=== PATIENT | female | born 1950 | race Caucasian/White ===

== ENCOUNTER → 2020-05-20 10:14 | Outpatient (CLI) | payer MEDICARE, SELFPAY ==
--- NOTE | ~2020-05-20 | MM_ITS ---
EXAMINATION: MM screening beba RT w johana HISTORY: Screening right mammogram, history of left mastectomy TECHNIQUE: Craniocaudal and mediolateral oblique 3-D tomosynthesis images were obtained and synthetic 2-D images were generated. CAD analysis was submitted and interpreted. COMPARISON: 10/21/2016, 04/22/2016, 12/04/2014 BREAST PARENCHYMAL COMPOSITION: There are scattered areas of fibroglandular density. FINDINGS: A stable mass in the upper outer quadrant of the breast is considered benign given the lack of interval change. There is no evidence of suspicious mass, calcification, or architectural distort ion to suggest malignancy. There has been no suspicious interval change. IMPRESSION: 1. No mammographic evidence of malignancy. 2. Recommend routine screening mammography in one year. BI-RADS Category 2: Benign finding(s). Reviewed, dictated and finalized at location A. [employer] MAINTENANCE TECHNICIAN
== END ==
PROVIDERS: PCP Family Medicine Adolescent Medicine; Visit Provider Family Medicine Adolescent Medicine
DX: Z12.31 Encounter for screening mammogram for malignant neoplasm of breast (principal)
CPT/HCPCS: 77063; 77067

== ENCOUNTER 2020-06-13 06:14 | Outpatient (CLI) | payer MEDICARE, SELFPAY ==
[2020-06-13 11:18] LABS: Basophils Absolute Auto 0.1 K/mm3 (0.0-0.1); Basophils Percent Auto 0.5 % (0.2-1.2); Eosinophils Absolute Auto 0.1 K/mm3 (0-0.3); Hematocrit 39.1 % (37.0-47.0); Hemoglobin 12.7 g/dL (12.0-15.0); Immature Granulocyte Absolute 0.03 K/mm3 (0.00-0.031); Immature Granulocyte Percent A 0.3 % (0-0.5); Lymphocytes Percent Auto 17.6 % (18.3-44.2); Mean Corpuscular HGB Conc 32.5 g/dl (32-36); Mean Corpuscular Hemoglobin 30.9 pg (26-34); Mean Corpuscular Volume 95.1 fl (80-100); Mean Platelet Volume 9.1 fl (7.4-10.4); Monocytes Percent Auto 9.3 % (2.6-8.5); Neutrophils Absolute Auto 7.7 K/mm3 (1.3-6.7); Neutrophils Percent Auto 71.3 % (45.5-73.1); Platelet Count Result 375 k/mm3 (150-375); Red Blood Count 4.11 M/mm3 (4.2-5.4); Red Cell Distribution Width 14.2 % (11.5-14.5); White Blood Count 10.8 K/mm3 (4.5-10.0)
[2020-06-13 11:28] LABS: INR 0.9; Prothrombin Time 12.5 Seconds (11.1-14.7)
[2020-06-13 11:29] LABS: Alanine Aminotransferase 28 U/L (4-35); Albumin Level 4.1 g/dL (3.5-5.1); Alkaline Phosphatase 82 U/L (38-126); Anion Gap 7 mmol/L (8-16); Aspartate Amino Transferase 38 U/L (14-36); Bilirubin,Total 0.3 mg/dL (0.2-1.3); Blood Urea Nitrogen 30 mg/dL (7-17); Calcium 9.5 mg/dL (8.4-10.2); Carbon Dioxide 31 mmol/L (22-30); Chloride 102 mmol/L (98-107); Estimated Glomerular Filt Rate > 60; Glucose 96 mg/dL (65-105); Partial Thromboplastin Time 25.2 SECONDS (22.3-36.8); Potassium 4.1 mmol/L (3.4-5.0); Sodium 140 mmol/L (137-145)
== END 2020-06-13 06:15 ==
LOC: ANHSURGERY 07-21 06:14
PROVIDERS: PCP Family Medicine Adolescent Medicine; Visit Provider Urology
DX: Z01.812 Encounter for preprocedural laboratory examination (principal); N81.10 Cystocele, unspecified; Z51.81 Encounter for therapeutic drug level monitoring; Z79.899 Other long term (current) drug therapy
CPT/HCPCS: 36415; 80053; 85025; 85610; 85730; 86850; 86900; 86901; 87086; 87088

== ENCOUNTER 2020-06-20 01:47 | Outpatient (CLI) | payer MEDICARE, SELFPAY ==
[2020-06-20 20:00] LABS: SARS-CoV-2 RNA PCR Negative
== END 2020-06-20 01:48 | disposition home or self-care (01) ==
LOC: ANHCOVIDDT 01:47
PROVIDERS: PCP Family Medicine Adolescent Medicine; Visit Provider Urology
DX: Z01.812 Encounter for preprocedural laboratory examination (principal); Z20.828 Contact with and (suspected) exposure to other viral communicable diseases
CPT/HCPCS: 87635; C9803; U0003

== ENCOUNTER 2020-06-23 01:24 | Day surgery (SDC) | payer MEDICARE, SELFPAY ==
[2020-06-13 10:13] VITALS: BMI 25.2
[2020-06-13 11:04] VITALS: BP 146/75; PULSE 64; RESP 16; TEMP 36.7; O2SAT 99
--- NOTE | 2020-06-20 13:38 | WPDANESEPPF ---
Anes - Initial Pre Proc Eval Procedure: Operation Date: 06/23/20 07:30 Proposed Procedures p Robotic Sacrocolpopexy, Possible Urethral Sling - Akil Huff MD s Total Laparoscopic Hysterectomy with Bilateral Salpingo-Oophorectomy - Smiley De La Cruz MD Date/Time: 06/20/20 13:38 Surgeon: Akil Huff MD Pre Op Diagnosis: vaginal prolapse Patient Data Age: 70 Gender: F Height: 1.7 m Weight: 73 kg Last Vital Signs Temp 36.7 C 06/13/20 11:04 Pulse 64 06/13/20 11:04 Resp 16 06/13/20 11:04 BP 146/75 H 06/13/20 11:04 Pulse Ox 99 06/13/20 11:04 Allergies Allergy/AdvReac Type Severity Reaction Status Date / Time codeine AdvReac Unknown Diarrhea Verified 06/23/20 06:03 Home Medications Medication Instructions Recorded Confirmed Type lisinopril 20 mg PO HS 07/22/19 06/23/20 History ascorbic acid (vitamin C) [Vitamin 1,000 mg PO DAILY 06/13/20 06/23/20 History C] aspirin [Aspirin Low Dose] 81 mg PO DAILY 06/13/20 06/23/20 History calcium 600 mg PO DAILY 06/13/20 06/23/20 History [id number] 1 tablet PO DAILY 06/13/20 06/23/20 History multivitamin [Multiple Vitamin] 1 tablet PO DAILY 06/13/20 06/23/20 History [id number]-epa-fish oil [[place] 3] 1 cap PO DAILY 06/13/20 06/23/20 History vitamin B complex 1 cap PO DAILY 06/13/20 06/23/20 History Patient hx anesthesia problems: none Family hx anesthesia problems: none PMFSH Past Medical History Medical History (Updated 06/21/20 @ 15:43 by Akil Huff MD) Arthritis Breast cancer, left Hernia HTN (hypertension) SBO (small bowel obstruction) Strangulation of intestine TIA (transient ischemic attack) Surgical History Surgical History H/O arthroscopy of right knee H/O left mastectomy with implant History of bowel resection History of cholecystectomy Family History Family History (Updated 07/23/19 @ 00:46 by Salena Ramires) Sibling A-fib Social History Social History (Updated 07/23/19 @ 00:44 by Salena Ramires) Smoking status: Never smoker Alcohol intake: current Drinks per week: 2 Substance use: never Living arrangements: with family Additional living arrangements comments: [facility] Gender identity (if verbalized by the patient): Female Spiritual care concerns: No Anes - Eval Final PreProcedure Day of Procedure 06/20/20 13:38 Patient weight: overweight Heart: regular rate and rhythm Lungs: clear to auscultation and normal air movement Airway: Mallampati scale class II Neurological: alert and oriented Last oral intake: >/= 8 hours ASA classification: III Emergent: no Anesthetic plan: proceed Anesthesia type and monitoring: general ETT and standard monitoring Informed Consent: The patient's anesthetic plan and its attendant risks and benefits were discussed with the patient/family/POA. Questions were solicited and answers provided to the satisfaction of the patient/family/POA.
--- NOTE | 2020-06-21 15:40 | PM.IMHP ---
H&P: HPI History of Present Illness Date/Time: 06/21/20 15:40 Chief Complaint: POP/MAO Narrative: Rosalba Turcios is a 70 year old female with POP and MAO Review of Systems Review of Systems: All systems reviewed & are unremarkable except as noted in HPI and below PMFSH Past Medical History Medical History (Updated 06/21/20 @ 15:43 by Akil Huff MD) Arthritis Breast cancer, left Hernia HTN (hypertension) SBO (small bowel obstruction) Strangulation of intestine TIA (transient ischemic attack) Surgical History Surgical History H/O arthroscopy of right knee H/O left mastectomy with implant History of bowel resection History of cholecystectomy Family History Family History (Updated 07/23/19 @ 00:46 by Salena Ramires) Sibling A-fib Social History Social History (Updated 07/23/19 @ 00:44 by Salena Ramires) Smoking status: Never smoker Alcohol intake: current Drinks per week: 2 Substance use: never Additional living arrangements comments: [facility] Gender identity (if verbalized by the patient): Female Spiritual care concerns: No Meds Home Medications and Allergies Home Medications Medication Instructions Recorded Confirmed Type lisinopril 20 mg PO HS 07/22/19 06/13/20 History ascorbic acid (vitamin C) [Vitamin 1,000 mg PO DAILY 06/13/20 06/13/20 History C] aspirin [Aspirin Low Dose] 81 mg PO DAILY 06/13/20 06/13/20 History calcium 600 mg PO DAILY 06/13/20 06/13/20 History [id number] 1 tablet PO DAILY 06/13/20 06/13/20 History multivitamin [Multiple Vitamin] 1 tablet PO DAILY 06/13/20 06/13/20 History tgkej-[id number]-hsm-epa-fish oil [[place] 3] 1 cap PO DAILY 06/13/20 06/13/20 History vitamin B complex 1 cap PO DAILY 06/13/20 06/13/20 History Allergies Allergy/AdvReac Type Severity Reaction Status Date / Time codeine AdvReac Unknown Diarrhea Verified 06/13/20 10:06 Exam Const: General: cooperative and healthy appearing Eyes: General: appearance normal, both eyes and all related structures Neck: Neck: normal visual inspection GI: Inspection: normal to inspection : Bimanual Exam- Adnexa, other: cystocele (+3) and No apex supported (0) Skin: General skin exam: normal color Extrem: General: normal to inspection Assessment and Plan Assessment and plan (1) Uterine prolapse: Code(s): N81.4 - Uterovaginal prolapse, unspecified Status: Acute Assessment and Plan: robotic Sacral Colpopexy (2) MAO (stress urinary incontinence, female): Code(s): N39.3 - Stress incontinence (female) (male) Status: Acute Assessment and Plan: Urethral sling
[2020-06-23] VITALS (16 sets, daily range): BP systolic 81–125; BP diastolic 41–75; PULSE 49–77; RESP 12–18; TEMP 36.2–37.4; O2SAT 96–100
[2020-06-23] MEDS: LACTATED RINGERS 1,000 ML 30 ML IV CONT ×2 (06:52→10:32)
[2020-06-23] MEDS: KETOROLAC 15 MG/ML VIAL (*BKC) IV PUSH ×2 (06:53→15:52)
[2020-06-23] MEDS: ACETAMINOPHEN 500 MG TABLET 1000 MG PO (06:53)
--- NOTE | 2020-06-23 07:12 | WPDHPUPDATE1 ---
History and Physical Update Update Date/Time: 06/23/20 07:12 History and Physical has been reviewed, including an updated exam of the patient. There are NO changes in the patient's condition. Risks, benefits, and alternatives have been discussed and questions answered. Patient agrees to proceed with procedure.
--- NOTE | 2020-06-23 07:16 | WPDHPUPDATE1 ---
History and Physical Update Update Date/Time: 06/23/20 07:16 History and Physical has been reviewed, including an updated exam of the patient. There are NO changes in the patient's condition. Risks, benefits, and alternatives have been discussed and questions answered. Patient agrees to proceed with procedure.
[2020-06-23] MEDS: ceFAZolin 2 GM/D5W 50 ML 2 GM/50 ML BAG IVPB (07:35)
[2020-06-23] MEDS: metroNIDAZOLE 500 MG/ISO 100ML 500 MG/100 ML BAG 100 MG IVPB ×2 (07:45→18:53)
--- NOTE | 2020-06-23 09:25 | PM.PROC ---
Procedure Note - Detailed Date of procedure: 06/23/20 Pre-op diagnosis: vaginal prolapse Post-op diagnosis: same Procedure performed: Laparoscopic supracervical hysterectomy with bilateral salpingo oophorectomy. Description of procedure: The trocars were placed by Dr. Huff. An additional trocars placed in the left lower quadrant trocar site. A 5 mm trocar placed through a 5 mm skin incision made with a scalpel. It was done under direct visualization of the scope. The ureters were identified bilaterally after the patient was placed in a Trendelenburg position. The infundibulopelvic ligaments were isolated, cauterized and transected with LigaSure cautery in the area of the ovary. Moving around the ovary, in a bilateral fashion, the para ovarian tissue was cauterized, transected with LigaSure. The round ligament was cauterized and transected with LigaSure cautery. This was done in a bilateral fashion. The broad ligament was cauterized and transected in a stepwise fashion down to the uterine arteries. This was done in a bilateral fashion as well. The superior branches of the uterine artery were cauterized and transected with LigaSure cautery. Cervix was then transected in the upper 3rd of the body of the cervix using monopolar cautery. The uterus was placed in endobag and sent off to the side in the abdomen. Anesthesia: GETA Surgeon: Smiley De La Cruz MD Estimated blood loss (mL): 20 Drains: No Packing: No Pathology: yes Complications: No immediate complications Condition: stable Disposition: PACU Findings: Atrophic uterus and ovaries. Normal appearing fallopian tubes. The ureters were clearly identified.
--- NOTE | 2020-06-23 10:25 | PM.PROC ---
Procedure Note - Detailed Date of procedure: 06/23/20 Pre-op diagnosis: vaginal prolapse Uterine prolapse Stress urinary incontinence Post-op diagnosis: same Procedure performed: Robotic assisted laparoscopic sacral colpopexy Mid urethral sling (transobturator sling) Cystoscopy Description of procedure: Anesthesia: General She understood the risks of bleeding, infection, damage to surrounding organs, bowel injury, bowel obstruction, recurrence of prolapse, persistent or recurrent stress incontinence, mesh related complications including exposure and extrusion, diskitis, postoperative voiding dysfunction including incontinence and retention, hip and leg pain, dyspareunia, and she agrees to proceed. She was correctly identified and informed consent was obtained. She was brought to the operating room. She was given general anesthesia. She was placed in the dorsal lithotomy position. All pressure points were padded. She was given appropriate perioperative antibiotics. Time-out performed. I anesthetized the skin 3 fingerbreadths cephalad to the umbilicus. I incised the skin. I dissected down to locate the fascia. I grasped the fascia with Tomi clamps. I entered the fascia sharply. I placed Vicryl sutures for later fascial closure. I placed a midline trocar. Under direct vision 2 additional trocars were placed on the right and left upper quadrant. She was placed in steep Trendelenburg. There were some omental adhesions that I took down sharply. Her industrial maintenance technician performed the portion of the procedure and left the specimen and a sac which was extracted. I then docked the robot and sat at the console. With the Sizer in the vagina I created a plane on the anterior and posterior vaginal wall. This was done for several cm taking great care not to injure the vagina, bladder, or rectum. I introduced the mesh into the abdomen. I sewed the anterior leaflet of mesh on the anterior vaginal wall and posterior leaf of the mesh on the posterior vaginal wall with several Cushing-Saul sutures taking great care not to go through and through. I then reflected the colon laterally. I opened up the posterior peritoneum over the sacral promontory. I carried this into the cul-de-sac. I kept the ureters lateral. I freed up the edges. I located the anterior longitudinal ligament of the sacrum. I tensioned the mesh appropriately. I did a vaginal exam to ensure prolapse reduction without undue tension. I then sewed the proximal leaflet of mesh onto the ligament with 3 sutures of 2 0 Cushing-Saul. Next the mass was meticulously retroperitonealized with a running 2 0 Monocryl suture. I allowed the colon to go back into its normal anatomic location. There is no signs of any impingement or stricturing. The abdomen was exited. Fascia was closed. Skin was closed with Monocryl and glue. She was repositioned and prepped for urethral sling. I marked out the thigh incisions. I anesthetize the skin and made those incisions. I anesthetized the anterior vaginal wall over the mid urethra. I made a 1 cm incision. I dissected out laterally taking great care not to injure the urethra or the vaginal wall. I next passed the helical trocars to 1st on the left and then on the right. This was done from the thigh incision towards the vaginal incision. The sling was connected to the trocars and brought out through the thigh incision. I tensioned the sling appropriately. I cut and removed the plastic sheaths. I then closed the incision with 2 0 Vicryl. I then performed cystoscopy. The bladder is examined. There was no tumors, stones, foreign bodies, surgical artifact. Both ureters were seen to excrete clear yellow urine. There is no surgical artifact in the urethra. Catheter was then replaced. She was awakened and transferred to the PACU in stable condition. Anesthesia: GLMA Surgeon: Akil Huff MD Drains: Yes (Mcintosh catheter) Packing: Yes Complications: No immediate complicati
[2020-06-23] MEDS: KCL 20 MEQ/D5/0.45% SOD CHL 1,000 ML 100 ML IV CONT ×2 (11:15→22:34)
[2020-06-23] MEDS: HYDROcodone/acetaminophen (*CRX) 5-325 MG TABLET 1 TAB PO (22:37)
[2020-06-24] MEDS: metroNIDAZOLE 500 MG/ISO 100ML 500 MG/100 ML BAG 100 MG IVPB ×2 (00:20→11:32)
[2020-06-24 04:00] VITALS: BP 98/57; PULSE 78; RESP 16; TEMP 36.2; O2SAT 97
[2020-06-24] MEDS: HYDROcodone/acetaminophen (*CRX) 5-325 MG TABLET 1 TAB PO ×2 (04:59→08:27)
[2020-06-24] MEDS: KCL 20 MEQ/D5/0.45% SOD CHL 1,000 ML 100 ML IV CONT (05:56)
[2020-06-24] MEDS: DOCUSATE SODIUM 100 MG CAPSULE PO (08:28)
[2020-06-24 08:40] VITALS: BP 104/59; PULSE 75; RESP 16; TEMP 36.8; O2SAT 98
--- NOTE | 2020-06-24 08:57 | WPDANESPN ---
Anes - Prog Note Post-Op Date/Time: 06/24/20 08:57 Cardiovascular status: normal Respiratory status: normal Airway patency: baseline Mental status: baseline Post-Op hydration status: normal Vital Signs: Last Vital Signs Temp 36.2 C L 06/24/20 04:00 Pulse 78 06/24/20 04:00 Resp 16 06/24/20 04:00 BP 98/57 L 06/24/20 04:00 Pulse Ox 97 06/24/20 04:00 Pain Score (VAS): 4 I/O: Intake & Output 06/23/20 06/24/20 06/24/20 23:59 07:59 15:59 Intake Total 1200 1200 Output Total 75 450 Balance 1125 750 Post-procedural complaints: none and nausea Patient Feedback: Patient satisfied with anesthetic care.
--- NOTE | 2020-06-24 09:15 | PC.NURSE ---
Patient called out to nurses station stating that she was nauseous. Upon entering the room, patient was in chair at bedside. Patient stated that she was feeling nauseated on and off and a little dizzy. Vital signs taken 110/51 100% Room Air 16 71BPM. Denies need for medication at this time. 06/24/2020 0915
[2020-06-24] MEDS: ONDANSETRON INJ 4 MG/2 ML VIAL IV PUSH (09:40)
--- NOTE | 2020-06-24 09:40 | PC.NURSE ---
Patient called out to nurses station stating that she was experiencing a dull pain in her chest and feeling nauseated again. Vital signs 96/66 72BPM, assessment completed- all systems WNL. Zofran 4mg given IVP and crackers provided. This RN assisted patient back into bed and stayed bedside to assure that patient was feeling better. 06/24/2020 0940
--- NOTE | 2020-06-24 10:15 | PC.NURSE ---
Patient states she is feeling much better and is resting in bed at this time. 06/24/2020 1013
--- NOTE | 2020-06-24 11:30 | PC.NURSE ---
Patient requested to try to sit in a chair at bedside because she is feeling much better. This RN assisted patient to chair, she tolerated activity well. Patient also ate crackers and drank a soda and tolerated that well.
--- NOTE | 2020-06-24 13:15 | PC.NURSE ---
This RN used bladder scanner post void, 220 documented. Phone call placed to Dr. Huff at 13:15 06/24/2020.
--- NOTE | 2020-06-24 14:14 | PC.NURSE ---
Call placed to Dr. Clay office. Spoke to nurse practitioner (Mi) and gave report regarding patients output and bladder scanner results. Verbal orders to replace edouard catheter and discharge patient home with edouard catheter. Call office once patient is discharged to schedule appointment for Tuesday morning to do a void trial.
[2020-06-24 16:00] VITALS: BP 104/59; PULSE 75; RESP 16; TEMP 36.8; O2SAT 98
[2020-06-24] MEDS: ACETAMINOPHEN 325 MG TABLET 650 MG PO (17:39)
--- NOTE | 2020-06-24 18:35 | PC.NURSE ---
1600 Spoke with Lesly SIMENTAL at Dr. Huff's office. Pt has voided 400cc in one void. Bladder scanned- [address] Huff is ok with patient being discharged home without catheter. She is to call to make an appointment on Tuesday to be seen in the office. I informed her to do so and that if she has unexpected complications or is unable to void she is to come to the ER, she expressed understanding. 1740 Delay in discharge due to computer issues. Discharge instructions would not print. IS help desk informed, situation resolved.
== END 2020-06-24 17:45 | disposition home or self-care (01) ==
LOC: ANHSURGERY 08:21 → ANHOB2 11:48
PROVIDERS: Obstetrics & Gynecology; PCP Family Medicine Adolescent Medicine; Visit Provider Urology
PROC: (CPT 57425; principal; 2020-06-23 07:30)
PROC: 0UT9FZZ Resection of Uterus, Via Natural or Artificial Opening With Percutaneous Endoscopic Assistance (ICD-10-PCS; CPT 58542; 2020-06-23 07:30)
DX: N81.4 Uterovaginal prolapse, unspecified (principal); N39.3 Stress incontinence (female) (male); N84.0 Polyp of corpus uteri; N73.6 Female pelvic peritoneal adhesions (postinfective); N80.0 Endometriosis of uterus; D25.1 Intramural leiomyoma of uterus; M19.90 Unspecified osteoarthritis, unspecified site; Z85.3 Personal history of malignant neoplasm of breast; K46.9 Unspecified abdominal hernia without obstruction or gangrene; I10 Essential (primary) hypertension; Z86.73 Personal history of transient ischemic attack (TIA), and cerebral infarction without residual deficits; Z79.82 Long term (current) use of aspirin
CPT/HCPCS: 58542; 57425; 51992; S2900; 88307; 99199; A9270; C1771; C1781; J0690; J1100; J1170; J1885; J2250; J2370; J2405; J2704; J2710; J3010; J3480; J7030; J7120

== ENCOUNTER 2021-09-17 09:50 | Outpatient (CLI) | payer MEDICARE, SELFPAY ==
--- NOTE | ~2021-09-17 | US_ITS ---
US abdomen limited INDICATION: Hepatomegaly PROCEDURE: Realtime right upper abdominal ultrasound. COMPARISON: No prior studies for comparison. FINDINGS: The pancreas is normal without focal mass or pancreatic ductal dilation there is hepatomega ly. No focal hepatic masses or abnormal echotexture is seen.. Liver echotexture is normal without fo eladio mass or intrahepatic biliary dilatation. There is normal directional flow in the portal vein. Gallbladder is surgically absent. Common bile duct measures 7 mm. No sonographic Isidro's sign. Inc idental note is made of a 2 cm right renal cyst. IMPRESSION: 1: Hepatomegaly. 2: Status post cholecystectomy with expected prominence of the common bile duct. Reviewed, dictated and finalized at location B. IMPRESSION: 1: Hepatomegaly. 2: Status post cholecystectomy with expected prominence of the common bile duct .
== END 2021-09-17 09:51 | disposition home or self-care (01) ==
LOC: ANHIMG 09:53
PROVIDERS: PCP Family Medicine Adolescent Medicine; Visit Provider Physician Assistant
DX: R16.0 Hepatomegaly, not elsewhere classified (principal); Z90.49 Acquired absence of other specified parts of digestive tract; N28.1 Cyst of kidney, acquired
CPT/HCPCS: 76705

== ENCOUNTER 2021-11-25 07:01 | Outpatient (CLI) | payer MEDICARE, SELFPAY ==
--- NOTE | ~2021-11-25 | CT_ITS ---
EXAMINATION: CT abdomen pelvis w con DATE: 11/25/2021 07:38 INDICATION: Hepatomegaly, not elsewhere classified. Weight loss. TECHNIQUE: Computed tomography (CT) of the abdomen and pelvis was performed with 75 mL Omnipaque 300 intravenous contrast. Automated exposure control and iterative reconstruction technique were employed . The dose-length product was 420.80 mGy-cm. COMPARISON: CT abdomen 03/02/2008, ultrasound 09/17/2021 FINDINGS: The visualized portions of the lung bases demonstrate mild atelectasis. No pleural effusion . The heart size is normal. No pericardial effusion. There are cysts in the liver measuring up to 8 m m. Calcifications in the liver and spleen are consistent with old granulomatous disease. There are ch anges of cholecystectomy. The pancreas, adrenal glands, and left kidney are normal. There is a 2.0 cm cyst in right kidney. There is diverticulosis of the colon without evidence of diverticulitis. There are no dilated loops of bowel. The appendix is not visualized. There are changes of right inguinal h ernia repair. There is an anastomosis in the small bowel. There are no pathologically enlarged lymph nodes. There is no free intraperitoneal fluid. There is a plug from left inguinal hernia repair. Ther e is severe lumbar spondylosis. Lumbar dextroscoliosis is noted. IMPRESSION: 1. No evidence of malignancy. Reviewed, dictated and finalized at location A.
[2021-11-25 07:28] LABS: Estimated Glomerular Filt Rate > 60
== END 2021-11-25 07:02 | disposition home or self-care (01) ==
PROVIDERS: PCP Family Medicine Adolescent Medicine; Visit Provider Internal Medicine Gastroenterology
DX: R16.0 Hepatomegaly, not elsewhere classified (principal); R43.8 Other disturbances of smell and taste; R63.4 Abnormal weight loss
CPT/HCPCS: 74177; Q9967

== ENCOUNTER → 2022-03-26 13:31 | Outpatient (CLI) | payer MEDICARE, SELFPAY ==
--- NOTE | ~2022-03-26 | XR_ITS ---
XR chest 2V DATE: 03/26/2022 14:06 INDICATION: Dyspnea TECHNIQUE: 2 views COMPARISON: 07/01/2009 portable AP chest FINDINGS: There is bilateral hyperinflation, increased retrosternal airspace and relative flattening the diaphragm, consistent with COPD. Mild bilateral apical scarring. Likely chronic minimal blunting of the right costophrenic angle. Mild discoid atelectasis or scarring at the base of the left lower lobe. Approximately 8 mm nodular density overlying the right lung base, possibly nipple shadow; recommend P A repeat view with nipple markers. No pulmonary infiltrate or consolidation, pleural effusion or pulm onary vascular congestion or pneumothorax is noted. Heart size. IMPRESSION: Probable nipple shadow projecting over the right lung base; recommend repeat PA view with nipple markers COPD Mild bilateral apical and left basilar scarring No active pulmonary disease Reviewed, dictated and finalized at location B. IMPRESSION: Probable nipple shadow projecting over the right lung base; recomme nd repeat PA view with nipple markers COPD Mild bilateral apical and left basilar scarring No active pulmonary disease
== END ==
PROVIDERS: PCP Family Medicine Adolescent Medicine; Visit Provider Family Medicine Adolescent Medicine
DX: R06.00 Dyspnea, unspecified (principal); R06.02 Shortness of breath; J44.9 Chronic obstructive pulmonary disease, unspecified; R91.8 Other nonspecific abnormal finding of lung field
CPT/HCPCS: 71046

== ENCOUNTER → 2022-04-02 10:50 | Outpatient (CLI) | payer MEDICARE, SELFPAY ==
--- NOTE | ~2022-04-02 | XR_ITS ---
XR chest 1V 04/02/2022 11:03 Indication: Dyspnea. Procedure: PA view of the chest Comparison: Comparison to multiple prior studies sequentially, with oldest reviewed study dated 02/23. Findings: Nodular density in the right lung base corresponds to nipple marker. The lungs are hyperinf lated which is consistent with, but not diagnostic of chronic obstructive pulmonary disease. There is chronic apical pleural thickening/scarring. No acute focal pneumonia, edema, pleural effusion or pne umothorax. No acute osseous abnormality. Impression: 1: No acute cardiopulmonary disease. Reviewed, dictated and finalized at location B. Impression: 1: No acute cardiopulmonary disease.
== END ==
PROVIDERS: PCP Family Medicine Adolescent Medicine; Visit Provider Family Medicine Adolescent Medicine
DX: R06.00 Dyspnea, unspecified (principal)
CPT/HCPCS: 71045

== ENCOUNTER 2022-04-13 08:06 | Outpatient (CLI) | payer MEDICARE, SELFPAY ==
--- NOTE | 2022-04-13 13:00 | WPDPFTINT ---
PFT Procedure Performed PFT Procedure Performed Spirometry with Pre/Post Bronchodilator Plethysmography (Lung Vol) Diffusing Cap (DLCO) Flow Vol Loop PFT Interpretation DOS: 04/13/2022 REQUESTING: Dr. Mainor Wallace REASON FOR TESTING: dyspnea PULMONARY FUNCTION TESTS Results are reliable and reproducible. Spirometry: Forced vital capacity is 104% predicted, 3.18 L, normal. FEV1 87% predicted, 2.02 L, normal. FEV1/ FVC ratio is 64% which is at the lower end of normal. [id number]% is 59% 1.12 L which is still in the normal range. No bronchodilator was given. Lung volumes: Total lung capacity is 5.68 L, 103%. Residual volume is 2.38 L, 99%, normal. RV/TLC is 42, normal. There is no hyperinflation or air trapping. Airway resistance is 145, mildly elevated. Diffusion: DLCO 15.8 ml/min/mmHg, on the low end of normal, 74% predicted. DLCO/VA 3.78 ml/min/mmHg/L, 92% predicted, normal. Flow volume loop: There is mild flattening of the inspiratory limb which may represent a variable extrathoracic obstruction. IMPRESSION: This study shows a normal spirometry, absence of airflow obstruction, normal lung volumes and mild flattening of the expiratory limb which might indicate a variable extrathoracic obstruction. Some examples of variable extrathoracic obstruction may include mobile tumors, polychondritis, vocal cord paralysis, and extrathoracic tracheomalacia. Clinical correlation is recommended. No bronchodilator was given. The report indicates that the patient has a history of COVID. No prior studies to compare. There is nothing on this study that indicates she has post-COVID changes in airflow or diffusion. Melissa Busby MD
== END 2022-04-13 08:07 | disposition home or self-care (01) ==
PROVIDERS: PCP Family Medicine Adolescent Medicine; Visit Provider Family Medicine Adolescent Medicine
DX: R06.00 Dyspnea, unspecified (principal)
CPT/HCPCS: 94375; 94726; 94729

== ENCOUNTER → 2022-04-15 12:01 | Outpatient (CLI) | payer MEDICARE, SELFPAY ==
--- NOTE | ~2022-04-15 | MR_ITS ---
EXAMINATION: MR cervical spine wo/w con, MR thoracic spine wo/w con, MR sacrum wo/w con, MR lumbar sp ine wo/w con DATE: 04/15/2022 14:33 INDICATION: Myelitis with numbness in the ankles, feet and abdomen and bilateral leg weakness. TECHNIQUE: 1. Magnetic resonance imaging (MRI) of the cervical spine was performed without and with 12 mL Multih ance intravenous contrast. Sequences included sagittal T2-weighted FSE, sagittal T2-weighted FS FSE, sagittal T1-weighted FSE, axial T2-weighted FSE, and axial T1-weighted SE. Postcontrast sequences inc luded sagittal T1-weighted FS FSE, and axial T1-weighted FS SE. 2. MRI of the thoracic spine was performed without and with 12 mm MultiHance intravenous contrast uti lizing the same contrast bolus. Sagittal localizer T1-weighted FSE of the cervicothoracic spine was o btained. Sequences included sagittal T2-weighted FSE, sagittal T2-weighted FS FSE, sagittal T1-weight ed FSE and axial T1-weighted SE. Postcontrast sequences included axial T2-weighted FSE, sagittal T1-w eighted FS FSE, and axial T1-weighted FS SE. 3. MRI of the lumbar spine was performed without and with 12 mm MultiHance intravenous contrast utili zing the same contrast bolus. Sequences included sagittal T2-weighted FSE, sagittal T2-weighted FS FS E, and sagittal and axial T1-weighted FSE. Postcontrast sequences included axial T2-weighted FSE, sag ittal T1-weighted FSE, and axial and sagittal T1-weighted FS FSE. 4. MRI of the sacrum was performed without and with 12 mm MultiHance intravenous contrast utilizing t he same contrast bolus. Sequences included sagittal T2-weighted FS FSE , oblique axial T1-weighted FS E and T2-weighted FS FSE, oblique coronal T1-weighted FSE, T2-weighted FSE and T2-weighted FS FSE and postcontrast oblique axial and oblique coronal T1-weighted FS FSE. COMPARISON: Lumbar spine MR dated 11/17/[address] abdomen and pelvis dated 11/25/2021 FINDINGS: Cervical spine: 1-2 mm retrolisthesis C4 on C5 and 2 mm retrolisthesis C6 on C7. Vertebral body heights are normal. T1 and T2 hyperintense hemangioma at the left side of C7. Bone marrow signal intensity is otherwise n ormal. Moderate disc height loss at C3-C4, C5-C6 and C6-C7. Mild disc height loss at C4-C5. Cord sign al intensity is normal. Cervical soft tissues are unremarkable. No abnormally enhancing cortical bone lesions identified. The following disc levels are specifically discussed: C2-C3: The disc does not extend beyond the endplate margin. There is mild left uncovertebral joint os teoarthritis. There is moderate bilateral facet joint osteoarthritis. There is mild left neural stella inal stenosis. There is no central canal stenosis. C3-C4: Disc is minimally bulging. There is moderate left and severe right uncovertebral joint osteoar thritis. There is mild right and moderate left facet joint osteoarthritis. There is mild right and mi ld to moderate left neural foraminal stenosis. There is no central canal stenosis. C4-C5: Disc is mildly bulging. There is moderate bilateral uncovertebral joint osteoarthritis. There is mild bilateral facet joint osteoarthritis. There is mild right and mild to moderate left neural fo raminal stenosis. There is no central canal stenosis. C5-C6: The disc does not extend beyond the endplate margin. There is moderate to severe right and sev ere left uncovertebral joint osteoarthritis. There is severe bilateral facet joint osteoarthritis. Th ere is moderate left and mild to moderate right neural foraminal stenosis. There is no central canal stenosis. C6-C7: Disc is bulging. There is severe bilateral uncovertebral joint osteoarthritis. There is modera te bilateral facet joint osteoarthritis. There is moderate left and mild right neural foraminal steno sis. There is mild central canal stenosis. C7-T1: The disc does not extend beyond the endplate margin. There is no uncovertebral joint osteoarth
== END ==
PROVIDERS: PCP Family Medicine Adolescent Medicine
DX: G04.91 Myelitis, unspecified (principal); M47.812 Spondylosis without myelopathy or radiculopathy, cervical region; M47.814 Spondylosis without myelopathy or radiculopathy, thoracic region; M41.84 Other forms of scoliosis, thoracic region; M16.0 Bilateral primary osteoarthritis of hip; J90 Pleural effusion, not elsewhere classified; M47.816 Spondylosis without myelopathy or radiculopathy, lumbar region
CPT/HCPCS: 72156; 72157; 72158; 72197; A9577

== ENCOUNTER → 2022-05-25 08:00 | Outpatient (CLI) | payer MEDICARE, SELFPAY ==
--- NOTE | ~2022-05-25 | US_ITS ---
US abdomen complete EXAMINATION: US Abdomen Complete INDICATION: Elevated liver enzymes. Possible ascites. PROCEDURE: Realtime High Resolution abdomen ultrasound. COMPARISON: Ultrasound dated 09/17/2021 FINDINGS: No bladder is surgically absent. Common bile duct measures 7.5 mm. Liver echotexture within normal limits without focal mass. Pancreas within normal limits. Pancreati c tail is obscured by bowel gas. Spleen is unremarkeable. Renal echotexture is within normal limits bilaterally without hydronephrosis, contour deforming mass or renal stone. Right kidney measures 10 c m. Left kidney measures 11.1 cm. There is a right renal cyst measuring 2.5 cm. Visualized aspects of the aorta and IVC are within normal limits. Portal vein is patent. No sonograph ic Isidro's sign indicated by the technologist. IMPRESSION: 1: Right renal cyst measuring 2.5 cm. Reviewed, dictated and finalized at location B. MS SUPERVISOR
== END ==
PROVIDERS: PCP Family Medicine Adolescent Medicine; Visit Provider Family Medicine Adolescent Medicine
DX: N28.1 Cyst of kidney, acquired (principal); R60.9 Edema, unspecified
CPT/HCPCS: 76700

== ENCOUNTER 2022-06-11 15:35 | Emergency (ER) | payer MEDICARE, SELFPAY ==
--- NOTE | ~2022-06-11 | CT_ITS ---
EXAMINATION: CT abdomen pelvis w con DATE: 06/11/2022 23:02 INDICATION: Abdominal pain, nausea and constipation TECHNIQUE: Computed tomography (CT) of the abdomen and pelvis was performed with 100 mL Omnipaque-350 intravenous contrast. Automated exposure control and iterative reconstruction technique were employe d. The dose-length product was 279.83 mGy-cm. COMPARISON: 11/25/2021 FINDINGS: Chronic tree-in-bud opacity right middle lobe likely sequela of chronic infection. Also consistent wi th old granulomatous disease. Small calcified nodules in the right middle lobe, spleen and at the dom e of the liver. Heart size is normal. No pericardial or pleural effusion. Partially visualized left b reast implant. Cholecystectomy clips the gallbladder fossa. Hepatomegaly with diffuse hepatic steatos is. A few small scattered low-attenuation hepatic cysts. Pancreas, bilateral adrenal glands and left kidney are normal. 2.6 cm right renal cyst. Mcintosh catheter in the bladder. Small bilateral fat-contai shandra inguinal hernias. Postoperative change of prior right inguinal hernia repair. Postoperative tapia ges along the small bowel with anastomotic suture line in the anterior right pelvis. No bowel obstruc tion. Moderate to large amount of stool scattered throughout the colon. There are few diverticula patricia ng the sigmoid colon without adjacent from 3 change to suggest diverticular colitis. Small amount of primarily perihepatic ascites. Moderate to severe lower lumbar spondylosis with 7 mm anterolisthesis L4 on L5. IMPRESSION: 1. Moderate to large amount of stool scattered throughout the colon consistent with given history of constipation. No bowel obstruction. 2. Hepatomegaly with diffuse hepatic steatosis. 3. Minimal ascites. Reviewed, dictated and finalized at location A. S DESIGNER
[2022-06-11 15:49] VITALS: BP 74/51; PULSE 93; RESP 18; TEMP 37; O2SAT 100
[2022-06-11 16:10] VITALS: BP 108/56
[2022-06-11 16:15] LABS: Basophils Percent Auto 0.4 % (0.2-1.2); Eosinophils Absolute Auto 0.2 K/mm3 (0-0.3); Eosinophils Percent Auto 2.2 % (0-4.4); Hematocrit 40.6 % (37.0-47.0); Hemoglobin 13.6 g/dL (12.0-15.0); Immature Granulocyte Absolute 0.03 K/mm3 (0.00-0.031); Immature Granulocyte Percent A 0.3 % (0-0.5); Lymphocytes Absolute Auto 1.66 K/mm3 (0.9-3.2); Lymphocytes Percent Auto 15.3 % (18.3-44.2); Mean Corpuscular HGB Conc 33.5 g/dl (32-36); Mean Corpuscular Hemoglobin 31.8 pg (26-34); Mean Corpuscular Volume 94.9 fl (80-100); Mean Platelet Volume 9.2 fl (7.4-10.4); Monocytes Percent Auto 9.5 % (2.6-8.5); Neutrophils Absolute Auto 7.9 K/mm3 (1.3-6.7); Neutrophils Percent Auto 72.3 % (45.5-73.1); Platelet Count Result 394 k/mm3 (150-375); Red Blood Count 4.28 M/mm3 (4.2-5.4); Red Cell Distribution Width 15.2 % (11.5-14.5); White Blood Count 10.9 K/mm3 (4.5-10.0)
[2022-06-11 16:25] LABS: Alanine Aminotransferase 74 U/L (6-35); Albumin Level 2.4 g/dL (3.5-5.1); Alkaline Phosphatase 123 U/L (38-126); Anion Gap 0 mmol/L (8-16); Aspartate Amino Transferase 97 U/L (14-36); Bilirubin,Total 0.1 mg/dL (0.2-1.3); Blood Urea Nitrogen 34 mg/dL (7-17); Carbon Dioxide 30 mmol/L (22-30); Chloride 98 mmol/L (98-107); Estimated CRCL calculation 36 ml/min; Estimated Glomerular Filt Rate 44; Glucose 97 mg/dL (65-110); Potassium 3.6 mmol/L (3.4-5.0); Sodium 128 mmol/L (137-145)
[2022-06-11 16:33] LABS: NT Pro B Type Natriuretic Pept 5150 pg/mL (5-100)
[2022-06-11 18:37] LABS: Appearance Urine Clear (Clear); Bilirubin Urine Negative (Negative); Blood Urine 1+ (Negative); Color Urine Yellow (Yellow); Glucose Urine UA Trace mg/dL (Negative); Ketones Urine Negative (Negative); Leukocyte Esterase Ur Negative LEU/UL (Negative); Nitrate Urine Negative (Negative); Protein Urine 3+ mg/dL (Negative); Urobilinogen Urine 0.2 mg/dL (<2.0); pH Urine 6.5 (5.0-9.0)
[2022-06-11 18:39] LABS: Mucus Urine Rare /lpf; RBC Urine 0-2 /hpf (0-2); Squamous Epithelial Cell Urine Occasional /hpf (Few)
[2022-06-11 18:40] LABS: Add Urine Microscopic? YES
[2022-06-11 19:31] VITALS: BP 109/64; PULSE 79; TEMP 36.3; O2SAT 100
[2022-06-11 22:42] VITALS: BP 107/64; PULSE 81; RESP 17; O2SAT 100
--- NOTE | 2022-06-11 22:43 | ED.FEMALEGU ---
HPI - Female Genitourinary General Chief complaint: Urogenital-Female Stated complaint: Urinary sx. Time Seen by Provider: 06/11/22 21:58 History of Present Illness HPI Narrative: 72-year-old female here for evaluation of multiple medical complaints. First patient is reporting urinary retention. She has a history of urinary retention and underwent a pelvic sling procedure with Dr. Arredondo in 2019. States that she has had intermittent issues with urinary retention since then, but over the past 2 days the retention has been more severe. Reports several episodes of dribbling urine and a sensation of incomplete void. Denies dysuria, urgency or hematuria. Next, patient is complaining of constipation for the past several months. She has seen her PCP for this issue; has been taking MiraLAX and prune juice, but states that her bowel movements have been less frequent. She does have a history of lumbar stenosis, denies saddle anesthesia or back pain. Next, she is complaining of bilateral lower extremity swelling for the past 2 months. Patient states that she had an echocardiogram ordered by her PCP recently that showed a normal EF. No chest pain, shortness of breath. Related Data Home Medications Medication Instructions Recorded Confirmed ascorbic acid (vitamin C) 1,000 mg 1,000 mg PO DAILY 06/13/20 03/26/22 tablet,extended release (Vitamin C ER) calcium 600 mg capsule 600 mg PO DAILY 06/13/20 03/26/22 glucosamine 250 mj-inxos-zsm 200 1 tablet PO DAILY 06/13/20 03/26/22 mg-D3 1,500 ciiy-G-cgrkq-herbs tablet qachg3-hsa-ssl-other avitk2c-sinz 1 cap PO DAILY 06/13/20 03/26/22 oil 350 mg- 400 mg capsule zinc 50 mg tablet 50 mg PO DAILY 09/07/21 03/26/22 aspirin 81 mg tablet,delayed 81 mg PO DAILY 10/01/21 03/26/22 release (Adult Aspirin Regimen) alpha lipoic acid 100 mg capsule 100 mg PO BID 03/26/22 03/26/22 thiamine HCl (vitamin B1) 100 mg 50 mg PO DAILY 03/26/22 03/26/22 tablet furosemide 20 mg tablet 20 mg PO QAM 05/25/22 Allergies Allergy/AdvReac Type Severity Reaction Status Date / Time nitrofurantoin AdvReac Mild Nausea Verified 06/08/22 12:56 codeine AdvReac Unknown Diarrhea Verified 06/08/22 12:56 Review of Systems Review of Systems: Gen.: Denies fevers or chills Eyes: Denies eye pain or visual change ENT: Denies congestion Respiratory: Denies shortness of breath or cough CV: Denies chest pain or palpitations GI: Reports constipation. Denies abdominal pain nausea, emesis or diarrhea reports urinary retention. Denies burning, urgency, frequency or hematuria Musculoskeletal: Reports leg swelling. Denies back pain or muscle pain Neuro: Denies numbness, tingling, weakness or focal weakness Skin: Denies rash Except as documented, all other systems reviewed and negative REPLACED BY [facility] Past Medical History Medical History Arthritis Breast cancer, left (2006) Hernia HTN (hypertension) Hx of breast cancer Pure hypercholesterolemia, unspecified SBO (small bowel obstruction) (2007) Strangulation of intestine TIA (transient ischemic attack) Unilateral primary osteoarthritis, right knee Surgical History Surgical History H/O arthroscopy of right knee H/O left mastectomy (2006) with implant History of abdominal surgery (2007) Lysis of adhesions (laparoscopic) History of bowel resection (2006) For infarction History of cholecystectomy History of hernia repair (2008) Right femoral hernia History of hysterectomy 06/2020 Family History Family History Sibling A-fib Father Carcinoma of colon Cerebrovascular accident Colon polyp Mother Hypertension Heart disease A-fib Grandparent Diabetes mellitus Other Breast cancer Social History Social History (Reviewed 06/08/22 @ 12:56 by Adelita Pressley MA
--- NOTE | 2022-06-11 22:55 | PC.NURSE ---
Patient taken to CT via stretcher at this time.
[2022-06-12 01:07] VITALS: BP 107/67; PULSE 80; RESP 17; O2SAT 97
== END 2022-06-12 01:08 | disposition home or self-care (01) ==
PROVIDERS: Nurse Practitioner Family; Emergency Provider Physician Assistant; PCP Family Medicine Adolescent Medicine
DX: R33.9 Retention of urine, unspecified (principal); I10 Essential (primary) hypertension; E78.00 Pure hypercholesterolemia, unspecified; M17.11 Unilateral primary osteoarthritis, right knee; Z85.3 Personal history of malignant neoplasm of breast; Z86.73 Personal history of transient ischemic attack (TIA), and cerebral infarction without residual deficits; Z90.12 Acquired absence of left breast and nipple; Z90.49 Acquired absence of other specified parts of digestive tract; Z90.710 Acquired absence of both cervix and uterus; Z79.82 Long term (current) use of aspirin
CPT/HCPCS: 36415; 51702; 74177; 80053; 81001; 83880; 85025; 99284; Q9967

== ENCOUNTER 2022-06-14 09:03 | Inpatient (IN) | payer MEDICARE, SELFPAY ==
[2022-06-14] VITALS (13 sets, daily range): BP systolic 99–135; BP diastolic 61–69; PULSE 71–88; RESP 11–20; TEMP 36.4–36.6; O2SAT 95–100; BMI 21.0
--- NOTE | ~2022-06-14 | US_ITS ---
EXAMINATION: US renal BI DATE: 06/14/2022 23:53 INDICATION: Renal failure. TECHNIQUE: Multiple ultrasound grayscale images of the kidneys were obtained. COMPARISON: CT abdomen and pelvis 06/14/2022 FINDINGS: The right kidney measures 10.2 x 4.1 x 5.6 cm. The left kidney measures 11.9 x 5.0 x 6.1 cm. The righ t kidney demonstrates increased parenchymal echogenicity, consistent with nephropathy. There is a 2.4 cm cyst in right kidney. There is no hydronephrosis. The bladder is decompressed. IMPRESSION: 1. Normal kidney sizes. No hydronephrosis. 2. Increased right-sided renal parenchymal echogenicity, consistent with nonspecific nephropathy. Reviewed, dictated and finalized at location A. GER LABOR RELATIONS IMPRESSION: 1. Normal kidney sizes. No hydronephrosis. 2. Increased right-sided renal parenchymal echogenicity, consistent with nonspe cific nephropathy.
--- NOTE | ~2022-06-14 | CT_ITS ---
EXAMINATION: CT abdomen pelvis wo/w con DATE: 06/14/2022 11:36 INDICATION: Hematuria. Abdominal pain. TECHNIQUE: Computed tomography (CT) of the abdomen and pelvis was performed without and with intraven ous contrast using a total of 130 mL Omnipaque-350 intravenous contrast with a double-bolus technique for simultaneous opacification of the renal parenchyma and renal collecting system. Automated exposu re control and iterative reconstruction technique were employed. The dose-length product was 561.52 m Gy-cm. COMPARISON: CT abdomen and pelvis 06/11/2022, 11/25/2021 FINDINGS: The visualized portions of the lung bases demonstrate mild atelectasis. There are tree-in-bud opacifi cations opacities in right middle lobe, consistent with chronic infection. There is mild bronchiectas is in right middle lobe. There are small pleural effusions. The heart size is normal. There are coron jess artery calcifications. No pericardial effusion. Partially visualized is a left breast implant. Th ere are cysts in the liver measuring up to 6 mm. Calcifications in the spleen are consistent with old granulomatous disease. There are changes of cholecystectomy. The pancreas and adrenal glands are nor mal. There is a 2.7 cm cyst in right kidney. There is no urolithiasis. The right ureter is not well o pacified distally, but is normal. There is a 5 mm cyst in left kidney. The left ureter is not well op acified distally, but is normal. The bladder is normal. There is a Mcintosh catheter in expected positio n. There is diverticulosis of the colon without evidence of diverticulitis. There are changes of righ t inguinal hernia repair. There is a small volume of ascites. There are no pathologically enlarged ly mph nodes. There is severe lumbar spondylosis. Lumbar dextroscoliosis is noted. IMPRESSION: 1. No etiology for hematuria. 2. Small pleural effusions. 3. Small volume of ascites. Reviewed, dictated and finalized at location A. ONAL GUARD MEMBER
--- NOTE | ~2022-06-14 | CT_ITS ---
EXAMINATION: CT brain wo con DATE: 06/14/2022 09:51 INDICATION: Generalized weakness. Lightheadedness. TECHNIQUE: Computed tomography (CT) of the head was performed without intravenous contrast. The mA wa s adjusted according to patient size. Iterative reconstruction technique was employed. The dose-lengt h product was 605.33 mGy-cm. COMPARISON: None FINDINGS: There are scattered areas of low attenuation in the cerebral white matter. There is no intr acranial hemorrhage, acute infarction, or abnormal intracranial mass lesion. The ventricles are kathleen l in size. There is mucosal thickening in the paranasal sinuses. The orbits are normal. The mastoid a ir cells are normal. IMPRESSION: 1. Mild nonspecific cerebral white matter disease, which likely represents chronic small vessel ische estefanía disease. Reviewed, dictated and finalized at location A. STRIAL ORDER CLERK IMPRESSION: 1. Mild nonspecific cerebral white matter disease, which likely represents repeater operator dede small vessel ischemic disease.
--- NOTE | ~2022-06-14 | XR_ITS ---
EXAMINATION: XR chest 2V DATE: 06/14/2022 10:05 INDICATION: Weakness. Abdominal discomfort. TECHNIQUE: Frontal and lateral views of the chest were obtained. COMPARISON: Chest single view 04/02/2022, CT abdomen and pelvis 06/11/2022 FINDINGS: There is stable mild scarring at the lung apices. There are airspace opacities at the lung bases. There are small pleural effusions. No pneumothorax. The heart size is normal. There are surgic al clips in left axilla. IMPRESSION: 1. Airspace opacities at the lung bases, consistent with atelectasis versus pneumonia. 2. Small pleural effusions. Reviewed, dictated and finalized at location A. [facility] IMPRESSION: 1. Airspace opacities at the lung bases, consistent with atelectasis versus pne umonia. 2. Small pleural effusions.
--- NOTE | ~2022-06-14 | US_ITS ---
EXAMINATION: US biopsy renal DATE: 06/29/2022 12:52 INDICATION: Renal failure TECHNIQUE: The procedure including the risks, benefits, and alternatives was discussed with the patie nt. Risks discussed included bleeding and infection. The patient understood the risks and agreed to p roceed. A timeout was performed to verify the patient's name, date of , and procedure to be p erformed. The skin overlying the left kidney was prepped and draped in usual sterile fashion. Anest hetic was administered with 1% lidocaine subcutaneously. An 18 gauge core biopsy needle was then use d to obtain 4 core biopsy specimens under continuous sonographic guidance. The entry site was cleaned and dressed. There were no immediate complications. FINDINGS: Ultrasound images demonstrate the needle in the lower pole of the left kidney. IMPRESSION: 1. Ultrasound-guided random left kidney core needle biopsy. Reviewed, dictated and finalized at location A. OGRAPHER HELPER
--- NOTE | 2022-06-14 09:11 | ECG_ITS ---
Measurements Intervals [place] Rate: 70 P: 5 DC: 173 QRS: 29 QRSD: 94 T: 68 QT: 416 QTc: 450 Interpretive Statements SINUS RHYTHM NONSPECIFIC T-WAVE ABNORMALITY BORDERLINE ECG COMPARED TO ECG 07/22/2019 23:22:29 T-WAVE ABNORMALITY NOW PRESENT Electronically Signed On 06-14-2022 15:06:08 ZIPPER TRIMMER HAND by Erasmo Roth M.D.
--- NOTE | 2022-06-14 09:19 | ED.RECABL ---
HPI - Recheck/Abnormal Lab/Rx General Chief Complaint: Recheck/Abnormal Lab/Rx <Dhara Odonnell PA-C - Last Filed: 06/14/22 17:02> Stated Complaint: LOW BLOOD PRESSURE <Dhara Odonnell PA-C - Last Filed: 06/14/22 17:02> Time Seen by Provider: 06/14/22 09:14 <Dhara Odonnell PA-C - Last Filed: 06/14/22 17:02> Source: patient <Dhara Odonnell PA-C - Last Filed: 06/14/22 17:02> Mode of arrival: EMS <Dhara Odonnell PA-C - Last Filed: 06/14/22 17:02> Limitations: no limitations <Dhara Odonnell PA-C - Last Filed: 06/14/22 17:02> History of Present Illness HPI narrative: This is a 72 year old female that presents to the ER for generalized weakness. Reports she was evaluated for this in the ER 2 days ago and found to have urinary retention. Mcintosh catheter was placed. She was started on antibiotics for possible UTI and Reports continued weakness and low blood pressure. Reports yesterday she started to note blood in the catheter. Reports some abdominal discomfort and chronic low back pain. No recent injuries. Denies fever, chest pain, shortness of breath, vomiting. <Dhara Odonnell PA-C - Last Filed: 06/14/22 17:02> Related Data Home Medications: Home Medications Medication Instructions Recorded Confirmed ascorbic acid (vitamin C) 1,000 mg 1,000 mg PO DAILY 06/13/20 03/26/22 tablet,extended release (Vitamin C ER) calcium 600 mg capsule 600 mg PO DAILY 06/13/20 03/26/22 glucosamine 250 dy-kgdgz-sqd 200 1 tablet PO DAILY 06/13/20 03/26/22 mg-D3 1,500 efwq-A-gyuds-herbs tablet jdjud7-kdr-xwq-other vrzsn9w-ixdt 1 cap PO DAILY 06/13/20 03/26/22 oil 350 mg- 400 mg capsule zinc 50 mg tablet 50 mg PO DAILY 09/07/21 03/26/22 aspirin 81 mg tablet,delayed 81 mg PO DAILY 10/01/21 03/26/22 release (Adult Aspirin Regimen) alpha lipoic acid 100 mg capsule 100 mg PO BID 03/26/22 03/26/22 thiamine HCl (vitamin B1) 100 mg 50 mg PO DAILY 03/26/22 03/26/22 tablet furosemide 20 mg tablet 20 mg PO QAM 05/25/22 <Dhara Odonnell PA-C - Last Filed: 06/14/22 17:02> Allergies/Adverse Reactions: Allergies Allergy/AdvReac Type Severity Reaction Status Date / Time nitrofurantoin AdvReac Mild Nausea Verified 06/08/22 12:56 codeine AdvReac Unknown Diarrhea Verified 06/08/22 12:56 <Dhara Odonnell PA-C - Last Filed: 06/14/22 17:02> Review of Systems Review of Systems: CONSTITUTIONAL: Denies fever EYES: Denies redness, or discharge. ENT: Denies congestion CARDIOVASCULAR: Denies chest pain RESPIRATORY: Denies cough or dyspnea. GASTROINTESTINAL: Reports abdominal pain, nausea. Denies vomiting, or diarrhea. GENITOURINARY: Reports hematuria. MUSCULOSKELETAL: Reports back pain, joint pain, and myalgia. NEUROLOGIC: Reports generalized weakness. Denies numbness <Dhara Odonnell PA-C - Last Filed: 06/14/22 17:02> All systems reviewed & are unremarkable except as noted in HPI and below <Dhara Odonnell PA-C - Last Filed: 06/14/22 17:02> [facility] Past Medical History Medical History: Medical History (Updated 06/14/22 @ 16:32 by Dhara Odonnell PA-C) Arthritis Breast cancer, left (2006) Hernia Hx of breast cancer Hypertension Pure hypercholesterolemia, unspecified SBO (small bowel obstruction) (2007) Strangulation of intestine TIA (transient ischemic attack) Unilateral primary osteoarthritis, right knee <Dhara Odonnell PA-C - Last Filed: 06/14/22 17:02> Surgical History Surgical History: Surgical History (Updated 06/14/22 @ 15:18 by Mirta Hurt PA-C) H/O arthroscopy of right knee H/O left mastectomy (2006) with implant History of abdominal surgery (2007) Lysis of adhesions (laparoscopic) History of bowel resection (2006) For infarction History of cholecystectomy History of hernia repair (2008) Right femoral hernia. History of hysterectomy (06/2020) 06/2020 <Dhara Odonnell PA-C - Last Filed: 06/14/22 17:02> Family History Fami
[2022-06-14 09:49] LABS: Basophils Absolute Auto 0.1 K/mm3 (0.0-0.1); Basophils Percent Auto 0.4 % (0.2-1.2); Eosinophils Absolute Auto 0.1 K/mm3 (0-0.3); Hematocrit 40.2 % (37.0-47.0); Hemoglobin 13.4 g/dL (12.0-15.0); Immature Granulocyte Absolute 0.04 K/mm3 (0.00-0.031); Immature Granulocyte Percent A 0.3 % (0-0.5); Lymphocytes Absolute Auto 1.29 K/mm3 (0.9-3.2); Lymphocytes Percent Auto 9.3 % (18.3-44.2); Mean Corpuscular HGB Conc 33.3 g/dl (32-36); Mean Corpuscular Hemoglobin 31.8 pg (26-34); Mean Corpuscular Volume 95.3 fl (80-100); Mean Platelet Volume 9.2 fl (7.4-10.4); Monocytes Percent Auto 7.4 % (2.6-8.5); Neutrophils Absolute Auto 11.3 K/mm3 (1.3-6.7); Neutrophils Percent Auto 81.6 % (45.5-73.1); Platelet Count Result 351 k/mm3 (150-375); Red Blood Count 4.22 M/mm3 (4.2-5.4); Red Cell Distribution Width 15.1 % (11.5-14.5); White Blood Count 13.8 K/mm3 (4.5-10.0)
[2022-06-14 10:01] LABS: Alanine Aminotransferase 47 U/L (6-35); Albumin Level 2.2 g/dL (3.5-5.1); Alkaline Phosphatase 94 U/L (38-126); Anion Gap 2 mmol/L (8-16); Aspartate Amino Transferase 64 U/L (14-36); Bilirubin,Total 0.2 mg/dL (0.2-1.3); Blood Urea Nitrogen 38 mg/dL (7-17); Calcium 7.6 mg/dL (8.4-10.2); Carbon Dioxide 28 mmol/L (22-30); Chloride 96 mmol/L (98-107); Estimated CRCL calculation 35 ml/min; Estimated Glomerular Filt Rate 44; Glucose 101 mg/dL (65-110); Lipase 31 U/L (23-300); Potassium 3.3 mmol/L (3.4-5.0); Sodium 126 mmol/L (137-145)
[2022-06-14 10:02] LABS: Appearance Urine Turbid (Clear); Color Urine Light Red (Yellow); Mucus Urine Few /lpf; RBC Urine >75 /hpf (0-2); WBC Clumps Urine Present /HPF; WBC Urine >75 /hpf
[2022-06-14 10:03] LABS: Add Urine Microscopic? YES
[2022-06-14] MEDS: SODIUM CHLORIDE 0.9% IV 1,000 ML 999 ML IV CONT (11:09)
[2022-06-14] MEDS: POTASSIUM CHLORIDE 20 MEQ PACKET (FOR LIQUID) 40 MEQ PO (12:27)
[2022-06-14 13:49] LABS: Influenza A QL RT-PCR Negative (Negative); Influenza B QL RT-PCR Negative (Negative); SARS-CoV-2 RNA PCR Negative
--- NOTE | 2022-06-14 14:30 | PM.IMHP ---
H&P: HPI History of Present Illness Date/Time: 06/14/22 14:30 Chief Complaint: Weakness. Narrative: This is a 72-year-old female with history of hypertension, hyperlipidemia, hypothyroidism, and breast cancer presented to the emergency department via EMS from home for evaluation of weakness. She reports a gradual decline in health since having a hysterectomy in June 2020 with progressive weakness from weight loss which she attributes to the fact that her taste has been off since that surgery and food just does not taste good to her. She has been feeling worse since March with ongoing issues with low blood pressures, near-syncope, constipation, paresthesias in both feet, intermittent swelling in her feet, occasional sensations of rapid heartbeat, fatigue, and shortness of breath with exertion. She has had a pretty significant workup done by her primary care doctor and per patient report she has had normal PFTs and stress test in the last couple of months. MRI of the complete spine done little over a month ago showed severe central canal stenosis at L4-L5 and she has been referred to neurosurgery for evaluation. Within the last week she started having issues with urinary urgency and inability to completely empty her bladder and she was started on Macrobid for presumed UTI which was changed to cephalexin due to upset stomach. She was seen in the ED on 06/11/2022 with difficulties urinating and a Mcintosh catheter was inserted as she was retaining over 700 mL of urine. She returns to the ER today due to ongoing weakness and frequent episodes of near-syncope which she believes may be related to low blood pressures. She has been off of her antihypertensives for ?quite some time? and she still frequently has blood pressures in the 80s when waking in a.m.. She denies fever, chills, sweats, cold and flu symptoms, vertigo, headache, neck ache, chest pain, resting shortness of breath, nausea, vomiting, and diarrhea. Of note, the patient noticed pink tinged urine coming from her Mcintosh catheter today. Review of Systems Review of Systems: 12 systems were reviewed and are negative except for as per HPI. [facility] Past Medical History Medical History (Updated 06/14/22 @ 20:54 by Mirta Hurt PA-C) Arthritis Cancer of left breast (2006) Status post left mastectomy. Dyslipidemia Hernia Hypertension Pure hypercholesterolemia, unspecified SBO (small bowel obstruction) (2007) TIA (transient ischemic attack) Unilateral primary osteoarthritis, right knee Surgical History Surgical History (Updated 06/14/22 @ 15:18 by Mirta Hurt PA-C) H/O arthroscopy of right knee H/O left mastectomy (2006) with implant History of abdominal surgery (2007) Lysis of adhesions (laparoscopic) History of bowel resection (2006) For infarction History of cholecystectomy History of hernia repair (2008) Right femoral hernia. History of hysterectomy (06/2020) 06/2020 Family History Family History Sibling A-fib Father Carcinoma of colon Cerebrovascular accident Colon polyp Mother Hypertension Heart disease A-fib Grandparent Diabetes mellitus Other Breast cancer Social History Social History (Updated 06/14/22 @ 20:46 by Mirta Hurt PA-C) Social History: Surrogate medical decision maker: Axel Turcios, spouse. Code status: Full code. Smoking status: Never smoker Second hand tobacco smoke exposure: No Alcohol intake: former Drinks per week: 2 Alcohol use details: Rarely Substance use: never Substance use type: does not use Lack of Transportation: No Lack of Food: Never True Current Housing: I Have Housing Concerned About Future Housing: No Difficulty Paying Gas/Electric Bills: No Difficulty Paying for Meds: No Currently Unemployed: No Education: Bachelor's Degree Difficulty w/ Childcare or Family Care: No Additional living arrange
--- NOTE | 2022-06-14 18:37 | PC.NURSE ---
hospitalist Jamaal reported thet patient is on the floor via voice massage and asked to put diet order in please
[2022-06-14 21:46] LABS: Anion Gap 2 mmol/L (8-16); Blood Urea Nitrogen 35 mg/dL (7-17); Calcium 7.5 mg/dL (8.4-10.2); Carbon Dioxide 28 mmol/L (22-30); Chloride 99 mmol/L (98-107); Estimated CRCL calculation 35 ml/min; Estimated Glomerular Filt Rate 44; Glucose 116 mg/dL (65-110); Magnesium 2.3 mg/dL (1.6-2.3); Potassium 3.2 mmol/L (3.4-5.0); Sodium 129 mmol/L (137-145)
[2022-06-14 21:51] LABS: Creatine Kinase 168 U/L (30-135)
[2022-06-14 21:54] LABS: CRP < 0.5 mg/dL (<1.0)
[2022-06-14] MEDS: polyethylene glycoL 3350 17 GM POWD.PACK PO (22:43)
[2022-06-14] MEDS: SODIUM CHLORIDE 0.9% IV 1,000 ML 75 ML IV CONT (22:43)
[2022-06-15] VITALS (9 sets, daily range): BP systolic 76–125; BP diastolic 43–64; PULSE 58–93; RESP 13–20; TEMP 36.3–37.3; O2SAT 94–98; BMI 22.2
[2022-06-15] MEDS: ACETAMINOPHEN 325 MG TABLET 650 MG PO (00:12)
[2022-06-15] MEDS: MELATONIN 5 MG TABLET PO (00:12)
[2022-06-15] MEDS: POTASSIUM CHLORIDE 20 MEQ TABLET PO (02:21)
[2022-06-15 02:42] LABS: Folic Acid > 20.0 ng/mL (2.76->20)
[2022-06-15] MEDS: LEVOTHYROXINE SODIUM 75 MCG TABLET PO (06:37)
[2022-06-15 06:42] LABS: Hematocrit 35.6 % (37.0-47.0); Hemoglobin 11.9 g/dL (12.0-15.0); Mean Corpuscular HGB Conc 33.4 g/dl (32-36); Mean Corpuscular Volume 95.7 fl (80-100); Mean Platelet Volume 9.5 fl (7.4-10.4); Platelet Count Result 339 k/mm3 (150-375); Red Blood Count 3.72 M/mm3 (4.2-5.4); Red Cell Distribution Width 15.2 % (11.5-14.5); White Blood Count 9.8 K/mm3 (4.5-10.0)
[2022-06-15 06:47] LABS: Alanine Aminotransferase 38 U/L (6-35); Albumin Level 1.9 g/dL (3.5-5.1); Alkaline Phosphatase 91 U/L (38-126); Anion Gap -1 mmol/L (8-16); Aspartate Amino Transferase 52 U/L (14-36); Bilirubin,Total 0.1 mg/dL (0.2-1.3); Blood Urea Nitrogen 34 mg/dL (7-17); Calcium 7.1 mg/dL (8.4-10.2); Carbon Dioxide 27 mmol/L (22-30); Chloride 103 mmol/L (98-107); Estimated CRCL calculation 36 ml/min; Estimated Glomerular Filt Rate 44; Glucose 92 mg/dL (65-110); Potassium 3.4 mmol/L (3.4-5.0); Sodium 129 mmol/L (137-145)
[2022-06-15] MEDS: ZINC SULFATE 220 MG CAPSULE PO (08:42)
[2022-06-15] MEDS: CALCIUM CARBONATE (OSCAL) 500 MG TABLET PO (08:42)
[2022-06-15] MEDS: polyethylene glycoL 3350 17 GM POWD.PACK PO (08:42)
[2022-06-15] MEDS: ASCORBIC ACID 500 MG TABLET 1000 MG PO (08:42)
[2022-06-15] MEDS: MIDODRINE HCL 2.5 MG TABLET 5 MG PO ×3 (08:42→16:39)
[2022-06-15] MEDS: OMEGA 3 POLYUNSAT FATTY ACIDS 1 GM CAP PO (08:42)
[2022-06-15] MEDS: THIAMINE HCL 50 MG TABLET PO (08:42)
[2022-06-15] MEDS: SODIUM CHLORIDE 0.9% IV 1,000 ML 75 ML IV CONT (12:07)
--- NOTE | 2022-06-15 12:11 | PCSTNOTE ---
Bedside swallowing evaluation. Patient received trials of thin liquid (water) by straw and pureed food (chilled applesauce) by spoon. No signs or symptoms of aspiration observed. Patient presents with swallowing abilities and function within normal limits. It is not possible to rule out silent aspiration at bedside. Patient has no complaints of coughing/choking and none were observed at bedside. Long standing dysgeusia since July 2020 and weight loss. No speech therapy is recommended. Thank you for the referral of this patient.
--- NOTE | 2022-06-15 14:45 | PM.IMPN ---
Progress Note: A&P Assessment and Plan (1) Generalized weakness: Code(s): R53.1 - Weakness Status: Acute Assessment and Plan: Patient with generalized weakness related to her weight loss and poor oral intake. Hyponatremia could also be contributing to her weakness. TSH and B12 levels are normal. Suspect her spinal stenosis also is contributing to her lower extremity weakness but not her general malaise. Continue PT and OT. Increase time out of bed. (2) Dysgeusia: Code(s): R43.2 - Parageusia Status: Acute Assessment and Plan: Patient with significant dysgeusia for the past 2 years. She states symptoms began shortly after her hysterectomy in June 2020. She has lost 30 lb since this time. Food has a bitter taste which results in gagging. She does see a specialist for this in [place] and has had extensive workup. She can tolerate dietary supplements and dietitian has been working with the patient here on this issue. (3) Hyponatremia: Code(s): E87.1 - Hypo-osmolality and hyponatremia Status: Acute Assessment and Plan: Sodium 128 on admission. She is on Lasix which may be contributing to this. Lasix is on hold. TSH normal. Cortisol within normal limits. Continue IV fluids. Monitor sodium levels. (4) Hypokalemia: Code(s): E87.6 - Hypokalemia Status: Acute Assessment and Plan: Potassium was low on admission and has been corrected. Continue to follow and replace as needed. (5) Urinary retention: Code(s): R33.9 - Retention of urine, unspecified Status: Acute Assessment and Plan: Patient noted to have urine retention with Mcintosh catheter placed on June 12. Hematuria noted probably related to Mcintosh trauma. CT of the abdomen pelvis does not show any significant renal abnormalities. Renal ultrasound shows normal kidney size and no hydronephrosis. She does have increased right-sided renal parenchymal echogenicity consistent with nonspecific nephropathy. Unclear if this is contributing to her hematuria but seems less likely. Urology has been consulted. (6) Renal failure: Code(s): N19 - Unspecified kidney failure Status: Acute Assessment and Plan: creatinine elevated to 1.2 but stable. She has a normal baseline creatinine earlier this year. Chest x-ray clear but does have bronchiectasis noted on CT. Given her proteinuria, will proceed with further evaluation. Nephrology consult. (7) Hypoalbuminemia: Code(s): E88.09 - Other disorders of plasma-protein metabolism, not elsewhere classified Status: Acute Assessment and Plan: As above. (8) Hematuria: Qualifiers: Hematuria type: gross Qualified Code(s): R31.0 - Gross hematuria Code(s): R31.9 - Hematuria, unspecified Status: Acute Assessment and Plan: As above (9) Heart murmur: Code(s): R01.1 - Cardiac murmur, unspecified Status: Acute Assessment and Plan: Echo ordered. Follow-up on results. (10) Elevated LFTs: Code(s): R79.89 - Other specified abnormal findings of blood chemistry Status: Acute Assessment and Plan: LFTs mildly elevated. Hepatitis panel is negative in November. no concerning findings noted on the CT of the abdomen. There were liver cysts noted. She has had elevated liver enzymes in the past so consider hepatic steatosis. Low albumin is noted probably related to the proteinuria. Subjective Date/time seen: 06/15/22 14:45 Interval history: 72yo female with spinal stenosis, hx of breast CA and HTN here for generalized weakness and presyncope. Patient was noted to have urine retention had a Mcintosh catheter placed on 06/12. She was draining dark yellow urine up until the night prior to admission when she noted pink discoloration to the urine. She denies any trauma to the Mcintosh. He also noted to h
[2022-06-15 17:50] LABS: Creatinine Urine 85.1 mg/dL
[2022-06-15 18:18] LABS: Eosinophil Urine Rare % (None Seen)
[2022-06-15 19:32] LABS: Sodium Urine Random < 5 meq/L; Total Protein Urine Random > 300 mg/dL
--- NOTE | 2022-06-15 21:12 | ECHO_ITS ---
Patient Info Name: Rosalba Turcios Age: 72 years : 1950 Gender: Female Ht: 67 in Wt: 134 lbs BSA: 1.69 m2 HR: 83 bpm BP: 76 / 50 mmHg Heart Rhythm: Sinus Rhythm Technical Quality: Good Exam Date: 06/15/2022 7:47 AM Exam Location: [facility] Patient Status: Inpatient Admit Date: 06/14/2022 Staff Ordering Physician: Mirta Hurt PA-C Hand Crown Pouncer: Gilma Yanez RDCS Attending Provider: Jayme Scott MD Referring Physician: Licha MENDEZ; Exam Type: CA echo doppler color flow Study Info Indications R01.1 - Cardiac murmur, unspecified Complete two-dimensional, color flow and Doppler transthoracic echocardiogram is performed. Summary 1. Complete two-dimensional, color flow and Doppler transthoracic echocardiogram is performed. 2. Left ventricular chamber dimension is normal. 3. Left ventricular systolic function is hyperdynamic, estimated at >70%. 4. There is mildly increased left ventricular wall thickness. 5. The left ventricular diastolic function is grade I diastolic dysfunction. 6. E/e' 26 is significantly elevated. 7. Left atrial chamber dimension is moderately enlarged. 8. There is mild aortic valve sclerosis. 9. Moderate non-obstructive systolic anterior motion of the mitral valve. 10. There is mild mitral valve regurgitation. 11. There is trace tricuspid valve regurgitation. 12. No pulmonary hypertension, estimated pulmonary arterial systolic pressure is 39 mmHg. 13. There is trace pulmonic regurgitation. Left Ventricle E/e' 26 is significantly elevated. Left ventricular chamber dimension is normal. Left ventricular systolic function is hyperdynamic, estimated at >70%. There is mildly increased left ventricular wall thickness. The left ventricular diastolic function is grade I diastolic dysfunction. Right Ventricle Right ventricular systolic function is normal and with normal TAPSE 1.7 cm. Right ventricular chamber dimension is normal. Left Atria Left atrial chamber dimension is moderately enlarged. Right Atria Right atrial chamber dimension is normal. Aortic Valve The aortic valve is trileaflet. There is mild aortic valve sclerosis. There is no aortic valve stenosis. There is no aortic valve regurgitation. Pulmonic Valve There is trace pulmonic regurgitation. Mitral Valve Moderate non-obstructive systolic anterior motion of the mitral valve. There is no mitral valve stenosis. There is mild mitral valve regurgitation. Tricuspid Valve There is trace tricuspid valve regurgitation. No pulmonary hypertension, estimated pulmonary arterial systolic pressure is 39 mmHg. Pericardium/Pleural There is no pericardial effusion. Inferior Vena Cava Normal inferior vena cava with >50% collapse upon inspiration consistent with normal right atrial pressure, 5 mmHg. Aorta The aortic root size at the sinus of Valsalva is normal. Left Ventricular Outflow Tract Name Value Normal LVOT 2D LVOT Diameter 2.0 cm LVOT Doppler LVOT Peak Gradient 1 mmHg LVOT Mean Gradient 1 mmHg LVOT VTI
--- NOTE | 2022-06-15 21:25 | WPDURCON ---
Assessment and Plan Assessment and plan (1) Hematuria: Qualifiers: Hematuria type: gross Qualified Code(s): R31.0 - Gross hematuria Code(s): R31.9 - Hematuria, unspecified Status: Acute Assessment and Plan: CT shows normal upper tracts. Patient had a normal Cysto on 06/23/2020. Urine culture is growing pseudomonas, no sensitivity yet, continue Ceftriaxone. Infection versus traumatic edouard insertion is likely the cause of hematuria. However, I recommend a cysto as an outpatient to further assess. (2) Acute UTI: Code(s): N39.0 - Urinary tract infection, site not specified Status: Acute (3) Urinary retention: Code(s): R33.9 - Retention of urine, unspecified Status: Acute Assessment and Plan: The patient may need to have urodynamics repeated in the office to rule out atonic bladder if she is unable to pass a voiding trial. She should keep her edouard in 7-10 days and f/u in the office for a voiding trial and repeat urine culture. No further evaluation at this time. Urology Consult Note HPI Date Seen: 06/15/22 Time Seen: 11:30 Requesting Physician: Jayme Scott MD Primary Care Provider: Mainor Wallace MD Consult Narrative Reason for consult: Urinary Retention/UTI, Gross Hematuria Narrative: Rosalba Turcios is a 72 year old female who initially presented to the ER for urinary retention on 06/11/22 had a edouard placed with 700cc of urine return. She was discharged home but then returned to the ER on 06/13/22 for gross hematuria. She has a creatinine of 1.20, WBC of 9.8 is currently on Ceftriaxone and her culture from 06/14/22 is growing pseudomonas but sensitivity report is pending. She underwent a Robotic Assisted Sacral Colpopexy, Mid Urethral Sling with Cystoscopy with Dr. Huff on 06/23/2020 and she states her retention problems started after that. She has intermittently struggled to empty her bladder for the past two years, and c/o hesitancy and urinary frequency. Review of Systems Cardiovascular: Cardiovascular: Denies chest pain Respiratory: Respiratory: Reports no additional respiratory complaints Gastrointestinal: Gastrointestinal: Denies abdominal pain, Denies nausea and Denies vomiting Genitourinary: Genitourinary: Reports hematuria, Reports nocturia, Denies dysuria, Denies pelvic pain, Denies flank pain, Denies urinary incontinence, Reports urinary hesitancy and Denies urinary urgency [facility] Past Medical History Medical History Arthritis Cancer of left breast (2006) Status post left mastectomy. Dyslipidemia Hernia Hypertension Pure hypercholesterolemia, unspecified SBO (small bowel obstruction) (2007) TIA (transient ischemic attack) Unilateral primary osteoarthritis, right knee Surgical History Surgical History H/O arthroscopy of right knee H/O left mastectomy (2006) with implant History of abdominal surgery (2007) Lysis of adhesions (laparoscopic) History of bowel resection (2006) For infarction History of cholecystectomy History of hernia repair (2008) Right femoral hernia. History of hysterectomy (06/2020) 06/2020 Family History Family History Sibling A-fib Father Carcinoma of colon Cerebrovascular accident Colon polyp Mother Hypertension Heart disease A-fib Grandparent Diabetes mellitus Other Breast cancer Social History Social History Social History: Surrogate medical decision maker: Axel Turcios, spouse. Code status: Full code. Smoking status: Never smoker Second hand tobacco smoke exposure: No Alcohol intake: former Drinks per week: 2 Alcohol use details: Rarely Substance use: never Substance use type: does not use Lack of Transportation: No L
[2022-06-15 21:43] LABS: Creatine Kinase 174 U/L (30-135)
[2022-06-15 21:51] LABS: Complement C3 114 mg/dL (88-165)
[2022-06-16] VITALS (7 sets, daily range): BP systolic 118–149; BP diastolic 56–77; PULSE 72–80; RESP 14–16; TEMP 36.2–36.7; O2SAT 91–99
[2022-06-16] MEDS: LEVOTHYROXINE SODIUM 75 MCG TABLET PO (06:30)
[2022-06-16 06:59] LABS: Basophils Absolute Auto 0.1 K/mm3 (0.0-0.1); Basophils Percent Auto 0.8 % (0.2-1.2); Eosinophils Absolute Auto 0.3 K/mm3 (0-0.3); Eosinophils Percent Auto 2.8 % (0-4.4); Hematocrit 36.3 % (37.0-47.0); Hemoglobin 11.9 g/dL (12.0-15.0); Immature Granulocyte Absolute 0.04 K/mm3 (0.00-0.031); Immature Granulocyte Percent A 0.4 % (0-0.5); Lymphocytes Percent Auto 20.5 % (18.3-44.2); Mean Corpuscular HGB Conc 32.8 g/dl (32-36); Mean Corpuscular Volume 94.5 fl (80-100); Mean Platelet Volume 9.3 fl (7.4-10.4); Neutrophils Absolute Auto 6.7 K/mm3 (1.3-6.7); Neutrophils Percent Auto 65.5 % (45.5-73.1); Platelet Count Result 383 k/mm3 (150-375); Red Blood Count 3.84 M/mm3 (4.2-5.4); Red Cell Distribution Width 15.3 % (11.5-14.5); White Blood Count 10.2 K/mm3 (4.5-10.0)
[2022-06-16 07:13] LABS: Alanine Aminotransferase 82 U/L (6-35); Albumin Level 2.1 g/dL (3.5-5.1); Alkaline Phosphatase 123 U/L (38-126); Anion Gap 2 mmol/L (8-16); Aspartate Amino Transferase 130 U/L (14-36); Bilirubin,Total < 0.1 mg/dL (0.2-1.3); Blood Urea Nitrogen 32 mg/dL (7-17); Calcium 7.1 mg/dL (8.4-10.2); Carbon Dioxide 23 mmol/L (22-30); Chloride 102 mmol/L (98-107); Estimated CRCL calculation 33 ml/min; Estimated Glomerular Filt Rate 40; Glucose 91 mg/dL (65-110); Magnesium 2.3 mg/dL (1.6-2.3); Phosphorus 3.5 mg/dL (2.5-4.5); Potassium 3.4 mmol/L (3.4-5.0); Sodium 127 mmol/L (137-145)
[2022-06-16] MEDS: ASCORBIC ACID 500 MG TABLET 1000 MG PO (08:13)
[2022-06-16] MEDS: MIDODRINE HCL 2.5 MG TABLET 5 MG PO ×3 (08:13→16:05)
[2022-06-16] MEDS: THIAMINE HCL 50 MG TABLET PO (08:13)
[2022-06-16] MEDS: ZINC SULFATE 220 MG CAPSULE PO (08:14)
[2022-06-16] MEDS: CALCIUM CARBONATE (OSCAL) 500 MG TABLET PO (08:14)
[2022-06-16] MEDS: OMEGA 3 POLYUNSAT FATTY ACIDS 1 GM CAP PO (08:14)
[2022-06-16] MEDS: polyethylene glycoL 3350 17 GM POWD.PACK PO (08:15)
--- NOTE | 2022-06-16 14:18 | PM.CNNEP ---
Assessment and Plan Assessment and plan (1) Nephrotic range proteinuria: Code(s): R80.9 - Proteinuria, unspecified Status: Acute Assessment and Plan: as noted by urinalysis presence of UTI may be exacerbating this issue see #2 (2) Renal dysfunction: Code(s): N28.9 - Disorder of kidney and ureter, unspecified Status: Acute Assessment and Plan: normal creatinine at baseline running in the 1.2 - 1.3mg/dl range since admission evaluation to date: renal ultrasound normal urine electrolytes prerenal rare urine eosinophils but no peripheral eosinophilia nephrotic range proteinuria (> 3.5grams) positive UTI serologies pending may need to consider renal biopsy...would probably repeat UTP/Cr once UTI is resolved/treated (3) Hyponatremia: Code(s): E87.1 - Hypo-osmolality and hyponatremia Status: Acute Assessment and Plan: as noted on admission related to renal dysfunction, fluid retention, or something else evaluation to date: TSH and cortisol normal SPEP and UPEP pending CXR results noted no improvement with IVFs follow trend of repeat sodiums (4) UTI (urinary tract infection): Code(s): N39.0 - Urinary tract infection, site not specified Status: Acute Assessment and Plan: urine culture with Pseudomonas on antibiotics (5) Edema: Code(s): R60.9 - Edema, unspecified Status: Acute Assessment and Plan: possibly from proteinuria worsened by IVFs change IVFs to KVO consider IV diuretics... follow I/Os (6) Generalized weakness: Code(s): R53.1 - Weakness Status: Acute Assessment and Plan: likely due to acute illness, acute infection, and decreased mobility PT/OT as tolerated (7) Hypoalbuminemia: Code(s): E88.09 - Other disorders of plasma-protein metabolism, not elsewhere classified Status: Acute Assessment and Plan: part of nephrotic syndrome consider IV albumin infusions Will continue to follow. History of Present Illness Reason for Consult Consult date: 06/16/22 Reason for consult: proteinuria Chief Complaint Chief complaint: Generalized Weakness/Hyponatremia/UTI History of Present Illness Narrative: The patient is a 72-year-old female with a past medical history as outlined below who presented to [facility] Emergency room with complaints of generalized weakness. The patient reports a generalized decline in her health over the last 2 years that apparently began with a hysterectomy at that time. She states that since that time, she has had progressive weight loss which she attributes to food not tasting right since that time. She reportedly has had issues with hypotension near-syncope and intermittent lower extremity edema/swelling as well. given these multitude of issues, she has had a fairly extensive workup done by her primary care physician and apparently she does have some issues with L4-L5 central canal stenosis which may explain some of her symptoms and she has since been referred to neurosurgery for further evaluation. She also has a recent ER visit about a week ago where it was discovered that she had significant urinary retention as she had almost 700 cc in her bladder after a straight cath. She comes back to the ER recently due to the ongoing weakness and low blood pressure as well as further evaluation. Workup and evaluation in the emergency room did demonstrate the patient to be relatively hypotensive. Along with her ongoing weakness, however she did not have any complaints with regard to fevers, chills, night sweats, vertigo, headache, chest pain, shortness of breath, nausea, vomiting, or diarrhea although she did note some pinkish colored urine coming from her Mcintosh catheter since it was placed. Routine blood test demonstrated a normal CBC but her chemistry did show a mildly elevated BUN and creatinine in compari
--- NOTE | 2022-06-16 14:18 | P.CONNP_ITS ---
Assessment and Plan Assessment and plan (1) Nephrotic range proteinuria: Code(s): R80.9 - Proteinuria, unspecified Status: Acute Assessment and Plan: * as noted by urinalysis * presence of UTI may be exacerbating this issue * see #2 (2) Renal dysfunction: Code(s): N28.9 - Disorder of kidney and ureter, unspecified Status: Acute Assessment and Plan: * normal creatinine at baseline * running in the 1.2 - 1.3mg/dl range since admission * evaluation to date: * renal ultrasound normal * urine electrolytes prerenal * rare urine eosinophils but no peripheral eosinophilia * nephrotic range proteinuria (> 3.5grams) * positive UTI * serologies pending * may need to consider renal biopsy...would probably repeat UTP/Cr once UTI is resolved/treated (3) Hyponatremia: Code(s): E87.1 - Hypo-osmolality and hyponatremia Status: Acute Assessment and Plan: * as noted on admission * related to renal dysfunction, fluid retention, or something else * evaluation to date: * TSH and cortisol normal * SPEP and UPEP pending * CXR results noted * no improvement with IVFs * follow trend of repeat sodiums (4) UTI (urinary tract infection): Code(s): N39.0 - Urinary tract infection, site not specified Status: Acute Assessment and Plan: * urine culture with Pseudomonas * on antibiotics (5) Edema: Code(s): R60.9 - Edema, unspecified Status: Acute Assessment and Plan: * possibly from proteinuria worsened by IVFs * change IVFs to KVO * consider IV diuretics... * follow I/Os (6) Generalized weakness: Code(s): R53.1 - Weakness Status: Acute Assessment and Plan: * likely due to acute illness, acute infection, and decreased mobility * PT/OT as tolerated (7) Hypoalbuminemia: Code(s): E88.09 - Other disorders of plasma-protein metabolism, not elsewhere classified Status: Acute Assessment and Plan: * part of nephrotic syndrome * consider IV albumin infusions Will continue to follow. History of Present Illness Reason for Consult Consult date: 06/16/22 Reason for consult: proteinuria Chief Complaint Chief complaint: Generalized Weakness/Hyponatremia/UTI History of Present Illness Narrative: The patient is a 72-year-old female with a past medical history as outlined below who presented to [facility] Emergency room with complaints of generalized weakness. The patient reports a generalized decline in her health over the last 2 years that apparently began with a hysterectomy at that time. She states that since that time, she has had progressive weight loss which she attributes to food not tasting right since that time. She reportedly has had issues with hypotension near-syncope and intermittent lower extremity edema/swelling as well. given these multitude of issues, she has had a fairly extensive workup done by her primary care physician and apparently she does have some issues with L4-L5 c entral canal stenosis which may explain some of her symptoms and she has since been referred to neurosurgery for further evaluation. She also has a recent ER visit about a week ago where it was discovered that she had significant urinary retention as she had almost 700 cc in her bladder after a straight cath. She comes back to the ER recently due to the ongoing weakness and low blood pressure as well as further evaluation. Workup and evaluation in the emergency room did demonstrate the
--- NOTE | 2022-06-16 14:50 | PM.IMPN ---
Progress Note: A&P Assessment and Plan (1) Hypotension: Code(s): I95.9 - Hypotension, unspecified Status: Acute Assessment and Plan: Patient was hypotensive on admission ( [id number]). With IV fluids her blood pressure improved. However, she continues to have dropped her blood pressure into the 70s. Could be related to decreased effective circulating volume. Her Lasix was not continued. Midodrine was added. She feels bloated now probably because of the IV fluids. Her albumin is better today at 2.1. Consider albumin infusion and, if blood pressure tolerates Lasix. (2) Generalized weakness: Code(s): R53.1 - Weakness Status: Acute Assessment and Plan: Patient with generalized weakness related to her weight loss, UTI, nephropathy, hoTN and poor oral intake. Hyponatremia could also be contributing to her weakness. TSH and B12 levels are normal. Suspect her spinal stenosis also is contributing to her lower extremity weakness but not her general malaise. Weakness is better and PT has signed off. UTI could be exacerbating her chronic weakness. Encouraged her to spend more time out of bed. (3) Dysgeusia: Code(s): R43.2 - Parageusia Status: Acute Assessment and Plan: Patient with significant dysgeusia for the past 2 years. She states symptoms began shortly after her hysterectomy in June 2020. She has lost 30 lb since this time. Food has a bitter taste which results in gagging. She does see a specialist for this in [place] and has had extensive workup. She can tolerate dietary supplements and these have been ordered. Dietitian has been working with the patient here on this issue. (4) UTI (urinary tract infection): Code(s): N39.0 - Urinary tract infection, site not specified Status: Acute Assessment and Plan: UA noted. UCx growing Pseudomonas that is clemens-sensitive. Abx changed to cefepime. Contine to follow. (5) Hyponatremia: Code(s): E87.1 - Hypo-osmolality and hyponatremia Status: Acute Assessment and Plan: Sodium 128 on admission. She is on Lasix which may be contributing to this. Lasix is on hold. TSH normal. Cortisol within normal limits. Urine Na <5 to suggest pre-renal but consider poor circulting volume related to severe hypoalbuminemia. Na unchanged at 127. Stop IV fluids? Change to Albumin and Lasix? Monitor sodium levels. (6) Nephropathy: Code(s): N28.9 - Disorder of kidney and ureter, unspecified Status: Acute Assessment and Plan: Patient with nephrotic range proteinuria. Complement normal. Not diabetic. CNo obvious findings by Echo to suggest SBE. onsider multiple myeloma? Related to her history of breast cancer? Amyloid? Membranous GN? Nephrology consulted. Consider renal biopsy. (7) Renal failure: Code(s): N19 - Unspecified kidney failure Status: Acute Assessment and Plan: Creatinine elevated to 1.2 but stable. She has a normal baseline creatinine earlier this year. Chest x-ray clear but CT does have bronchiectasis. CT abd/pelvis does not show any significant renal abnormalities. Renal ultrasound shows normal kidney size and no hydronephrosis. She does have increased right-sided renal parenchymal echogenicity consistent with nonspecific nephropathy. C3, C4 normal.Urine eos rare but no peripheral eosinophilia to suggest AIN. Patient also found to have nephrotic range proteinuria from unclear etiology. UA noted but she has UTI. Etiology of the RIP unclear but could be related to the RIP. Monitor renal function. (8) Elevated LFTs: Code(s): R79.89 - Other specified abnormal findings of blood chemistry Status: Acute Assessment and Plan: LFTs wee mildly elevated on admission. Hepatitis panel was negative in November. no concerning findings noted on the CT of the abdomen. There were liver cysts noted. She has had elevated liver enzymes in the past so
[2022-06-16] MEDS: POTASSIUM CHLORIDE 20 MEQ PACKET (FOR LIQUID) PO (16:05)
[2022-06-16] MEDS: SODIUM CHLORIDE 0.9% IV 1,000 ML 75 ML IV CONT (16:23)
[2022-06-17] VITALS (12 sets, daily range): BP systolic 70–138; BP diastolic 48–78; PULSE 72–91; RESP 14–18; TEMP 35.9–36.6; O2SAT 94–97
[2022-06-17] MEDS: LEVOTHYROXINE SODIUM 75 MCG TABLET PO (05:42)
[2022-06-17 06:43] LABS: Basophils Absolute Auto 0.1 K/mm3 (0.0-0.1); Basophils Percent Auto 0.7 % (0.2-1.2); Eosinophils Absolute Auto 0.3 K/mm3 (0-0.3); Eosinophils Percent Auto 3.5 % (0-4.4); Hematocrit 41.4 % (37.0-47.0); Hemoglobin 13.7 g/dL (12.0-15.0); Immature Granulocyte Absolute 0.03 K/mm3 (0.00-0.031); Immature Granulocyte Percent A 0.3 % (0-0.5); Lymphocytes Absolute Auto 2.16 K/mm3 (0.9-3.2); Lymphocytes Percent Auto 22.5 % (18.3-44.2); Mean Corpuscular HGB Conc 33.1 g/dl (32-36); Mean Corpuscular Hemoglobin 31.6 pg (26-34); Mean Corpuscular Volume 95.4 fl (80-100); Mean Platelet Volume 9.1 fl (7.4-10.4); Monocytes Absolute Auto 0.8 K/mm3 (0.1-0.6); Monocytes Percent Auto 8.1 % (2.6-8.5); Neutrophils Absolute Auto 6.2 K/mm3 (1.3-6.7); Neutrophils Percent Auto 64.9 % (45.5-73.1); Platelet Count Result 405 k/mm3 (150-375); Red Blood Count 4.34 M/mm3 (4.2-5.4); Red Cell Distribution Width 15.1 % (11.5-14.5); White Blood Count 9.6 K/mm3 (4.5-10.0)
[2022-06-17 06:57] LABS: Alanine Aminotransferase 80 U/L (6-35); Albumin Level 2.2 g/dL (3.5-5.1); Alkaline Phosphatase 116 U/L (38-126); Anion Gap 1 mmol/L (8-16); Aspartate Amino Transferase 112 U/L (14-36); Bilirubin,Total 0.2 mg/dL (0.2-1.3); Blood Urea Nitrogen 28 mg/dL (7-17); Calcium 7.4 mg/dL (8.4-10.2); Carbon Dioxide 22 mmol/L (22-30); Chloride 104 mmol/L (98-107); Estimated CRCL calculation 36 ml/min; Estimated Glomerular Filt Rate 44; Glucose 100 mg/dL (65-110); Magnesium 2.4 mg/dL (1.6-2.3); Phosphorus 3.5 mg/dL (2.5-4.5); Potassium 3.5 mmol/L (3.4-5.0); Sodium 127 mmol/L (137-145)
[2022-06-17] MEDS: SODIUM CHLORIDE 0.9% IV 1,000 ML 75 ML IV CONT (08:26)
[2022-06-17] MEDS: CALCIUM CARBONATE (OSCAL) 500 MG TABLET PO (08:27)
[2022-06-17] MEDS: ASCORBIC ACID 500 MG TABLET 1000 MG PO (08:27)
[2022-06-17] MEDS: ZINC SULFATE 220 MG CAPSULE PO (08:28)
[2022-06-17] MEDS: ENOXAPARIN 40 MG/0.4 ML SYRINGE SUB-Q (08:28)
[2022-06-17] MEDS: MIDODRINE HCL 2.5 MG TABLET 5 MG PO ×3 (08:28→16:21)
[2022-06-17] MEDS: THIAMINE HCL 50 MG TABLET PO (08:28)
[2022-06-17] MEDS: OMEGA 3 POLYUNSAT FATTY ACIDS 1 GM CAP PO (08:28)
[2022-06-17] MEDS: polyethylene glycoL 3350 17 GM POWD.PACK PO (08:31)
--- NOTE | 2022-06-17 15:20 | PM.IMPN ---
Progress Note: A&P Assessment and Plan (1) Hypotension: Code(s): I95.9 - Hypotension, unspecified Status: Acute Assessment and Plan: Patient was hypotensive on admission (76/51). With IV fluids her blood pressure improved. However, she continues to have drops in her blood pressure into the 70s. Could be related to decreased effective circulating volume. Her Lasix was not continued. Midodrine was added. She feels bloated now probably because of the IV fluids. Her albumin is better today at 2.2. Consider albumin infusion and, if blood pressure tolerates, Lasix. Defer to nephrology. (2) Generalized weakness: Code(s): R53.1 - Weakness Status: Acute Assessment and Plan: Patient with generalized weakness related to her weight loss, UTI, nephropathy, HoTN and poor oral intake. Hyponatremia could also be contributing to her weakness. TSH and B12 levels are normal. Suspect her spinal stenosis also is contributing to her lower extremity weakness but not her general malaise. Weakness is better and PT has signed off. UTI could be exacerbating her chronic weakness. Encouraged her to spend more time out of bed. (3) Dysgeusia: Code(s): R43.2 - Parageusia Status: Acute Assessment and Plan: Patient with significant dysgeusia for the past 2 years. She states symptoms began shortly after her hysterectomy in June 2020. She has lost 30 lb since this time. Food has a bitter taste which results in gagging. She does see a specialist for this in [place] and has had extensive workup. She is on zinc for this reason. She can tolerate dietary supplements and these have been ordered. Dietitian has been working with the patient here on this issue. Zinc can cause this problem so will hold Zinc supplemetns since she has been on this for about a year now. (4) UTI (urinary tract infection): Code(s): N39.0 - Urinary tract infection, site not specified Status: Acute Assessment and Plan: UA noted. UCx growing Pseudomonas that is clemens-sensitive. Abx changed to cefepime. Continue to follow. QTc 450. Will narrow to Cipro (5) Hyponatremia: Code(s): E87.1 - Hypo-osmolality and hyponatremia Status: Acute Assessment and Plan: Sodium 128 on admission. She is on Lasix which may be contributing to this. Lasix is on hold. TSH normal. Cortisol within normal limits. Urine Na <5 to suggest pre-renal but consider poor circulating effective volume related to severe hypoalbuminemia. Na unchanged at 127. Stop IV fluids? Change to Albumin and Lasix? Defer to Nephrology. Monitor sodium levels. (6) Nephropathy: Code(s): N28.9 - Disorder of kidney and ureter, unspecified Status: Acute Assessment and Plan: Patient with nephrotic range proteinuria. Complement normal. Not diabetic. No obvious findings by Echo to suggest SBE. Consider multiple myeloma? Related to her history of breast cancer? Amyloid? Membranous GN? Nephrology consulted. Consider renal biopsy. (7) Renal failure: Code(s): N19 - Unspecified kidney failure Status: Acute Assessment and Plan: Creatinine elevated to 1.2 but stable. She has a normal baseline creatinine earlier this year. Chest x-ray clear but CT does have bronchiectasis. CT abd/pelvis does not show any significant renal abnormalities. Renal ultrasound shows normal kidney size and no hydronephrosis. She does have increased right-sided renal parenchymal echogenicity consistent with nonspecific nephropathy. C3, C4 normal. Urine eos rare but no peripheral eosinophilia to suggest AIN. Patient also found to have nephrotic range proteinuria from unclear etiology. UA noted but she has UTI. Etiology of the RIP unclear but could be related to the AIN or pre-renal azotemia or the underlying cause of the nephrotic syndrome. Monitor renal function. Consider renal bx. (8) Nephrotic syndrome: Code(s): N04
--- NOTE | 2022-06-17 15:30 | P.PNNP_ITS ---
Progress Note: A&P Assessment and Plan (1) Nephrotic range proteinuria: Code(s): R80.9 - Proteinuria, unspecified Status: Acute Assessment and Plan: * as noted by urinalysis and random testing * > 3.5 grams of protein as noted by random UTP/Cr ratio * presence of UTI may be exacerbating this issue * see #2 (2) Renal dysfunction: Code(s): N28.9 - Disorder of kidney and ureter, unspecified Status: Acute Assessment and Plan: * normal creatinine at baseline * running in the 1.2 - 1.3mg/dl range since admission * evaluation to date: * renal ultrasound normal * urine electrolytes prerenal * rare urine eosinophils but no peripheral eosinophilia * nephrotic range proteinuria (> 3.5grams) * positive UTI * serologies pending * may need to consider renal biopsy...however, would probably repeat UTP/Cr once UTI is resolved/treated * furthermore, would also treat UTI prior to renal biopsy as well... (3) Hyponatremia: Code(s): E87.1 - Hypo-osmolality and hyponatremia Status: Acute Assessment and Plan: * as noted on admission * related to renal dysfunction, fluid retention, or something else(?) * evaluation to date: * TSH and cortisol normal * SPEP and UPEP pending * CXR results noted * up to date of cancer screenings? * no improvement with IVFs * follow trend of repeat sodiums (4) UTI (urinary tract infection): Code(s): N39.0 - Urinary tract infection, site not specified Status: Acute Assessment and Plan: * urine culture with Pseudomonas * on antibiotics (5) Edema: Code(s): R60.9 - Edema, unspecified Status: Acute Assessment and Plan: * possibly from proteinuria worsened by IVFs * change IVFs to KVO * consider IV diuretics...but her hemodynamics/low BP may be the limiting factor * follow I/Os (6) Generalized weakness: Code(s): R53.1 - Weakness Status: Acute Assessment and Plan: * likely due to acute illness, acute infection, and decreased mobility * PT/OT as tolerated (7) Hypoalbuminemia: Code(s): E88.09 - Other disorders of plasma-protein metabolism, not elsewhere classified Status: Acute Assessment and Plan: * part of nephrotic syndrome +/- poor oral intake * consider IV albumin infusions Will continue to follow. Subjective Date/time seen: 06/17/22 15:30 States swelling seems more prominent today in association with bloating as well; ongoing issues with hypotension noted as well; no other acute issues overn ight. Exam Narrative: General: thin female in NAD Heart: normal S1 and S2; no rub Lungs: decreased at bases Abdomen: soft, nontender, nondistended, positive bowel sounds Extremities: no cyanosis or clubbing; 1+ edema Skin: warm and idry Objective Data Vital Signs Vital Signs: Vital Signs Temp Pulse Resp BP Pulse Ox O2 Del Method 06/17/22 13:58 96.9 F L 73 16 111/76 97 06/17/22 09:48 97.1 F L 91 16 70/52 L 96 06/17/22 09:47 97.1 F L 84 16 95/64 L 97 06/17/22 08:00 97.1 F L 75 16 111/55 L 95 06/17/22 07:41 101/64 Intake/Output Intake/Output: Intake & Output 06/15/22 06/16/22 06/17/22 06/18/22 23:59 23:59 23:59 23:59
--- NOTE | 2022-06-17 15:30 | PM.PNNEP ---
Progress Note: A&P Assessment and Plan (1) Nephrotic range proteinuria: Code(s): R80.9 - Proteinuria, unspecified Status: Acute Assessment and Plan: as noted by urinalysis and random testing > 3.5 grams of protein as noted by random UTP/Cr ratio presence of UTI may be exacerbating this issue see #2 (2) Renal dysfunction: Code(s): N28.9 - Disorder of kidney and ureter, unspecified Status: Acute Assessment and Plan: normal creatinine at baseline running in the 1.2 - 1.3mg/dl range since admission evaluation to date: renal ultrasound normal urine electrolytes prerenal rare urine eosinophils but no peripheral eosinophilia nephrotic range proteinuria (> 3.5grams) positive UTI serologies pending may need to consider renal biopsy...however, would probably repeat UTP/Cr once UTI is resolved/treated furthermore, would also treat UTI prior to renal biopsy as well... (3) Hyponatremia: Code(s): E87.1 - Hypo-osmolality and hyponatremia Status: Acute Assessment and Plan: as noted on admission related to renal dysfunction, fluid retention, or something else(?) evaluation to date: TSH and cortisol normal SPEP and UPEP pending CXR results noted up to date of cancer screenings? no improvement with IVFs follow trend of repeat sodiums (4) UTI (urinary tract infection): Code(s): N39.0 - Urinary tract infection, site not specified Status: Acute Assessment and Plan: urine culture with Pseudomonas on antibiotics (5) Edema: Code(s): R60.9 - Edema, unspecified Status: Acute Assessment and Plan: possibly from proteinuria worsened by IVFs change IVFs to KVO consider IV diuretics...but her hemodynamics/low BP may be the limiting factor follow I/Os (6) Generalized weakness: Code(s): R53.1 - Weakness Status: Acute Assessment and Plan: likely due to acute illness, acute infection, and decreased mobility PT/OT as tolerated (7) Hypoalbuminemia: Code(s): E88.09 - Other disorders of plasma-protein metabolism, not elsewhere classified Status: Acute Assessment and Plan: part of nephrotic syndrome +/- poor oral intake consider IV albumin infusions Will continue to follow. Subjective Date/time seen: 06/17/22 15:30 States swelling seems more prominent today in association with bloating as well; ongoing issues with hypotension noted as well; no other acute issues overnight. Exam Narrative: General: thin female in NAD Heart: normal S1 and S2; no rub Lungs: decreased at bases Abdomen: soft, nontender, nondistended, positive bowel sounds Extremities: no cyanosis or clubbing; 1+ edema Skin: warm and idry Objective Data Vital Signs Vital Signs: Vital Signs Temp Pulse Resp BP Pulse Ox O2 Del Method 06/17/22 13:58 96.9 F L 73 16 111/76 97 06/17/22 09:48 97.1 F L 91 16 70/52 L 96 06/17/22 09:47 97.1 F L 84 16 95/64 L 97 06/17/22 08:00 97.1 F L 75 16 111/55 L 95 06/17/22 07:41 101/64 Intake/Output Intake/Output: Intake & Output 06/15/22 06/16/22 06/17/22 06/18/22 23:59 23:59 23:59 23:59 Intake Total 2590 3120 2524 1000 Output Total 775 2000 1500 600 Balance 1815 1120 1024 400 Meds/Results Medications: Active Medications Generic Name Dose Route Start Last Admin Trade Name Freq PRN Reason Stop Dose Admin Acetaminophen 650 mg 06/15/22 00:02 06/15/22 00:12 Acetaminophen 325 Mg Tablet PO 650 mg Q6H PRN Administration Mild Pain (1-3) or Fever Ascorbic Acid 1,000 mg 06/15/22 09:00 06/17/22 08:27 Ascorbic Acid 500 Mg Tablet PO 1,000 mg QAM DARRICK Administration Calcium Carbonate 500 mg 06/18/22 12:00 Calcium Carbonate (Oscal) 500 Mg Tablet PO 1200 DARRICK Ciprofloxacin 250 mg 06/17/22 21:00 06/17/22 20:21 Ciprofloxacin 250 Mg Tablet PO 250 mg
[2022-06-17] MEDS: CIPROFLOXACIN 250 MG TABLET PO (20:21)
[2022-06-18] VITALS (7 sets, daily range): BP systolic 92–131; BP diastolic 59–87; PULSE 74–87; RESP 18–20; TEMP 36.4–36.6; O2SAT 92–98
[2022-06-18] MEDS: SODIUM CHLORIDE 0.9% IV 1,000 ML 30 ML IV CONT (05:10)
[2022-06-18] MEDS: LEVOTHYROXINE SODIUM 75 MCG TABLET PO (05:47)
[2022-06-18 07:03] LABS: Basophils Absolute Auto 0.1 K/mm3 (0.0-0.1); Basophils Percent Auto 0.8 % (0.2-1.2); Eosinophils Absolute Auto 0.3 K/mm3 (0-0.3); Eosinophils Percent Auto 2.8 % (0-4.4); Hemoglobin 13.2 g/dL (12.0-15.0); Immature Granulocyte Absolute 0.04 K/mm3 (0.00-0.031); Immature Granulocyte Percent A 0.4 % (0-0.5); Lymphocytes Absolute Auto 1.49 K/mm3 (0.9-3.2); Lymphocytes Percent Auto 16.3 % (18.3-44.2); Mean Corpuscular HGB Conc 33.8 g/dl (32-36); Mean Corpuscular Hemoglobin 32.1 pg (26-34); Mean Corpuscular Volume 94.9 fl (80-100); Mean Platelet Volume 9.3 fl (7.4-10.4); Monocytes Absolute Auto 0.9 K/mm3 (0.1-0.6); Monocytes Percent Auto 10.2 % (2.6-8.5); Neutrophils Absolute Auto 6.4 K/mm3 (1.3-6.7); Neutrophils Percent Auto 69.5 % (45.5-73.1); Platelet Count Result 387 k/mm3 (150-375); Red Blood Count 4.11 M/mm3 (4.2-5.4); Red Cell Distribution Width 15.3 % (11.5-14.5); White Blood Count 9.1 K/mm3 (4.5-10.0)
[2022-06-18 07:17] LABS: Alanine Aminotransferase 104 U/L (6-35); Alkaline Phosphatase 135 U/L (38-126); Anion Gap 1 mmol/L (8-16); Aspartate Amino Transferase 143 U/L (14-36); Bilirubin,Total 0.1 mg/dL (0.2-1.3); Blood Urea Nitrogen 30 mg/dL (7-17); Calcium 7.4 mg/dL (8.4-10.2); Carbon Dioxide 23 mmol/L (22-30); Chloride 104 mmol/L (98-107); Estimated CRCL calculation 36 ml/min; Estimated Glomerular Filt Rate 44; Glucose 91 mg/dL (65-110); Potassium 3.6 mmol/L (3.4-5.0); Sodium 128 mmol/L (137-145)
[2022-06-18] MEDS: ASCORBIC ACID 500 MG TABLET 1000 MG PO (09:42)
[2022-06-18] MEDS: ENOXAPARIN 40 MG/0.4 ML SYRINGE SUB-Q (09:42)
[2022-06-18] MEDS: CIPROFLOXACIN 250 MG TABLET PO ×2 (09:42→21:09)
[2022-06-18] MEDS: MIDODRINE HCL 2.5 MG TABLET 5 MG PO ×3 (09:43→17:29)
[2022-06-18] MEDS: polyethylene glycoL 3350 17 GM POWD.PACK PO (09:43)
[2022-06-18] MEDS: THIAMINE HCL 50 MG TABLET PO (09:43)
[2022-06-18] MEDS: OMEGA 3 POLYUNSAT FATTY ACIDS 1 GM CAP PO (09:43)
--- NOTE | 2022-06-18 12:15 | PM.IMPN ---
Progress Note: A&P Assessment and Plan (1) Hypotension: Code(s): I95.9 - Hypotension, unspecified Status: Acute Assessment and Plan: Patient was hypotensive on admission (76/51). With IV fluids her blood pressure improved with a blood pressure of 121/61 today.. Midodrine was added. She feels bloated now probably because of the IV fluids. Her albumin is better today at 2.L. Consider albumin infusion and, if blood pressure tolerates, Lasix. Defer to nephrology. (2) Generalized weakness: Code(s): R53.1 - Weakness Status: Acute Assessment and Plan: Patient with generalized weakness related to her weight loss, UTI, nephropathy, HoTN and poor oral intake. Hyponatremia could also be contributing to her weakness. TSH and B12 levels are normal. Suspect her spinal stenosis also is contributing to her lower extremity weakness but not her general malaise. Weakness is better and PT has signed off. UTI could be exacerbating her chronic weakness. Encouraged her to spend more time out of bed. (3) Dysgeusia: Code(s): R43.2 - Parageusia Status: Acute Assessment and Plan: Patient with significant dysgeusia for the past 2 years. She states symptoms began shortly after her hysterectomy in June 2020. She has lost 30 lb since this time. Food has a bitter taste which results in gagging. She does see a specialist for this in [place] and has had extensive workup. She is on zinc for this reason. She can tolerate dietary supplements and these have been ordered. Dietitian has been working with the patient here on this issue. Zinc can cause this problem so will hold Zinc supplemetns since she has been on this for about a year now. (4) UTI (urinary tract infection): Code(s): N39.0 - Urinary tract infection, site not specified Status: Acute Assessment and Plan: UA noted. UCx growing Pseudomonas that is clemens-sensitive. Abx changed to cefepime. Continue to follow. QTc 450. Will narrow to Cipro (5) Hyponatremia: Code(s): E87.1 - Hypo-osmolality and hyponatremia Status: Acute Assessment and Plan: Sodium 128 on admission. She is on Lasix which may be contributing to this. Lasix is on hold. TSH normal. Cortisol within normal limits. Urine Na <5 to suggest pre-renal but consider poor circulating effective volume related to severe hypoalbuminemia. Na unchanged at 127. Stop IV fluids? Change to Albumin and Lasix? Defer to Nephrology. Monitor sodium levels. (6) Nephropathy: Code(s): N28.9 - Disorder of kidney and ureter, unspecified Status: Acute Assessment and Plan: Patient with nephrotic range proteinuria. Complement normal. Not diabetic. No obvious findings by Echo to suggest SBE. Consider multiple myeloma? Related to her history of breast cancer? Amyloid? Membranous GN? Nephrology consulted. Consider renal biopsy; send PLA2R. Obtain age appropriate cancer screening. patient is currently due for a colonoscopy. Per patient is up-to-date with her Pap smear and her mammogram. We will obtain official records from her primary care physician. (7) Renal failure: Code(s): N19 - Unspecified kidney failure Status: Acute Assessment and Plan: Creatinine elevated to 1.2 but stable. She has a normal baseline creatinine earlier this year. Chest x-ray clear but CT does have bronchiectasis. CT abd/pelvis does not show any significant renal abnormalities. Renal ultrasound shows normal kidney size and no hydronephrosis. She does have increased right-sided renal parenchymal echogenicity consistent with nonspecific nephropathy. C3, C4 normal. Urine eos rare but no peripheral eosinophilia to suggest AIN. Patient also found to have nephrotic range proteinuria from unclear etiology. UA noted but she has UTI. Etiology of the RIP unclear but could be related to the AIN or pre-renal azotemia or the underlying cause of the nephrotic sy
--- NOTE | 2022-06-18 13:01 | PM.PNNEP ---
Progress Note: A&P Assessment and Plan (1) Nephrotic range proteinuria: Code(s): R80.9 - Proteinuria, unspecified Status: Acute Assessment and Plan: as noted by urinalysis and random testing > 3.5 grams of protein as noted by random UTP/Cr ratio presence of UTI may be exacerbating this issue see #2 (2) Renal dysfunction: Code(s): N28.9 - Disorder of kidney and ureter, unspecified Status: Acute Assessment and Plan: normal creatinine at baseline running in the 1.2 - 1.3mg/dl range since admission evaluation to date: renal ultrasound normal but with increased right-sided renal parenchymal echogenicity, consistent with nonspecific nephropathy urine electrolytes prerenal rare urine eosinophils but no peripheral eosinophilia nephrotic range proteinuria (> 3.5grams) positive UTI serologies pending may need to consider renal biopsy...however, would probably repeat UTP/Cr once UTI is resolved/treated furthermore, would also COMPLETE treatment of UTI prior to renal biopsy as well... (3) Hyponatremia: Code(s): E87.1 - Hypo-osmolality and hyponatremia Status: Acute Assessment and Plan: as noted on admission related to renal dysfunction, fluid retention, or something else(?) evaluation to date: TSH and cortisol normal SPEP and UPEP pending CXR results noted up to date of cancer screenings? no improvement with IVFs follow trend of repeat sodiums (4) UTI (urinary tract infection): Code(s): N39.0 - Urinary tract infection, site not specified Status: Acute Assessment and Plan: urine culture with Pseudomonas on antibiotics (5) Edema: Code(s): R60.9 - Edema, unspecified Status: Acute Assessment and Plan: possibly from proteinuria worsened by IVFs change IVFs to KVO consider IV diuretics...but her hemodynamics/low BP may be the limiting factor trial of IV albumin and see how BP responds follow I/Os (6) Generalized weakness: Code(s): R53.1 - Weakness Status: Acute Assessment and Plan: likely due to acute illness, acute infection, and decreased mobility PT/OT as tolerated (7) Hypoalbuminemia: Code(s): E88.09 - Other disorders of plasma-protein metabolism, not elsewhere classified Status: Acute Assessment and Plan: part of nephrotic syndrome +/- poor oral intake trial of IV albumin infusions Will continue to follow. Subjective Date/time seen: 06/18/22 13:01 Still complaining of bloating and worsening lower extremity edema; still having on and off drops in her blood pressure as well overnight as well as earlier this morning; has been trying to ambulate as much as possible; no acute distress noted. Exam Narrative: General: thin female in NAD Heart: normal S1 and S2; no rub Lungs: decreased at bases Abdomen: soft, nontender, nondistended, positive bowel sounds Extremities: no cyanosis or clubbing; 1+ edema Skin: warm and intact Objective Data Vital Signs Vital Signs: Vital Signs Temp Pulse Resp BP Pulse Ox O2 Del Method 06/18/22 06:00 97.5 F L 83 18 92/67 L 94 06/17/22 20:00 Room Air 06/17/22 19:59 78/48 L 06/17/22 19:57 85 125/62 06/17/22 19:56 97.6 F 76 18 108/61 95 06/17/22 17:12 138/78 06/17/22 16:49 85 95 Intake/Output Intake/Output: Intake & Output 06/15/22 06/16/22 06/17/22 06/18/22 23:59 23:59 23:59 23:59 Intake Total 2590 3120 2524 1120 Output Total 775 2000 1500 600 Balance 1815 1120 1024 520 Meds/Results Medications: Active Medications Generic Name Dose Route Start Last Admin Trade Name Freq PRN Reason Stop Dose Admin Acetaminophen 650 mg 06/15/22 00:02 06/15/22 00:12 Acetaminophen 325 Mg Tablet PO 650 mg Q6H PRN Administration Mild Pain (1-3) or Fever Ascorbic Acid 1,000 mg 06/15/22 09:00 06/18/22 09:42 As
--- NOTE | 2022-06-18 13:01 | P.PNNP_ITS ---
Progress Note: A&P Assessment and Plan (1) Nephrotic range proteinuria: Code(s): R80.9 - Proteinuria, unspecified Status: Acute Assessment and Plan: * as noted by urinalysis and random testing * > 3.5 grams of protein as noted by random UTP/Cr ratio * presence of UTI may be exacerbating this issue * see #2 (2) Renal dysfunction: Code(s): N28.9 - Disorder of kidney and ureter, unspecified Status: Acute Assessment and Plan: * normal creatinine at baseline * running in the 1.2 - 1.3mg/dl range since admission * evaluation to date: * renal ultrasound normal but with increased right-sided renal parenchymal echogenicity, consistent with nonspecific nephropathy * urine electrolytes prerenal * rare urine eosinophils but no peripheral eosinophilia * nephrotic range proteinuria (> 3.5grams) * positive UTI * serologies pending * may need to consider renal biopsy...however, would probably repeat UTP/Cr once UTI is resolved/treated * furthermore, would also COMPLETE treatment of UTI prior to renal biopsy as well... (3) Hyponatremia: Code(s): E87.1 - Hypo-osmolality and hyponatremia Status: Acute Assessment and Plan: * as noted on admission * related to renal dysfunction, fluid retention, or something else(?) * evaluation to date: * TSH and cortisol normal * SPEP and UPEP pending * CXR results noted * up to date of cancer screenings? * no improvement with IVFs * follow trend of repeat sodiums (4) UTI (urinary tract infection): Code(s): N39.0 - Urinary tract infection, site not specified Status: Acute Assessment and Plan: * urine culture with Pseudomonas * on antibiotics (5) Edema: Code(s): R60.9 - Edema, unspecified Status: Acute Assessment and Plan: * possibly from proteinuria worsened by IVFs * change IVFs to KVO * consider IV diuretics...but her hemodynamics/low BP may be the limiting factor * trial of IV albumin and see how BP responds * follow I/Os (6) Generalized weakness: Code(s): R53.1 - Weakness Status: Acute Assessment and Plan: * likely due to acute illness, acute infection, and decreased mobility * PT/OT as tolerated (7) Hypoalbuminemia: Code(s): E88.09 - Other disorders of plasma-protein metabolism, not elsewhere classified Status: Acute Assessment and Plan: * part of nephrotic syndrome +/- poor oral intake * trial of IV albumin infusions Will continue to follow. Subjective Date/time seen: 06/18/22 13:01 Still complaining of bloating and worsening lower extremity edema; still having on and off drops in her blood pressure as well overnight as well as earlier this morning; has been trying to ambulate as much as possible; no acute distress noted. Exam Narrative: General: thin female in NAD Heart: normal S1 and S2; no rub Lungs: decreased at bases Abdomen: soft, nontender, nondistended, positive bowel sounds Extremities: no cyanosis or clubbing; 1+ edema Skin: warm and intact Objective Data Vital Signs Vital Signs: Vital Signs Temp Pulse Resp BP Pulse Ox O2 Del Method 06/18/22 06:00 97.5 F L 83 18 92/67 L 94 06/17/22 20:00 Room Air 06/17/22 19:59 78/48 L 06/17/22 19:57 85 125/62 06/17/22 1
[2022-06-18] MEDS: CALCIUM CARBONATE (OSCAL) 500 MG TABLET PO (14:51)
[2022-06-18] MEDS: ALBUMIN HUMAN 25% 12.5 GM/50ML 50 ML IVPB ×2 (16:02→22:06)
[2022-06-19] VITALS (8 sets, daily range): BP systolic 97–132; BP diastolic 53–69; PULSE 76–89; RESP 14–22; TEMP 36.1–36.6; O2SAT 93–98
[2022-06-19] MEDS: LEVOTHYROXINE SODIUM 75 MCG TABLET PO (06:13)
[2022-06-19] MEDS: ALBUMIN HUMAN 25% 12.5 GM/50ML 50 ML IVPB ×3 (06:15→22:08)
[2022-06-19] MEDS: ENOXAPARIN 40 MG/0.4 ML SYRINGE SUB-Q (08:26)
[2022-06-19] MEDS: polyethylene glycoL 3350 17 GM POWD.PACK PO (08:26)
[2022-06-19] MEDS: THIAMINE HCL 50 MG TABLET PO (08:27)
[2022-06-19] MEDS: ASCORBIC ACID 500 MG TABLET 1000 MG PO (08:27)
[2022-06-19] MEDS: OMEGA 3 POLYUNSAT FATTY ACIDS 1 GM CAP PO (08:27)
[2022-06-19] MEDS: MIDODRINE HCL 2.5 MG TABLET 5 MG PO ×3 (08:27→17:37)
[2022-06-19] MEDS: CIPROFLOXACIN 250 MG TABLET PO ×2 (08:27→22:01)
[2022-06-19] MEDS: SODIUM CHLORIDE 0.9% IV 1,000 ML 30 ML IV CONT (11:06)
--- NOTE | 2022-06-19 11:14 | PM.PNNEP ---
Progress Note: A&P Assessment and Plan (1) Nephrotic range proteinuria: Code(s): R80.9 - Proteinuria, unspecified Status: Acute Assessment and Plan: as noted by urinalysis and random testing > 3.5 grams of protein as noted by random UTP/Cr ratio presence of UTI may be exacerbating this issue see #2 (2) Renal dysfunction: Code(s): N28.9 - Disorder of kidney and ureter, unspecified Status: Acute Assessment and Plan: normal creatinine at baseline running in the 1.2 - 1.3mg/dl range since admission evaluation to date: renal ultrasound normal but with increased right-sided renal parenchymal echogenicity, consistent with nonspecific nephropathy urine electrolytes prerenal rare urine eosinophils but no peripheral eosinophilia nephrotic range proteinuria (> 3.5grams) positive UTI serologies pending may need to consider renal biopsy...however, would probably repeat UTP/Cr once UTI is resolved/treated furthermore, would also COMPLETE treatment of UTI prior to renal biopsy as well... (3) Hyponatremia: Code(s): E87.1 - Hypo-osmolality and hyponatremia Status: Acute Assessment and Plan: as noted on admission related to renal dysfunction, fluid retention, or something else(?) evaluation to date: TSH and cortisol normal SPEP and UPEP pending CXR results noted up to date of cancer screenings? no improvement with IVFs - I wonder if diuretics (for #5 will help indirectly) follow trend of repeat sodiums (4) UTI (urinary tract infection): Code(s): N39.0 - Urinary tract infection, site not specified Status: Acute Assessment and Plan: urine culture with Pseudomonas on antibiotics (5) Edema: Code(s): R60.9 - Edema, unspecified Status: Acute Assessment and Plan: possibly from proteinuria and worsened by previous IVFs consider IV diuretics...but her hemodynamics/low BP may be the limiting factor will shai IV albumin with IV bumex starting today and see how she tolerates it follow I/Os (6) Generalized weakness: Code(s): R53.1 - Weakness Status: Acute Assessment and Plan: likely due to acute illness, acute infection, and decreased mobility PT/OT as tolerated (7) Hypoalbuminemia: Code(s): E88.09 - Other disorders of plasma-protein metabolism, not elsewhere classified Status: Acute Assessment and Plan: part of nephrotic syndrome +/- poor oral intake trial of IV albumin infusions followed by IV bumex Will continue to follow. Subjective Date/time seen: 06/19/22 11:14 Started on IV albumin infusions yesterday to see if this would help with BP (along with low serum albumin) and it seems to have done so; still complaining of so much swelling in her lower extremities and bloating in her abdomen; no other issues/events overnight or earlier this AM. Exam Narrative: General: thin female in NAD Heart: normal S1 and S2; no rub Lungs: decreased at bases Abdomen: soft, nontender, nondistended, positive bowel sounds Extremities: no cyanosis or clubbing; 1+ edema Skin: warm and intact Objective Data Vital Signs Vital Signs: Vital Signs Temp Pulse Resp BP Pulse Ox O2 Del Method 06/19/22 11:06 97.1 F L 82 16 111/68 98 06/19/22 08:25 Room Air 06/19/22 08:00 97.1 F L 76 16 117/60 96 06/19/22 06:00 97.6 F 84 18 124/53 L 93 06/18/22 21:34 82 20 124/59 L 98 06/18/22 21:34 87 20 127/69 92 06/18/22 21:32 97.9 F 76 18 131/64 97 Intake/Output Intake/Output: Intake & Output 06/16/22 06/17/22 06/18/22 06/19/22 23:59 23:59 23:59 23:59 Intake Total 3120 7674 2095 2072 Output Total 1999 1500 1350 1150 Balance 1120 1024 745 922 Meds/Results Medications: Active Medications Generic Name Dose Route Start Last Admin Trade Name Freq PRN Reason Stop Dose Admin Acetaminophen 650
--- NOTE | 2022-06-19 11:14 | P.PNNP_ITS ---
Progress Note: A&P Assessment and Plan (1) Nephrotic range proteinuria: Code(s): R80.9 - Proteinuria, unspecified Status: Acute Assessment and Plan: * as noted by urinalysis and random testing * > 3.5 grams of protein as noted by random UTP/Cr ratio * presence of UTI may be exacerbating this issue * see #2 (2) Renal dysfunction: Code(s): N28.9 - Disorder of kidney and ureter, unspecified Status: Acute Assessment and Plan: * normal creatinine at baseline * running in the 1.2 - 1.3mg/dl range since admission * evaluation to date: * renal ultrasound normal but with increased right-sided renal parenchymal echogenicity, consistent with nonspecific nephropathy * urine electrolytes prerenal * rare urine eosinophils but no peripheral eosinophilia * nephrotic range proteinuria (> 3.5grams) * positive UTI * serologies pending * may need to consider renal biopsy...however, would probably repeat UTP/Cr once UTI is resolved/treated * furthermore, would also COMPLETE treatment of UTI prior to renal biopsy as well... (3) Hyponatremia: Code(s): E87.1 - Hypo-osmolality and hyponatremia Status: Acute Assessment and Plan: * as noted on admission * related to renal dysfunction, fluid retention, or something else(?) * evaluation to date: * TSH and cortisol normal * SPEP and UPEP pending * CXR results noted * up to date of cancer screenings? * no improvement with IVFs - I wonder if diuretics (for #5 will help indirectly) * follow trend of repeat sodiums (4) UTI (urinary tract infection): Code(s): N39.0 - Urinary tract infection, site not specified Status: Acute Assessment and Plan: * urine culture with Pseudomonas * on antibiotics (5) Edema: Code(s): R60.9 - Edema, unspecified Status: Acute Assessment and Plan: * possibly from proteinuria and worsened by previous IVFs * consider IV diuretics...but her hemodynamics/low BP may be the limiting factor * will shai IV albumin with IV bumex starting today and see how she tolerates it * follow I/Os (6) Generalized weakness: Code(s): R53.1 - Weakness Status: Acute Assessment and Plan: * likely due to acute illness, acute infection, and decreased mobility * PT/OT as tolerated (7) Hypoalbuminemia: Code(s): E88.09 - Other disorders of plasma-protein metabolism, not elsewhere classified Status: Acute Assessment and Plan: * part of nephrotic syndrome +/- poor oral intake * trial of IV albumin infusions followed by IV bumex Will continue to follow. Subjective Date/time seen: 06/19/22 11:14 Started on IV albumin infusions yesterday to see if this would help with BP (along with low serum albumin) and it seems to have done so; still complaining of so much swelling in her lower extremities and bloating in her abdomen; no other issues/events overnight or earlier this AM. Exam Narrative: General: thin female in NAD Heart: normal S1 and S2; no rub Lungs: decreased at bases Abdomen: soft, nontender, nondistended, positive bowel sounds Extremities: no cyanosis or clubbing; 1+ edema Skin: warm and intact Objective Data Vital Signs Vital Signs: Vital Signs Temp Pulse Resp BP Pulse Ox O2 Del Method 06/19/22 11:06 97.1 F L 82 16 111/68 98
[2022-06-19] MEDS: CALCIUM CARBONATE (OSCAL) 500 MG TABLET PO (13:26)
[2022-06-19 15:03] LABS: SM Antibody <1.0; SM/RNP Antibody <1.0
--- NOTE | 2022-06-19 18:35 | P.PNIM_ITS ---
Progress Note: A&P Assessment and Plan (1) Hypotension: Code(s): I95.9 - Hypotension, unspecified Status: Acute Assessment and Plan: Patient was hypotensive on admission (76/51). With IV fluids her blood pressure improved with a blood pressure of 113/68 today.. Midodrine was added. She feels bloated now probably because of the IV fluids. Her albumin is better today at 2.L. Consider albumin infusion and, if blood pressure tolerates, Lasix. Defer to nephrology. (2) Generalized weakness: Code(s): R53.1 - Weakness Status: Acute Assessment and Plan: Patient with generalized weakness related to her weight loss, UTI, nephropathy, HoTN and poor oral intake. Hyponatremia could also be contributing to her weakness. TSH and B12 levels are normal. Suspect her spinal stenosis also is contributing to her lower extremity weakness but not her general malaise. Weakness is better and PT has signed off. UTI could be exacerbating her chronic weakness. Encouraged her to spend more time out of bed. (3) Dysgeusia: Code(s): R43.2 - Parageusia Status: Acute Assessment and Plan: Patient with significant dysgeusia for the past 2 years. She states symptoms began shortly after her hysterectomy in June 2020. She has lost 30 lb since this time. Food has a bitter taste which results in gagging. She does see a specialist for this in [place] and has had extensive workup. She is on zinc for this reason. She can tolerate dietary supplements and these have been ordered. Dietitian has been working with the patient here on this issue. Zinc can cause this problem so will hold Zinc supplemetns since she has been on this for about a year now. (4) UTI (urinary tract infection): Code(s): N39.0 - Urinary tract infection, site not specified Status: Acute Assessment and Plan: UA noted. UCx growing Pseudomonas that is clemens-sensitive. Abx changed to cefepime. Continue to follow. QTc 450. Will narrow to Cipro (5) Hyponatremia: Code(s): E87.1 - Hypo-osmolality and hyponatremia Status: Acute Assessment and Plan: Sodium 128 on admission. She is on Lasix which may be contributing to this. Lasix is on hold. TSH normal. Cortisol within normal limits. Urine Na <5 to suggest pre-renal but consider poor circulating effective volume related to severe hypoalbuminemia. Na unchanged at 127. Stop IV fluids? Change to Albumin and Lasix? Defer to Nephrology. Monitor sodium levels. (6) Nephropathy: Code(s): N28.9 - Disorder of kidney and ureter, unspecified Status: Acute Assessment and Plan: Patient with nephrotic range proteinuria. Complement normal. Not diabetic. No obvious findings by Echo to suggest SBE. Consider multiple myeloma? Related to her history of breast cancer? Amyloid? Membranous GN? Nephrology consulted. Consider renal biopsy; send PLA2R. Obtain age appropriate cancer screening. patient is currently due for a colonoscopy. Per patient is up-to-date with her Pap smear and her mammogram. We will obtain official records from her primary care physician. (7) Renal failure: Code(s): N19 - Unspecified kidney failure Status: Acute Assessment and Plan: Creatinine elevated to 1.2 but stable. She has a normal baseline creatinine earlier this year. Chest x-ray clear but CT does have bronchiectasis. CT abd/pelvis does not show any significant renal abnormalities. Renal ultrasound shows normal kidney size and no hydronephrosis. She does have increased right- sided renal parenchymal echogenicity consistent with nonspec
[2022-06-20] VITALS (7 sets, daily range): BP systolic 101–137; BP diastolic 52–109; PULSE 71–85; RESP 18–20; TEMP 36.3–36.5; O2SAT 95–97
[2022-06-20] MEDS: BUMETANIDE INJ 1 MG/4 ML VIAL 0.5 MG IV PUSH ×3 (00:20→15:09)
[2022-06-20] MEDS: LEVOTHYROXINE SODIUM 75 MCG TABLET PO (06:18)
[2022-06-20] MEDS: ALBUMIN HUMAN 25% 12.5 GM/50ML 50 ML IVPB ×3 (06:18→23:27)
[2022-06-20 08:17] LABS: Basophils Absolute Auto 0.1 K/mm3 (0.0-0.1); Basophils Percent Auto 0.8 % (0.2-1.2); Eosinophils Absolute Auto 0.4 K/mm3 (0-0.3); Eosinophils Percent Auto 3.6 % (0-4.4); Hematocrit 34.8 % (37.0-47.0); Hemoglobin 11.4 g/dL (12.0-15.0); Immature Granulocyte Absolute 0.12 K/mm3 (0.00-0.031); Immature Granulocyte Percent A 1.2 % (0-0.5); Lymphocytes Absolute Auto 1.57 K/mm3 (0.9-3.2); Lymphocytes Percent Auto 16.1 % (18.3-44.2); Mean Corpuscular HGB Conc 32.8 g/dl (32-36); Mean Corpuscular Hemoglobin 31.4 pg (26-34); Mean Corpuscular Volume 95.9 fl (80-100); Mean Platelet Volume 9.1 fl (7.4-10.4); Monocytes Absolute Auto 1.1 K/mm3 (0.1-0.6); Monocytes Percent Auto 11.6 % (2.6-8.5); Neutrophils Absolute Auto 6.5 K/mm3 (1.3-6.7); Neutrophils Percent Auto 66.7 % (45.5-73.1); Platelet Count Result 385 k/mm3 (150-375); Red Blood Count 3.63 M/mm3 (4.2-5.4); Red Cell Distribution Width 15.4 % (11.5-14.5); White Blood Count 9.7 K/mm3 (4.5-10.0)
[2022-06-20 08:29] LABS: Albumin Level 2.5 g/dL (3.5-5.1); Anion Gap 0 mmol/L (8-16); Blood Urea Nitrogen 25 mg/dL (7-17); Carbon Dioxide 25 mmol/L (22-30); Chloride 105 mmol/L (98-107); Estimated CRCL calculation 39 ml/min; Estimated Glomerular Filt Rate 49; Glucose 104 mg/dL (65-110); Phosphorus 3.5 mg/dL (2.5-4.5); Potassium 3.5 mmol/L (3.4-5.0); Sodium 130 mmol/L (137-145)
[2022-06-20] MEDS: ENOXAPARIN 40 MG/0.4 ML SYRINGE SUB-Q (08:35)
[2022-06-20] MEDS: OMEGA 3 POLYUNSAT FATTY ACIDS 1 GM CAP PO (08:37)
[2022-06-20] MEDS: CIPROFLOXACIN 250 MG TABLET PO ×2 (08:37→21:02)
[2022-06-20] MEDS: MIDODRINE HCL 2.5 MG TABLET 5 MG PO ×3 (08:37→17:35)
[2022-06-20] MEDS: THIAMINE HCL 50 MG TABLET PO (08:37)
[2022-06-20] MEDS: ASCORBIC ACID 500 MG TABLET 1000 MG PO (08:37)
[2022-06-20] MEDS: polyethylene glycoL 3350 17 GM POWD.PACK PO (08:38)
[2022-06-20] MEDS: CALCIUM CARBONATE (OSCAL) 500 MG TABLET PO (11:15)
[2022-06-20] MEDS: POTASSIUM CHLORIDE 20 MEQ PACKET (FOR LIQUID) PO (11:15)
--- NOTE | 2022-06-20 11:40 | PM.IMPN ---
Progress Note: A&P Assessment and Plan (1) Hypotension: Code(s): I95.9 - Hypotension, unspecified Status: Acute Assessment and Plan: Patient was hypotensive on admission (76/51). With IV fluids her blood pressure improved with a blood pressure of 117/59 today.. Midodrine was added. She feels bloated now probably because of the IV fluids. Her albumin is better today at 2.L. Consider albumin infusion and, if blood pressure tolerates, Lasix. Defer to nephrology. (2) Nephrotic syndrome: Code(s): N04.9 - Nephrotic syndrome with unspecified morphologic changes Status: Acute Assessment and Plan: continue IV albumin followed by IV bumex for another 24 hours, as tolerated. (3) Generalized weakness: Code(s): R53.1 - Weakness Status: Acute Assessment and Plan: Patient with generalized weakness related to her weight loss, UTI, nephropathy, HoTN and poor oral intake. Hyponatremia could also be contributing to her weakness. TSH and B12 levels are normal. Suspect her spinal stenosis also is contributing to her lower extremity weakness but not her general malaise. Weakness is better and PT has signed off. UTI could be exacerbating her chronic weakness. Encouraged her to spend more time out of bed. (4) Dysgeusia: Code(s): R43.2 - Parageusia Status: Acute Assessment and Plan: Patient with significant dysgeusia for the past 2 years. She states symptoms began shortly after her hysterectomy in June 2020. She has lost 30 lb since this time. Food has a bitter taste which results in gagging. She does see a specialist for this in [place] and has had extensive workup. She is on zinc for this reason. She can tolerate dietary supplements and these have been ordered. Dietitian has been working with the patient here on this issue. Zinc can cause this problem so will hold Zinc supplemetns since she has been on this for about a year now. (5) UTI (urinary tract infection): Code(s): N39.0 - Urinary tract infection, site not specified Status: Acute Assessment and Plan: UA noted. UCx growing Pseudomonas that is clemens-sensitive. Abx changed to cefepime. Continue to follow. QTc 450. Will narrow to Cipro (6) Hyponatremia: Code(s): E87.1 - Hypo-osmolality and hyponatremia Status: Acute Assessment and Plan: Sodium 128 on admission. She is on Lasix which may be contributing to this. Lasix is on hold. TSH normal. Cortisol within normal limits. Urine Na <5 to suggest pre-renal but consider poor circulating effective volume related to severe hypoalbuminemia. Na unchanged at 127. Stop IV fluids? Change to Albumin and Lasix? Defer to Nephrology. Monitor sodium levels. (7) Nephropathy: Code(s): N28.9 - Disorder of kidney and ureter, unspecified Status: Acute Assessment and Plan: Patient with nephrotic range proteinuria. Complement normal. Not diabetic. No obvious findings by Echo to suggest SBE. Consider multiple myeloma? Related to her history of breast cancer? Amyloid? Membranous GN? Nephrology consulted. Consider renal biopsy; send PLA2R. Obtain age appropriate cancer screening. patient is currently due for a colonoscopy. Per patient is up-to-date with her Pap smear and her mammogram. We will obtain official records from her primary care physician. (8) Renal failure: Code(s): N19 - Unspecified kidney failure Status: Acute Assessment and Plan: Creatinine elevated to 1.2 but stable. She has a normal baseline creatinine earlier this year. Chest x-ray clear but CT does have bronchiectasis. CT abd/pelvis does not show any significant renal abnormalities. Renal ultrasound shows normal kidney size and no hydronephrosis. She does have increased right-sided renal parenchymal echogenicity consistent with nonspecific nephropathy. C3, C4 normal. Urine eos rare but no peripheral eosinophilia to sugg
--- NOTE | 2022-06-20 14:09 | PM.PNNEP ---
Progress Note: A&P Assessment and Plan (1) Nephrotic range proteinuria: Code(s): R80.9 - Proteinuria, unspecified Status: Acute Assessment and Plan: as noted by urinalysis and random testing > 3.5 grams of protein as noted by random UTP/Cr ratio presence of UTI may be exacerbating this issue see #2 (2) Renal dysfunction: Code(s): N28.9 - Disorder of kidney and ureter, unspecified Status: Acute Assessment and Plan: normal creatinine at baseline running in the 1.2 - 1.3mg/dl range since admission evaluation to date: renal ultrasound normal but with increased right-sided renal parenchymal echogenicity, consistent with nonspecific nephropathy urine electrolytes prerenal rare urine eosinophils but no peripheral eosinophilia nephrotic range proteinuria (> 3.5grams) positive UTI serologies pending may need to consider renal biopsy...however, would probably repeat UTP/Cr once UTI is resolved/treated furthermore, would also COMPLETE treatment of UTI prior to renal biopsy as well... (3) Hyponatremia: Code(s): E87.1 - Hypo-osmolality and hyponatremia Status: Acute Assessment and Plan: as noted on admission related to renal dysfunction, fluid retention, or something else(?) evaluation to date: TSH and cortisol normal SPEP and UPEP pending CXR results noted up to date of cancer screenings? no improvement with IVFs better with use of IV diuretics follow trend of repeat sodiums (4) UTI (urinary tract infection): Code(s): N39.0 - Urinary tract infection, site not specified Status: Acute Assessment and Plan: urine culture with Pseudomonas on antibiotics (5) Edema: Code(s): R60.9 - Edema, unspecified Status: Acute Assessment and Plan: possibly from proteinuria and worsened by previous IVFs continue IV albumin chased by IV bumex for another 24 hours follow I/Os (6) Generalized weakness: Code(s): R53.1 - Weakness Status: Acute Assessment and Plan: likely due to acute illness, acute infection, and decreased mobility PT/OT as tolerated (7) Hypoalbuminemia: Code(s): E88.09 - Other disorders of plasma-protein metabolism, not elsewhere classified Status: Acute Assessment and Plan: part of nephrotic syndrome +/- poor oral intake on IV albumin infusions followed by IV bumex Long and extensive discussion (> 20 minutes) with patient and her family regarding her proteinuria, treatments of symptoms with IV albumin + IV bumex, and plan to recheck UA to ensure infection/UTI has cleared and re-asess proteinuria along with the possible need for a renal biopsy. Will continue to follow. Subjective Date/time seen: 06/20/22 14:09 She is extremely happy on my visit as she sees improvement in lower extremity swelling/edema today ( I wrinkles in my thighs!! ); seems to be tolerating IV albumin + IV bumex at this time; her daughter and were at bedside and we discussed the situation. Exam Narrative: General: thin female in NAD Heart: normal S1 and S2; no rub Lungs: decreased at bases Abdomen: soft, nontender, nondistended, positive bowel sounds Extremities: no cyanosis or clubbing; 1+ edema Skin: warm and intact Objective Data Vital Signs Vital Signs: Vital Signs Temp Pulse Resp BP Pulse Ox O2 Del Method 06/20/22 14:00 97.6 F 71 20 117/59 L 97 06/20/22 08:00 Room Air 06/20/22 12:38 108/52 L 06/20/22 12:38 112/62 06/20/22 08:00 97.4 F L 76 20 106/64 96 06/20/22 06:00 97.7 F 85 18 101/58 L 95 06/19/22 20:10 86 22 H 97/65 L 98 06/19/22 20:05 89 20 132/69 95 06/19/22 20:00 97.8 F 86 20 122/68 95 Intake/Output Intake/Output: Intake & Output 06/17/22 06/18/22 06/19/22 06/20/22 23:59 23:59 23:59 23:59 Intake Total 9868 1265 2972 700 Output Total 1500 13
--- NOTE | 2022-06-20 14:09 | P.PNNP_ITS ---
Progress Note: A&P Assessment and Plan (1) Nephrotic range proteinuria: Code(s): R80.9 - Proteinuria, unspecified Status: Acute Assessment and Plan: * as noted by urinalysis and random testing * > 3.5 grams of protein as noted by random UTP/Cr ratio * presence of UTI may be exacerbating this issue * see #2 (2) Renal dysfunction: Code(s): N28.9 - Disorder of kidney and ureter, unspecified Status: Acute Assessment and Plan: * normal creatinine at baseline * running in the 1.2 - 1.3mg/dl range since admission * evaluation to date: * renal ultrasound normal but with increased right-sided renal parenchymal echogenicity, consistent with nonspecific nephropathy * urine electrolytes prerenal * rare urine eosinophils but no peripheral eosinophilia * nephrotic range proteinuria (> 3.5grams) * positive UTI * serologies pending * may need to consider renal biopsy...however, would probably repeat UTP/Cr once UTI is resolved/treated * furthermore, would also COMPLETE treatment of UTI prior to renal biopsy as well... (3) Hyponatremia: Code(s): E87.1 - Hypo-osmolality and hyponatremia Status: Acute Assessment and Plan: * as noted on admission * related to renal dysfunction, fluid retention, or something else(?) * evaluation to date: * TSH and cortisol normal * SPEP and UPEP pending * CXR results noted * up to date of cancer screenings? * no improvement with IVFs * better with use of IV diuretics * follow trend of repeat sodiums (4) UTI (urinary tract infection): Code(s): N39.0 - Urinary tract infection, site not specified Status: Acute Assessment and Plan: * urine culture with Pseudomonas * on antibiotics (5) Edema: Code(s): R60.9 - Edema, unspecified Status: Acute Assessment and Plan: * possibly from proteinuria and worsened by previous IVFs * continue IV albumin chased by IV bumex for another 24 hours * follow I/Os (6) Generalized weakness: Code(s): R53.1 - Weakness Status: Acute Assessment and Plan: * likely due to acute illness, acute infection, and decreased mobility * PT/OT as tolerated (7) Hypoalbuminemia: Code(s): E88.09 - Other disorders of plasma-protein metabolism, not elsewhere classified Status: Acute Assessment and Plan: * part of nephrotic syndrome +/- poor oral intake * on IV albumin infusions followed by IV bumex Long and extensive discussion (> 20 minutes) with patient and her family regarding her proteinuria, treatments of symptoms with IV albumin + IV bumex, and plan to recheck UA to ensure infection/UTI has cleared and re-asess proteinuria along with the possible need for a renal biopsy. Will continue to follow. Subjective Date/time seen: 06/20/22 14:09 She is extremely happy on my visit as she sees improvement in lower extremity swelling/edema today ( I wrinkles in my thighs!! ); seems to be tolerating IV albumin + IV bumex at this time; her daughter and were at bedside and we discussed the situation. Exam Narrative: General: thin female in NAD Heart: normal S1 and S2; no rub Lungs: decreased at bases Abdomen: soft, nontender, nondistended, positive bowel sounds Extremities: no cyanosis or clubbing; 1+ edema Skin: warm and intact Objective Data Vital Signs Vital Signs:
[2022-06-20 19:06] LABS: Add Urine Microscopic? YES; Appearance Urine Clear (Clear); Bilirubin Urine Negative (Negative); Blood Urine 1+ (Negative); Color Urine Light Yellow (Yellow); Glucose Urine UA 1+ mg/dL (Negative); Ketones Urine Negative (Negative); Leukocyte Esterase Ur Negative LEU/UL (Negative); Nitrate Urine Negative (Negative); Protein Urine 3+ mg/dL (Negative); Urobilinogen Urine 0.2 mg/dL (<2.0)
[2022-06-20 19:15] LABS: Bacteria Urine Trace /hpf; Mucus Urine Rare /lpf; Squamous Epithelial Cell Urine Rare /hpf (Few)
[2022-06-20 19:16] LABS: Creatinine Urine 13.5 mg/dL
[2022-06-20 19:20] LABS: Total Protein Urine Random > 600 mg/dL
[2022-06-21] MEDS: BUMETANIDE INJ 1 MG/4 ML VIAL 0.5 MG IV PUSH ×3 (01:41→18:21)
[2022-06-21] MEDS: ALBUMIN HUMAN 25% 12.5 GM/50ML 50 ML IVPB ×2 (05:47→12:51)
[2022-06-21] MEDS: LEVOTHYROXINE SODIUM 75 MCG TABLET PO (05:48)
[2022-06-21 05:51] VITALS: BP 114/49; PULSE 86; RESP 20; TEMP 36.6; O2SAT 91
[2022-06-21 06:53] LABS: Albumin Level 2.4 g/dL (3.5-5.1); Anion Gap 0 mmol/L (8-16); Blood Urea Nitrogen 24 mg/dL (7-17); Calcium 7.8 mg/dL (8.4-10.2); Carbon Dioxide 26 mmol/L (22-30); Chloride 103 mmol/L (98-107); Estimated CRCL calculation 39 ml/min; Estimated Glomerular Filt Rate 49; Glucose 84 mg/dL (65-110); Phosphorus 3.6 mg/dL (2.5-4.5); Potassium 3.3 mmol/L (3.4-5.0); Sodium 129 mmol/L (137-145)
--- NOTE | 2022-06-21 09:51 | PCNFU ---
Nutrition Follow-Up Complete: Inadequate energy intake related to poor appetite and intake as evidenced by pt report Goal:PO intake 50% of meals and supplements. Pt is meeting goal at this time. Continue with same goal. Pt current nutrition is Regular, Ensure Enlive BID. Nutrition recommendation: Continue with current plan of care. Last recorded weight is 77 kg - up from kg, noted on Bumex for edema so attribute some weight gain to fluid. Bowel Motility: +BM 06/19 Labs Reviewed: Alb:2.4, NA:129, BUN:24, Cr:1.1 Meds Noted: Bumex, lovenox, Skin: no skin issues noted Additional Notes: Pt continues on a regular diet, Ensure Enlive in place per recommendation. Intake averages 50% of meals, and pt is consuming supplements. Monitor intake, wt, labs. Follow up in 7 days.
[2022-06-21] MEDS: ENOXAPARIN 40 MG/0.4 ML SYRINGE SUB-Q (10:04)
[2022-06-21] MEDS: MIDODRINE HCL 2.5 MG TABLET 5 MG PO ×3 (10:05→18:20)
[2022-06-21] MEDS: polyethylene glycoL 3350 17 GM POWD.PACK PO (10:05)
[2022-06-21] MEDS: ASCORBIC ACID 500 MG TABLET 1000 MG PO (10:05)
[2022-06-21] MEDS: CIPROFLOXACIN 250 MG TABLET PO ×2 (10:05→20:33)
[2022-06-21] MEDS: OMEGA 3 POLYUNSAT FATTY ACIDS 1 GM CAP PO (10:05)
[2022-06-21] MEDS: THIAMINE HCL 50 MG TABLET PO (10:06)
[2022-06-21 10:32] LABS: Complement Total CH50 >60 U/mL (31-60)
--- NOTE | 2022-06-21 11:14 | PCPTNOTE ---
Hospitalist called and confirmed Discharge of duplicated therapy orders.
[2022-06-21 11:47] LABS: Anti Glomerular Basement Memb <1.0 AI (<1.0)
[2022-06-21] MEDS: POTASSIUM CHLORIDE 20 MEQ PACKET (FOR LIQUID) PO (12:50)
[2022-06-21] MEDS: CALCIUM CARBONATE (OSCAL) 500 MG TABLET PO (12:51)
[2022-06-21 14:40] VITALS: BP 141/75; PULSE 85; RESP 14; TEMP 36.4; O2SAT 98
--- NOTE | 2022-06-21 16:07 | PM.IMPN ---
Progress Note: A&P Assessment and Plan (1) Hypotension: Code(s): I95.9 - Hypotension, unspecified Status: Acute Assessment and Plan: Patient was hypotensive on admission (76/51). With IV fluids her blood pressure improved with a blood pressure of 141/75 today.. Midodrine was added. She feels bloated now probably because of the IV fluids. Her albumin is better today at 2.2g/dL. Continue albumin infusion and, if blood pressure tolerates, Lasix. Defer to nephrology. (2) Nephrotic syndrome: Code(s): N04.9 - Nephrotic syndrome with unspecified morphologic changes Status: Acute Assessment and Plan: continue IV albumin followed by IV bumex for another 24 hours, as tolerated. (3) Generalized weakness: Code(s): R53.1 - Weakness Status: Acute Assessment and Plan: Patient with generalized weakness related to her weight loss, UTI, nephropathy, HoTN and poor oral intake. Hyponatremia could also be contributing to her weakness. TSH and B12 levels are normal. Suspect her spinal stenosis also is contributing to her lower extremity weakness but not her general malaise. Weakness is better and PT has signed off. UTI could be exacerbating her chronic weakness. Encouraged her to spend more time out of bed. (4) Dysgeusia: Code(s): R43.2 - Parageusia Status: Acute Assessment and Plan: Patient with significant dysgeusia for the past 2 years. She states symptoms began shortly after her hysterectomy in June 2020. She has lost 30 lb since this time. Food has a bitter taste which results in gagging. She does see a specialist for this in [place] and has had extensive workup. She is on zinc for this reason. She can tolerate dietary supplements and these have been ordered. Dietitian has been working with the patient here on this issue. Zinc can cause this problem so will hold Zinc supplemetns since she has been on this for about a year now. (5) UTI (urinary tract infection): Code(s): N39.0 - Urinary tract infection, site not specified Status: Acute Assessment and Plan: UA noted. UCx growing Pseudomonas that is clemens-sensitive. Abx changed to cefepime. Continue to follow. QTc 450. Will narrow to Cipro (6) Hyponatremia: Code(s): E87.1 - Hypo-osmolality and hyponatremia Status: Acute Assessment and Plan: Sodium 128 on admission. She is on Lasix which may be contributing to this. Lasix is on hold. TSH normal. Cortisol within normal limits. Urine Na <5 to suggest pre-renal but consider poor circulating effective volume related to severe hypoalbuminemia. Na unchanged at 127. Stop IV fluids? Change to Albumin and Lasix? Defer to Nephrology. Monitor sodium levels. (7) Nephropathy: Code(s): N28.9 - Disorder of kidney and ureter, unspecified Status: Acute Assessment and Plan: Patient with nephrotic range proteinuria. Complement normal. Not diabetic. No obvious findings by Echo to suggest SBE. Consider multiple myeloma? Related to her history of breast cancer? Amyloid? Membranous GN? Nephrology consulted. Consider renal biopsy; send PLA2R. Obtain age appropriate cancer screening. patient is currently due for a colonoscopy. Per patient is up-to-date with her Pap smear and her mammogram. We will obtain official records from her primary care physician. (8) Renal failure: Code(s): N19 - Unspecified kidney failure Status: Acute Assessment and Plan: Creatinine elevated to 1.2 but stable. She has a normal baseline creatinine earlier this year. Chest x-ray clear but CT does have bronchiectasis. CT abd/pelvis does not show any significant renal abnormalities. Renal ultrasound shows normal kidney size and no hydronephrosis. She does have increased right-sided renal parenchymal echogenicity consistent with nonspecific nephropathy. C3, C4 normal. Urine eos rare but no peripheral eosinophilia t
[2022-06-21 19:55] VITALS: BP 114/54; PULSE 98; RESP 16; TEMP 37.8; O2SAT 90
[2022-06-21 20:00] VITALS: BP 93/50; PULSE 103; RESP 18; TEMP 37.6; O2SAT 93
[2022-06-21 20:05] VITALS: BP 67/38; PULSE 106; RESP 18; TEMP 37.4; O2SAT 94
[2022-06-22] VITALS (9 sets, daily range): BP systolic 75–164; BP diastolic 44–83; PULSE 72–96; RESP 14–16; TEMP 36.1–36.8; O2SAT 95–98
[2022-06-22] MEDS: LEVOTHYROXINE SODIUM 75 MCG TABLET PO (06:14)
[2022-06-22 06:41] LABS: Albumin Level 2.4 g/dL (3.5-5.1); Anion Gap 1 mmol/L (8-16); Blood Urea Nitrogen 26 mg/dL (7-17); Carbon Dioxide 26 mmol/L (22-30); Chloride 102 mmol/L (98-107); Estimated CRCL calculation 39 ml/min; Estimated Glomerular Filt Rate 49; Glucose 108 mg/dL (65-110); Phosphorus 3.6 mg/dL (2.5-4.5); Potassium 3.5 mmol/L (3.4-5.0); Sodium 129 mmol/L (137-145)
[2022-06-22] MEDS: CIPROFLOXACIN 250 MG TABLET PO ×2 (08:38→20:06)
[2022-06-22] MEDS: ENOXAPARIN 40 MG/0.4 ML SYRINGE SUB-Q (08:38)
[2022-06-22] MEDS: ASCORBIC ACID 500 MG TABLET 1000 MG PO (08:38)
[2022-06-22] MEDS: THIAMINE HCL 50 MG TABLET PO (08:38)
[2022-06-22] MEDS: MIDODRINE HCL 2.5 MG TABLET 5 MG PO ×2 (08:38→12:23)
[2022-06-22] MEDS: OMEGA 3 POLYUNSAT FATTY ACIDS 1 GM CAP PO (08:39)
[2022-06-22] MEDS: polyethylene glycoL 3350 17 GM POWD.PACK PO (08:39)
--- NOTE | 2022-06-22 09:05 | P.PNNP_ITS ---
Progress Note: A&P Assessment and Plan (1) Nephrotic range proteinuria: Code(s): R80.9 - Proteinuria, unspecified Status: Acute Assessment and Plan: * as noted by urinalysis and random testing * > 44 grams (!) of protein as noted by random UTP/Cr ratio * presence of UTI may be exacerbating this issue * see #2 (2) Renal dysfunction: Code(s): N28.9 - Disorder of kidney and ureter, unspecified Status: Acute Assessment and Plan: * normal creatinine at baseline * running in the 1.2 - 1.3mg/dl range since admission * evaluation to date: * renal ultrasound normal but with increased right-sided renal parenchymal echogenicity, consistent with nonspecific nephropathy * urine electrolytes prerenal * rare urine eosinophils but no peripheral eosinophilia * nephrotic range proteinuria (> 3.5grams) * positive UTI * serologies pending * SIfx shows IgA monoclonal * may will need a biopsy. * will do so after the UTI is treated. (3) Hyponatremia: Code(s): E87.1 - Hypo-osmolality and hyponatremia Status: Acute Assessment and Plan: * as noted on admission * related to renal dysfunction, fluid retention, or something else(?) * evaluation to date: * TSH and cortisol normal * SPEP and UPEP pending * CXR results noted * up to date of cancer screenings? * no improvement with IVFs * she has a lot of protein in the urine. * myeloma can cause pseudohyponatremia but TP only 5 so I doubt. Sosmo pending * will start a fluid restriction * follow trend of repeat sodiums (4) UTI (urinary tract infection): Code(s): N39.0 - Urinary tract infection, site not specified Status: Acute Assessment and Plan: * urine culture with Pseudomonas * on antibiotics * repeat ua tomorrow. (5) Edema: Code(s): R60.9 - Edema, unspecified Status: Acute Assessment and Plan: * possibly from proteinuria and worsened by previous IVFs * continue IV albumin chased by IV bumex for another 24 hours * I/O 1700/4250 * alb 2.4 * see how she does off the alb and bumex. (6) Generalized weakness: Code(s): R53.1 - Weakness Status: Acute Assessment and Plan: * likely due to acute illness, acute infection, and decreased mobility * PT/OT as tolerated (7) Hypoalbuminemia: Code(s): E88.09 - Other disorders of plasma-protein metabolism, not elsewhere classified Status: Acute Assessment and Plan: * part of nephrotic syndrome +/- poor oral intake * on IV albumin infusions followed by IV bumex Long and extensive discussion (> 20 minutes) with patient and her family regarding her proteinuria, treatments of symptoms with IV albumin + IV bumex, and plan to recheck UA to ensure infection/UTI has cleared and re-asess proteinuria along with the possible need for a renal biopsy. Will continue to follow. Subjective Date/time seen: 06/22/22 09:05 Interval history: pt is feeling about the same. swelling is gradually better. she has a edouard in. this was placed due to a 1 L residual volume. she will have it out today she says. will watch for recurrence of high residual volume. she says she had trouble emptying her bladder for months before this. possibly the high RV predisposed her to the bladder infection. Exam Narrative: General: thin female in NAD Heart: normal S1 and S2; no rub Lungs: decreased at bases Abdomen: soft, nontender, nondistended, positi
--- NOTE | 2022-06-22 09:05 | PM.PNNEP ---
Progress Note: A&P Assessment and Plan (1) Nephrotic range proteinuria: Code(s): R80.9 - Proteinuria, unspecified Status: Acute Assessment and Plan: as noted by urinalysis and random testing > 44 grams (!) of protein as noted by random UTP/Cr ratio presence of UTI may be exacerbating this issue see #2 (2) Renal dysfunction: Code(s): N28.9 - Disorder of kidney and ureter, unspecified Status: Acute Assessment and Plan: normal creatinine at baseline running in the 1.2 - 1.3mg/dl range since admission evaluation to date: renal ultrasound normal but with increased right-sided renal parenchymal echogenicity, consistent with nonspecific nephropathy urine electrolytes prerenal rare urine eosinophils but no peripheral eosinophilia nephrotic range proteinuria (> 3.5grams) positive UTI serologies pending SIfx shows IgA monoclonal may will need a biopsy. will do so after the UTI is treated. (3) Hyponatremia: Code(s): E87.1 - Hypo-osmolality and hyponatremia Status: Acute Assessment and Plan: as noted on admission related to renal dysfunction, fluid retention, or something else(?) evaluation to date: TSH and cortisol normal SPEP and UPEP pending CXR results noted up to date of cancer screenings? no improvement with IVFs she has a lot of protein in the urine. myeloma can cause pseudohyponatremia but TP only 5 so I doubt. Sosmo pending will start a fluid restriction follow trend of repeat sodiums (4) UTI (urinary tract infection): Code(s): N39.0 - Urinary tract infection, site not specified Status: Acute Assessment and Plan: urine culture with Pseudomonas on antibiotics repeat ua tomorrow. (5) Edema: Code(s): R60.9 - Edema, unspecified Status: Acute Assessment and Plan: possibly from proteinuria and worsened by previous IVFs continue IV albumin chased by IV bumex for another 24 hours I/O 1700/4250 alb 2.4 see how she does off the alb and bumex. (6) Generalized weakness: Code(s): R53.1 - Weakness Status: Acute Assessment and Plan: likely due to acute illness, acute infection, and decreased mobility PT/OT as tolerated (7) Hypoalbuminemia: Code(s): E88.09 - Other disorders of plasma-protein metabolism, not elsewhere classified Status: Acute Assessment and Plan: part of nephrotic syndrome +/- poor oral intake on IV albumin infusions followed by IV bumex Long and extensive discussion (> 20 minutes) with patient and her family regarding her proteinuria, treatments of symptoms with IV albumin + IV bumex, and plan to recheck UA to ensure infection/UTI has cleared and re-asess proteinuria along with the possible need for a renal biopsy. Will continue to follow. Subjective Date/time seen: 06/22/22 09:05 Interval history: pt is feeling about the same. swelling is gradually better. she has a edouard in. this was placed due to a 1 L residual volume. she will have it out today she says. will watch for recurrence of high residual volume. she says she had trouble emptying her bladder for months before this. possibly the high RV predisposed her to the bladder infection. Exam Narrative: General: thin female in NAD Heart: normal S1 and S2; no rub Lungs: decreased at bases Abdomen: soft, nontender, nondistended, positive bowel sounds Extremities: no cyanosis or clubbing; 1+ edema Skin: no rash Objective Data Vital Signs Vital Signs: Vital Signs - 24 hr 06/21/22 14:40 06/21/22 20:00 06/21/22 20:05 Temperature 97.5 F L 99.6 F 99.4 F Pulse Rate 85 103 H 106 H Respiratory Rate 14 18 18 Blood Pressure 141/75 H 93/50 L 67/38 L Pulse Oximetry 98 93 94 06/21/22 19:55 06/22/22 06:00 Temperature 100.1 F H 98.2 F Pulse Rate 98 88 Respiratory Rate 16 16 Blood Pressure 114/54 L 99/61 L Pulse Oximetry 90 95
[2022-06-22 09:17] LABS: Abnormal Protein Band 1 0.6 g/dL; Albumin 1.6 g/dL (3.8-4.8); Alpha 1 Globulin 0.3 g/dL (0.2-0.3); Beta 1 Globulin 0.2 g/dL (0.4-0.6); Protein, Total 3.8 g/dL (6.1-8.1)
[2022-06-22] MEDS: CALCIUM CARBONATE (OSCAL) 500 MG TABLET PO (12:23)
--- NOTE | 2022-06-22 15:41 | PM.IMPN ---
Progress Note: A&P Assessment and Plan (1) Hypotension: Code(s): I95.9 - Hypotension, unspecified Status: Acute Assessment and Plan: Patient was hypotensive on admission (76/51). With IV fluids her blood pressure improved with a blood pressure of 141/75 today.. Hold Midodrine, continue albumin per nephrology if patient goes into hypotension will reinstate Midrodrine Continue diuresis dosing per nephrology (2) Nephrotic syndrome: Code(s): N04.9 - Nephrotic syndrome with unspecified morphologic changes Status: Acute Assessment and Plan: continue IV albumin followed by IV bumex per nephrology (3) Generalized weakness: Code(s): R53.1 - Weakness Status: Acute Assessment and Plan: Patient with generalized weakness related to her weight loss, UTI, nephropathy, HoTN and poor oral intake. Hyponatremia could also be contributing to her weakness. TSH and B12 levels are normal. Suspect her spinal stenosis also is contributing to her lower extremity weakness but not her general malaise. Weakness is better and PT has signed off. improving (4) Dysgeusia: Code(s): R43.2 - Parageusia Status: Acute Assessment and Plan: Patient with significant dysgeusia for the past 2 years. She states symptoms began shortly after her hysterectomy in June 2020. She has lost 30 lb since this time. Food has a bitter taste which results in gagging. She does see a specialist for this in [place] and has had extensive workup. She is on zinc for this reason. She can tolerate dietary supplements and these have been ordered. Dietitian has been working with the patient here on this issue. Zinc can cause this problem so will hold Zinc supplemetns since she has been on this for about a year now. (5) UTI (urinary tract infection): Code(s): N39.0 - Urinary tract infection, site not specified Status: Acute Assessment and Plan: UA noted. UCx growing Pseudomonas that is clemens-sensitive. Abx changed to cefepime. Continue to follow. QTc 450. Now on Cipro monitor (6) Hyponatremia: Code(s): E87.1 - Hypo-osmolality and hyponatremia Status: Acute Assessment and Plan: Sodium 128 on admission. She is on Lasix which may be contributing to this. Lasix is on hold. TSH normal. Cortisol within normal limits. Urine Na <5 to suggest pre-renal but consider poor circulating effective volume related to severe hypoalbuminemia. Na unchanged at 127. Nephrology on board , fluids and diuresis per nephrology (7) Nephropathy: Code(s): N28.9 - Disorder of kidney and ureter, unspecified Status: Acute Assessment and Plan: Patient with nephrotic range proteinuria. Complement normal. Not diabetic. No obvious findings by Echo to suggest SBE. Consider multiple myeloma? Related to her history of breast cancer? Amyloid? Membranous GN? send PLA2R. Obtain age appropriate cancer screening. patient is currently due for a colonoscopy. Per patient is up-to-date with her Pap smear and her mammogram. Nephrology following, patient will need renal biopsy (8) Renal failure: Code(s): N19 - Unspecified kidney failure Status: Acute Assessment and Plan: Creatinine elevated to 1.2 but stable. She has a normal baseline creatinine earlier this year. Chest x-ray clear but CT does have bronchiectasis. CT abd/pelvis does not show any significant renal abnormalities. Renal ultrasound shows normal kidney size and no hydronephrosis. She does have increased right-sided renal parenchymal echogenicity consistent with nonspecific nephropathy. C3, C4 normal. Urine eos rare but no peripheral eosinophilia to suggest AIN. Patient also found to have nephrotic range proteinuria from unclear etiology. UA noted but she has UTI. resolving Nephrology on board (9) Elevated LFTs: Code(s): R79.89 - Other specified abnormal findings of
[2022-06-23 03:01] LABS: Add Urine Microscopic? YES; Appearance Urine Clear (Clear); Bilirubin Urine Negative (Negative); Blood Urine Trace-Intact (Negative); Color Urine Yellow (Yellow); Glucose Urine UA 1+ mg/dL (Negative); Ketones Urine Negative (Negative); Leukocyte Esterase Ur Negative LEU/UL (NEGATIVE); Nitrate Urine Negative (Negative); Protein Urine 3+ mg/dL (Negative); Specific Grav Ur 1.015 (1.001-1.035); Urobilinogen Urine 0.2 mg/dL (<2.0); pH Urine 7.5 (5.0-9.0)
[2022-06-23 03:04] LABS: Mucus Urine Rare /lpf; Squamous Epithelial Cell Urine Occasional /hpf (Few)
[2022-06-23 03:06] LABS: Creatinine Urine 54.7 mg/dL
--- NOTE | 2022-06-23 03:11 | PC.NURSE ---
multiple urine samples send to lab for analysis, UA, Cr, and protein.
[2022-06-23 03:53] LABS: Total Protein Urine Random > 600 mg/dL
[2022-06-23 06:00] VITALS: BP 119/57; PULSE 81; RESP 18; TEMP 37.2; O2SAT 93
[2022-06-23] MEDS: LEVOTHYROXINE SODIUM 75 MCG TABLET PO (06:04)
[2022-06-23 06:38] LABS: Anti Nuclear Antibody Titer 1:40 (Negative)
[2022-06-23 07:15] LABS: Basophils Absolute Auto 0.1 K/mm3 (0.0-0.1); Basophils Percent Auto 0.9 % (0.2-1.2); Eosinophils Absolute Auto 0.3 K/mm3 (0-0.3); Eosinophils Percent Auto 3.4 % (0-4.4); Hematocrit 34.7 % (37.0-47.0); Hemoglobin 11.5 g/dL (12.0-15.0); Immature Granulocyte Absolute 0.02 K/mm3 (0.00-0.031); Immature Granulocyte Percent A 0.2 % (0-0.5); Lymphocytes Absolute Auto 1.99 K/mm3 (0.9-3.2); Lymphocytes Percent Auto 21.3 % (18.3-44.2); Mean Corpuscular HGB Conc 33.1 g/dl (32-36); Mean Corpuscular Hemoglobin 31.1 pg (26-34); Mean Corpuscular Volume 93.8 fl (80-100); Mean Platelet Volume 10.8 fl (7.4-10.4); Monocytes Absolute Auto 1.1 K/mm3 (0.1-0.6); Monocytes Percent Auto 12.1 % (2.6-8.5); Neutrophils Absolute Auto 5.8 K/mm3 (1.3-6.7); Neutrophils Percent Auto 62.1 % (45.5-73.1); Platelet Count Result 356 k/mm3 (150-375); Red Cell Distribution Width 15.9 % (11.5-14.5); White Blood Count 9.4 K/mm3 (4.5-10.0)
[2022-06-23 07:23] LABS: Alanine Aminotransferase 56 U/L (6-35); Albumin Level 1.9 g/dL (3.5-5.1); Alkaline Phosphatase 102 U/L (38-126); Anion Gap 2 mmol/L (8-16); Aspartate Amino Transferase 76 U/L (14-36); Bilirubin,Total 0.2 mg/dL (0.2-1.3); Blood Urea Nitrogen 29 mg/dL (7-17); Calcium 8.2 mg/dL (8.4-10.2); Carbon Dioxide 27 mmol/L (22-30); Chloride 103 mmol/L (98-107); Estimated CRCL calculation 36 ml/min; Estimated Glomerular Filt Rate 44; Glucose 76 mg/dL (65-110); Phosphorus 4.3 mg/dL (2.5-4.5); Potassium 3.8 mmol/L (3.4-5.0); Sodium 132 mmol/L (137-145)
[2022-06-23 08:00] VITALS: BP 108/71; BP 108/91; BP 120/61
[2022-06-23] MEDS: OMEGA 3 POLYUNSAT FATTY ACIDS 1 GM CAP PO (08:27)
[2022-06-23] MEDS: ASCORBIC ACID 500 MG TABLET 1000 MG PO (08:27)
[2022-06-23] MEDS: ENOXAPARIN 40 MG/0.4 ML SYRINGE SUB-Q (08:27)
[2022-06-23] MEDS: CIPROFLOXACIN 250 MG TABLET PO ×2 (08:27→20:44)
[2022-06-23] MEDS: THIAMINE HCL 50 MG TABLET PO (08:28)
[2022-06-23] MEDS: polyethylene glycoL 3350 17 GM POWD.PACK PO (08:28)
[2022-06-23] MEDS: CALCIUM CARBONATE (OSCAL) 500 MG TABLET PO (12:19)
[2022-06-23 14:00] VITALS: BP 122/60; PULSE 81; RESP 17; TEMP 36.9; O2SAT 98
--- NOTE | 2022-06-23 17:24 | P.PNNP_ITS ---
Progress Note: A&P Assessment and Plan (1) Nephrotic range proteinuria: Code(s): R80.9 - Proteinuria, unspecified Status: Acute Assessment and Plan: * as noted by urinalysis and random testing * > 44 grams (!) of protein as noted by random UTP/Cr ratio * she has blood in the urine as well * she will need a renal biopsy once the bladder infection is improved. (2) Renal dysfunction: Code(s): N28.9 - Disorder of kidney and ureter, unspecified Status: Acute Assessment and Plan: * normal creatinine at baseline * running in the 1.2 - 1.3mg/dl range since admission * evaluation to date: * renal ultrasound normal but with increased right-sided renal parenchymal echogenicity, consistent with nonspecific nephropathy * urine electrolytes prerenal * rare urine eosinophils but no peripheral eosinophilia * nephrotic range proteinuria (> 3.5grams) * positive UTI * serologies pending * SIfx shows IgA monoclonal . I discussed this with the patient. Will have Dr. siddiqui shot see the patient in the morning. * The patient will need a biopsy. * will do so after the UTI is treated. (3) Hyponatremia: Code(s): E87.1 - Hypo-osmolality and hyponatremia Status: Acute Assessment and Plan: * as noted on admission * related to renal dysfunction, fluid retention, or something else(?) * evaluation to date: * TSH and cortisol normal * SPEP and UPEP pending * CXR results noted * up to date of cancer screenings? * she has a lot of protein in the urine. * myeloma can cause pseudohyponatremia but TP only 5 so I doubt. Sosmo pending * On fluid restriction * sodium better this morning at 1:32 a.m.. (4) UTI (urinary tract infection): Code(s): N39.0 - Urinary tract infection, site not specified Status: Acute Assessment and Plan: * urine culture with Pseudomonas * on antibiotics * repeat ua shows some but very few white cells (5) Edema: Code(s): R60.9 - Edema, unspecified Status: Acute Assessment and Plan: * probably from proteinuria and worsened by previous IVFs * continue IV albumin chased by IV bumex for another 24 hours * I/O 159/1999 * alb 2.4 * intake/output still negative. Will watch 1 more day (6) Generalized weakness: Code(s): R53.1 - Weakness Status: Acute Assessment and Plan: * likely due to acute illness, acute infection, and decreased mobility * PT/OT as tolerated (7) Hypoalbuminemia: Code(s): E88.09 - Other disorders of plasma-protein metabolism, not elsewhere classified Status: Acute Assessment and Plan: * part of nephrotic syndrome +/- poor oral intake Subjective Date/time seen: 06/23/22 07:20 Interval history: pt is feeling about the same. swelling is gradually better. Mcintosh was removed. She is urinating without difficulty. Exam Narrative: General: thin female in NAD Heart: normal S1 and S2; no rub or gallop Lungs: decreased at bases Abdomen: soft, nontender, nondistended, positive bowel sounds Extremities: 1+ edema Skin: no rash or subcu nodules Objective Data Vital Signs Vital Signs: Vital Signs - 24 hr 06/22/22 19:38 06/22/22 19:38 06/22/22 20:05 Temperature 97.2 F L Pulse Rate 72 86 Respiratory Rate 16 Blood Pressure 136/83
--- NOTE | 2022-06-23 17:24 | PM.PNNEP ---
Progress Note: A&P Assessment and Plan (1) Nephrotic range proteinuria: Code(s): R80.9 - Proteinuria, unspecified Status: Acute Assessment and Plan: as noted by urinalysis and random testing > 44 grams (!) of protein as noted by random UTP/Cr ratio she has blood in the urine as well she will need a renal biopsy once the bladder infection is improved. (2) Renal dysfunction: Code(s): N28.9 - Disorder of kidney and ureter, unspecified Status: Acute Assessment and Plan: normal creatinine at baseline running in the 1.2 - 1.3mg/dl range since admission evaluation to date: renal ultrasound normal but with increased right-sided renal parenchymal echogenicity, consistent with nonspecific nephropathy urine electrolytes prerenal rare urine eosinophils but no peripheral eosinophilia nephrotic range proteinuria (> 3.5grams) positive UTI serologies pending SIfx shows IgA monoclonal . I discussed this with the patient. Will have Dr. siddiqui shot see the patient in the morning. The patient will need a biopsy. will do so after the UTI is treated. (3) Hyponatremia: Code(s): E87.1 - Hypo-osmolality and hyponatremia Status: Acute Assessment and Plan: as noted on admission related to renal dysfunction, fluid retention, or something else(?) evaluation to date: TSH and cortisol normal SPEP and UPEP pending CXR results noted up to date of cancer screenings? she has a lot of protein in the urine. myeloma can cause pseudohyponatremia but TP only 5 so I doubt. Sosmo pending On fluid restriction sodium better this morning at 1:32 a.m.. (4) UTI (urinary tract infection): Code(s): N39.0 - Urinary tract infection, site not specified Status: Acute Assessment and Plan: urine culture with Pseudomonas on antibiotics repeat ua shows some but very few white cells (5) Edema: Code(s): R60.9 - Edema, unspecified Status: Acute Assessment and Plan: probably from proteinuria and worsened by previous IVFs continue IV albumin chased by IV bumex for another 24 hours I/O alb 2.4 intake/output still negative. Will watch 1 more day (6) Generalized weakness: Code(s): R53.1 - Weakness Status: Acute Assessment and Plan: likely due to acute illness, acute infection, and decreased mobility PT/OT as tolerated (7) Hypoalbuminemia: Code(s): E88.09 - Other disorders of plasma-protein metabolism, not elsewhere classified Status: Acute Assessment and Plan: part of nephrotic syndrome +/- poor oral intake Subjective Date/time seen: 06/23/22 07:20 Interval history: pt is feeling about the same. swelling is gradually better. Mcintosh was removed. She is urinating without difficulty. Exam Narrative: General: thin female in NAD Heart: normal S1 and S2; no rub or gallop Lungs: decreased at bases Abdomen: soft, nontender, nondistended, positive bowel sounds Extremities: 1+ edema Skin: no rash or subcu nodules Objective Data Vital Signs Vital Signs: Vital Signs - 24 hr 06/22/22 19:38 06/22/22 19:38 06/22/22 20:05 Temperature 97.2 F L Pulse Rate 72 86 Respiratory Rate 16 Blood Pressure 136/83 118/55 L Pulse Oximetry 98 98 Oxygen Delivery Room Air 06/22/22 20:10 06/22/22 20:15 06/23/22 06:00 Temperature 98.9 F Pulse Rate 96 95 81 Respiratory Rate 18 Blood Pressure 102/58 L 75/44 L 119/57 L Pulse Oximetry 93 Oxygen Delivery 06/23/22 08:00 06/23/22 14:00 06/23/22 08:00 Temperature 98.5 F Pulse Rate 81 Respiratory Rate 17 Blood Pressure 108/71 122/60 120/61 Pulse Oximetry 98 Oxygen Delivery 06/23/22 08:00 Temperature Pulse Rate Respiratory Rate Blood Pressure 108/91 H Pulse Oximetry Oxygen Delivery Intake/Output Intake/Output: Intake & Output
--- NOTE | 2022-06-23 18:09 | PM.IMPN ---
Progress Note: A&P Assessment and Plan (1) Hypotension: Code(s): I95.9 - Hypotension, unspecified Status: Acute Assessment and Plan: Patient was hypotensive on admission (76/51). With IV fluids her blood pressure improved with a blood pressure of 141/75 today.. Hold Midodrine, continue albumin per nephrology if patient goes into hypotension will reinstate Midrodrine Continue diuresis dosing per nephrology 06/23/2022 interval history: patient is 72-year-old female with history of breast cancer status post mastectomy and completed 5 years of chemotherapy 2012, patient presented emergency depart with complaint lower extremities, pelvic and lower abdominal area edema, patient also has hypoalbuminemia, and anasarca like edema patient also found to acute kidney injury patient seen by Nephrology and being treated with diuresed and albumin as needed, will continue to monitor and further recommendation to follow. (2) Nephrotic syndrome: Code(s): N04.9 - Nephrotic syndrome with unspecified morphologic changes Status: Acute Assessment and Plan: continue IV albumin followed by IV bumex per nephrology (3) Generalized weakness: Code(s): R53.1 - Weakness Status: Acute Assessment and Plan: Patient with generalized weakness related to her weight loss, UTI, nephropathy, HoTN and poor oral intake. Hyponatremia could also be contributing to her weakness. TSH and B12 levels are normal. Suspect her spinal stenosis also is contributing to her lower extremity weakness but not her general malaise. Weakness is better and PT has signed off. improving (4) Dysgeusia: Code(s): R43.2 - Parageusia Status: Acute Assessment and Plan: Patient with significant dysgeusia for the past 2 years. She states symptoms began shortly after her hysterectomy in June 2020. She has lost 30 lb since this time. Food has a bitter taste which results in gagging. She does see a specialist for this in [place] and has had extensive workup. She is on zinc for this reason. She can tolerate dietary supplements and these have been ordered. Dietitian has been working with the patient here on this issue. Zinc can cause this problem so will hold Zinc supplemetns since she has been on this for about a year now. (5) UTI (urinary tract infection): Code(s): N39.0 - Urinary tract infection, site not specified Status: Acute Assessment and Plan: UA noted. UCx growing Pseudomonas that is clemens-sensitive. Abx changed to cefepime. Continue to follow. QTc 450. Now on Cipro monitor (6) Hyponatremia: Code(s): E87.1 - Hypo-osmolality and hyponatremia Status: Acute Assessment and Plan: Sodium 128 on admission. She is on Lasix which may be contributing to this. Lasix is on hold. TSH normal. Cortisol within normal limits. Urine Na <5 to suggest pre-renal but consider poor circulating effective volume related to severe hypoalbuminemia. Na unchanged at 127. Nephrology on board , fluids and diuresis per nephrology (7) Nephropathy: Code(s): N28.9 - Disorder of kidney and ureter, unspecified Status: Acute Assessment and Plan: Patient with nephrotic range proteinuria. Complement normal. Not diabetic. No obvious findings by Echo to suggest SBE. Consider multiple myeloma? Related to her history of breast cancer? Amyloid? Membranous GN? send PLA2R. Obtain age appropriate cancer screening. patient is currently due for a colonoscopy. Per patient is up-to-date with her Pap smear and her mammogram. Nephrology following, patient will need renal biopsy (8) Renal failure: Code(s): N19 - Unspecified kidney failure Status: Acute Assessment and Plan: Creatinine elevated to 1.2 but stable. She has a normal baseline creatinine earlier this year. Chest x-ray clear but CT does have bronchiectasis. CT abd/pelvis does not show any
[2022-06-23 19:55] LABS: ANCA Screen Negative (Negative)
[2022-06-23 20:00] VITALS: BP 117/48; PULSE 85; RESP 18; TEMP 36.5; O2SAT 93; O2SAT 95
[2022-06-23 20:05] VITALS: BP 73/51; PULSE 92; RESP 20; O2SAT 94
[2022-06-23 20:10] VITALS: BP 61/39; PULSE 94; RESP 22; O2SAT 95
--- NOTE | 2022-06-23 21:57 | PC.NURSE ---
informed Chani of orthostatic bp, restarted midodrine as scheduled was on hold
--- NOTE | 2022-06-23 22:05 | PC.NURSE ---
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
[2022-06-24] VITALS (11 sets, daily range): BP systolic 68–127; BP diastolic 42–79; PULSE 77–93; RESP 14–20; TEMP 36.1–36.9; O2SAT 91–100
[2022-06-24] MEDS: LEVOTHYROXINE SODIUM 75 MCG TABLET PO (05:15)
[2022-06-24 07:09] LABS: Albumin Level 2.1 g/dL (3.5-5.1); Anion Gap 1 mmol/L (8-16); Blood Urea Nitrogen 34 mg/dL (7-17); Calcium 8.4 mg/dL (8.4-10.2); Carbon Dioxide 27 mmol/L (22-30); Chloride 104 mmol/L (98-107); Estimated CRCL calculation 39 ml/min; Estimated Glomerular Filt Rate 49; Glucose 89 mg/dL (65-110); Phosphorus 4.3 mg/dL (2.5-4.5); Potassium 3.6 mmol/L (3.4-5.0); Sodium 132 mmol/L (137-145)
[2022-06-24] MEDS: CIPROFLOXACIN 250 MG TABLET PO ×2 (09:34→22:32)
[2022-06-24] MEDS: MIDODRINE HCL 2.5 MG TABLET 5 MG PO ×3 (09:34→17:00)
[2022-06-24] MEDS: LACTATED RINGERS 1,000 ML 30 ML IV CONT (10:10)
--- NOTE | 2022-06-24 10:15 | WPDHPUPDATE1 ---
History and Physical Update Update Date/Time: 06/24/22 10:15 History and Physical has been reviewed, including an updated exam of the patient. There are NO changes in the patient's condition. Risks, benefits, and alternatives have been discussed and questions answered. Patient agrees to proceed with procedure.
--- NOTE | 2022-06-24 10:20 | WPDANESEPPF ---
Anes - Initial Pre Proc Eval Procedure: Operation Date: 06/24/22 11:00 Proposed Procedures p Cystoscopy, Urethral Dilatation - Juan Raza MD Date/Time: 06/24/22 10:20 Surgeon: Jayme cSott MD Pre Op Diagnosis: Generalized Weakness/Hyponatremia/UTI Patient Data Age: 72 Gender: F Height: 1.7 m Weight: 72.2 kg Last Vital Signs Temp 36.1 C L 06/24/22 08:28 Pulse 91 06/24/22 08:28 Resp 20 06/24/22 08:28 BP 68/42 L 06/24/22 08:28 Pulse Ox 95 06/24/22 08:28 O2 Del Method Room Air 06/24/22 08:00 Allergies Allergy/AdvReac Type Severity Reaction Status Date / Time nitrofurantoin AdvReac Mild Nausea Verified 06/24/22 10:21 codeine AdvReac Unknown Diarrhea Verified 06/24/22 10:21 Home Medications Medication Instructions Recorded Confirmed Type ascorbic acid (vitamin C) 1,000 mg 1,000 mg PO DAILY 06/13/20 06/14/22 History tablet,extended release (Vitamin C ER) calcium 600 mg capsule 600 mg PO DAILY 06/13/20 06/14/22 History glucosamine 250 rb-jxzlu-xko 200 1 tablet PO DAILY 06/13/20 06/14/22 History mg-D3 1,500 qude-B-dvuha-herbs tablet [id number]-eno-pmy-other ulaqm6k-qjew 1 cap PO DAILY 06/13/20 06/14/22 History oil 350 mg- 400 mg capsule zinc 50 mg tablet 50 mg PO DAILY 09/07/21 06/14/22 History aspirin 81 mg tablet,delayed 81 mg PO DAILY 10/01/21 06/14/22 History release (Adult Aspirin Regimen) alpha lipoic acid 100 mg capsule 100 mg PO BID 03/26/22 06/14/22 History thiamine HCl (vitamin B1) 100 mg 50 mg PO DAILY 03/26/22 06/14/22 History tablet levothyroxine 75 mcg tablet 75 mcg PO DAILY #90 tabs 05/17/22 06/14/22 Rx furosemide 20 mg tablet 40 mg PO QAM 05/25/22 06/14/22 History rosuvastatin 40 mg tablet 40 mg PO DAILY 06/14/22 06/14/22 History Laboratory Tests 06/15/22 06/24/22 21:25 05:57 Sodium 132 mmol/L L mmol/L (137-145) Potassium 3.6 mmol/L mmol/L (3.4-5.0) Chloride 104 mmol/L mmol/L (98-107) Carbon Dioxide 27 mmol/L mmol/L (22-30) Anion Gap 1 mmol/L L mmol/L (8-16) BUN 34 mg/dL H mg/dL (7-17) Creatinine 1.10 mg/dL H mg/dL (0.7-1.0) Estim Creat Clear Calc 39 ml/min ml/min Estimated GFR 49 L (59 - ) Glucose 89 mg/dL mg/dL (65-110) Calcium 8.4 mg/dL mg/dL (8.4-10.2) Phosphorus 4.3 mg/dL mg/dL (2.5-4.5) Albumin 2.1 g/dL L g/dL (3.5-5.1) ANCA Screen Negative (Negative) Patient hx anesthesia problems: none Family hx anesthesia problems: none Results Review: All pre-operative results and documents have been reviewed as part of the pre-operative evaluation. [facility]LY [facility] Past Medical History Medical History Arthritis Cancer of left breast (2006) Status post left mastectomy. Dyslipidemia Hernia Hypertension Pure hypercholesterolemia, unspecified SBO (small bowel obstruction) (2007) TIA (transient ischemic attack) Unilateral primary osteoarthritis, right knee Surgical History Surgical History H/O arthroscopy of right knee H/O left mastectomy (2006) with implant History of abdominal surgery (2007) Lysis of adhesions (laparoscopic) History of bowel resection (2006) For infarction History of cholecystectomy History of hernia repair (2008) Right femoral hernia. History of hysterectomy (06/2020) 06/2020 Family History Family History Sibling A-fib Father Carcinoma of colon Cerebrovascular accident Colon polyp Mother Hypertension Heart disease A-fib Grandparent Diabetes mellitus Other Breast cancer Social History Social History Social History: Surrogate medical decision maker: Axel Turcios, spouse. Code status: Full code. Smoking status: Never smoker S
[2022-06-24] MEDS: LIDOCAINE HCL 2% GEL UROJET 10 ML PKG MUCOUS MEM (10:47)
--- NOTE | 2022-06-24 10:54 | W.PM.PROC2 ---
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 2% xylocaine jelly was introduced intraurethrally and systemic sedation was administered per the anesthesia department. Cystoscopy was undertaken with a 19 F rigid cystoscope. She has mild prolapse of the urethral mucosa. Additionally, she seems to have a true bladder neck contracture calibrated about 18-20 F. Bladder shows some mild catheter cystitis but up no other mucosal abnormalities. She has a single orthotopic ureteral orifice with clear efflux. I dilated the urethra from 18-28 F with female sounds. I opted to leave a catheter out. Urine Output 350 Drains No Packing No Pathology None sent Complications No immediate complications Condition Stable
[2022-06-24] MEDS: polyethylene glycoL 3350 17 GM POWD.PACK PO (13:05)
[2022-06-24] MEDS: ASCORBIC ACID 500 MG TABLET 1000 MG PO (13:05)
[2022-06-24] MEDS: OMEGA 3 POLYUNSAT FATTY ACIDS 1 GM CAP PO (13:05)
[2022-06-24] MEDS: THIAMINE HCL 50 MG TABLET PO (13:05)
[2022-06-24] MEDS: CALCIUM CARBONATE (OSCAL) 500 MG TABLET PO (13:06)
--- NOTE | 2022-06-24 13:34 | PM.IMPN ---
Progress Note: A&P Assessment and Plan (1) Hypotension: Code(s): I95.9 - Hypotension, unspecified Status: Acute Assessment and Plan: Patient was hypotensive on admission (76/51). With IV fluids her blood pressure improved with a blood pressure of 141/75 today.. Hold Midodrine, continue albumin per nephrology if patient goes into hypotension will reinstate Midrodrine Continue diuresis dosing per nephrology 06/24/2022 interval history: patient is 72-year-old female with history of breast cancer status post mastectomy and completed 5 years of chemotherapy 2012, patient presented emergency depart with complaint lower extremities, pelvic and lower abdominal area edema, patient also has hypoalbuminemia, and anasarca like edema patient also found to acute kidney injury patient seen by Nephrology and being treated with diuresed and albumin as needed, today patient states feeling little better seen swelling lower extremity is improving however along pelvic lower abdomen persist will continue present management and monitor and further recommendation to follow. (2) Nephrotic syndrome: Code(s): N04.9 - Nephrotic syndrome with unspecified morphologic changes Status: Acute Assessment and Plan: continue IV albumin followed by IV bumex per nephrology (3) Generalized weakness: Code(s): R53.1 - Weakness Status: Acute Assessment and Plan: Patient with generalized weakness related to her weight loss, UTI, nephropathy, HoTN and poor oral intake. Hyponatremia could also be contributing to her weakness. TSH and B12 levels are normal. Suspect her spinal stenosis also is contributing to her lower extremity weakness but not her general malaise. Weakness is better and PT has signed off. improving (4) Dysgeusia: Code(s): R43.2 - Parageusia Status: Acute Assessment and Plan: Patient with significant dysgeusia for the past 2 years. She states symptoms began shortly after her hysterectomy in June 2020. She has lost 30 lb since this time. Food has a bitter taste which results in gagging. She does see a specialist for this in [place] and has had extensive workup. She is on zinc for this reason. She can tolerate dietary supplements and these have been ordered. Dietitian has been working with the patient here on this issue. Zinc can cause this problem so will hold Zinc supplemetns since she has been on this for about a year now. (5) UTI (urinary tract infection): Code(s): N39.0 - Urinary tract infection, site not specified Status: Acute Assessment and Plan: UA noted. UCx growing Pseudomonas that is clemens-sensitive. Abx changed to cefepime. Continue to follow. QTc 450. Now on Cipro monitor (6) Hyponatremia: Code(s): E87.1 - Hypo-osmolality and hyponatremia Status: Acute Assessment and Plan: Sodium 128 on admission. She is on Lasix which may be contributing to this. Lasix is on hold. TSH normal. Cortisol within normal limits. Urine Na <5 to suggest pre-renal but consider poor circulating effective volume related to severe hypoalbuminemia. Na unchanged at 127. Nephrology on board , fluids and diuresis per nephrology (7) Nephropathy: Code(s): N28.9 - Disorder of kidney and ureter, unspecified Status: Acute Assessment and Plan: Patient with nephrotic range proteinuria. Complement normal. Not diabetic. No obvious findings by Echo to suggest SBE. Consider multiple myeloma? Related to her history of breast cancer? Amyloid? Membranous GN? send PLA2R. Obtain age appropriate cancer screening. patient is currently due for a colonoscopy. Per patient is up-to-date with her Pap smear and her mammogram. Nephrology following, patient will need renal biopsy (8) Renal failure: Code(s): N19 - Unspecified kidney failure Status: Acute Assessment and Plan: Creatinine elevated to 1.[address]
[2022-06-24 20:34] LABS: Abnormal Protein Band 1 107 mg/dL; Creatinine, Random Urine 78 mg/dL (20-275); Total Protein/Creatinine Ratio 23833 mg/g creat (24-184)
--- NOTE | 2022-06-24 21:22 | P.PNNP_ITS ---
Progress Note: A&P Assessment and Plan (1) Nephrotic range proteinuria: Code(s): R80.9 - Proteinuria, unspecified Status: Acute Assessment and Plan: * as noted by urinalysis and random testing * > 44 grams (!) of protein as noted by random UTP/Cr ratio * she has blood in the urine as well * she will need a renal biopsy once the bladder infection is improved. * this can be as an outpatient. (2) Renal dysfunction: Code(s): N28.9 - Disorder of kidney and ureter, unspecified Status: Acute Assessment and Plan: * normal creatinine at baseline * running in the 1.2 - 1.3mg/dl range since admission * evaluation to date: * renal ultrasound normal but with increased right-sided renal parenchymal echogenicity, consistent with nonspecific nephropathy * urine electrolytes prerenal * rare urine eosinophils but no peripheral eosinophilia * nephrotic range proteinuria (> 3.5grams) * positive UTI * serologies pending * SIfx shows IgA monoclonal . I discussed this with the patient. Dr Hamilton to see the patient * The patient will need a biopsy. * will do so after the UTI is treated. (3) Hyponatremia: Code(s): E87.1 - Hypo-osmolality and hyponatremia Status: Acute Assessment and Plan: * as noted on admission * related to renal dysfunction, fluid retention, or something else(?) * evaluation to date: * TSH and cortisol normal * SPEP and UPEP pending * CXR results noted * up to date of cancer screenings? * she has a lot of protein in the urine. * myeloma can cause pseudohyponatremia but TP only 5 so I doubt. Sosmo pending * On fluid restriction * sodium stable at 132. (4) UTI (urinary tract infection): Code(s): N39.0 - Urinary tract infection, site not specified Status: Acute Assessment and Plan: * urine culture with Pseudomonas * on antibiotics * repeat ua shows some but very few white cells (5) Edema: Code(s): R60.9 - Edema, unspecified Status: Acute Assessment and Plan: * probably from proteinuria a * continue IV albumin chased by IV bumex for another 24 hours * I/O 159/1999 * alb 2.4 * restart the diuretics. (6) Generalized weakness: Code(s): R53.1 - Weakness Status: Acute Assessment and Plan: * likely due to acute illness, acute infection, and decreased mobility * PT/OT as tolerated (7) Hypoalbuminemia: Code(s): E88.09 - Other disorders of plasma-protein metabolism, not elsewhere classified Status: Acute Assessment and Plan: * part of nephrotic syndrome +/- poor oral intake Subjective Date/time seen: 06/24/22 21:22 Interval history: pt is feeling about the same. swelling is gradually better. belly still feels distended: her main discomfort from the swelling. she had cystoscopy. it showed urethral stricture which was dilated. Exam Narrative: General: thin female in NAD Heart: normal S1 and S2; no rub or gallop Lungs: fairly clear Abdomen: soft, nontender, nondistended, positive bowel sounds Extremities: 1+ edema Skin: no rash or subcu nodules Objective Data Vital Signs Vital Signs: Vital Signs - 24 hr 06/24/22 05:47 06/24/22 08:00 06/24/22 08:28 Temperature 97.6 F 97 F L 97 F L Pulse Rate 86 88 93 Respiratory Rate 20 20 20
--- NOTE | 2022-06-24 21:22 | PM.PNNEP ---
Progress Note: A&P Assessment and Plan (1) Nephrotic range proteinuria: Code(s): R80.9 - Proteinuria, unspecified Status: Acute Assessment and Plan: as noted by urinalysis and random testing > 44 grams (!) of protein as noted by random UTP/Cr ratio she has blood in the urine as well she will need a renal biopsy once the bladder infection is improved. this can be as an outpatient. (2) Renal dysfunction: Code(s): N28.9 - Disorder of kidney and ureter, unspecified Status: Acute Assessment and Plan: normal creatinine at baseline running in the 1.2 - 1.3mg/dl range since admission evaluation to date: renal ultrasound normal but with increased right-sided renal parenchymal echogenicity, consistent with nonspecific nephropathy urine electrolytes prerenal rare urine eosinophils but no peripheral eosinophilia nephrotic range proteinuria (> 3.5grams) positive UTI serologies pending SIfx shows IgA monoclonal . I discussed this with the patient. Dr Hamilton to see the patient The patient will need a biopsy. will do so after the UTI is treated. (3) Hyponatremia: Code(s): E87.1 - Hypo-osmolality and hyponatremia Status: Acute Assessment and Plan: as noted on admission related to renal dysfunction, fluid retention, or something else(?) evaluation to date: TSH and cortisol normal SPEP and UPEP pending CXR results noted up to date of cancer screenings? she has a lot of protein in the urine. myeloma can cause pseudohyponatremia but TP only 5 so I doubt. Sosmo pending On fluid restriction sodium stable at 132. (4) UTI (urinary tract infection): Code(s): N39.0 - Urinary tract infection, site not specified Status: Acute Assessment and Plan: urine culture with Pseudomonas on antibiotics repeat ua shows some but very few white cells (5) Edema: Code(s): R60.9 - Edema, unspecified Status: Acute Assessment and Plan: probably from proteinuria a continue IV albumin chased by IV bumex for another 24 hours I/O 159/1999 alb 2.4 restart the diuretics. (6) Generalized weakness: Code(s): R53.1 - Weakness Status: Acute Assessment and Plan: likely due to acute illness, acute infection, and decreased mobility PT/OT as tolerated (7) Hypoalbuminemia: Code(s): E88.09 - Other disorders of plasma-protein metabolism, not elsewhere classified Status: Acute Assessment and Plan: part of nephrotic syndrome +/- poor oral intake Subjective Date/time seen: 06/24/22 21:22 Interval history: pt is feeling about the same. swelling is gradually better. belly still feels distended: her main discomfort from the swelling. she had cystoscopy. it showed urethral stricture which was dilated. Exam Narrative: General: thin female in NAD Heart: normal S1 and S2; no rub or gallop Lungs: fairly clear Abdomen: soft, nontender, nondistended, positive bowel sounds Extremities: 1+ edema Skin: no rash or subcu nodules Objective Data Vital Signs Vital Signs: Vital Signs - 24 hr 06/24/22 05:47 06/24/22 08:00 06/24/22 08:28 Temperature 97.6 F 97 F L 97 F L Pulse Rate 86 88 93 Respiratory Rate 20 20 20 Blood Pressure 115/54 L 104/60 87/55 L Pulse Oximetry 91 96 100 Oxygen Delivery 06/24/22 08:28 06/24/22 08:00 06/24/22 10:25 Temperature 97 F L 98.3 F Pulse Rate 91 80 Respiratory Rate 20 16 Blood Pressure 68/42 L 127/68 Pulse Oximetry 95 96 Oxygen Delivery Room Air Room Air 06/24/22 10:56 06/24/22 11:10 06/24/22 11:25 Temperature 98.4 F Pulse Rate 79 77 78 Respiratory Rate 16 14 14 Blood Pressure 104/59 L 119/79 123/74 Pulse Oximetry 95 96 95 Oxygen Delivery Room Air Room Air Room Air 06/24/22 14:00 Temperature 96.9 F L Pulse Rate 85 Respiratory Rate 14 Blood Pressure 106/57 L Pulse Oximetr
[2022-06-25] VITALS (8 sets, daily range): BP systolic 90–141; BP diastolic 58–77; PULSE 64–100; RESP 16–18; TEMP 36.8–36.9; O2SAT 93–96
[2022-06-25] MEDS: LEVOTHYROXINE SODIUM 75 MCG TABLET PO (06:01)
--- NOTE | 2022-06-25 07:34 | WPDANESPN ---
Anes - Prog Note Post-Op Date/Time: 06/25/22 07:34 Vital Signs: Last Vital Signs Temp 36.8 C 06/24/22 21:00 Pulse 92 06/24/22 21:10 Resp 18 06/24/22 21:00 BP 78/54 L 06/24/22 21:10 Pulse Ox 93 06/24/22 21:00 O2 Del Method Room Air 06/24/22 20:00 Pain Score (VAS): 0 I/O: Intake & Output 06/24/22 06/24/22 06/25/22 15:59 23:59 07:59 Intake Total 100 240 240 Output Total 350 1200 Balance -250 -960 240 Laboratory Tests 06/23/22 06:05 06/24/22 05:57 06/15/22 16:36 Ur Random Creatinine 78 U Random Total Protein 1859 H Protein/Creatinin Ratio 57928 H Urine Albumin 53 U [id number] 13 U [id number]-[id number] 9 U Beta Globulin 14 U Gamma Globulin 11 U Abnormal Prot Band 1 107 H U Abnormal Prot Band 2 Not Reportable U Abnormal Prot Band 3 Not Reportable Urine PEP Interpret see below A Patient Feedback: Patient satisfied with anesthetic care.
[2022-06-25 09:06] LABS: Albumin Level 2.3 g/dL (3.5-5.1); Anion Gap 0 mmol/L (8-16); Blood Urea Nitrogen 35 mg/dL (7-17); Calcium 8.7 mg/dL (8.4-10.2); Carbon Dioxide 32 mmol/L (22-30); Chloride 103 mmol/L (98-107); Estimated CRCL calculation 31 ml/min; Estimated Glomerular Filt Rate 37; Glucose 99 mg/dL (65-110); Phosphorus 4.4 mg/dL (2.5-4.5); Potassium 3.5 mmol/L (3.4-5.0); Sodium 135 mmol/L (137-145)
[2022-06-25] MEDS: ZINC SULFATE 220 MG CAPSULE PO (09:33)
[2022-06-25] MEDS: CIPROFLOXACIN 250 MG TABLET PO ×2 (09:33→21:45)
[2022-06-25] MEDS: MIDODRINE HCL 2.5 MG TABLET 5 MG PO ×3 (09:33→16:51)
[2022-06-25] MEDS: ASCORBIC ACID 500 MG TABLET 1000 MG PO (09:33)
[2022-06-25] MEDS: OMEGA 3 POLYUNSAT FATTY ACIDS 1 GM CAP PO (09:34)
[2022-06-25] MEDS: THIAMINE HCL 50 MG TABLET PO (09:34)
[2022-06-25] MEDS: polyethylene glycoL 3350 17 GM POWD.PACK PO (09:34)
[2022-06-25] MEDS: ENOXAPARIN 40 MG/0.4 ML SYRINGE SUB-Q (09:34)
--- NOTE | 2022-06-25 10:32 | WPDUROPN2 ---
Progress Note: A&P Assessment and Plan (1) Urinary retention: Code(s): R33.9 - Retention of urine, unspecified Status: Acute Assessment and Plan: Voiding improved following urethral dilation. F/U: 3-months with us following discharge. Subjective Subjective Date/Time Seen: 06/25/22 10:32 Voiding well following urethral dilatation Review of Systems Cardiovascular: Cardiovascular: Denies chest pain, Denies lightheadedness, Denies palpitations and Denies dyspnea Respiratory: Respiratory: Denies dyspnea Gastrointestinal: Gastrointestinal: Denies diarrhea, Denies nausea and Denies vomiting Genitourinary: Genitourinary: Denies hematuria and Denies dysuria Endocrine: Endocrine: Denies palpitations Exam Const: General: no acute distress Resp: Effort & Inspection: normal respiratory effort GI: Inspection: non-distended GI Palp: No abdominal tenderness and No Guarding due to palpation present (GI) Auscultation: normal bowel sounds Objective Data Vital Signs Vital Signs: Vital Signs - 24 hr 06/24/22 10:56 06/24/22 11:10 06/24/22 11:25 Temperature 98.4 F Pulse Rate 79 77 78 Respiratory Rate 16 14 14 Blood Pressure 104/59 L 119/79 123/74 Pulse Oximetry 95 96 95 Oxygen Delivery Room Air Room Air Room Air 06/24/22 14:00 06/24/22 20:00 06/24/22 21:00 Temperature 96.9 F L Pulse Rate 85 80 Respiratory Rate 14 Blood Pressure 106/57 L 114/62 Pulse Oximetry 93 Oxygen Delivery Room Air 06/24/22 21:00 06/24/22 21:05 06/24/22 21:10 Temperature 98.2 F Pulse Rate 80 88 92 Respiratory Rate 18 Blood Pressure 114/62 97/67 L 78/54 L Pulse Oximetry 93 Oxygen Delivery 06/25/22 06:00 Temperature 98.5 F Pulse Rate 84 Respiratory Rate 16 Blood Pressure 122/68 Pulse Oximetry 94 Oxygen Delivery Intake/Output Intake/Output: Intake & Output 06/22/22 06/23/22 06/24/22 06/25/22 23:59 23:59 23:59 23:59 Intake Total 1592 930 580 240 Output Total 1999 1350 1950 Balance -408 420 -9423 240 Meds/Results Medications: Active Medications Generic Name Dose Route Start Last Admin Trade Name Freq PRN Reason Stop Dose Admin Acetaminophen 650 mg 06/15/22 00:02 06/15/22 00:12 Acetaminophen 325 Mg Tablet PO 650 mg Q6H PRN Administration Mild Pain (1-3) or Fever Ascorbic Acid 1,000 mg 06/15/22 09:00 06/25/22 09:33 Ascorbic Acid 500 Mg Tablet PO 1,000 mg QAM DARRICK Administration Calcium Carbonate 500 mg 06/18/22 12:00 06/24/22 13:06 Calcium Carbonate (Oscal) 500 Mg Tablet PO 500 mg 1200 DARRICK Administration Ciprofloxacin 250 mg 06/17/22 21:00 06/25/22 09:33 Ciprofloxacin 250 Mg Tablet PO 250 mg Q12HR DARRICK Administration Enoxaparin Sodium 40 mg 06/17/22 09:00 06/25/22 09:34 Enoxaparin 40 Mg/0.4 Ml Syringe SUB-Q 40 mg DAILY DARRICK Administration Fish Oil 1 gm 06/15/22 09:00 06/25/22 09:34 [place] 3 Polyunsat Fatty Acids 1 Gm Cap PO 1 gm QAM DARRICK Administration Furosemide 40 mg 06/25/22 09:00 Furosemide Inj 40 Mg/4 Ml Vial IV PUSH BID DARRICK Albumin Human 100 mls @ 60 mls/hr 06/25/22 09:00 Albutein IVPB BID DARRICK Levothyroxine Sodium 75 mcg 06/15/22 06:30 06/25/22 06:01 Levothyroxine Sodium 75 Mcg Tablet PO 75 mcg DAILY@0630 DARRICK Administration Melatonin 5 mg 06/15/22 00:02 06/15/22 00:12 Melatonin 5 Mg Tablet PO 5 mg HS PRN Administration insomnia Midodrine 5 mg 06/15/22 09:00 06/25/22 09:33 Midodrine Hcl 2.5 Mg Tablet PO 5 mg TID DARRICK Administration Polyethylene Glycol 17 gm 06/15/22 09:00 06/25/22 09:34 Polyethylene Glycol 3350 17 Gm Powd.Pack PO 17 gm QAM DARRICK Administration Thiamine HCl 50 mg 06/15/22 09:00 06/25/22 09:34 Thiamine Hcl 50 Mg Tablet PO 50 mg DAILY DARRICK Administration Zinc Sulfate 220 mg 06/15/22 09:00 06/25/22 09:33 Zinc Sulfate 220 Mg Capsule PO 220 mg DAILY DARRICK Administration Radi
--- NOTE | 2022-06-25 12:20 | P.PNNP_ITS ---
Progress Note: A&P Assessment and Plan (1) Nephrotic range proteinuria: Code(s): R80.9 - Proteinuria, unspecified Status: Acute Assessment and Plan: * as noted by urinalysis and random testing * > 44 grams (!) of protein as noted by random UTP/Cr ratio * she has blood in the urine as well * She is very symptomatic from this. * Will go ahead and give IV Lasix plus albumin and try to get rid of some of this fluid. * We discussed that albumin is only a Band-Aid because she will lose it in the urine fairly soon but possibly can get some relief from all the swelling and once it is gone possibly diuretics will be enough to prevent it from coming back. * ultimately we need to know the underlying diagnosis to see if there is a treatment. (2) Renal dysfunction: Code(s): N28.9 - Disorder of kidney and ureter, unspecified Status: Acute Assessment and Plan: * normal creatinine at baseline * running in the 1.2 - 1.3mg/dl range since admission * It is up to 1.4 today. * evaluation to date: * renal ultrasound normal but with increased right-sided renal parenchymal echogenicity, consistent with nonspecific nephropathy * urine electrolytes prerenal * rare urine eosinophils but no peripheral eosinophilia * nephrotic range proteinuria (> 3.5grams) * positive UTI * serologies pending * SIfx shows IgA monoclonal . I discussed this with the patient. Dr Hamilton to see the patient * The patient will need a biopsy. * Will go ahead and order this for Tuesday. She is just finishing her antibiotic today so will give it a couple more days.. (3) Hyponatremia: Code(s): E87.1 - Hypo-osmolality and hyponatremia Status: Acute Assessment and Plan: * as noted on admission * related to renal dysfunction, fluid retention, or something else(?) * evaluation to date: * TSH and cortisol normal * SPEP and UPEP pending * CXR results noted * up to date of cancer screenings? * she has a lot of protein in the urine. * myeloma can cause pseudohyponatremia but TP only 5 so I doubt. Sosmo pending * On fluid restriction * sodium stable at 132. (4) UTI (urinary tract infection): Code(s): N39.0 - Urinary tract infection, site not specified Status: Acute Assessment and Plan: * urine culture with Pseudomonas * on antibiotics * These finished today * repeat ua shows some but very few white cells (5) Edema: Code(s): R60.9 - Edema, unspecified Status: Acute Assessment and Plan: * probably from proteinuria * restart IV Lasix plus albumin (6) Generalized weakness: Code(s): R53.1 - Weakness Status: Acute Assessment and Plan: * likely due to acute illness, acute infection, and decreased mobility * PT/OT as tolerated (7) Hypoalbuminemia: Code(s): E88.09 - Other disorders of plasma-protein metabolism, not elsewhere classified Status: Acute Assessment and Plan: * part of nephrotic syndrome +/- poor oral intake Subjective Date/time seen: 06/25/22 12:20 Interval history: Patient is sitting up at the side of the bed. Patient still has some swelling in the legs about retirement up to the cath when sitting up. She still has significant abdominal tightness. Exam Narrative: General: thin female in NAD Heart: normal S1 and S2; no rub or gallop Lungs: fairly clear Abdomen: Somewhat firm, nontender, nondi
--- NOTE | 2022-06-25 12:20 | PM.PNNEP ---
Progress Note: A&P Assessment and Plan (1) Nephrotic range proteinuria: Code(s): R80.9 - Proteinuria, unspecified Status: Acute Assessment and Plan: as noted by urinalysis and random testing > 44 grams (!) of protein as noted by random UTP/Cr ratio she has blood in the urine as well She is very symptomatic from this. Will go ahead and give IV Lasix plus albumin and try to get rid of some of this fluid. We discussed that albumin is only a Band-Aid because she will lose it in the urine fairly soon but possibly can get some relief from all the swelling and once it is gone possibly diuretics will be enough to prevent it from coming back. ultimately we need to know the underlying diagnosis to see if there is a treatment. (2) Renal dysfunction: Code(s): N28.9 - Disorder of kidney and ureter, unspecified Status: Acute Assessment and Plan: normal creatinine at baseline running in the 1.2 - 1.3mg/dl range since admission It is up to 1.4 today. evaluation to date: renal ultrasound normal but with increased right-sided renal parenchymal echogenicity, consistent with nonspecific nephropathy urine electrolytes prerenal rare urine eosinophils but no peripheral eosinophilia nephrotic range proteinuria (> 3.5grams) positive UTI serologies pending SIfx shows IgA monoclonal . I discussed this with the patient. Dr Hamilton to see the patient The patient will need a biopsy. Will go ahead and order this for Tuesday. She is just finishing her antibiotic today so will give it a couple more days.. (3) Hyponatremia: Code(s): E87.1 - Hypo-osmolality and hyponatremia Status: Acute Assessment and Plan: as noted on admission related to renal dysfunction, fluid retention, or something else(?) evaluation to date: TSH and cortisol normal SPEP and UPEP pending CXR results noted up to date of cancer screenings? she has a lot of protein in the urine. myeloma can cause pseudohyponatremia but TP only 5 so I doubt. Sosmo pending On fluid restriction sodium stable at 132. (4) UTI (urinary tract infection): Code(s): N39.0 - Urinary tract infection, site not specified Status: Acute Assessment and Plan: urine culture with Pseudomonas on antibiotics These finished today repeat ua shows some but very few white cells (5) Edema: Code(s): R60.9 - Edema, unspecified Status: Acute Assessment and Plan: probably from proteinuria restart IV Lasix plus albumin (6) Generalized weakness: Code(s): R53.1 - Weakness Status: Acute Assessment and Plan: likely due to acute illness, acute infection, and decreased mobility PT/OT as tolerated (7) Hypoalbuminemia: Code(s): E88.09 - Other disorders of plasma-protein metabolism, not elsewhere classified Status: Acute Assessment and Plan: part of nephrotic syndrome +/- poor oral intake Subjective Date/time seen: 06/25/22 12:20 Interval history: Patient is sitting up at the side of the bed. Patient still has some swelling in the legs about [place] up to the cath when sitting up. She still has significant abdominal tightness. Exam Narrative: General: thin female in NAD Heart: normal S1 and S2; no rub or gallop Lungs: fairly clear Abdomen: Somewhat firm, nontender, nondistended, positive bowel sounds. She does have some presacral edema and maybe some body wall edema. Extremities: 1-2+ edema In legs, pre sacrum. Skin: no rash or subcu nodules Objective Data Vital Signs Vital Signs: Vital Signs - 24 hr 06/24/22 14:00 06/24/22 20:00 06/24/22 21:00 Temperature 96.9 F L Pulse Rate 85 80 Respiratory Rate 14 Blood Pressure 106/57 L 114/62 Pulse Oximetry 93 Oxygen Delivery Room Air 06/24/22 21:00 06/24/22 21:05 06/24/22 21:10 Temperature 98.2 F Pulse Rat
[2022-06-25] MEDS: ALBUMIN HUMAN 25% 25 GM/100 ML 100 ML IVPB ×2 (12:25→18:50)
[2022-06-25] MEDS: FUROSEMIDE INJ 40 MG/4 ML VIAL IV PUSH ×2 (12:25→18:50)
[2022-06-25] MEDS: CALCIUM CARBONATE (OSCAL) 500 MG TABLET PO (12:26)
--- NOTE | 2022-06-25 15:47 | PDONCCN ---
HPI - Date of Consult Date/Time: 06/25/22 15:47 Requesting Physician: Jayme Scott MD Primary Care Provider: Mainor Wallace MD - Consult Narrative Reason for consult: Monoclonal gammopathy of unknown significance Narrative: Rosalba Turcios is a 72 year old female with history of hypertension, hyperlipidemia and hypothyroidism along with history of left-sided breast cancer status post mastectomy in 2006 and then she took Aromasin for 5 years duration. She came into the hospital with generalized weakness with abdominal distension and bloating as well as bilateral lower extremity edema. She has lost 10 lb weight in last 1 year duration. She denies any previous history of kidney disease but developed renal insufficiency in the hospital and workup was performed including serum protein electrophoresis immunofixation that showed IgG lambda monoclonal band present. M spike was 0.6 gram/deciliter. She denies any bone pain and neuropathy. CT abdomen and pelvis was done due to abdominal pain and distention that showed small volume of ascites with small pleural effusion. Review of Systems - Review of Systems All systems reviewed & are unremarkable except as noted in HPI and bel - Neurologic Reports hearing normal [facility] Medical History: Medical History (Last Reviewed 06/15/22 @ 21:33 by Lesly Starks APRN) Arthritis Cancer of left breast Onset Date: 2006 Status post left mastectomy. Dyslipidemia Hernia Hypertension Pure hypercholesterolemia, unspecified SBO (small bowel obstruction) Onset Date: 2007 TIA (transient ischemic attack) Unilateral primary osteoarthritis, right knee Surgical History: Surgical History (Last Reviewed 06/15/22 @ 21:33 by Lesly Starks APRN) H/O arthroscopy of right knee H/O left mastectomy Onset Date: 2006 with implant History of abdominal surgery Onset Date: 2007 Lysis of adhesions (laparoscopic) History of bowel resection Onset Date: 2006 For infarction History of cholecystectomy History of hernia repair Onset Date: 2008 Right femoral hernia. History of hysterectomy Onset Date: 06/2020 Family History: Family History (Last Reviewed 06/15/22 @ 21:33 by Lesly Starks APRN) Sibling A-fib Father Carcinoma of colon Cerebrovascular accident Colon polyp Mother Hypertension Heart disease A-fib Grandparent Diabetes mellitus Other Breast cancer - Social History Social History: Social History (Last Reviewed 06/15/22 @ 21:33 by Lesly Starks APRN) Alcohol Use: Alcohol intake: former Drinks per week: 2 Alcohol use details: Rarely Substance Use: Substance use: never Substance use type: does not use Others: Spiritual care concerns: No Agree to blood products: Yes Smoking Status: Smoking status: Never smoker Second hand tobacco smoke exposure: No Social Determinants of Health: Has the Lack of Transportation Kept You From Medical Appointments or From Getting Medications?: No Within the Past 12 Months, Were You Worried Whether Your Food Would Run Out Before You Got Money to Buy More?: Never True What is Your Housing Situation Today?: I Have Housing Are You Worried That in the Next 2 Months, You May Not Have Your Own Housing to Live In?: No Do You Have Trouble Paying Your Heating Or Electricity Bill?: No Do You Have Trouble Paying For Medicines?: No Are You Currently Unemployed and Looking for Work?: No Highest Level of Education Completed: Bachelor's Degree Do You Have Trouble With Childcare or the Care of a Family Member?: No Exam - Vital Signs Vital Signs - 24 hr 06/24/22 20:00 06/24/22 21:00 06/24/22 21:00 Temperature 36.8 C Pulse Rate 80 80 Respiratory Rate 18 Blood Pressure 114/62 114/62 Pulse Oximetry 93 Oxygen Delivery Room Air 06/24/22 21:05 06/24/22 21:10 06/25/22 06:00 Temperature 36.9 C
--- NOTE | 2022-06-25 16:29 | PM.IMPN ---
Progress Note: A&P Assessment and Plan (1) Hypotension: Code(s): I95.9 - Hypotension, unspecified Status: Acute Assessment and Plan: Patient was hypotensive on admission (76/51). With IV fluids her blood pressure improved with a blood pressure of 141/75 today.. Hold Midodrine, continue albumin per nephrology if patient goes into hypotension will reinstate Midrodrine Continue diuresis dosing per nephrology 06/25/2022 interval history: patient is 72-year-old female with history of breast cancer status post mastectomy and completed 5 years of chemotherapy 2012, patient presented emergency depart with complaint lower extremities, pelvic and lower abdominal area edema, complaints of bloating patient does have bowel movement, patient also has hypoalbuminemia, and anasarca like edema patient also found to acute kidney injury patient seen by Nephrology and being diuresed and albumin as needed, today discussed with house wrecker recommended kidney biopsy to further evaluate, today patient also seen by Oncology patient does not need bone biopsy however further workup is ordered and further recommendation to follow, today patient states feeling little better seems swelling lower extremity is improving however along pelvic lower abdomen persist will continue present management and monitor and further recommendation to follow. (2) Nephrotic syndrome: Code(s): N04.9 - Nephrotic syndrome with unspecified morphologic changes Status: Acute Assessment and Plan: continue IV albumin followed by IV bumex per nephrology (3) Generalized weakness: Code(s): R53.1 - Weakness Status: Acute Assessment and Plan: Patient with generalized weakness related to her weight loss, UTI, nephropathy, HoTN and poor oral intake. Hyponatremia could also be contributing to her weakness. TSH and B12 levels are normal. Suspect her spinal stenosis also is contributing to her lower extremity weakness but not her general malaise. Weakness is better and PT has signed off. improving (4) Dysgeusia: Code(s): R43.2 - Parageusia Status: Acute Assessment and Plan: Patient with significant dysgeusia for the past 2 years. She states symptoms began shortly after her hysterectomy in June 2020. She has lost 30 lb since this time. Food has a bitter taste which results in gagging. She does see a specialist for this in [place] and has had extensive workup. She is on zinc for this reason. She can tolerate dietary supplements and these have been ordered. Dietitian has been working with the patient here on this issue. Zinc can cause this problem so will hold Zinc supplemetns since she has been on this for about a year now. (5) UTI (urinary tract infection): Code(s): N39.0 - Urinary tract infection, site not specified Status: Acute Assessment and Plan: UA noted. UCx growing Pseudomonas that is clemens-sensitive. Abx changed to cefepime. Continue to follow. QTc 450. Now on Cipro monitor (6) Hyponatremia: Code(s): E87.1 - Hypo-osmolality and hyponatremia Status: Acute Assessment and Plan: Sodium 128 on admission. She is on Lasix which may be contributing to this. Lasix is on hold. TSH normal. Cortisol within normal limits. Urine Na <5 to suggest pre-renal but consider poor circulating effective volume related to severe hypoalbuminemia. Na unchanged at 127. Nephrology on board , fluids and diuresis per nephrology (7) Nephropathy: Code(s): N28.9 - Disorder of kidney and ureter, unspecified Status: Acute Assessment and Plan: Patient with nephrotic range proteinuria. Complement normal. Not diabetic. No obvious findings by Echo to suggest SBE. Consider multiple myeloma? Related to her history of breast cancer? Amyloid? Membranous GN? send PLA2R. Obtain age appropriate cancer screening. patient is currently due for a colonoscopy. Per
[2022-06-25 17:09] LABS: Immunoglobulin A 652 mg/dL (70-400); Immunoglobulin M 45 mg/dL (40-230)
[2022-06-25 17:45] LABS: Immunoglobulin G < 270 mg/dL (700-1600)
[2022-06-26 06:00] VITALS: BP 114/57; PULSE 86; RESP 18; TEMP 36.5; O2SAT 92
[2022-06-26] MEDS: LEVOTHYROXINE SODIUM 75 MCG TABLET PO (06:23)
[2022-06-26 06:37] LABS: Albumin Level 2.4 g/dL (3.5-5.1); Anion Gap -1 mmol/L (8-16); Blood Urea Nitrogen 37 mg/dL (7-17); Calcium 8.9 mg/dL (8.4-10.2); Carbon Dioxide 32 mmol/L (22-30); Chloride 102 mmol/L (98-107); Estimated CRCL calculation 29 ml/min; Estimated Glomerular Filt Rate 34; Glucose 85 mg/dL (65-110); Phosphorus 4.1 mg/dL (2.5-4.5); Potassium 3.2 mmol/L (3.4-5.0); Sodium 133 mmol/L (137-145)
--- NOTE | 2022-06-26 08:08 | P.PNNP_ITS ---
Progress Note: A&P Assessment and Plan (1) Nephrotic range proteinuria: Code(s): R80.9 - Proteinuria, unspecified Status: Acute Assessment and Plan: * as noted by urinalysis and random testing * > 44 grams (!) of protein as noted by random UTP/Cr ratio * she has blood in the urine as well * She is very symptomatic from this. * She is getting albumin plus IV Lasix. Will increase the dose a little bit today. * potassium is a bit low. Will add spironolactone and give her a single dose of potassium. * CO2 is high. Will add Diamox * She is scheduled for a kidney biopsy on Tuesday (2) Renal dysfunction: Code(s): N28.9 - Disorder of kidney and ureter, unspecified Status: Acute Assessment and Plan: * normal creatinine at baseline * running in the 1.2 - 1.3mg/dl range since admission * It is up to 1.4 today. * evaluation to date: * renal ultrasound normal but with increased right-sided renal parenchymal echogenicity, consistent with nonspecific nephropathy * urine electrolytes prerenal * rare urine eosinophils but no peripheral eosinophilia * nephrotic range proteinuria (> 3.5grams) * positive UTI * serologies pending * SIfx shows IgA monoclonal . I discussed this with the patient. Dr Hamilton saw the patient yesterday. * (3) Hyponatremia: Code(s): E87.1 - Hypo-osmolality and hyponatremia Status: Acute Assessment and Plan: * as noted on admission * related to renal dysfunction, fluid retention, or something else(?) * evaluation to date: * TSH and cortisol normal * SPEP and UPEP pending * CXR results noted * up to date of cancer screenings? * Sodium level is better at 133 Was as high as 135 yesterday. * myeloma can cause pseudohyponatremia but TP only 5 so I doubt. Sosmo Somehow fell out of the system. It is no longer listed is pending. Will reorder * On fluid restriction * (4) UTI (urinary tract infection): Code(s): N39.0 - Urinary tract infection, site not specified Status: Acute Assessment and Plan: * urine culture with Pseudomonas * on antibiotics * These finished today * repeat ua shows some but very few white cells (5) Edema: Code(s): R60.9 - Edema, unspecified Status: Acute Assessment and Plan: * probably from proteinuria * restart IV Lasix plus albumin (6) Generalized weakness: Code(s): R53.1 - Weakness Status: Acute Assessment and Plan: * likely due to acute illness, acute infection, and decreased mobility * PT/OT as tolerated (7) Hypoalbuminemia: Code(s): E88.09 - Other disorders of plasma-protein metabolism, not elsewhere classified Status: Acute Assessment and Plan: * part of nephrotic syndrome +/- poor oral intake Subjective Date/time seen: 06/26/22 08:08 Interval history: patient was walking in the halls when I 1st saw her. I met her back in her room. She has some swelling in the feet which is worse when she is standing. Her belly is much softer today. Exam Narrative: General: thin female in NAD Heart: normal S1 and S2; no rub or gallop Lungs: Clear Abdomen: much softer today. Bowel sounds positive and nontender. Extremities: 1-2+ edema In legs, pre sacrum. Skin: no rash or subcu nodules Objective Data Vital Signs Vital Signs: Vital Signs - 24 hr
--- NOTE | 2022-06-26 08:08 | PM.PNNEP ---
Progress Note: A&P Assessment and Plan (1) Nephrotic range proteinuria: Code(s): R80.9 - Proteinuria, unspecified Status: Acute Assessment and Plan: as noted by urinalysis and random testing > 44 grams (!) of protein as noted by random UTP/Cr ratio she has blood in the urine as well She is very symptomatic from this. She is getting albumin plus IV Lasix. Will increase the dose a little bit today. potassium is a bit low. Will add spironolactone and give her a single dose of potassium. CO2 is high. Will add Diamox She is scheduled for a kidney biopsy on Tuesday (2) Renal dysfunction: Code(s): N28.9 - Disorder of kidney and ureter, unspecified Status: Acute Assessment and Plan: normal creatinine at baseline running in the 1.2 - 1.3mg/dl range since admission It is up to 1.4 today. evaluation to date: renal ultrasound normal but with increased right-sided renal parenchymal echogenicity, consistent with nonspecific nephropathy urine electrolytes prerenal rare urine eosinophils but no peripheral eosinophilia nephrotic range proteinuria (> 3.5grams) positive UTI serologies pending SIfx shows IgA monoclonal . I discussed this with the patient. Dr Hamilton saw the patient yesterday. (3) Hyponatremia: Code(s): E87.1 - Hypo-osmolality and hyponatremia Status: Acute Assessment and Plan: as noted on admission related to renal dysfunction, fluid retention, or something else(?) evaluation to date: TSH and cortisol normal SPEP and UPEP pending CXR results noted up to date of cancer screenings? Sodium level is better at 133 Was as high as 135 yesterday. myeloma can cause pseudohyponatremia but TP only 5 so I doubt. Sosmo Somehow fell out of the system. It is no longer listed is pending. Will reorder On fluid restriction (4) UTI (urinary tract infection): Code(s): N39.0 - Urinary tract infection, site not specified Status: Acute Assessment and Plan: urine culture with Pseudomonas on antibiotics These finished today repeat ua shows some but very few white cells (5) Edema: Code(s): R60.9 - Edema, unspecified Status: Acute Assessment and Plan: probably from proteinuria restart IV Lasix plus albumin (6) Generalized weakness: Code(s): R53.1 - Weakness Status: Acute Assessment and Plan: likely due to acute illness, acute infection, and decreased mobility PT/OT as tolerated (7) Hypoalbuminemia: Code(s): E88.09 - Other disorders of plasma-protein metabolism, not elsewhere classified Status: Acute Assessment and Plan: part of nephrotic syndrome +/- poor oral intake Subjective Date/time seen: 06/26/22 08:08 Interval history: patient was walking in the halls when I 1st saw her. I met her back in her room. She has some swelling in the feet which is worse when she is standing. Her belly is much softer today. Exam Narrative: General: thin female in NAD Heart: normal S1 and S2; no rub or gallop Lungs: Clear Abdomen: much softer today. Bowel sounds positive and nontender. Extremities: 1-2+ edema In legs, pre sacrum. Skin: no rash or subcu nodules Objective Data Vital Signs Vital Signs: Vital Signs - 24 hr 06/25/22 09:15 06/25/22 14:00 06/25/22 09:15 Temperature 98.2 F Pulse Rate 82 78 Respiratory Rate 16 Blood Pressure 120/66 118/64 Pulse Oximetry 96 Oxygen Delivery Room Air 06/25/22 09:19 06/25/22 09:23 06/25/22 20:00 Temperature Pulse Rate 75 64 Respiratory Rate Blood Pressure 100/60 90/58 L Pulse Oximetry Oxygen Delivery Room Air 06/25/22 21:20 06/25/22 21:25 06/25/22 21:30 Temperature 98.5 F Pulse Rate 93 95 100 Respiratory Rate 18 Blood Pressure 136/75 141/77 H 110/63 Pulse Oximetry 93 Oxygen Delivery 06/26
[2022-06-26] MEDS: CIPROFLOXACIN 250 MG TABLET PO ×2 (09:34→20:16)
[2022-06-26] MEDS: THIAMINE HCL 50 MG TABLET PO (09:34)
[2022-06-26] MEDS: ZINC SULFATE 220 MG CAPSULE PO (09:34)
[2022-06-26] MEDS: polyethylene glycoL 3350 17 GM POWD.PACK PO (09:34)
[2022-06-26] MEDS: OMEGA 3 POLYUNSAT FATTY ACIDS 1 GM CAP PO (09:34)
[2022-06-26] MEDS: ASCORBIC ACID 500 MG TABLET 1000 MG PO (09:34)
[2022-06-26] MEDS: MIDODRINE HCL 2.5 MG TABLET 5 MG PO ×3 (09:34→17:23)
[2022-06-26] MEDS: ENOXAPARIN 40 MG/0.4 ML SYRINGE SUB-Q (09:35)
[2022-06-26] MEDS: SPIRONOLACTONE 25 MG TABLET PO (09:37)
[2022-06-26] MEDS: acetaZOLAMIDE TAB 250 MG TABLET PO ×2 (09:37→17:23)
[2022-06-26] MEDS: POTASSIUM CHLORIDE 20 MEQ TABLET 40 MEQ PO ×2 (09:39→09:50)
[2022-06-26] MEDS: FUROSEMIDE INJ 40 MG/4 ML VIAL IV PUSH ×3 (09:48→17:24)
[2022-06-26] MEDS: ALBUMIN HUMAN 25% 25 GM/100 ML 100 ML IVPB ×3 (12:41→23:42)
[2022-06-26] MEDS: CALCIUM CARBONATE (OSCAL) 500 MG TABLET PO (12:42)
[2022-06-26 14:00] VITALS: BP 116/55; PULSE 73; RESP 16; TEMP 36.7; O2SAT 97
--- NOTE | 2022-06-26 15:16 | PM.IMPN ---
Progress Note: A&P Assessment and Plan (1) Hypotension: Code(s): I95.9 - Hypotension, unspecified Status: Acute Assessment and Plan: Patient was hypotensive on admission (76/51). With IV fluids her blood pressure improved with a blood pressure of 141/75 today.. Hold Midodrine, continue albumin per nephrology if patient goes into hypotension will reinstate Midrodrine Continue diuresis dosing per nephrology 06/26/2022 interval history: patient is 72-year-old female with history of breast cancer status post mastectomy and completed 5 years of chemotherapy 2012, patient presented emergency depart with complaint lower extremities, pelvic and lower abdominal area edema, complaints of bloating patient does have bowel movement, patient also has hypoalbuminemia, and anasarca like edema patient also found to acute kidney injury patient seen by Nephrology and being diuresed and albumin as needed albumin was increase, on 06/25 discussed with meat grader recommended kidney biopsy to further evaluate, on 06/25 patient was also seen by Oncology patient does not need bone biopsy however further workup is ordered and further recommendation to follow, today patient states feeling little better seems swelling lower extremity is improving however along pelvic lower abdomen persist will continue present management and monitor and further recommendation to follow. (2) Nephrotic syndrome: Code(s): N04.9 - Nephrotic syndrome with unspecified morphologic changes Status: Acute Assessment and Plan: continue IV albumin followed by IV bumex per nephrology (3) Generalized weakness: Code(s): R53.1 - Weakness Status: Acute Assessment and Plan: Patient with generalized weakness related to her weight loss, UTI, nephropathy, HoTN and poor oral intake. Hyponatremia could also be contributing to her weakness. TSH and B12 levels are normal. Suspect her spinal stenosis also is contributing to her lower extremity weakness but not her general malaise. Weakness is better and PT has signed off. improving (4) Dysgeusia: Code(s): R43.2 - Parageusia Status: Acute Assessment and Plan: Patient with significant dysgeusia for the past 2 years. She states symptoms began shortly after her hysterectomy in June 2020. She has lost 30 lb since this time. Food has a bitter taste which results in gagging. She does see a specialist for this in [place] and has had extensive workup. She is on zinc for this reason. She can tolerate dietary supplements and these have been ordered. Dietitian has been working with the patient here on this issue. Zinc can cause this problem so will hold Zinc supplemetns since she has been on this for about a year now. (5) UTI (urinary tract infection): Code(s): N39.0 - Urinary tract infection, site not specified Status: Acute Assessment and Plan: UA noted. UCx growing Pseudomonas that is clemens-sensitive. Abx changed to cefepime. Continue to follow. QTc 450. Now on Cipro monitor (6) Hyponatremia: Code(s): E87.1 - Hypo-osmolality and hyponatremia Status: Acute Assessment and Plan: Sodium 128 on admission. She is on Lasix which may be contributing to this. Lasix is on hold. TSH normal. Cortisol within normal limits. Urine Na <5 to suggest pre-renal but consider poor circulating effective volume related to severe hypoalbuminemia. Na unchanged at 127. Nephrology on board , fluids and diuresis per nephrology (7) Nephropathy: Code(s): N28.9 - Disorder of kidney and ureter, unspecified Status: Acute Assessment and Plan: Patient with nephrotic range proteinuria. Complement normal. Not diabetic. No obvious findings by Echo to suggest SBE. Consider multiple myeloma? Related to her history of breast cancer? Amyloid? Membranous GN? send PLA2R. Obtain age appropriate cancer screening. patient is current
[2022-06-26 20:00] VITALS: BP 112/49; PULSE 83; RESP 20; TEMP 36.6; O2SAT 95
[2022-06-26 20:05] VITALS: BP 116/61; PULSE 86
[2022-06-26 20:10] VITALS: BP 121/51; PULSE 85
[2022-06-27 06:00] VITALS: BP 110/52; PULSE 84; RESP 18; TEMP 36.7; O2SAT 92
[2022-06-27 07:13] LABS: Albumin Level 2.7 g/dL (3.5-5.1); Anion Gap 2 mmol/L (8-16); Blood Urea Nitrogen 36 mg/dL (7-17); Calcium 9.2 mg/dL (8.4-10.2); Carbon Dioxide 30 mmol/L (22-30); Chloride 104 mmol/L (98-107); Estimated CRCL calculation 27 ml/min; Estimated Glomerular Filt Rate 32; Glucose 90 mg/dL (65-110); Phosphorus 4.5 mg/dL (2.5-4.5); Potassium 3.1 mmol/L (3.4-5.0); Sodium 136 mmol/L (137-145)
[2022-06-27] MEDS: ALBUMIN HUMAN 25% 25 GM/100 ML 100 ML IVPB ×3 (07:21→17:50)
[2022-06-27] MEDS: LEVOTHYROXINE SODIUM 75 MCG TABLET PO (07:21)
[2022-06-27 08:00] VITALS: BP 109/62; PULSE 71; RESP 20; TEMP 36.4; O2SAT 91
[2022-06-27] MEDS: FUROSEMIDE INJ 40 MG/4 ML VIAL IV PUSH ×2 (08:34→17:50)
[2022-06-27] MEDS: ENOXAPARIN 40 MG/0.4 ML SYRINGE SUB-Q (08:34)
[2022-06-27] MEDS: acetaZOLAMIDE TAB 250 MG TABLET PO ×2 (08:35→17:50)
[2022-06-27] MEDS: ZINC SULFATE 220 MG CAPSULE PO (08:35)
[2022-06-27] MEDS: OMEGA 3 POLYUNSAT FATTY ACIDS 1 GM CAP PO (08:35)
[2022-06-27] MEDS: THIAMINE HCL 50 MG TABLET PO (08:35)
[2022-06-27] MEDS: polyethylene glycoL 3350 17 GM POWD.PACK PO (08:35)
[2022-06-27] MEDS: ASCORBIC ACID 500 MG TABLET 1000 MG PO (08:35)
[2022-06-27] MEDS: SPIRONOLACTONE 25 MG TABLET PO (08:35)
[2022-06-27] MEDS: CIPROFLOXACIN 250 MG TABLET PO (08:35)
[2022-06-27] MEDS: MIDODRINE HCL 2.5 MG TABLET 5 MG PO ×2 (08:36→12:42)
[2022-06-27] MEDS: POTASSIUM CHLORIDE 20 MEQ TABLET 40 MEQ PO (08:37)
[2022-06-27 11:16] VITALS: BP 109/66; BP 120/62
--- NOTE | 2022-06-27 11:26 | P.PNNP_ITS ---
Progress Note: A&P Assessment and Plan (1) Nephrotic range proteinuria: Code(s): R80.9 - Proteinuria, unspecified Status: Acute Assessment and Plan: * as noted by urinalysis and random testing * > 44 grams (!) of protein as noted by random UTP/Cr ratio * she has blood in the urine as well * She is very symptomatic from this. * She is getting albumin plus IV Lasix. creatinine is up a little bit. Will decrease Lasix but continue the albumin. (2) Renal dysfunction: Code(s): N28.9 - Disorder of kidney and ureter, unspecified Status: Acute Assessment and Plan: * normal creatinine at baseline * running in the 1.2 - 1.3mg/dl range since admission * It is up to 1.4 today. * evaluation to date: * renal ultrasound normal but with increased right-sided renal parenchymal echogenicity, consistent with nonspecific nephropathy * urine electrolytes prerenal * rare urine eosinophils but no peripheral eosinophilia * nephrotic range proteinuria (> 3.5grams) * positive UTI * MARKUS is positive 1-40. Everything else is negative. * SIfx shows IgA monoclonal . I discussed this with the patient. Dr Hamilton saw the patient yesterday. * Renal biopsy ordered for tomorrow but may not be done till Tuesday because of the holiday. Pathology in [place] may not be open tomorrow. (3) Hyponatremia: Code(s): E87.1 - Hypo-osmolality and hyponatremia Status: Acute Assessment and Plan: * as noted on admission * related to renal dysfunction, fluid retention, or something else(?) * evaluation to date: * TSH and cortisol normal * SPEP and UPEP pending * CXR results noted * up to date of cancer screenings? * Sodium level is better at 136 * myeloma can cause pseudohyponatremia but TP only 5 so I doubt. Sosmo Somehow fell out of the system. It is no longer listed is pending. Will reorder * On fluid restriction * (4) UTI (urinary tract infection): Code(s): N39.0 - Urinary tract infection, site not specified Status: Acute Assessment and Plan: * urine culture with Pseudomonas * on antibiotics * These are finished (5) Edema: Code(s): R60.9 - Edema, unspecified Status: Acute Assessment and Plan: * probably from proteinuria * restart IV Lasix plus albumin (6) Generalized weakness: Code(s): R53.1 - Weakness Status: Acute Assessment and Plan: * likely due to acute illness, acute infection, and decreased mobility * PT/OT as tolerated (7) Hypoalbuminemia: Code(s): E88.09 - Other disorders of plasma-protein metabolism, not elsewhere classified Status: Acute Assessment and Plan: * part of nephrotic syndrome +/- poor oral intake Subjective Date/time seen: 06/27/22 11:26 Interval history: Patient continues to walk in the halls. Her swelling and belly are about the same. She made a lot of urine yesterday Exam Narrative: General: thin female in NAD Heart: normal S1 and S2; no rub or gallop Lungs: Clear bilaterally Abdomen: soft and nontender today. Bowel sounds positive Extremities: 1-2+ edema In legs, pre sacrum. Skin: no rash or subcu nodules Objective Data Vital Signs Vital Signs: Vital Signs - 24 hr 06/26/22 14:00 06/26/22 20:00 06/26/22 20:05 Temperature 98.1 F 97.8 F Pulse
--- NOTE | 2022-06-27 11:26 | PM.PNNEP ---
Progress Note: A&P Assessment and Plan (1) Nephrotic range proteinuria: Code(s): R80.9 - Proteinuria, unspecified Status: Acute Assessment and Plan: as noted by urinalysis and random testing > 44 grams (!) of protein as noted by random UTP/Cr ratio she has blood in the urine as well She is very symptomatic from this. She is getting albumin plus IV Lasix. creatinine is up a little bit. Will decrease Lasix but continue the albumin. (2) Renal dysfunction: Code(s): N28.9 - Disorder of kidney and ureter, unspecified Status: Acute Assessment and Plan: normal creatinine at baseline running in the 1.2 - 1.3mg/dl range since admission It is up to 1.4 today. evaluation to date: renal ultrasound normal but with increased right-sided renal parenchymal echogenicity, consistent with nonspecific nephropathy urine electrolytes prerenal rare urine eosinophils but no peripheral eosinophilia nephrotic range proteinuria (> 3.5grams) positive UTI MARKUS is positive 1-40. Everything else is negative. SIfx shows IgA monoclonal . I discussed this with the patient. Dr Hamilton saw the patient yesterday. Renal biopsy ordered for tomorrow but may not be done till Tuesday because of the holiday. Pathology in [place] may not be open tomorrow. (3) Hyponatremia: Code(s): E87.1 - Hypo-osmolality and hyponatremia Status: Acute Assessment and Plan: as noted on admission related to renal dysfunction, fluid retention, or something else(?) evaluation to date: TSH and cortisol normal SPEP and UPEP pending CXR results noted up to date of cancer screenings? Sodium level is better at 136 myeloma can cause pseudohyponatremia but TP only 5 so I doubt. Sosmo Somehow fell out of the system. It is no longer listed is pending. Will reorder On fluid restriction (4) UTI (urinary tract infection): Code(s): N39.0 - Urinary tract infection, site not specified Status: Acute Assessment and Plan: urine culture with Pseudomonas on antibiotics These are finished (5) Edema: Code(s): R60.9 - Edema, unspecified Status: Acute Assessment and Plan: probably from proteinuria restart IV Lasix plus albumin (6) Generalized weakness: Code(s): R53.1 - Weakness Status: Acute Assessment and Plan: likely due to acute illness, acute infection, and decreased mobility PT/OT as tolerated (7) Hypoalbuminemia: Code(s): E88.09 - Other disorders of plasma-protein metabolism, not elsewhere classified Status: Acute Assessment and Plan: part of nephrotic syndrome +/- poor oral intake Subjective Date/time seen: 06/27/22 11:26 Interval history: Patient continues to walk in the halls. Her swelling and belly are about the same. She made a lot of urine yesterday Exam Narrative: General: thin female in NAD Heart: normal S1 and S2; no rub or gallop Lungs: Clear bilaterally Abdomen: soft and nontender today. Bowel sounds positive Extremities: 1-2+ edema In legs, pre sacrum. Skin: no rash or subcu nodules Objective Data Vital Signs Vital Signs: Vital Signs - 24 hr 06/26/22 14:00 06/26/22 20:00 06/26/22 20:05 Temperature 98.1 F 97.8 F Pulse Rate 73 83 86 Respiratory Rate 16 20 Blood Pressure 116/55 L 112/49 L 116/61 Pulse Oximetry 97 95 Oxygen Delivery 06/26/22 20:10 06/26/22 20:00 06/27/22 06:00 Temperature 98.1 F Pulse Rate 85 84 Respiratory Rate 18 Blood Pressure 121/51 L 110/52 L Pulse Oximetry 92 Oxygen Delivery Room Air 06/27/22 08:00 06/27/22 11:16 06/27/22 11:16 Temperature 97.5 F L Pulse Rate 71 Respiratory Rate 20 Blood Pressure 109/62 109/66 120/62 Pulse Oximetry 91 Oxygen Delivery Intake/Output Intake/Output: Intake & Output 06/24/22 06/25/22 06/26/22 06/27/22
[2022-06-27] MEDS: CALCIUM CARBONATE (OSCAL) 500 MG TABLET PO (12:42)
--- NOTE | 2022-06-27 13:38 | PM.IMPN ---
Progress Note: A&P Assessment and Plan (1) Hypotension: Code(s): I95.9 - Hypotension, unspecified Status: Acute Assessment and Plan: Patient was hypotensive on admission (76/51). With IV fluids her blood pressure improved with a blood pressure of 141/75 today.. Hold Midodrine, continue albumin per nephrology if patient goes into hypotension will reinstate Midrodrine Continue diuresis dosing per nephrology 06/27/2022 interval history: patient is 72-year-old female with history of breast cancer status post mastectomy and completed 5 years of chemotherapy 2012, patient presented emergency depart with complaint lower extremities, pelvic and lower abdominal area edema, complaints of bloating patient does have bowel movement, patient also has hypoalbuminemia, and anasarca like edema patient also found to acute kidney injury patient seen by Nephrology and being diuresed and albumin as needed albumin was increase, on 06/25 discussed with physician assistant recommended kidney biopsy to further evaluate, on 06/25 patient was also seen by Oncology patient does not need bone biopsy however further workup is ordered and further recommendation to follow, today patient states feeling little better seems swelling lower extremity as well as abdomen and pelvic is improving will continue present management and monitor and further recommendation to follow. (2) Nephrotic syndrome: Code(s): N04.9 - Nephrotic syndrome with unspecified morphologic changes Status: Acute Assessment and Plan: continue IV albumin followed by IV bumex per nephrology (3) Generalized weakness: Code(s): R53.1 - Weakness Status: Acute Assessment and Plan: Patient with generalized weakness related to her weight loss, UTI, nephropathy, HoTN and poor oral intake. Hyponatremia could also be contributing to her weakness. TSH and B12 levels are normal. Suspect her spinal stenosis also is contributing to her lower extremity weakness but not her general malaise. Weakness is better and PT has signed off. improving (4) Dysgeusia: Code(s): R43.2 - Parageusia Status: Acute Assessment and Plan: Patient with significant dysgeusia for the past 2 years. She states symptoms began shortly after her hysterectomy in June 2020. She has lost 30 lb since this time. Food has a bitter taste which results in gagging. She does see a specialist for this in [place] and has had extensive workup. She is on zinc for this reason. She can tolerate dietary supplements and these have been ordered. Dietitian has been working with the patient here on this issue. Zinc can cause this problem so will hold Zinc supplemetns since she has been on this for about a year now. (5) UTI (urinary tract infection): Code(s): N39.0 - Urinary tract infection, site not specified Status: Acute Assessment and Plan: UA noted. UCx growing Pseudomonas that is clemens-sensitive. Abx changed to cefepime. Continue to follow. QTc 450. Now on Cipro monitor (6) Hyponatremia: Code(s): E87.1 - Hypo-osmolality and hyponatremia Status: Acute Assessment and Plan: Sodium 128 on admission. She is on Lasix which may be contributing to this. Lasix is on hold. TSH normal. Cortisol within normal limits. Urine Na <5 to suggest pre-renal but consider poor circulating effective volume related to severe hypoalbuminemia. Na unchanged at 127. Nephrology on board , fluids and diuresis per nephrology (7) Nephropathy: Code(s): N28.9 - Disorder of kidney and ureter, unspecified Status: Acute Assessment and Plan: Patient with nephrotic range proteinuria. Complement normal. Not diabetic. No obvious findings by Echo to suggest SBE. Consider multiple myeloma? Related to her history of breast cancer? Amyloid? Membranous GN? send PLA2R. Obtain age appropriate cancer screening. patient is currently due for
[2022-06-27 14:00] VITALS: BP 101/57; PULSE 75; RESP 20; TEMP 36.4; O2SAT 95
[2022-06-27 21:27] VITALS: BP 122/49; PULSE 84; RESP 20; TEMP 36.7; O2SAT 91
[2022-06-27 21:28] VITALS: BP 111/63; BP 117/53; PULSE 88; PULSE 91; RESP 20; RESP 22; O2SAT 93; O2SAT 96
[2022-06-28] MEDS: ALBUMIN HUMAN 25% 25 GM/100 ML 100 ML IVPB ×5 (00:23→23:27)
[2022-06-28 05:51] VITALS: BP 115/54; PULSE 88; RESP 20; TEMP 36.8; O2SAT 86
[2022-06-28] MEDS: LEVOTHYROXINE SODIUM 75 MCG TABLET PO (06:37)
[2022-06-28 07:26] LABS: Albumin Level 3.1 g/dL (3.5-5.1); Anion Gap 4 mmol/L (8-16); Blood Urea Nitrogen 31 mg/dL (7-17); Calcium 9.6 mg/dL (8.4-10.2); Carbon Dioxide 28 mmol/L (22-30); Chloride 103 mmol/L (98-107); Estimated CRCL calculation 31 ml/min; Estimated Glomerular Filt Rate 37; Glucose 91 mg/dL (65-110); Phosphorus 3.8 mg/dL (2.5-4.5); Potassium 2.9 mmol/L (3.4-5.0); Sodium 135 mmol/L (137-145)
[2022-06-28] MEDS: acetaZOLAMIDE TAB 250 MG TABLET PO ×2 (08:56→16:57)
[2022-06-28] MEDS: ASCORBIC ACID 500 MG TABLET 1000 MG PO (08:57)
[2022-06-28] MEDS: THIAMINE HCL 50 MG TABLET PO (08:57)
[2022-06-28] MEDS: SPIRONOLACTONE 25 MG TABLET PO (08:57)
[2022-06-28] MEDS: ENOXAPARIN 40 MG/0.4 ML SYRINGE SUB-Q (08:57)
[2022-06-28] MEDS: ZINC SULFATE 220 MG CAPSULE PO (08:57)
[2022-06-28] MEDS: OMEGA 3 POLYUNSAT FATTY ACIDS 1 GM CAP PO (08:58)
[2022-06-28] MEDS: POTASSIUM CHLORIDE 20 MEQ TABLET 40 MEQ PO ×2 (08:58→16:57)
[2022-06-28] MEDS: polyethylene glycoL 3350 17 GM POWD.PACK PO (08:58)
[2022-06-28] MEDS: FUROSEMIDE INJ 40 MG/4 ML VIAL IV PUSH ×2 (08:58→16:57)
--- NOTE | 2022-06-28 11:04 | PCNFU ---
Nutrition Follow-Up Complete: Inadequate energy intake related to poor appetite and intake as evidenced by pt report Goal:PO intake 50% of meals and supplements. Pt is meeting goal, continue with same goal. Pt current nutrition is Regular, Ensure Enlive BID. Nutrition recommendation: Continue with current plan of care. Last recorded weight is 70 kg up from 64kg on admission. Bowel Motility: +BM 06/26 Labs Reviewed: Alb:3.1, Na:135, BUN:31, Cr:1.4 Meds Noted: Vit C, zn, bumex, lovenox Skin: no skin issues noted Additional Notes: Pt continues on a regular diet, intake 25-75% of meals. Ensure Enlive BID and pt consuming. Continue with current plan of care. Monitor intake, wt, labs. Follow up in 7 days.
[2022-06-28] MEDS: CALCIUM CARBONATE (OSCAL) 500 MG TABLET PO (11:58)
--- NOTE | 2022-06-28 13:01 | PM.IMPN ---
Progress Note: A&P Assessment and Plan (1) Hypotension: Code(s): I95.9 - Hypotension, unspecified Status: Acute Assessment and Plan: Patient was hypotensive on admission (76/51). With IV fluids her blood pressure improved with a blood pressure of 141/75 today.. Hold Midodrine, continue albumin per nephrology if patient goes into hypotension will reinstate Midrodrine Continue diuresis dosing per nephrology 06/28/2022 interval history: patient is 72-year-old female with history of breast cancer status post mastectomy and completed 5 years of chemotherapy 2012, patient presented emergency depart with complaint lower extremities, pelvic and lower abdominal area edema, complaints of bloating patient does have bowel movement, patient also has hypoalbuminemia, and anasarca like edema patient also found to acute kidney injury patient seen by Nephrology and being diuresed and albumin as needed albumin was increase, on 06/25 discussed with workforce staffing advisor recommended kidney biopsy to further evaluate, on 06/25 patient was also seen by Oncology patient does not need bone biopsy however further workup is ordered and further recommendation to follow, today patient states feeling little better seems swelling lower extremity as well as abdomen and pelvic is improving able to lay flat in the bed, able to walk to the bathroom without oxygen, patient with elevated liver enzymes and hypoalbuminemia, acute hepatitis panel is negative for any infection, may need evaluation by sanding line operator, will continue present management and monitor and further recommendation to follow. patient will have kidney biopsy is tomorrow, (2) Nephrotic syndrome: Code(s): N04.9 - Nephrotic syndrome with unspecified morphologic changes Status: Acute Assessment and Plan: continue IV albumin followed by IV bumex per nephrology (3) Generalized weakness: Code(s): R53.1 - Weakness Status: Acute Assessment and Plan: Patient with generalized weakness related to her weight loss, UTI, nephropathy, HoTN and poor oral intake. Hyponatremia could also be contributing to her weakness. TSH and B12 levels are normal. Suspect her spinal stenosis also is contributing to her lower extremity weakness but not her general malaise. Weakness is better and PT has signed off. improving (4) Dysgeusia: Code(s): R43.2 - Parageusia Status: Acute Assessment and Plan: Patient with significant dysgeusia for the past 2 years. She states symptoms began shortly after her hysterectomy in June 2020. She has lost 30 lb since this time. Food has a bitter taste which results in gagging. She does see a specialist for this in [place] and has had extensive workup. She is on zinc for this reason. She can tolerate dietary supplements and these have been ordered. Dietitian has been working with the patient here on this issue. Zinc can cause this problem so will hold Zinc supplemetns since she has been on this for about a year now. (5) UTI (urinary tract infection): Code(s): N39.0 - Urinary tract infection, site not specified Status: Acute Assessment and Plan: UA noted. UCx growing Pseudomonas that is lcemens-sensitive. Abx changed to cefepime. Continue to follow. QTc 450. Now on Cipro monitor (6) Hyponatremia: Code(s): E87.1 - Hypo-osmolality and hyponatremia Status: Acute Assessment and Plan: Sodium 128 on admission. She is on Lasix which may be contributing to this. Lasix is on hold. TSH normal. Cortisol within normal limits. Urine Na <5 to suggest pre-renal but consider poor circulating effective volume related to severe hypoalbuminemia. Na unchanged at 127. Nephrology on board , fluids and diuresis per nephrology (7) Nephropathy: Code(s): N28.9 - Disorder of kidney and ureter, unspecified Status: Acute Assessment and Plan: Patient with nephrotic range prot
[2022-06-28 15:20] VITALS: BP 118/61; PULSE 82; RESP 16; TEMP 36.4; O2SAT 96
--- NOTE | 2022-06-28 15:58 | P.PNNP_ITS ---
Progress Note: A&P Assessment and Plan (1) Nephrotic range proteinuria: Code(s): R80.9 - Proteinuria, unspecified Status: Acute Assessment and Plan: * as noted by urinalysis and random testing * > 44 grams (!) of protein as noted by random UTP/Cr ratio * she has blood in the urine as well * She has swelling in the abdomen and legs because of this. * She is receiving furosemide and albumin. * Her creatinine did rise yesterday and so furosemide was decreased and the creatinine came down today. * Biopsy tomorrow (2) Renal dysfunction: Code(s): N28.9 - Disorder of kidney and ureter, unspecified Status: Acute Assessment and Plan: * normal creatinine at baseline * running in the 1.2 - 1.3mg/dl range since admission * It is up to 1.4 today. * evaluation to date: * renal ultrasound normal but with increased right-sided renal parenchymal echogenicity, consistent with nonspecific nephropathy * urine electrolytes prerenal * rare urine eosinophils but no peripheral eosinophilia * nephrotic range proteinuria (> 3.5grams) * positive UTI * MARKUS is positive 1:40. Everything else is negative. * SIfx shows IgA monoclonal . I discussed this with the patient. Dr Hamilton saw the patient yesterday. * Renal biopsy ordered for tomorrow. They are not here today. * we discussed low protein diet. She spills 44 g of protein per 24 hours. This is an estimate based on a random sample. Will check a 24hour urine starting Tuesday morning. Will also check a 24hour UUN to check on dietary protein intake (3) Hyponatremia: Code(s): E87.1 - Hypo-osmolality and hyponatremia Status: Acute Assessment and Plan: * as noted on admission * related to renal dysfunction, fluid retention, or something else(?) * evaluation to date: * TSH and cortisol normal * SPEP and UPEP pending * CXR results noted * up to date of cancer screenings? * Sodium level stable at 135 * myeloma can cause pseudohyponatremia but TP only 5 so I doubt. Sosmo pending * On fluid restriction (4) UTI (urinary tract infection): Code(s): N39.0 - Urinary tract infection, site not specified Status: Acute Assessment and Plan: * urine culture with Pseudomonas * on antibiotics * These are finished (5) Edema: Code(s): R60.9 - Edema, unspecified Status: Acute Assessment and Plan: * probably from proteinuria * restart IV Lasix plus albumin * improved (6) Generalized weakness: Code(s): R53.1 - Weakness Status: Acute Assessment and Plan: * likely due to acute illness, acute infection, and decreased mobility * PT/OT as tolerated (7) Hypoalbuminemia: Code(s): E88.09 - Other disorders of plasma-protein metabolism, not elsewhere classified Status: Acute Assessment and Plan: * part of nephrotic syndrome +/- poor oral intake Subjective Date/time seen: 06/28/22 15:58 Interval history: Patient continues to walk in the halls, although less today than before. We will try to do this more. Swelling is better. Belly feels okay poor appetite taste is off all Exam Narrative: General: thin female in NAD Heart: normal S1 and S2; no rub or gallop Lungs: Clear bilaterally Abdomen: soft and nontender today. Bowel sounds positive . Extremities: 1+ edema In legs, pre sacrum. Skin: no rash or subcu nodules
--- NOTE | 2022-06-28 15:58 | PM.PNNEP ---
Progress Note: A&P Assessment and Plan (1) Nephrotic range proteinuria: Code(s): R80.9 - Proteinuria, unspecified Status: Acute Assessment and Plan: as noted by urinalysis and random testing > 44 grams (!) of protein as noted by random UTP/Cr ratio she has blood in the urine as well She has swelling in the abdomen and legs because of this. She is receiving furosemide and albumin. Her creatinine did rise yesterday and so furosemide was decreased and the creatinine came down today. Biopsy tomorrow (2) Renal dysfunction: Code(s): N28.9 - Disorder of kidney and ureter, unspecified Status: Acute Assessment and Plan: normal creatinine at baseline running in the 1.2 - 1.3mg/dl range since admission It is up to 1.4 today. evaluation to date: renal ultrasound normal but with increased right-sided renal parenchymal echogenicity, consistent with nonspecific nephropathy urine electrolytes prerenal rare urine eosinophils but no peripheral eosinophilia nephrotic range proteinuria (> 3.5grams) positive UTI MARKUS is positive 1:40. Everything else is negative. SIfx shows IgA monoclonal . I discussed this with the patient. Dr Hamilton saw the patient yesterday. Renal biopsy ordered for tomorrow. They are not here today. we discussed low protein diet. She spills 44 g of protein per 24 hours. This is an estimate based on a random sample. Will check a 24hour urine starting Tuesday morning. Will also check a 24hour UUN to check on dietary protein intake (3) Hyponatremia: Code(s): E87.1 - Hypo-osmolality and hyponatremia Status: Acute Assessment and Plan: as noted on admission related to renal dysfunction, fluid retention, or something else(?) evaluation to date: TSH and cortisol normal SPEP and UPEP pending CXR results noted up to date of cancer screenings? Sodium level stable at 135 myeloma can cause pseudohyponatremia but TP only 5 so I doubt. Sosmo pending On fluid restriction (4) UTI (urinary tract infection): Code(s): N39.0 - Urinary tract infection, site not specified Status: Acute Assessment and Plan: urine culture with Pseudomonas on antibiotics These are finished (5) Edema: Code(s): R60.9 - Edema, unspecified Status: Acute Assessment and Plan: probably from proteinuria restart IV Lasix plus albumin improved (6) Generalized weakness: Code(s): R53.1 - Weakness Status: Acute Assessment and Plan: likely due to acute illness, acute infection, and decreased mobility PT/OT as tolerated (7) Hypoalbuminemia: Code(s): E88.09 - Other disorders of plasma-protein metabolism, not elsewhere classified Status: Acute Assessment and Plan: part of nephrotic syndrome +/- poor oral intake Subjective Date/time seen: 06/28/22 15:58 Interval history: Patient continues to walk in the halls, although less today than before. We will try to do this more. Swelling is better. Belly feels okay poor appetite taste is off all Exam Narrative: General: thin female in NAD Heart: normal S1 and S2; no rub or gallop Lungs: Clear bilaterally Abdomen: soft and nontender today. Bowel sounds positive . Extremities: 1+ edema In legs, pre sacrum. Skin: no rash or subcu nodules Objective Data Vital Signs Vital Signs: Vital Signs - 24 hr 06/27/22 21:27 06/27/22 21:28 06/27/22 21:28 Temperature 98.1 F Pulse Rate 84 91 88 Respiratory Rate 20 20 22 H Blood Pressure 122/49 L 111/63 117/53 L Pulse Oximetry 91 93 96 Oxygen Delivery 06/27/22 20:00 06/28/22 05:51 06/28/22 08:00 Temperature 98.2 F Pulse Rate 88 Respiratory Rate 20 Blood Pressure 115/54 L Pulse Oximetry 86 L Oxygen Delivery Room Air Room Air Intake/Output Intake/Output: Intake & Output 06/25/22
[2022-06-28 21:55] VITALS: BP 120/58; BP 122/66; BP 129/61; PULSE 73; PULSE 83; PULSE 85; RESP 18; RESP 20; TEMP 36.6; O2SAT 94; O2SAT 95; O2SAT 96
[2022-06-29] VITALS (7 sets, daily range): BP systolic 113–130; BP diastolic 57–69; PULSE 71–81; RESP 14–20; TEMP 36.4–36.9; O2SAT 90–99
[2022-06-29] MEDS: ALBUMIN HUMAN 25% 25 GM/100 ML 100 ML IVPB ×2 (06:16→17:43)
[2022-06-29] MEDS: LEVOTHYROXINE SODIUM 75 MCG TABLET PO (06:45)
[2022-06-29 07:44] LABS: Albumin Level 3.1 g/dL (3.5-5.1); Anion Gap 5 mmol/L (8-16); Blood Urea Nitrogen 31 mg/dL (7-17); Calcium 9.3 mg/dL (8.4-10.2); Carbon Dioxide 24 mmol/L (22-30); Chloride 110 mmol/L (98-107); Estimated CRCL calculation 27 ml/min; Estimated Glomerular Filt Rate 32; Glucose 88 mg/dL (65-110); Phosphorus 3.5 mg/dL (2.5-4.5); Sodium 139 mmol/L (137-145)
[2022-06-29 09:36] LABS: Prothrombin Time 12.9 Seconds (11.1-14.7)
[2022-06-29] MEDS: POTASSIUM CHLORIDE 20 MEQ TABLET 40 MEQ PO ×2 (09:50→18:37)
[2022-06-29] MEDS: THIAMINE HCL 50 MG TABLET PO (09:50)
[2022-06-29] MEDS: ZINC SULFATE 220 MG CAPSULE PO (09:50)
[2022-06-29] MEDS: ASCORBIC ACID 500 MG TABLET 1000 MG PO (09:51)
[2022-06-29] MEDS: OMEGA 3 POLYUNSAT FATTY ACIDS 1 GM CAP PO (09:51)
[2022-06-29] MEDS: SPIRONOLACTONE 25 MG TABLET PO (09:51)
[2022-06-29] MEDS: acetaZOLAMIDE TAB 250 MG TABLET PO ×2 (09:51→17:40)
[2022-06-29] MEDS: FUROSEMIDE INJ 40 MG/4 ML VIAL IV PUSH ×2 (09:51→17:40)
--- NOTE | 2022-06-29 15:00 | PM.IMPN ---
Progress Note: A&P Assessment and Plan (1) Hypotension: Code(s): I95.9 - Hypotension, unspecified Status: Acute Assessment and Plan: Patient was hypotensive on admission (76/51). With IV fluids her blood pressure improved with a blood pressure of 141/75 today.. Hold Midodrine, continue albumin per nephrology if patient goes into hypotension will reinstate Midrodrine Continue diuresis dosing per nephrology 06/29/2022 interval history: patient is 72-year-old female with history of breast cancer status post mastectomy and completed 5 years of chemotherapy 2012, patient presented emergency depart with complaint lower extremities, pelvic and lower abdominal area edema, complaints of bloating patient does have bowel movement, patient also has hypoalbuminemia, and anasarca like edema patient also found to acute kidney injury patient seen by Nephrology and being diuresed and albumin as needed albumin was increase, on 06/25 discussed with veneer layer recommended kidney biopsy to further evaluate which was scheduled today but now it will be done tomorrow on 06/30, on 06/25 patient was also seen by Oncology patient does not need bone biopsy however further workup is ordered and further recommendation to follow, today patient states feeling little better seems swelling lower extremity as well as abdomen and pelvic is improving able to lay flat in the bed, able to walk to the bathroom without oxygen, patient with elevated liver enzymes and hypoalbuminemia, acute hepatitis panel is negative for any infection, may need evaluation by natural resource officer, will continue present management and monitor and further recommendation to follow. patient will have kidney biopsy is tomorrow (2) Nephrotic syndrome: Code(s): N04.9 - Nephrotic syndrome with unspecified morphologic changes Status: Acute Assessment and Plan: continue IV albumin followed by IV bumex per nephrology (3) Generalized weakness: Code(s): R53.1 - Weakness Status: Acute Assessment and Plan: Patient with generalized weakness related to her weight loss, UTI, nephropathy, HoTN and poor oral intake. Hyponatremia could also be contributing to her weakness. TSH and B12 levels are normal. Suspect her spinal stenosis also is contributing to her lower extremity weakness but not her general malaise. Weakness is better and PT has signed off. improving (4) Dysgeusia: Code(s): R43.2 - Parageusia Status: Acute Assessment and Plan: Patient with significant dysgeusia for the past 2 years. She states symptoms began shortly after her hysterectomy in June 2020. She has lost 30 lb since this time. Food has a bitter taste which results in gagging. She does see a specialist for this in [place] and has had extensive workup. She is on zinc for this reason. She can tolerate dietary supplements and these have been ordered. Dietitian has been working with the patient here on this issue. Zinc can cause this problem so will hold Zinc supplemetns since she has been on this for about a year now. (5) UTI (urinary tract infection): Code(s): N39.0 - Urinary tract infection, site not specified Status: Acute Assessment and Plan: UA noted. UCx growing Pseudomonas that is clemens-sensitive. Abx changed to cefepime. Continue to follow. QTc 450. Now on Cipro monitor (6) Hyponatremia: Code(s): E87.1 - Hypo-osmolality and hyponatremia Status: Acute Assessment and Plan: Sodium 128 on admission. She is on Lasix which may be contributing to this. Lasix is on hold. TSH normal. Cortisol within normal limits. Urine Na <5 to suggest pre-renal but consider poor circulating effective volume related to severe hypoalbuminemia. Na unchanged at 127. Nephrology on board , fluids and diuresis per nephrology (7) Nephropathy: Code(s): N28.9 - Disorder of kidney and ureter, unspecified Status: A
[2022-06-29 15:44] LABS: Kappa\\Lambda Light Chains 0.12 (0.26-1.65); Lambda Light Chain 147.2 mg/L (5.7-26.3)
[2022-06-29] MEDS: ACETAMINOPHEN 325 MG TABLET 650 MG PO (16:43)
--- NOTE | 2022-06-29 21:39 | P.PNNP_ITS ---
Progress Note: A&P Assessment and Plan (1) Nephrotic range proteinuria: Code(s): R80.9 - Proteinuria, unspecified Status: Acute Assessment and Plan: * as noted by urinalysis and random testing * > 44 grams (!) of protein as noted by random UTP/Cr ratio * she has blood in the urine as well * She has swelling in the abdomen and legs because of this. * She is receiving furosemide and albumin. * Her creatinine is up and down from 1.4 to 1.6 (2) Renal dysfunction: Code(s): N28.9 - Disorder of kidney and ureter, unspecified Status: Acute Assessment and Plan: * normal creatinine at baseline * running in the 1.2 - 1.3mg/dl range since admission * It is up to 1.6 today. * evaluation to date: * renal ultrasound normal but with increased right-sided renal parenchymal echogenicity, consistent with nonspecific nephropathy * urine electrolytes prerenal * rare urine eosinophils but no peripheral eosinophilia * nephrotic range proteinuria (> 3.5grams) * positive UTI * MARKUS is positive 1:40. Everything else is negative. * SIfx shows IgA monoclonal . I discussed this with the patient. Dr Hamilton saw the patient earlier * Renal biopsy ordered for today. * will see what it shows (3) Hyponatremia: Code(s): E87.1 - Hypo-osmolality and hyponatremia Status: Acute Assessment and Plan: * as noted on admission * related to renal dysfunction, fluid retention, or something else(?) * evaluation to date: * TSH and cortisol normal * SPEP and UPEP pending * CXR results noted * up to date of cancer screenings? * Sodium level normal at 139 (4) UTI (urinary tract infection): Code(s): N39.0 - Urinary tract infection, site not specified Status: Acute Assessment and Plan: * urine culture with Pseudomonas * on antibiotics * These are finished (5) Edema: Code(s): R60.9 - Edema, unspecified Status: Acute Assessment and Plan: * probably from proteinuria * restarted then reduced IV Lasix plus albumin * improved (6) Generalized weakness: Code(s): R53.1 - Weakness Status: Acute Assessment and Plan: * likely due to acute illness, acute infection, and decreased mobility * PT/OT as tolerated (7) Hypoalbuminemia: Code(s): E88.09 - Other disorders of plasma-protein metabolism, not elsewhere classified Status: Acute Assessment and Plan: * part of nephrotic syndrome +/- poor oral intake Subjective Date/time seen: 06/29/22 10:10 Interval history: feels ab out the same. edema is better. Exam Narrative: General: thin female in NAD Heart: normal S1 and S2; no rub or gallop Lungs: Clear to ausc Abdomen: soft and nontender today. Bowel sounds positive . Extremities: 1+ edema In legs, pre sacrum. Skin: no rash Objective Data Vital Signs Vital Signs: Vital Signs - 24 hr 06/28/22 21:55 06/28/22 21:55 06/28/22 21:55 Temperature 97.9 F Pulse Rate 73 85 83 Respiratory Rate 18 20 20 Blood Pressure 120/58 L 122/66 129/61 Pulse Oximetry 96 94 95 Oxygen Delivery 06/29/22 05:48 06/29/22 08:00 06/29/22 10:18 Temperature 97.9 F 98.4 F Pulse Rate 75 81 Respiratory Rate 20 16 Blo
--- NOTE | 2022-06-29 21:39 | PM.PNNEP ---
Progress Note: A&P Assessment and Plan (1) Nephrotic range proteinuria: Code(s): R80.9 - Proteinuria, unspecified Status: Acute Assessment and Plan: as noted by urinalysis and random testing > 44 grams (!) of protein as noted by random UTP/Cr ratio she has blood in the urine as well She has swelling in the abdomen and legs because of this. She is receiving furosemide and albumin. Her creatinine is up and down from 1.4 to 1.6 (2) Renal dysfunction: Code(s): N28.9 - Disorder of kidney and ureter, unspecified Status: Acute Assessment and Plan: normal creatinine at baseline running in the 1.2 - 1.3mg/dl range since admission It is up to 1.6 today. evaluation to date: renal ultrasound normal but with increased right-sided renal parenchymal echogenicity, consistent with nonspecific nephropathy urine electrolytes prerenal rare urine eosinophils but no peripheral eosinophilia nephrotic range proteinuria (> 3.5grams) positive UTI MARKUS is positive 1:40. Everything else is negative. SIfx shows IgA monoclonal . I discussed this with the patient. Dr Hamilton saw the patient earlier Renal biopsy ordered for today. will see what it shows (3) Hyponatremia: Code(s): E87.1 - Hypo-osmolality and hyponatremia Status: Acute Assessment and Plan: as noted on admission related to renal dysfunction, fluid retention, or something else(?) evaluation to date: TSH and cortisol normal SPEP and UPEP pending CXR results noted up to date of cancer screenings? Sodium level normal at 139 (4) UTI (urinary tract infection): Code(s): N39.0 - Urinary tract infection, site not specified Status: Acute Assessment and Plan: urine culture with Pseudomonas on antibiotics These are finished (5) Edema: Code(s): R60.9 - Edema, unspecified Status: Acute Assessment and Plan: probably from proteinuria restarted then reduced IV Lasix plus albumin improved (6) Generalized weakness: Code(s): R53.1 - Weakness Status: Acute Assessment and Plan: likely due to acute illness, acute infection, and decreased mobility PT/OT as tolerated (7) Hypoalbuminemia: Code(s): E88.09 - Other disorders of plasma-protein metabolism, not elsewhere classified Status: Acute Assessment and Plan: part of nephrotic syndrome +/- poor oral intake Subjective Date/time seen: 06/29/22 10:10 Interval history: feels ab out the same. edema is better. Exam Narrative: General: thin female in NAD Heart: normal S1 and S2; no rub or gallop Lungs: Clear to ausc Abdomen: soft and nontender today. Bowel sounds positive . Extremities: 1+ edema In legs, pre sacrum. Skin: no rash Objective Data Vital Signs Vital Signs: Vital Signs - 24 hr 06/28/22 21:55 06/28/22 21:55 06/28/22 21:55 Temperature 97.9 F Pulse Rate 73 85 83 Respiratory Rate 18 20 20 Blood Pressure 120/58 L 122/66 129/61 Pulse Oximetry 96 94 95 Oxygen Delivery 06/29/22 05:48 06/29/22 08:00 06/29/22 10:18 Temperature 97.9 F 98.4 F Pulse Rate 75 81 Respiratory Rate 20 16 Blood Pressure 120/58 L 128/68 127/66 Pulse Oximetry 90 96 Oxygen Delivery 06/29/22 10:18 06/29/22 12:51 06/29/22 12:52 Temperature Pulse Rate 72 79 Respiratory Rate 18 18 Blood Pressure 114/57 L 122/65 119/67 Pulse Oximetry 94 95 Oxygen Delivery 06/29/22 14:00 06/29/22 08:00 06/29/22 21:33 Temperature 97.5 F L 98.1 F Pulse Rate 73 73 71 Respiratory Rate 18 18 14 Blood Pressure 130/69 113/63 Pulse Oximetry 99 99 95 Oxygen Delivery Room Air Intake/Output Intake/Output: Intake & Output 06/26/22 06/27/22 06/28/22 06/29/22 23:59 23:59 23:59 23:59 Intake Total 1050 1430 1210 640 Output Total 4200 2050 2200 1999 Balance -3150 -620 -990 -1360 Meds/Results
[2022-06-30] VITALS (7 sets, daily range): BP systolic 115–134; BP diastolic 57–104; PULSE 68–78; RESP 14–20; TEMP 36.3–37.1; O2SAT 94–97
[2022-06-30] MEDS: ALBUMIN HUMAN 25% 25 GM/100 ML 100 ML IVPB ×5 (00:20→23:43)
[2022-06-30 05:53] LABS: Creatinine Urine 28.5 mg/dL
[2022-06-30 05:59] LABS: Total Protein Urine Random > 600 mg/dL
[2022-06-30 06:03] LABS: Specific Gravity Ur 1.024; Total Protein Urine 24 Hr 16200 mg/24hr (28-141); Total Volume 24 Hour Urine 2700 ml; Urea Nitrogen 24 Hour Urine 6.8 G/DAY (12-20)
[2022-06-30] MEDS: LEVOTHYROXINE SODIUM 75 MCG TABLET PO (06:04)
[2022-06-30 06:05] LABS: Creatinine 24 Hour Urine 0.7 gm/24 (0.8-1.8); Total Volume 24 Hour Urine 2700 ml
[2022-06-30 06:44] LABS: Albumin Level 3.2 g/dL (3.5-5.1); Anion Gap 3 mmol/L (8-16); Blood Urea Nitrogen 28 mg/dL (7-17); Calcium 9.2 mg/dL (8.4-10.2); Carbon Dioxide 22 mmol/L (22-30); Chloride 107 mmol/L (98-107); Estimated CRCL calculation 31 ml/min; Estimated Glomerular Filt Rate 37; Glucose 87 mg/dL (65-110); Phosphorus 3.3 mg/dL (2.5-4.5); Potassium 3.5 mmol/L (3.4-5.0); Sodium 132 mmol/L (137-145)
[2022-06-30] MEDS: polyethylene glycoL 3350 17 GM POWD.PACK PO (11:02)
[2022-06-30] MEDS: ASCORBIC ACID 500 MG TABLET 1000 MG PO (11:02)
[2022-06-30] MEDS: acetaZOLAMIDE TAB 250 MG TABLET PO ×2 (11:03→17:03)
[2022-06-30] MEDS: THIAMINE HCL 50 MG TABLET PO (11:03)
[2022-06-30] MEDS: SPIRONOLACTONE 25 MG TABLET PO (11:03)
[2022-06-30] MEDS: FUROSEMIDE INJ 40 MG/4 ML VIAL IV PUSH ×2 (11:03→17:03)
[2022-06-30] MEDS: ZINC SULFATE 220 MG CAPSULE PO (11:03)
[2022-06-30] MEDS: OMEGA 3 POLYUNSAT FATTY ACIDS 1 GM CAP PO (11:03)
[2022-06-30] MEDS: ENOXAPARIN 40 MG/0.4 ML SYRINGE SUB-Q (11:04)
[2022-06-30] MEDS: CALCIUM CARBONATE (OSCAL) 500 MG TABLET PO (11:14)
--- NOTE | 2022-06-30 13:00 | PM.PNNEP ---
Progress Note: A&P Assessment and Plan (1) Nephrotic range proteinuria: Code(s): R80.9 - Proteinuria, unspecified Status: Acute Assessment and Plan: as noted by urinalysis and random testing > 44 grams (!) of protein as noted by random UTP/Cr ratio she has blood in the urine as well edema/swelling in the abdomen and LEs because of this. receiving furosemide and albumin s/p renal biopsy (06/29/22) for definitive diagnosis (2) Renal dysfunction: Code(s): N28.9 - Disorder of kidney and ureter, unspecified Status: Acute Assessment and Plan: normal creatinine at baseline creatinine is up and down from 1.4 to 1.6 (due to ongoing diuresis) evaluation to date: renal ultrasound normal but with increased right-sided renal parenchymal echogenicity, consistent with nonspecific nephropathy urine electrolytes prerenal rare urine eosinophils but no peripheral eosinophilia nephrotic range proteinuria (> 3.5grams) positive UTI MARKUS is positive 1:40; everything else is negative serum immunofixation with IgA monoclonal - Hem/Onc following s/p renal biopsy on 06/29/22 -- pathology pending (3) Hyponatremia: Code(s): E87.1 - Hypo-osmolality and hyponatremia Status: Acute Assessment and Plan: as noted on admission related to renal dysfunction, fluid retention, or something else(?) evaluation to date: TSH and cortisol normal SPEP and UPEP noted CXR results noted up to date of cancer screenings? follow trend (4) UTI (urinary tract infection): Code(s): N39.0 - Urinary tract infection, site not specified Status: Acute Assessment and Plan: urine culture with Pseudomonas completed course of antibiotics (5) Edema: Code(s): R60.9 - Edema, unspecified Status: Acute Assessment and Plan: probably from proteinuria (see #1) on IV Lasix plus albumin improved (6) Generalized weakness: Code(s): R53.1 - Weakness Status: Acute Assessment and Plan: likely due to acute illness, acute infection, and decreased mobility PT/OT as tolerated (7) Hypoalbuminemia: Code(s): E88.09 - Other disorders of plasma-protein metabolism, not elsewhere classified Status: Acute Assessment and Plan: part of nephrotic syndrome +/- poor oral intake Will continue to follow. Subjective Date/time seen: 06/30/22 13:00 Chart reviewed since last seen - assuming care from Dr. Mccracken; s/p kidney biopsy yesterday and tolerated it well; swelling/edema appears to be better in general; no apparent distress voiced. Exam Narrative: General: thin female in NAD Heart: normal S1 and S2; no rub Lungs: clear to auscultation Abdomen: soft, nontender with + bowel sounds. Extremities: no cyanosis or clubbing; 1+ edema Skin: warm and dry Objective Data Vital Signs Vital Signs: Vital Signs - 24 hr 06/29/22 21:33 06/29/22 20:15 06/30/22 05:54 Temperature 98.1 F 98.8 F Pulse Rate 71 73 Respiratory Rate 14 14 Blood Pressure 113/63 116/57 L Pulse Oximetry 95 94 Oxygen Delivery Room Air 06/30/22 08:00 06/30/22 08:37 06/30/22 08:37 Temperature 97.3 F L Pulse Rate 69 Respiratory Rate 20 Blood Pressure 123/74 118/72 115/68 Pulse Oximetry 95 Oxygen Delivery Intake/Output Intake/Output: Intake & Output 06/27/22 06/28/22 06/29/22 06/30/22 23:59 23:59 23:59 23:59 Intake Total 1430 1210 740 920 Output Total 2050 2200 1999 1200 Balance -620 -990 -1260 -280 Meds/Results Medications: Active Medications Generic Name Dose Route Start Last Admin Trade Name Freq PRN Reason Stop Dose Admin Acetaminophen 650 mg 06/15/22 00:02 06/29/22 16:43 Acetaminophen 325 Mg Tablet PO 650 mg Q6H PRN Administration Mild Pain (1-3) or Fever Acetazolamide 250 mg 06/26/22 09:00 06/30/22 17:03 Acetazolamide Tab 250 Mg Tablet PO 250 mg B
--- NOTE | 2022-06-30 13:00 | P.PNNP_ITS ---
Progress Note: A&P Assessment and Plan (1) Nephrotic range proteinuria: Code(s): R80.9 - Proteinuria, unspecified Status: Acute Assessment and Plan: * as noted by urinalysis and random testing * > 44 grams (!) of protein as noted by random UTP/Cr ratio * she has blood in the urine as well * edema/swelling in the abdomen and LEs because of this. * receiving furosemide and albumin * s/p renal biopsy (06/29/22) for definitive diagnosis (2) Renal dysfunction: Code(s): N28.9 - Disorder of kidney and ureter, unspecified Status: Acute Assessment and Plan: * normal creatinine at baseline * creatinine is up and down from 1.4 to 1.6 (due to ongoing diuresis) * evaluation to date: * renal ultrasound normal but with increased right-sided renal parenchymal echogenicity, consistent with nonspecific nephropathy * urine electrolytes prerenal * rare urine eosinophils but no peripheral eosinophilia * nephrotic range proteinuria (> 3.5grams) * positive UTI * MARKUS is positive 1:40; everything else is negative * serum immunofixation with IgA monoclonal - Hem/Onc following * s/p renal biopsy on 06/29/22 -- pathology pending (3) Hyponatremia: Code(s): E87.1 - Hypo-osmolality and hyponatremia Status: Acute Assessment and Plan: * as noted on admission * related to renal dysfunction, fluid retention, or something else(?) * evaluation to date: * TSH and cortisol normal * SPEP and UPEP noted * CXR results noted * up to date of cancer screenings? * follow trend (4) UTI (urinary tract infection): Code(s): N39.0 - Urinary tract infection, site not specified Status: Acute Assessment and Plan: * urine culture with Pseudomonas * completed course of antibiotics (5) Edema: Code(s): R60.9 - Edema, unspecified Status: Acute Assessment and Plan: * probably from proteinuria (see #1) * on IV Lasix plus albumin * improved (6) Generalized weakness: Code(s): R53.1 - Weakness Status: Acute Assessment and Plan: * likely due to acute illness, acute infection, and decreased mobility * PT/OT as tolerated (7) Hypoalbuminemia: Code(s): E88.09 - Other disorders of plasma-protein metabolism, not elsewhere classified Status: Acute Assessment and Plan: * part of nephrotic syndrome +/- poor oral intake Will continue to follow. Subjective Date/time seen: 06/30/22 13:00 Chart reviewed since last seen - assuming care from Dr. Mccracken; s/p kidney biopsy yesterday and tolerated it well; swelling/edema appears to be better in general; no apparent distress voiced. Exam Narrative: General: thin female in NAD Heart: normal S1 and S2; no rub Lungs: clear to auscultation Abdomen: soft, nontender with + bowel sounds. Extremities: no cyanosis or clubbing; 1+ edema Skin: warm and dry Objective Data Vital Signs Vital Signs: Vital Signs - 24 hr 06/29/22 21:33 06/29/22 20:15 06/30/22 05:54 Temperature 98.1 F 98.8 F Pulse Rate 71 73 Respiratory Rate 14 14 Blood Pressure 113/63 116/57 L Pulse Oximetry 95 94 Oxygen Delivery Room Air 06/30/22 08:00 06/30/22 08:37 06/30/22 08:37 Temperature 97.3 F L Pulse Rate 69 Respiratory Rate 20
--- NOTE | 2022-06-30 14:54 | PCDIET ---
Nutrition note: Had a call from a friend of the Tam family, Dr Jitendra Madrid who is a retired surgeon. He had been speaking with the family. Suggested to them the possibility of using a tube feeding formula orally for complete nutrition. I spoke to the family, after being called by the patient's daughter. They are not eager to get a PEG tube for the patient. They are agreeable to keep trying Ensure Enlive and an oral diet, possibly blenderized as patient seems to tolerate drinking better than eating. The taste changes, loss of appetite and aversion to food are longstanding and she is seeing a specialist for this. Recommendations for discharge are 3-4 Ensure Enlives per day as well as encourage PO intake. Pt and family agreeable. Di Reddy MS RD LDN
--- NOTE | 2022-06-30 16:09 | PM.EVENT ---
Event Note Event Note Event Note: I talked with Nephropath. 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 GS interstitium not too bad. main issue is in glomeruli. they are faxing result to hospital.
--- NOTE | 2022-06-30 16:47 | PM.IMPN ---
Progress Note: A&P Assessment and Plan (1) Hypotension: Code(s): I95.9 - Hypotension, unspecified Status: Acute Assessment and Plan: Patient was hypotensive on admission (76/51). With IV fluids her blood pressure improved with a blood pressure of 141/75 today.. Hold Midodrine, continue albumin per nephrology if patient goes into hypotension will reinstate Midrodrine Continue diuresis dosing per nephrology 06/30/2022 interval history: patient is 72-year-old female with history of breast cancer status post mastectomy and completed 5 years of chemotherapy 2012, patient presented emergency depart with complaint lower extremities, pelvic and lower abdominal area edema, complaints of bloating patient does have bowel movement, patient also has hypoalbuminemia, and anasarca like edema patient also found to acute kidney injury patient seen by Nephrology and being diuresed and albumin as needed albumin was increase, on 06/25 discussed with work environment safety inspector recommended kidney biopsy to further evaluate which patient had it on 06/29 and it preliminary results showed amyloidosis, further recommended to follow, on 06/25 patient was also seen by Oncology patient does not need bone biopsy however further workup is ordered and further recommendation to follow, today patient states feeling little better seems swelling lower extremity as well as abdomen and pelvic is improving able to lay flat in the bed, able to walk to the bathroom without oxygen, patient with elevated liver enzymes and hypoalbuminemia, acute hepatitis panel is negative for any infection, may need evaluation by refinery operator crude unit, discuss with low pressure firer patient food intake is poor, will add high calory and high protein supplement, will continue present management and monitor and further recommendation to follow. (2) Nephrotic syndrome: Code(s): N04.9 - Nephrotic syndrome with unspecified morphologic changes Status: Acute Assessment and Plan: continue IV albumin followed by IV bumex per nephrology (3) Generalized weakness: Code(s): R53.1 - Weakness Status: Acute Assessment and Plan: Patient with generalized weakness related to her weight loss, UTI, nephropathy, HoTN and poor oral intake. Hyponatremia could also be contributing to her weakness. TSH and B12 levels are normal. Suspect her spinal stenosis also is contributing to her lower extremity weakness but not her general malaise. Weakness is better and PT has signed off. improving (4) Dysgeusia: Code(s): R43.2 - Parageusia Status: Acute Assessment and Plan: Patient with significant dysgeusia for the past 2 years. She states symptoms began shortly after her hysterectomy in June 2020. She has lost 30 lb since this time. Food has a bitter taste which results in gagging. She does see a specialist for this in [place] and has had extensive workup. She is on zinc for this reason. She can tolerate dietary supplements and these have been ordered. Dietitian has been working with the patient here on this issue. Zinc can cause this problem so will hold Zinc supplemetns since she has been on this for about a year now. (5) UTI (urinary tract infection): Code(s): N39.0 - Urinary tract infection, site not specified Status: Acute Assessment and Plan: UA noted. UCx growing Pseudomonas that is clemens-sensitive. Abx changed to cefepime. Continue to follow. QTc 450. Now on Cipro monitor (6) Hyponatremia: Code(s): E87.1 - Hypo-osmolality and hyponatremia Status: Acute Assessment and Plan: Sodium 128 on admission. She is on Lasix which may be contributing to this. Lasix is on hold. TSH normal. Cortisol within normal limits. Urine Na <5 to suggest pre-renal but consider poor circulating effective volume related to severe hypoalbuminemia. Na unchanged at 127. Nephrology on board , fluids and diuresis per nephrology (7)
[2022-06-30] MEDS: MELATONIN 5 MG TABLET PO (21:09)
[2022-07-01] VITALS (7 sets, daily range): BP systolic 117–127; BP diastolic 54–72; PULSE 71–81; RESP 14–20; TEMP 36.6–37.2; O2SAT 94–97
[2022-07-01] MEDS: ALBUMIN HUMAN 25% 25 GM/100 ML 100 ML IVPB ×2 (06:02→10:43)
[2022-07-01] MEDS: LEVOTHYROXINE SODIUM 75 MCG TABLET PO (06:02)
[2022-07-01] MEDS: ENOXAPARIN 40 MG/0.4 ML SYRINGE SUB-Q (08:12)
[2022-07-01] MEDS: THIAMINE HCL 50 MG TABLET PO (08:12)
[2022-07-01] MEDS: OMEGA 3 POLYUNSAT FATTY ACIDS 1 GM CAP PO (08:12)
[2022-07-01] MEDS: acetaZOLAMIDE TAB 250 MG TABLET PO (08:12)
[2022-07-01] MEDS: SPIRONOLACTONE 25 MG TABLET PO (08:12)
[2022-07-01] MEDS: ASCORBIC ACID 500 MG TABLET 1000 MG PO (08:12)
[2022-07-01] MEDS: FUROSEMIDE INJ 40 MG/4 ML VIAL IV PUSH (08:12)
[2022-07-01] MEDS: ZINC SULFATE 220 MG CAPSULE PO (08:12)
[2022-07-01] MEDS: polyethylene glycoL 3350 17 GM POWD.PACK PO (08:13)
[2022-07-01 10:28] LABS: Albumin Level 3.6 g/dL (3.5-5.1); Anion Gap 8 mmol/L (8-16); Blood Urea Nitrogen 35 mg/dL (7-17); Calcium 9.4 mg/dL (8.4-10.2); Carbon Dioxide 22 mmol/L (22-30); Chloride 108 mmol/L (98-107); Estimated CRCL calculation 24 ml/min; Estimated Glomerular Filt Rate 28; Glucose 109 mg/dL (65-110); Phosphorus 3.8 mg/dL (2.5-4.5); Potassium 2.8 mmol/L (3.4-5.0); Sodium 138 mmol/L (137-145)
[2022-07-01] MEDS: POTASSIUM CHLORIDE 20 MEQ TABLET 40 MEQ PO (10:46)
[2022-07-01] MEDS: CALCIUM CARBONATE (OSCAL) 500 MG TABLET PO (10:46)
--- NOTE | 2022-07-01 11:20 | PM.PNNEP ---
Progress Note: A&P Assessment and Plan (1) Nephrotic range proteinuria: Code(s): R80.9 - Proteinuria, unspecified Status: Acute Assessment and Plan: as noted by urinalysis and random testing > 44 grams (!) of protein as noted by random UTP/Cr ratio she has blood in the urine as well edema/swelling in the abdomen and LEs because of this. receiving furosemide and albumin s/p renal biopsy (06/29/22): DIAGNOSIS: AL Amyloidosis will need to discuss with Hem/Onc treatment options (2) Renal dysfunction: Code(s): N28.9 - Disorder of kidney and ureter, unspecified Status: Acute Assessment and Plan: s/p renal biopsy on 06/29/22 with demonstration of AL Amyloidosis normal creatinine at baseline creatinine is up and down from 1.4 to 1.6 (partly due to ongoing diuresis); little higher today evaluation to date: renal ultrasound normal but with increased right-sided renal parenchymal echogenicity, consistent with nonspecific nephropathy urine electrolytes prerenal rare urine eosinophils but no peripheral eosinophilia nephrotic range proteinuria (> 3.5grams) positive UTI MARKUS is positive 1:40; everything else is negative serum immunofixation with IgA monoclonal - Hem/Onc following will contact Hem/Onc to inform of diagnosis (3) Hyponatremia: Code(s): E87.1 - Hypo-osmolality and hyponatremia Status: Acute Assessment and Plan: as noted on admission related to renal dysfunction, fluid retention, or something else(?) evaluation to date: TSH and cortisol normal SPEP and UPEP noted CXR results noted follow trend (4) Hypokalemia: Code(s): E87.6 - Hypokalemia Status: Acute Assessment and Plan: secondary to ongoing attempts at diuresis replete as needed continue spironolactone check magnesium (5) UTI (urinary tract infection): Code(s): N39.0 - Urinary tract infection, site not specified Status: Acute Assessment and Plan: urine culture with Pseudomonas completed course of antibiotics (6) Edema: Code(s): R60.9 - Edema, unspecified Status: Acute Assessment and Plan: probably from proteinuria (see #1) on IV Lasix plus albumin will start to wean this since albumin is better (and this is not a care home treatment strategy) suspect will need oral diuretics on discharge improved (7) Generalized weakness: Code(s): R53.1 - Weakness Status: Acute Assessment and Plan: likely due to acute illness, acute infection, and decreased mobility PT/OT as tolerated (8) Hypoalbuminemia: Code(s): E88.09 - Other disorders of plasma-protein metabolism, not elsewhere classified Status: Acute Assessment and Plan: part of nephrotic syndrome +/- poor oral intake Long and extensive discussion (> 20 minutes) with patient and family (by phone) regarding diagnosis of AL amyloidosis by kidney biopsy which likely explains her nephrotic range proteinuria/nephrotic syndrome and the need for Hem/Onc follow-up. Discussed case with Dr. Calloway as well. Will continue to follow. Subjective Date/time seen: 07/01/22 11:20 Seems to be doing reasonably well at the time of my visit; reviewed results of renal biopsy with her (and family by phone); interested in knowing what the next step is; swelling/edema stable with IV albumin + IV lasix; low K+ noted by AM labs. Exam Narrative: General: thin female in NAD Heart: normal S1 and S2; no rub Lungs: clear to auscultation Abdomen: soft, nontender with + bowel sounds. Extremities: no cyanosis or clubbing; 1+ edema Skin: warm and intact Objective Data Vital Signs Vital Signs: Vital Signs Temp Pulse Resp BP Pulse Ox O2 Del Method 07/01/22 11:19 119/67 07/01/22 11:18 120/69 07/01/22 08:00 97.9 F 71 20 117/63 95 07/01/22 08:00 Room Air 07/01/22 06:00 98.9 F 71
--- NOTE | 2022-07-01 11:20 | P.PNNP_ITS ---
Progress Note: A&P Assessment and Plan (1) Nephrotic range proteinuria: Code(s): R80.9 - Proteinuria, unspecified Status: Acute Assessment and Plan: * as noted by urinalysis and random testing * > 44 grams (!) of protein as noted by random UTP/Cr ratio * she has blood in the urine as well * edema/swelling in the abdomen and LEs because of this. * receiving furosemide and albumin * s/p renal biopsy (06/29/22): * DIAGNOSIS: AL Amyloidosis * will need to discuss with Hem/Onc treatment options (2) Renal dysfunction: Code(s): N28.9 - Disorder of kidney and ureter, unspecified Status: Acute Assessment and Plan: * s/p renal biopsy on 06/29/22 with demonstration of AL Amyloidosis * normal creatinine at baseline * creatinine is up and down from 1.4 to 1.6 (partly due to ongoing diuresis); little higher today * evaluation to date: * renal ultrasound normal but with increased right-sided renal parenchymal echogenicity, consistent with nonspecific nephropathy * urine electrolytes prerenal * rare urine eosinophils but no peripheral eosinophilia * nephrotic range proteinuria (> 3.5grams) * positive UTI * MARKUS is positive 1:40; everything else is negative * serum immunofixation with IgA monoclonal - Hem/Onc following * will contact Hem/Onc to inform of diagnosis (3) Hyponatremia: Code(s): E87.1 - Hypo-osmolality and hyponatremia Status: Acute Assessment and Plan: * as noted on admission * related to renal dysfunction, fluid retention, or something else(?) * evaluation to date: * TSH and cortisol normal * SPEP and UPEP noted * CXR results noted * follow trend (4) Hypokalemia: Code(s): E87.6 - Hypokalemia Status: Acute Assessment and Plan: * secondary to ongoing attempts at diuresis * replete as needed * continue spironolactone * check magnesium (5) UTI (urinary tract infection): Code(s): N39.0 - Urinary tract infection, site not specified Status: Acute Assessment and Plan: * urine culture with Pseudomonas * completed course of antibiotics (6) Edema: Code(s): R60.9 - Edema, unspecified Status: Acute Assessment and Plan: * probably from proteinuria (see #1) * on IV Lasix plus albumin * will start to wean this since albumin is better (and this is not a fpc treatment strategy) * suspect will need oral diuretics on discharge * improved (7) Generalized weakness: Code(s): R53.1 - Weakness Status: Acute Assessment and Plan: * likely due to acute illness, acute infection, and decreased mobility * PT/OT as tolerated (8) Hypoalbuminemia: Code(s): E88.09 - Other disorders of plasma-protein metabolism, not elsewhere classified Status: Acute Assessment and Plan: * part of nephrotic syndrome +/- poor oral intake Long and extensive discussion (> 20 minutes) with patient and family (by phone) regarding diagnosis of AL amyloidosis by kidney biopsy which likely explains her nephrotic range proteinuria/nephrotic syndrome and the need for Hem/Onc follow- up. Discussed case with Dr. Calloway as well. Will continue to follow. Subjective Date/time seen: 07/01/22 11:20 Seems to be doing reasonably well at the time of my visit; reviewed results of renal biopsy with her (and family by phone); interested in knowing what the next step is; swelling/edema stable with IV albumin + IV lasix; low K+ noted by AM labs. Exa
[2022-07-01] MEDS: POTASSIUM CHLORIDE INJ 40 MEQ in SODIUM CHLORIDE 0.9% IV 500 ML 130 MEQ IVPB (12:21)
[2022-07-01] MEDS: ACETAMINOPHEN 325 MG TABLET 650 MG PO (12:30)
--- NOTE | 2022-07-01 12:46 | PC.NURSE ---
this nurse attempted to call office of Dr. Hamilton in regards to nurse communication. left a voicemail to the nurse due to on lunch per providers office.
[2022-07-01 15:56] LABS: Zinc 59 mcg/dL (60-130)
[2022-07-01] MEDS: BUMETANIDE 1 MG TABLET PO (16:46)
--- NOTE | 2022-07-01 18:08 | WPDONCPN ---
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 Review of Systems - Constitutional Reports fatigue, Reports lack of energy - ENT Reports other (loss of taste) - Gastrointestinal Reports pain with swallowing - Neurologic Reports hearing normal Exam Vital signs: Temp Pulse Resp BP Pulse Ox O2 Del Method 36.6 C 71 20 119/67 95 Room Air 07/01/22 08:00 07/01/22 08:00 07/01/22 08:00 07/01/22 11:19 07/01/22 08:00 07/01/22 08:00 - Constitutional no acute distress - Routine HEENT Exam Head: Present: atraumatic - Routine Neck Exam Present: full ROM - Routine Respiratory Exam Present: decreased breath sounds - Routine Cardiovascular Exam Cardiovascular: Present: murmur - Routine Abdominal Exam Present: diminished bowel sounds PN: Objective Data - Labs CBC & Chem 7: 06/23/22 06:05 07/01/22 09:34 Labs: Laboratory Results - last 24 hr 06/28/22 07/01/22 16:40 09:34 Sodium 138 Potassium 2.8 L* Chloride 108 H Carbon Dioxide 22 Anion Gap 8 BUN 35 H Creatinine 1.80 H Estim Creat Clear Calc 24 Estimated GFR 28 L Glucose 109 Calcium 9.4 Phosphorus 3.8 Albumin 3.6 Zinc 59 L
--- NOTE | 2022-07-01 18:34 | PM.IMPN ---
Progress Note: A&P Assessment and Plan (1) Hypotension: Code(s): I95.9 - Hypotension, unspecified Status: Acute Assessment and Plan: Patient was hypotensive on admission (76/51). With IV fluids her blood pressure improved with a blood pressure of 141/75 today.. Hold Midodrine, continue albumin per nephrology if patient goes into hypotension will reinstate Midrodrine Continue diuresis dosing per nephrology 07/01/2022 interval history: patient is 72-year-old female with history of breast cancer status post mastectomy and completed 5 years of chemotherapy 2012, patient presented emergency depart with complaint lower extremities, pelvic and lower abdominal area edema, complaints of bloating patient does have bowel movement, patient also has hypoalbuminemia, and anasarca like edema patient also found to acute kidney injury patient seen by Nephrology and being diuresed and albumin as needed albumin was increase, on 06/25 discussed with employment counselor recommended kidney biopsy to further evaluate which patient had it on 06/29 and it preliminary results showed amyloidosis, further recommended to follow, on 06/25 patient was also seen by Oncology patient does not need bone biopsy however further workup is ordered and further recommendation to follow, today patient states feeling little better seems swelling lower extremity as well as abdomen and pelvic is improving able to lay flat in the bed, able to walk to the bathroom without oxygen, today patient is seen by Oncology and suspect amyloidosis found in the care may be causing nephrotic syndrome, suspect patient may have multiple myeloma, further workup in the process, patient is losing protein in her urine, discussed with dietitian to provide high-protein high-calorie supplement, will continue to monitor oncologist and employment counselor out okay to discharge patient possibly tomorrow. patient and daughter present in the room give updates. (2) Nephrotic syndrome: Code(s): N04.9 - Nephrotic syndrome with unspecified morphologic changes Status: Acute Assessment and Plan: continue IV albumin followed by IV bumex per nephrology (3) Generalized weakness: Code(s): R53.1 - Weakness Status: Acute Assessment and Plan: Patient with generalized weakness related to her weight loss, UTI, nephropathy, HoTN and poor oral intake. Hyponatremia could also be contributing to her weakness. TSH and B12 levels are normal. Suspect her spinal stenosis also is contributing to her lower extremity weakness but not her general malaise. Weakness is better and PT has signed off. improving (4) Dysgeusia: Code(s): R43.2 - Parageusia Status: Acute Assessment and Plan: Patient with significant dysgeusia for the past 2 years. She states symptoms began shortly after her hysterectomy in June 2020. She has lost 30 lb since this time. Food has a bitter taste which results in gagging. She does see a specialist for this in [place] and has had extensive workup. She is on zinc for this reason. She can tolerate dietary supplements and these have been ordered. Dietitian has been working with the patient here on this issue. Zinc can cause this problem so will hold Zinc supplemetns since she has been on this for about a year now. (5) UTI (urinary tract infection): Code(s): N39.0 - Urinary tract infection, site not specified Status: Acute Assessment and Plan: UA noted. UCx growing Pseudomonas that is clemens-sensitive. Abx changed to cefepime. Continue to follow. QTc 450. Now on Cipro monitor (6) Hyponatremia: Code(s): E87.1 - Hypo-osmolality and hyponatremia Status: Acute Assessment and Plan: Sodium 128 on admission. She is on Lasix which may be contributing to this. Lasix is on hold. TSH normal. Cortisol within normal limits. Urine Na <5 to suggest pre-renal but consider poor circulating effective
[2022-07-01 19:47] LABS: Osmolality, Urine 380 mOsm/kg (50-1200)
[2022-07-01 21:16] LABS: Magnesium 2.3 mg/dL (1.6-2.3); Potassium 4.1 mmol/L (3.4-5.0)
[2022-07-01 21:25] LABS: NT Pro B Type Natriuretic Pept 8520 pg/mL (5-100)
[2022-07-01] MEDS: MELATONIN 5 MG TABLET PO (22:52)
[2022-07-02] MEDS: LEVOTHYROXINE SODIUM 75 MCG TABLET PO (05:59)
[2022-07-02 06:00] VITALS: BP 123/61; PULSE 73; RESP 18; TEMP 36.4; O2SAT 93
[2022-07-02 07:07] LABS: Albumin Level 3.2 g/dL (3.5-5.1); Anion Gap 6 mmol/L (8-16); Blood Urea Nitrogen 40 mg/dL (7-17); Calcium 9.4 mg/dL (8.4-10.2); Carbon Dioxide 20 mmol/L (22-30); Chloride 111 mmol/L (98-107); Estimated CRCL calculation 27 ml/min; Estimated Glomerular Filt Rate 32; Glucose 122 mg/dL (65-110); Phosphorus 3.6 mg/dL (2.5-4.5); Potassium 3.7 mmol/L (3.4-5.0); Sodium 137 mmol/L (137-145)
[2022-07-02 08:00] VITALS: BP 128/68; PULSE 70
[2022-07-02 08:05] VITALS: BP 100/62; PULSE 77
[2022-07-02 08:10] VITALS: BP 98/52; PULSE 77
[2022-07-02] MEDS: ZINC SULFATE 220 MG CAPSULE PO (08:19)
[2022-07-02] MEDS: OMEGA 3 POLYUNSAT FATTY ACIDS 1 GM CAP PO (08:19)
[2022-07-02] MEDS: BUMETANIDE 1 MG TABLET PO (08:20)
[2022-07-02] MEDS: SPIRONOLACTONE 25 MG TABLET PO (08:20)
[2022-07-02] MEDS: ASCORBIC ACID 500 MG TABLET 1000 MG PO (08:20)
[2022-07-02] MEDS: THIAMINE HCL 50 MG TABLET PO (08:20)
[2022-07-02] MEDS: ENOXAPARIN 40 MG/0.4 ML SYRINGE SUB-Q (08:20)
[2022-07-02] MEDS: polyethylene glycoL 3350 17 GM POWD.PACK PO (08:20)
[2022-07-02] MEDS: CALCIUM CARBONATE (OSCAL) 500 MG TABLET PO (11:20)
--- NOTE | 2022-07-02 12:41 | P.PNNP_ITS ---
Progress Note: A&P Assessment and Plan (1) Nephrotic range proteinuria: Code(s): R80.9 - Proteinuria, unspecified Status: Acute Assessment and Plan: * as noted by urinalysis and random testing * > 44 grams (!) of protein as noted by random UTP/Cr ratio * she has blood in the urine as well * edema/swelling in the abdomen and LEs because of this. * receiving furosemide and albumin * s/p renal biopsy (06/29/22): * DIAGNOSIS: AL Amyloidosis * Hem/Onc to discuss treatment options as an outpatient (2) Renal dysfunction: Code(s): N28.9 - Disorder of kidney and ureter, unspecified Status: Acute Assessment and Plan: * s/p renal biopsy on 06/29/22 with demonstration of AL Amyloidosis * normal creatinine at baseline * creatinine is up and down from 1.4 to 1.6 (partly due to ongoing diuresis); little higher today * evaluation to date: * renal ultrasound normal but with increased right-sided renal parenchymal echogenicity, consistent with nonspecific nephropathy * urine electrolytes prerenal * rare urine eosinophils but no peripheral eosinophilia * nephrotic range proteinuria (> 3.5grams) * positive UTI * MARKUS is positive 1:40; everything else is negative * serum immunofixation with IgA monoclonal - Hem/Onc following * Hem/Onc informed of diagnosis (3) Hyponatremia: Code(s): E87.1 - Hypo-osmolality and hyponatremia Status: Acute Assessment and Plan: * resolved * as noted on admission * related to renal dysfunction, fluid retention, or something else(?) * evaluation to date: * TSH and cortisol normal * SPEP and UPEP noted * CXR results noted * follow trend (4) Hypokalemia: Code(s): E87.6 - Hypokalemia Status: Acute Assessment and Plan: * stable * secondary to ongoing attempts at diuresis * replete as needed * continue spironolactone * check magnesium intermittently (5) UTI (urinary tract infection): Code(s): N39.0 - Urinary tract infection, site not specified Status: Acute Assessment and Plan: * urine culture with Pseudomonas * completed course of antibiotics (6) Edema: Code(s): R60.9 - Edema, unspecified Status: Acute Assessment and Plan: * probably from proteinuria (see #1) * on IV Lasix plus albumin * will start to wean this since albumin is better (and this is not a group home treatment strategy) * suspect will need oral diuretics on discharge * improved (7) Generalized weakness: Code(s): R53.1 - Weakness Status: Acute Assessment and Plan: * likely due to acute illness, acute infection, and decreased mobility * PT/OT as tolerated (8) Hypoalbuminemia: Code(s): E88.09 - Other disorders of plasma-protein metabolism, not elsewhere classified Status: Acute Assessment and Plan: * part of nephrotic syndrome +/- poor oral intake Not opposed to discharge from renal perspective if otherwise medically stable. Will continue to follow. Subjective Date/time seen: 07/02/22 12:41 Appears to be doing reasonably well; transitioned off IV albumin and IV lasix to oral diuretics yesterday; swelling/edema in feet/legs/thighs significantly better but still has some in her abdominal area; no other issues/events noted at this time; K+ appears to have stabilized. Exam Narrative: General: thin female in NAD Heart: normal S1 and S2; no rub Lungs: clear to au
--- NOTE | 2022-07-02 12:41 | PM.PNNEP ---
Progress Note: A&P Assessment and Plan (1) Nephrotic range proteinuria: Code(s): R80.9 - Proteinuria, unspecified Status: Acute Assessment and Plan: as noted by urinalysis and random testing > 44 grams (!) of protein as noted by random UTP/Cr ratio she has blood in the urine as well edema/swelling in the abdomen and LEs because of this. receiving furosemide and albumin s/p renal biopsy (06/29/22): DIAGNOSIS: AL Amyloidosis Hem/Onc to discuss treatment options as an outpatient (2) Renal dysfunction: Code(s): N28.9 - Disorder of kidney and ureter, unspecified Status: Acute Assessment and Plan: s/p renal biopsy on 06/29/22 with demonstration of AL Amyloidosis normal creatinine at baseline creatinine is up and down from 1.4 to 1.6 (partly due to ongoing diuresis); little higher today evaluation to date: renal ultrasound normal but with increased right-sided renal parenchymal echogenicity, consistent with nonspecific nephropathy urine electrolytes prerenal rare urine eosinophils but no peripheral eosinophilia nephrotic range proteinuria (> 3.5grams) positive UTI MARKUS is positive 1:40; everything else is negative serum immunofixation with IgA monoclonal - Hem/Onc following Hem/Onc informed of diagnosis (3) Hyponatremia: Code(s): E87.1 - Hypo-osmolality and hyponatremia Status: Acute Assessment and Plan: resolved as noted on admission related to renal dysfunction, fluid retention, or something else(?) evaluation to date: TSH and cortisol normal SPEP and UPEP noted CXR results noted follow trend (4) Hypokalemia: Code(s): E87.6 - Hypokalemia Status: Acute Assessment and Plan: stable secondary to ongoing attempts at diuresis replete as needed continue spironolactone check magnesium intermittently (5) UTI (urinary tract infection): Code(s): N39.0 - Urinary tract infection, site not specified Status: Acute Assessment and Plan: urine culture with Pseudomonas completed course of antibiotics (6) Edema: Code(s): R60.9 - Edema, unspecified Status: Acute Assessment and Plan: probably from proteinuria (see #1) on IV Lasix plus albumin will start to wean this since albumin is better (and this is not a fpc treatment strategy) suspect will need oral diuretics on discharge improved (7) Generalized weakness: Code(s): R53.1 - Weakness Status: Acute Assessment and Plan: likely due to acute illness, acute infection, and decreased mobility PT/OT as tolerated (8) Hypoalbuminemia: Code(s): E88.09 - Other disorders of plasma-protein metabolism, not elsewhere classified Status: Acute Assessment and Plan: part of nephrotic syndrome +/- poor oral intake Not opposed to discharge from renal perspective if otherwise medically stable. Will continue to follow. Subjective Date/time seen: 07/02/22 12:41 Appears to be doing reasonably well; transitioned off IV albumin and IV lasix to oral diuretics yesterday; swelling/edema in feet/legs/thighs significantly better but still has some in her abdominal area; no other issues/events noted at this time; K+ appears to have stabilized. Exam Narrative: General: thin female in NAD Heart: normal S1 and S2; no rub Lungs: clear to auscultation Abdomen: soft, nontender with + bowel sounds. Extremities: no cyanosis or clubbing; 1+ edema Skin: no rash Objective Data Vital Signs Vital Signs: Vital Signs Temp Pulse Resp BP Pulse Ox O2 Del Method 07/02/22 08:10 77 98/52 L 07/02/22 08:05 77 100/62 07/02/22 08:00 70 128/68 07/02/22 08:30 Room Air 07/02/22 06:00 97.5 F L 73 18 123/61 93 07/01/22 20:00 Room Air 07/01/22 20:00 98.6 F 75 18 94 07/01/22 22:00 98.6 F 75 18 119/54 L 94 Intake/Output
[2022-07-02 14:00] VITALS: BP 127/68; PULSE 70; RESP 16; TEMP 36.6; O2SAT 96
--- NOTE | 2022-07-02 14:15 | PM.DS ---
DS: Admitting Diagnosis Discharge Date 07/01/2022 Admitting Diagnosis weakness DS: Discharge Diagnosis Discharge Diagnosis (1) Hypotension: Code(s): I95.9 - Hypotension, unspecified Status: Acute Assessment and Plan: Patient was hypotensive on admission (76/51). With IV fluids her blood pressure improved with a blood pressure of 141/75 today.. Hold Midodrine, continue albumin per nephrology if patient goes into hypotension will reinstate Midrodrine Continue diuresis dosing per nephrology 07/01/2022 interval history: patient is 72-year-old female with history of breast cancer status post mastectomy and completed 5 years of chemotherapy 2012, patient presented emergency depart with complaint lower extremities, pelvic and lower abdominal area edema, complaints of bloating patient does have bowel movement, patient also has hypoalbuminemia, and anasarca like edema patient also found to acute kidney injury patient seen by Nephrology and being diuresed and albumin as needed albumin was increase, on 06/25 discussed with heel shaper recommended kidney biopsy to further evaluate which patient had it on 06/29 and it preliminary results showed amyloidosis, further recommended to follow, on 06/25 patient was also seen by Oncology patient does not need bone biopsy however further workup is ordered and further recommendation to follow, today patient states feeling little better seems swelling lower extremity as well as abdomen and pelvic is improving able to lay flat in the bed, able to walk to the bathroom without oxygen, today patient is seen by Oncology and suspect amyloidosis found in the care may be causing nephrotic syndrome, suspect patient may have multiple myeloma, further workup in the process, patient is losing protein in her urine, discussed with dietitian to provide high-protein high-calorie supplement, will continue to monitor oncologist and heel shaper out okay to discharge patient possibly tomorrow. patient and daughter present in the room give updates. (2) Nephrotic syndrome: Code(s): N04.9 - Nephrotic syndrome with unspecified morphologic changes Status: Acute Assessment and Plan: continue IV albumin followed by IV bumex per nephrology (3) Generalized weakness: Code(s): R53.1 - Weakness Status: Acute Assessment and Plan: Patient with generalized weakness related to her weight loss, UTI, nephropathy, HoTN and poor oral intake. Hyponatremia could also be contributing to her weakness. TSH and B12 levels are normal. Suspect her spinal stenosis also is contributing to her lower extremity weakness but not her general malaise. Weakness is better and PT has signed off. improving (4) Dysgeusia: Code(s): R43.2 - Parageusia Status: Acute Assessment and Plan: Patient with significant dysgeusia for the past 2 years. She states symptoms began shortly after her hysterectomy in June 2020. She has lost 30 lb since this time. Food has a bitter taste which results in gagging. She does see a specialist for this in [place] and has had extensive workup. She is on zinc for this reason. She can tolerate dietary supplements and these have been ordered. Dietitian has been working with the patient here on this issue. Zinc can cause this problem so will hold Zinc supplemetns since she has been on this for about a year now. (5) UTI (urinary tract infection): Code(s): N39.0 - Urinary tract infection, site not specified Status: Acute Assessment and Plan: UA noted. UCx growing Pseudomonas that is clemens-sensitive. Abx changed to cefepime. Continue to follow. QTc 450. Now on Cipro monitor (6) Hyponatremia: Code(s): E87.1 - Hypo-osmolality and hyponatremia Status: Acute Assessment and Plan: Sodium 128 on admission. She is on Lasix which may be contributing to this. Lasix is on hold. TSH normal. Cortisol wit
== END 2022-07-02 14:55 | disposition home or self-care (01) | DRG 546 ==
LOC: ANHED 12:10 → ANH3MEDSUR 14:19
PROVIDERS: Internal Medicine; Internal Medicine Hematology & Oncology; Internal Medicine Nephrology; Physician Assistant; Urology; Admitting Provider Internal Medicine; Emergency Provider Emergency Medicine; PCP Family Medicine Adolescent Medicine; Visit Provider Family Medicine
PROC: 0T7D8ZZ Dilation of Urethra, Via Natural or Artificial Opening Endoscopic (ICD-10-PCS; CPT 52281; principal; 2022-06-24 11:00)
DX: E85.81 Light chain (AL) amyloidosis (principal); E87.1 Hypo-osmolality and hyponatremia; N39.0 Urinary tract infection, site not specified; N04.9 Nephrotic syndrome with unspecified morphologic changes; E87.6 Hypokalemia; R31.0 Gross hematuria; R01.1 Cardiac murmur, unspecified; R79.89 Other specified abnormal findings of blood chemistry; I10 Essential (primary) hypertension; K59.00 Constipation, unspecified; R43.2 Parageusia; E03.9 Hypothyroidism, unspecified; E78.5 Hyperlipidemia, unspecified; I95.9 Hypotension, unspecified; Z20.822 Contact with and (suspected) exposure to COVID-19; B96.5 Pseudomonas (aeruginosa) (mallei) (pseudomallei) as the cause of diseases classified elsewhere; N32.0 Bladder-neck obstruction; N81.10 Cystocele, unspecified; D47.2 Monoclonal gammopathy; Z85.3 Personal history of malignant neoplasm of breast; Z90.12 Acquired absence of left breast and nipple; Z82.49 Family history of ischemic heart disease and other diseases of the circulatory system; Z83.3 Family history of diabetes mellitus; Z80.0 Family history of malignant neoplasm of digestive organs; Z80.3 Family history of malignant neoplasm of breast; Z79.899 Other long term (current) drug therapy; Z88.5 Allergy status to narcotic agent
CPT/HCPCS: 36415; 50200; 70450; 71046; 74178; 76775; 76942; 80048; 80053; 80069; 81001; 81050; 82533; 82550; 82570; 82607; 82746; 82784; 83520; 83690; 83735; 83880; 83883; 83930; 83935; 84100; 84132; 84155; 84156; 84165; 84166; 84300; 84443; 84540; 84630; 85025; 85027; 85610; 85999; 86036; 86038; 86039; 86140; 86160; 86162; 86235; 86334; 87077; 87086; 87088; 87186; 87636; 88300; 88305; 88313; 88329; 88346; 88348; 88350; 92610; 93005; 93306; 96361; 96365; 97161; 97165; 99285; A9270; G0378; J0692; J0696; J1650; J1940; J2704; J3480; J7030; J7040; J7120; P9047; Q9967

== ENCOUNTER 2022-07-13 09:07 | Outpatient (CLI) | payer MEDICARE, SELFPAY ==
--- NOTE | ~2022-07-13 | PE_ITS ---
EXAMINATION: PET skull to mid thigh DATE: 07/13/2022 10:55 INDICATION: Light chain amyloidosis TECHNIQUE: Blood glucose level was 101 mg/dL. 10.401 mCi of 18-fluorodeoxyglucose (18-FDG) was admini stered i.v. Low dose computed tomography (CT) images were acquired from the base of the brain to the proximal thighs for attenuation correction and anatomic localization. Positron emission tomography (P ET) images were acquired in the same distribution beginning 56 minutes after injection. The dose-beka th product (DLP) was 811.86 mGy-cm. COMPARISON: 06/14/2022 FINDINGS: Head/neck: No abnormal FDG uptake is identified. FDG uptake in the vocal cords without suspicious CT correlate is likely physiologic. Chest: No abnormal FDG uptake is identified. There is scarring in the lung apices. There are trace pl eural effusions. Mild dependent atelectasis is noted. There is no pneumothorax. There are changes of left mastectomy and axillary lymph node dissection with implant reconstruction. No pathologically enl arged thoracic lymph nodes are identified. The heart size is normal. Abdomen/pelvis/proximal thighs: Physiologic FDG activity is present in the bowel and urinary tract. T here is minimal FDG uptake in the right lower quadrant associated with an area of right inguinal mason ia repair. The gallbladder is surgically absent. The liver, pancreas, and adrenal glands are normal. The left kidney is unremarkable. There is a 2.2 cm cyst of the right kidney. No pathologically enlarg ed abdominal or pelvic lymph nodes are identified. There is no free intraperitoneal gas or evidence o f bowel obstruction. There is a small left inguinal hernia containing a short segment of nonobstructe d bowel. Musculoskeletal: No abnormal FDG uptake is identified. There is severe cervical and lumbar spondylosi s. IMPRESSION: 1. Unremarkable PET/CT. Reviewed, dictated and finalized at location L. ARCH ASSOCIATE PROFESSOR IMPRESSION: 1. Unremarkable PET/CT.
[2022-07-13 09:30] LABS: Glucose Point of Care 101 mg/dl (65-105)
== END 2022-07-13 09:08 | disposition home or self-care (01) ==
PROVIDERS: PCP Family Medicine Adolescent Medicine; Visit Provider Internal Medicine Hematology & Oncology
DX: E85.81 Light chain (AL) amyloidosis (principal); R91.1 Solitary pulmonary nodule
CPT/HCPCS: 78815; A9552

== ENCOUNTER 2022-07-14 10:56 | Inpatient (IN) | payer MEDICARE, SELFPAY ==
[2022-07-14] VITALS (10 sets, daily range): BP systolic 45–110; BP diastolic 36–70; PULSE 70–91; RESP 14–22; TEMP 36.4–36.9; O2SAT 96–100
--- NOTE | ~2022-07-14 | XR_ITS ---
EXAMINATION: XR abdomen/kub 1V DATE: 07/17/2022 17:31 INDICATION: Constipation TECHNIQUE: A supine view of the abdomen on 2 radiographs was obtained. COMPARISON: CT abdomen and pelvis dated 06/14/2022 FINDINGS: Cholecystectomy clips in right upper quadrant. Large amount of stool scattered throughout the colon. No dilated loops of gas-filled small bowel to suggest obstruction. Mild lumbar dextrorotoscoliosis wi th mild spondylosis. Multiple surgical clips consistent with prior right inguinal hernia repair. Calc ified nodule at the right lung base consistent with old granulomatous disease. Heart size is normal. IMPRESSION: 1. Large amount of colonic stool consistent with provided history of constipation. Reviewed, dictated and finalized at location A. SEAMER IMPRESSION: 1. Large amount of colonic stool consistent with provided history of constipati on.
--- NOTE | ~2022-07-14 | XR_ITS ---
EXAMINATION: XR fl guide central line place DATE: 07/21/2022 14:50 INDICATION: Port placement. TECHNIQUE: 2 intraoperative fluoroscopic views of the chest were obtained. I was not present. Fluoros copy exposure time was 76 seconds. COMPARISON: Chest single view 07/14/2022 FINDINGS: There is a right subclavian port with tip in the superior vena cava. IMPRESSION: 1. Port tip in the superior vena cava. Reviewed, dictated and finalized at location A. S CUTTING MACHINE FEEDER
--- NOTE | ~2022-07-14 | BM_ITS ---
CORRECTED REPORT Order, report and charges moved from [id number] to [id number]. This report was recreated on 07/22/2022 by angelina. Original report was PUMPER. 07/22/2022 angelina EXAMINATION: CCL bone marrow asp w bx diag DATE: 07/15/2022 10:18 INDICATION: Light chain amyloidosis. TECHNIQUE: A time-out was performed to verify the patient's name, date of , and procedure to be performed. The procedure including the risks, benefits, and alternatives was discussed with the patient. Risks discussed included bleeding and infection. The patient understood the risks and agreed to proceed. The skin overlying the left ilium was prepped and draped in usual sterile fashion. Anesthetic was administered with 1% lidocaine subcutaneously. An 11 gauge needle was inserted into the ilium with fluoroscopic guidance. Bone marrow was aspirated. An 8 gauge needle was then inserted into the ilium with fluoroscopic guidance. A core bone marrow biopsy was obtained. There were no immediate complications. Fluoroscopy exposure time was 0.0 minutes. The total number of images was 13. FINDINGS: Real-time fluoroscopy demonstrates a marker overlying the left posterior superior iliac spine. IMPRESSION: 1. Fluoro-guided bone marrow aspiration. 2. Fluoro-guided bone marrow core biopsy. Reviewed, dictated and finalized at location A. PUMPER MTDD
--- NOTE | ~2022-07-14 | XR_ITS ---
EXAMINATION: XR chest port-a-cath/central DATE: 07/21/2022 15:12 INDICATION: Port catheter insertion TECHNIQUE: frontal and lateral views of the chest were obtained. COMPARISON: Chest radiograph dated 07/14/2022 FINDINGS: Interval placement right subclavian central venous port catheter with distal tip at the caudal superi or vena cava. Mild right apical pleural-parenchymal scarring. Opacities at the left lower lung zone w hich represent atelectasis, pneumonia, small left pleural effusion or some combination thereof. No pn eumothorax or right pleural effusion. The cardiomediastinal silhouette is normal. Surgical clips at t he left axilla. Cholecystectomy clips in right upper quadrant. IMPRESSION: 1. Right subclavian central venous port catheter with distal tip at the caudal superior vena cava. No pneumothorax. 2. New mild opacities at the left lung base which could represent atelectasis, pneumonia, small left pleural effusion or some combination thereof. Reviewed, dictated and finalized at location A. ROAD CAR TRUCK BUILDER
--- NOTE | ~2022-07-14 | XR_ITS ---
EXAMINATION: XR chest 1V portable DATE: 07/14/2022 12:20 INDICATION: Hypotension. TECHNIQUE: A single frontal view of the chest was obtained. COMPARISON: Chest 2 views 06/14/2022 FINDINGS: There is mild scarring at the lung apices. No pleural effusion or pneumothorax. The heart s ize is normal. Calcified hilar lymph nodes are consistent with old granulomatous disease. There are s urgical clips in left axilla. IMPRESSION: 1. Stable mild scarring at the lung apices. Reviewed, dictated and finalized at location A. O SURVEYOR
--- NOTE | 2022-07-14 11:46 | ED.GENADULT ---
HPI - General Adult General Chief complaint: Recheck/Abnormal Lab/Rx Stated complaint: hypotension Time Seen by Provider: 07/14/22 11:46 Source: patient and family History of Present Illness HPI narrative: 71 years old white female brought to the emergency room by her family complaining about low blood pressure and. Systolic running less than 90 and diastolic in the 50s. History of low blood pressure, on midodrine. Patient reports that yesterday he had lightheadedness and fainted for 30 seconds while walking, no injury.. Currently patient complaining of hot and cold and burning sensation of the feet and ankle for months. Is not different than before. Currently patient denying any fever, chills, nausea, vomiting, chest pain shortness of breath, headache, lightheadedness near syncope symptoms. Patient on bumatidine, Lasix, spironolactone and midodrine, new diagnosis of adenomyosis. Blood pressure on arrival was 88/61, when I went to see the was 110/70. Patient is telling me that her blood pressure medicine was stopped in July 2021 because of low blood pressure. Related Data Home Medications Medication Instructions Recorded Confirmed ascorbic acid (vitamin C) 1,000 mg 1,000 mg PO DAILY 06/13/20 07/12/22 tablet,extended release (Vitamin C ER) calcium 600 mg capsule 600 mg PO DAILY 06/13/20 07/12/22 glucosamine 250 ze-fsten-vda 200 1 tablet PO DAILY 06/13/20 07/12/22 mg-D3 1,500 yawp-U-petso-herbs tablet viepc7-yjm-hgo-other mcldt0w-ehzi 1 cap PO DAILY 06/13/20 07/12/22 oil 350 mg- 400 mg capsule zinc 50 mg tablet 50 mg PO DAILY 09/07/21 07/12/22 aspirin 81 mg tablet,delayed 81 mg PO DAILY 10/01/21 07/12/22 release (Adult Aspirin Regimen) alpha lipoic acid 100 mg capsule 100 mg PO BID 03/26/22 07/12/22 furosemide 20 mg tablet 40 mg PO QAM 05/25/22 07/12/22 rosuvastatin 40 mg tablet 40 mg PO DAILY 06/14/22 07/12/22 Allergies Allergy/AdvReac Type Severity Reaction Status Date / Time nitrofurantoin AdvReac Mild Nausea Verified 07/06/22 13:51 codeine AdvReac Unknown Diarrhea Verified 07/06/22 13:51 Review of Systems Review of Systems: All systems reviewed & are unremarkable except as noted in HPI and below PMFSH Past Medical History Medical History Arthritis Cancer of left breast (2006) Status post left mastectomy. Dyslipidemia Hernia Hypertension Pure hypercholesterolemia, unspecified SBO (small bowel obstruction) (2007) TIA (transient ischemic attack) Unilateral primary osteoarthritis, right knee Surgical History Surgical History H/O arthroscopy of right knee H/O left mastectomy (2006) with implant History of abdominal surgery (2007) Lysis of adhesions (laparoscopic) History of bowel resection (2006) For infarction History of cholecystectomy History of hernia repair (2008) Right femoral hernia. History of hysterectomy (06/2020) 06/2020 Family History Family History Sibling A-fib Father Carcinoma of colon Cerebrovascular accident Colon polyp Mother Hypertension Heart disease A-fib Grandparent Diabetes mellitus Other Breast cancer Social History Social History Social History: Surrogate medical decision maker: Axel Turcios, spouse. Code status: Full code. Smoking status: Never smoker Second hand tobacco smoke exposure: No Alcohol intake: former Drinks per week: 2 Alcohol use details: Rarely Substance use: never Substance use type: does not use Lack of Transportation: No Lack of Food: Never True Current Housing: I Have Housing Concerned About Future Housing: No Difficulty Paying Gas/Electric Bills: No Difficulty Paying for Meds: No Currently Unemployed: No Education: Bachelor's Degree Difficulty w/ Childcare or Family Care:
--- NOTE | 2022-07-14 11:48 | ECG_ITS ---
Measurements Intervals [place] Rate: 71 P: -16 [place]: 163 QRS: 54 QRSD: 87 T: 78 QT: 432 QTc: 471 Interpretive Statements SINUS RHYTHM NONSPECIFIC ST & T-WAVE ABNORMALITY- INF/LAT LEADS BASELINE ARTIFACT- I, III, AVL BORDERLINE ECG COMPARED TO ECG 06/14/2022 09:14:06 NO SIGNIFICANT CHANGES Electronically Signed On 07-14-2022 12:48:56 AERIAL ADVERTISER by David Back D.O.
[2022-07-14 12:31] LABS: Basophils Absolute Auto 0.1 K/mm3 (0.0-0.1); Basophils Percent Auto 0.5 % (0.2-1.2); Eosinophils Absolute Auto 0.1 K/mm3 (0-0.3); Eosinophils Percent Auto 0.7 % (0-4.4); Hematocrit 42.8 % (37.0-47.0); Hemoglobin 14.1 g/dL (12.0-15.0); Immature Granulocyte Absolute 0.03 K/mm3 (0.00-0.031); Immature Granulocyte Percent A 0.3 % (0-0.5); Lymphocytes Absolute Auto 1.24 K/mm3 (0.9-3.2); Lymphocytes Percent Auto 11.6 % (18.3-44.2); Mean Corpuscular HGB Conc 32.9 g/dl (32-36); Mean Corpuscular Hemoglobin 31.8 pg (26-34); Mean Corpuscular Volume 96.4 fl (80-100); Mean Platelet Volume 9.6 fl (7.4-10.4); Monocytes Absolute Auto 0.9 K/mm3 (0.1-0.6); Monocytes Percent Auto 8.4 % (2.6-8.5); Neutrophils Absolute Auto 8.4 K/mm3 (1.3-6.7); Neutrophils Percent Auto 78.5 % (45.5-73.1); Platelet Count Result 502 k/mm3 (150-375); Red Blood Count 4.44 M/mm3 (4.2-5.4); Red Cell Distribution Width 15.3 % (11.5-14.5); White Blood Count 10.7 K/mm3 (4.5-10.0)
[2022-07-14 12:41] LABS: Alanine Aminotransferase 52 U/L (6-35); Albumin Level 2.5 g/dL (3.5-5.1); Alkaline Phosphatase 162 U/L (38-126); Anion Gap 2 mmol/L (8-16); Aspartate Amino Transferase 76 U/L (14-36); Bilirubin,Total 0.2 mg/dL (0.2-1.3); Blood Urea Nitrogen 53 mg/dL (7-17); Calcium 7.9 mg/dL (8.4-10.2); Carbon Dioxide 30 mmol/L (22-30); Chloride 98 mmol/L (98-107); Estimated CRCL calculation 19 ml/min; Estimated Glomerular Filt Rate 23; Glucose 101 mg/dL (65-110); Partial Thromboplastin Time 25.7 SECONDS (22.3-36.8); Potassium 3.4 mmol/L (3.4-5.0); Prothrombin Time 12.3 Seconds (11.1-14.7); Sodium 130 mmol/L (137-145)
[2022-07-14 12:55] LABS: Troponin I 0.207 ng/mL (0.000-0.034)
[2022-07-14] MEDS: SODIUM CHLORIDE 0.9% IV 1,000 ML 999 ML IV CONT (13:18)
[2022-07-14 14:19] LABS: Influenza A QL RT-PCR Negative (Negative); Influenza B QL RT-PCR Negative (Negative); SARS-CoV-2 RNA PCR Negative
[2022-07-14 15:35] LABS: Troponin I 0.188 ng/mL (0.000-0.034)
[2022-07-14] MEDS: ASPIRIN 81 MG CHEWABLE TABLET 324 MG PO (15:48)
--- NOTE | 2022-07-14 16:00 | PM.IMHP ---
H&P: HPI History of Present Illness Date/Time: 07/14/22 16:00 Chief Complaint: Low blood pressure. Narrative: This is a 72-year-old female with amyloidosis, hypertension, hyperlipidemia, hypothyroidism, history of breast cancer who presented to the emergency department from home for evaluation of low blood pressure. She is known to myself and the hospitalist service from a recent admission between 06/14/2022 and 07/02/2022 at which time she was admitted with generalized weakness, hematuria, and proteinuria. She appeared dry on admission she was hydrated however she was ultimately diuresed due to edema. She was ultimately diagnosed with AL amyloidosis on kidney biopsy taken 06/29/2022 and she is now following with Dr. Hamilton. She has yet to start treatment pending bone marrow biopsy tomorrow and results of PET scan obtained yesterday. Today while simply sitting down she started to feel lightheaded and dizzy and her reports that her blood pressure was 53/43. She is no longer on antihypertensives since discharge from the hospital due to ongoing issues with orthostatic hypotension yet she remains on diuretics as she does not seem to tolerate the swelling in her legs and the subjective swelling in her abdomen. She has been taking midodrine 3 times a day which has helped however 2 days ago she had a near syncopal episode while on the scale and her son helped her to the ground to prevent injury. Workup in the ED was significant for orthostatic hypotension (106/65 --> 79/60 --> 45/36), worsening creatinine (1.60--> 2.10), and troponin of 0.207. Her blood pressures have improved with IV fluids. She has noticed that her urine output has decreased the last few days. Her appetite has not been great and she has not been eating or drinking much, somewhat due to bloating in the abdomen. No chest or pleuritic pain, sensations of racing heart, palpitations, or shortness of breath. Review of Systems Review of Systems: Twelve systems were reviewed. No fever, chills, or sweats. She has lost almost 10 pounds in the last 1 month. Appetite has not been great with some nausea but no vomiting. She feels like her abdomen is bloated and that seems to limit how much she can eat and drink. She has been trying to take in [place] as often as possible. She has issues with constipation and she is started on MiraLax however tells me that she had some bright red blood in her stool while taking that so she stopped. No catheter tenderness. No history of venous thromboembolism. Except as documented, all other systems were reviewed and are negative. [facility] Past Medical History Medical History AL amyloidosis Arthritis Cancer of left breast (2006) Status post left mastectomy. Chronic renal failure, stage 3b Dyslipidemia Hernia Hypertension Pure hypercholesterolemia, unspecified Small bowel obstruction (2007) Transient ischemic attack Unilateral primary osteoarthritis, right knee Surgical History Surgical History H/O arthroscopy of right knee H/O left mastectomy (2006) with implant History of abdominal surgery (2007) Lysis of adhesions (laparoscopic) History of bowel resection (2006) For infarction History of cholecystectomy History of hernia repair (2008) Right femoral hernia. History of hysterectomy (06/2020) 06/2020 Family History Family History Sibling A-fib Father Carcinoma of colon Cerebrovascular accident Colon polyp Mother Hypertension Heart disease A-fib Grandparent Diabetes mellitus Other Breast cancer Social History Social History Social History: Surrogate medical decision maker: Axel Turcios, spouse. Code status: Full code. Smoking status: Never smoker Second hand tobacco smoke exposure: No
--- NOTE | 2022-07-14 16:42 | ADMGEN ---
This patient, Rosalba Turcios, was admitted to IMU Room 205-02. Patient/family oriented to hospital policies and general routines including ID bracelet, bed and alarms, visiting hours, pain management, procedures, bathroom and other care routines, personal items, smoking policy, room service/diet, and visiting hours. Information on how to activate the Rapid Response Team has been discussed. Patient/Family are encouraged to report perceived risks to care and to ask questions if they do not understand what they are told or what they should do.
[2022-07-14] MEDS: MIDODRINE HCL 2.5 MG TABLET 5 MG PO (17:11)
[2022-07-14 18:31] LABS: Troponin I 0.195 ng/mL (0.000-0.034)
[2022-07-14 20:32] LABS: Appearance Urine Cloudy (Clear); Bilirubin Urine Negative (Negative); Blood Urine 2+ (Negative); Color Urine Yellow (Yellow); Glucose Urine UA Trace mg/dL (Negative); Ketones Urine Negative (Negative); Leukocyte Esterase Ur Negative LEU/UL (Negative); Nitrate Urine Negative (Negative); Protein Urine 3+ mg/dL (Negative); Specific Grav Ur 1.025 (1.001-1.035); Urobilinogen Urine 0.2 mg/dL (<2.0)
[2022-07-14 20:35] LABS: Bacteria Urine Trace /hpf; Mucus Urine Rare /lpf; RBC Urine 0-2 /hpf (0-2); Squamous Epithelial Cell Urine Rare /hpf (Few); WBC Urine 31-50 /hpf
[2022-07-14 20:43] LABS: Add Urine Microscopic? YES
[2022-07-14 21:34] LABS: Troponin I 0.189 ng/mL (0.000-0.034)
[2022-07-14] MEDS: MAGNESIUM HYDROXIDE SUSP 30 ML UDC PO (22:34)
[2022-07-14] MEDS: SODIUM CHLORIDE 0.9% IV 1,000 ML 75 ML IV CONT (22:35)
[2022-07-14 22:41] LABS: Anion Gap 0 mmol/L (8-16); Blood Urea Nitrogen 48 mg/dL (7-17); Calcium 7.8 mg/dL (8.4-10.2); Carbon Dioxide 27 mmol/L (22-30); Chloride 99 mmol/L (98-107); Creatine Kinase 102 U/L (30-135); Estimated CRCL calculation 20 ml/min; Estimated Glomerular Filt Rate 24; Glucose 145 mg/dL (65-110); Magnesium 2.5 mg/dL (1.6-2.3); Potassium 3.3 mmol/L (3.4-5.0); Sodium 126 mmol/L (137-145)
[2022-07-15] VITALS (16 sets, daily range): BP systolic 87–125; BP diastolic 46–67; PULSE 70–84; RESP 16–20; TEMP 36.2–36.7; O2SAT 95–99; BMI 19.1
--- NOTE | 2022-07-15 | ECHOL_ITS ---
Patient Info Name: Rosalba Turcios Age: 72 years : 1950 Gender: Female Ht: 67 in Wt: 122 lbs BSA: 1.61 m2 Heart Rhythm: Sinus Rhythm Exam Date: 07/15/2022 1:12 PM Exam Location: [facility] Patient Status: Inpatient Admit Date: 07/15/2022 Staff Ordering Physician: Reginald Justin MD ([email or web address]) Termite Exterminator Helper: Alexander Isidro RDCS, RT Attending Provider: Tripp Fink MD Referring Physician: Nhan ANGUIANO; Exam Type: CA echo limited Study Info Strain analysis performed. Summary 1. This was a limited study to look at strain analysis. 2. Left ventricular systolic function is normal, estimated at 60-65%. 3. Global longitudinal strain is -19 %. 4. Strain pattern does show sparing of the apex, however, there is also sparing of the infero-posterior basal segments, as well as the mid septal, inferior, and posterior segments. Could possibly be Amyloid, however, consider also other causes of LVH/cardiomyopathy. Left Ventricle Left ventricular chamber dimension is normal. Left ventricular systolic function is normal, estimated at 60-65%. Global longitudinal strain is -19 %. Right Ventricle Right ventricular chamber dimension is normal. Right ventricular systolic function is normal. Left Atria Left atrial chamber dimension is moderately enlarged. Right Atria Right atrial chamber dimension is normal. Mitral Valve The mitral valve has thickened leaflets. Pericardium/Pleural There is no pericardial effusion. EchoPAC Name Value Normal AutoEF LVCO_BiP_Q (Vwas0IOE) 3.6 l/min LVEF_BiP_Q (Akga4VBO) 66 % LVSV_BiP_Q (Iyhv0NEI) 48 ml LVVED_BiP_Q (Qbvj8NKX) 72 ml LVVES_BiP_Q (Nzmd5LJP) 24 ml HR_4Ch_Q (Qpay4VXU) 77 bpm LVCO_4Ch_Q (Cijh3FDH) 3.7 l/min LVEF_4Ch_Q (Hzph3OJC) 70 % LVLd_4Ch_Q (Uqdd0TVC) 7.2 cm LVLs_4Ch_Q (Xxop0IJM) 5.7 cm LVSV_4Ch_Q (Gzti6JWN) 48 ml LVVED_4Ch_Q (Tnka4MED) 69 ml LVVES_4Ch_Q (Xnqd6IJP) 21 ml HR_2Ch_Q (Rqey8OCK) 75 bpm LVCO_2Ch_Q (Zdkq6GYG) 3.5 l/min LVEF_2Ch_Q (Gljk0YZP) 64 % LVLd_2Ch_Q (Uvih8OAY) 7.5 cm LVLs_2Ch_Q (Gwjp9AGC) 6.3 cm LVSV_2Ch_Q (Mmwx0GDN) 47 ml LVVED_2Ch_Q (Qtmi9ZGV) 72 ml LVVES_2Ch_Q (Yvmv1GWK) 26 ml DELFINA AA peak sys SL (AWMA) 25.4 % AAS peak sys SL (AWMA) 29.8 % AI peak sys SL (AWMA) 25.4 % AL peak sys SL (AWMA) 19.4 % AP peak sys SL (AWMA) 18.3 % peak sys SL (AWMA) 35.9 % AVC (AWMA) 422 ms BA peak sys SL (AWMA) 8.4 % BAS pe
[2022-07-15] MEDS: SODIUM CHLORIDE 0.9% IV 1,000 ML 75 ML IV CONT ×2 (04:28→15:24)
[2022-07-15 05:17] LABS: Hematocrit 38.1 % (37.0-47.0); Hemoglobin 12.6 g/dL (12.0-15.0); Mean Corpuscular HGB Conc 33.1 g/dl (32-36); Mean Corpuscular Hemoglobin 31.9 pg (26-34); Mean Corpuscular Volume 96.5 fl (80-100); Mean Platelet Volume 9.8 fl (7.4-10.4); Platelet Count Result 443 k/mm3 (150-375); Red Blood Count 3.95 M/mm3 (4.2-5.4); Red Cell Distribution Width 15.2 % (11.5-14.5); White Blood Count 10.3 K/mm3 (4.5-10.0)
[2022-07-15 05:26] LABS: Anion Gap 1 mmol/L (8-16); Blood Urea Nitrogen 41 mg/dL (7-17); Calcium 7.4 mg/dL (8.4-10.2); Carbon Dioxide 24 mmol/L (22-30); Chloride 102 mmol/L (98-107); Estimated CRCL calculation 22 ml/min; Estimated Glomerular Filt Rate 28; Glucose 85 mg/dL (65-110); Potassium 3.2 mmol/L (3.4-5.0); Sodium 127 mmol/L (137-145)
[2022-07-15] MEDS: LEVOTHYROXINE SODIUM 75 MCG TABLET PO (05:59)
[2022-07-15] MEDS: BISACODYL 10 MG SUPPOSITORY RECTAL (05:59)
[2022-07-15] MEDS: MIDODRINE HCL 2.5 MG TABLET 5 MG PO ×3 (09:02→16:41)
--- NOTE | 2022-07-15 11:35 | PM.CNCAR ---
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 EKG is without ischemic changes. Without chest pain. Not consistent with ACS. She had a recent echo in June showing normal LVEF, mildly increased LV wall thickness. Concern that she may have cardiac involvement of her amyloidosis. Cardiac MRI would be ideal, however, that would need to be obtained as an outpatient. I will obtain a limited echo with strain analysis to see if the strain analysis indicates cardiac amyloidosis. If strain analysis is consistent with an amyloid picture, then she very highly likely has cardiac involvement. However, cannot rule out cardiac amyloidosis with negative strain analysis, which in that case, an outpatient cardiac MRI would be recommended. History of Present Illness History of Present Illness Consult date/time: 07/15/22 11:35 Requesting physician: Micaela Swartz MD Consult reason: Other (Elevated troponin) Reason For Visit: orthostatic hypotension,n stemi,jas Narrative: We are being consulted for elevated troponin. This is a 72-year-old female with a history of AL amyloidosis, hypertension, hyperlipidemia, hypothyroidism, history of breast cancer who presented to the ER for evaluation of low blood pressure. Recent diagnosis of AL amyloidosis from kidney biopsy back in June. Sees Dr. Hamilton. Yesterday, patient reported lightheadedness/dizziness. Orthostatics were very positive on admission. Has not had any chest pain. EKG without ischemic changes. Review of Systems Review of Systems: 12-point ROS obtained. Negative, unless stated in HPI. [facility] Past Medical History Medical History AL amyloidosis Arthritis Cancer of left breast (2006) Status post left mastectomy. Chronic renal failure, stage 3b Dyslipidemia Hernia Hypertension Pure hypercholesterolemia, unspecified Small bowel obstruction (2007) Transient ischemic attack Unilateral primary osteoarthritis, right knee Surgical History Surgical History H/O arthroscopy of right knee H/O left mastectomy (2006) with implant History of abdominal surgery (2007) Lysis of adhesions (laparoscopic) History of bowel resection (2006) For infarction History of cholecystectomy History of hernia repair (2008) Right femoral hernia. History of hysterectomy (06/2020) 06/2020 Family History Family History Sibling A-fib Father Carcinoma of colon Cerebrovascular accident Colon polyp Mother Hypertension Heart disease A-fib Grandparent Diabetes mellitus Other Breast cancer Social History Social History Social History: Surrogate medical decision maker: Axel Turcios, spouse. Code status: Full code. Smoking status: Never smoker Second hand tobacco smoke exposure: No Alcohol intake: never Drinks per week: 2 Alcohol use details: Rarely Substance use: never Substance use type: does not use and former substance user Lack of Transportation: No Lack of Food: Never True Current Housing: I Have Housing Concerned About Future Housing: No
--- NOTE | 2022-07-15 12:39 | PDONCCN ---
HPI - Date of Consult Date/Time: 07/15/22 12:39 Requesting Physician: Tripp Fink MD Primary Care Provider: Mainor Wallace MD - Consult Narrative Reason for consult: AL light chain amyloidosis Narrative: Rosalba Turcios is a 72 year old female with history of light chain amyloidosis, hypertension, hypothyroidism recently seen in the office for amyloidosis status post kidney biopsy done on June 29, 2022. Patient was scheduled to start chemotherapy next week. She came into the hospital with generalized weakness and found to have a low blood pressure. She was complaining of lightheadedness and dizziness. She is not taking any antihypertensive. Labs showed slightly elevated troponin and EKG showed no ischemic changes. Cardiology was consulted. There was concern of cardiac involvement by amyloidosis. Cardiac MRI was recommended to be done as an outpatient. She continues to have difficulty eating with poor taste but trying her best to eat regular food with Ensure supplements. She continues to have some tingling feeling in the mid abdominal region. No bleeding and bruising. No other new complaints. Review of Systems - Review of Systems All systems reviewed & are unremarkable except as noted in HPI and [facility] Medical History: Medical History (Last Reviewed 07/15/22 @ 11:38 by Reginald Justin MD) AL amyloidosis Arthritis Cancer of left breast Onset Date: 2006 Status post left mastectomy. Chronic renal failure, stage 3b Dyslipidemia Hernia Hypertension Pure hypercholesterolemia, unspecified Small bowel obstruction Onset Date: 2007 Transient ischemic attack Unilateral primary osteoarthritis, right knee Surgical History: Surgical History (Last Reviewed 07/15/22 @ 11:38 by Reginald Justin MD) H/O arthroscopy of right knee H/O left mastectomy Onset Date: 2006 with implant History of abdominal surgery Onset Date: 2007 Lysis of adhesions (laparoscopic) History of bowel resection Onset Date: 2006 For infarction History of cholecystectomy History of hernia repair Onset Date: 2008 Right femoral hernia. History of hysterectomy Onset Date: 06/2020 Family History: Family History (Last Reviewed 07/15/22 @ 11:38 by Reginald Justin MD) Sibling A-fib Father Carcinoma of colon Cerebrovascular accident Colon polyp Mother Hypertension Heart disease A-fib Grandparent Diabetes mellitus Other Breast cancer - Social History Social History: Social History (Last Reviewed 07/15/22 @ 11:38 by Reginald Justin MD) Alcohol Use: Alcohol intake: never Drinks per week: 2 Alcohol use details: Rarely Substance Use: Substance use: never Substance use type: does not use Substance use type: former substance user Others: Spiritual care concerns: No Spiritual care concerns comment: adventist Agree to blood products: Yes Smoking Status: Smoking status: Never smoker Second hand tobacco smoke exposure: No Social Determinants of Health: Has the Lack of Transportation Kept You From Medical Appointments or From Getting Medications?: No Within the Past 12 Months, Were You Worried Whether Your Food Would Run Out Before You Got Money to Buy More?: Never True What is Your Housing Situation Today?: I Have Housing Are You Worried That in the Next 2 Months, You May Not Have Your Own Housing to Live In?: No Do You Have Trouble Paying Your Heating Or Electricity Bill?: No Do You Have Trouble Paying For Medicines?: No Are You Currently Unemployed and Looking for Work?: No Highest Level of Education Completed: Bachelor's Degree Do You Have Trouble With Childcare or the Care of a Family Member?: No Exam - Vital Signs Vital Signs - 24 hr 07/14/22 13:11 07/14/22 13:11 07/14/22 13:13 Temperature Pulse Rate 76 81 91 Respiratory Rate Blood Pressure 106/65 79/60 L 45/36 L Pulse
[2022-07-15] MEDS: OMEGA 3 POLYUNSAT FATTY ACIDS 1 GM CAP PO (13:11)
[2022-07-15] MEDS: THIAMINE HCL 100 MG TABLET PO (13:12)
[2022-07-15] MEDS: ASCORBIC ACID 500 MG TABLET 1000 MG PO (13:12)
[2022-07-15] MEDS: ASPIRIN 81 MG ENTERIC TABLET PO (13:12)
[2022-07-15] MEDS: ZINC SULFATE 220 MG CAPSULE 50 MG PO (13:13)
[2022-07-15] MEDS: POTASSIUM CHLORIDE 20 MEQ TABLET 40 MEQ PO (13:13)
[2022-07-15] MEDS: CALCIUM CARBONATE (OSCAL) 500 MG TABLET PO (13:13)
--- NOTE | 2022-07-15 13:34 | PM.IMPN ---
Progress Note: A&P Assessment and Plan (1) Orthostatic hypotension: Code(s): I95.1 - Orthostatic hypotension Status: Acute Assessment and Plan: An ongoing problem for the patient despite midodrine. She remains on diuretics (bumetanide 1 milligram b.i.d. and spironolactone 25 milligrams daily) and she is likely intravascularly depleted which is not helping the situation. She is being judiciously hydrated with close monitoring of volume status and renal function. Fall precautions have been initiated. Monitor orthostatic vital signs Q shift. Hold diuretics for now (2) Acute on chronic renal failure: Code(s): N17.9 - Acute kidney failure, unspecified; N18.9 - Chronic kidney disease, unspecified Status: Acute Assessment and Plan: Recent kidney biopsy showed AL amyloidosis for which she has yet to start treatment. Worsening creatinine may be related to the amyloidosis though I think that she is quite dry due to poor oral intake and over-diuresis. Plan is as detailed above. (3) Elevated troponin: Code(s): R77.8 - Other specified abnormalities of plasma proteins Status: Acute Assessment and Plan: She is not having any chest pain whatsoever. Recent echocardiogram noted. Possibly related to ongoing issues with hypotension in addition to worsening renal function. Pulmonary embolism and acute coronary syndrome unlikely. No specific findings noted on echocardiogram to suggest cardiac amyloidosis. Cardiology consulted for their opinion. (4) Hyponatremia: Code(s): E87.1 - Hypo-osmolality and hyponatremia Status: Acute Assessment and Plan: Likely due to dehydration. She is being cautiously hydrated with close monitoring of volume status and sodium levels. (5) Elevated LFTs: Code(s): R79.89 - Other specified abnormal findings of blood chemistry Status: Acute Assessment and Plan: Stable when compared to previous labs. No further workup to be pursued at this point. 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 Dr. Hamilton consulted to see if this can be arranged while she is in the hospital. (7) Hypothyroidism, unspecified: Code(s): E03.9 - Hypothyroidism, unspecified Status: Acute Assessment and Plan: Continue levothyroxine and check TSH. Subjective Date/time seen: 07/15/22 13:34 No new complaints Exam Narrative: General: Mildly ill-appearing female in the semi-Alberts position in bed. Weight: 55.5 kilograms. BMI: 19.2. HEENT: Wearing corrective lenses. PERRL, EOMI. Sclera anicteric. Tacky mucous membranes. Neck: Supple. Supple. No JVD. Respiratory: Lungs are clear to auscultation bilaterally. Cardiovascular: Regular rate and rhythm with S1-S2. 2/6 systolic murmur at the left sternal border to the axilla. Gastrointestinal: Abdomen is soft, flat, and non distended with positive bowel sounds. No guarding or rebound tenderness. Skin: Warm and dry. No rash or lesions on limited exam. Extremities: No cyanosis or clubbing. 1+ huy ankle edema bilaterally. No palpable knots or cords. Negative Selene sign bilaterally. Neurological: Alert. Cranial nerves 2-12 are grossly intact. No gross focal deficits to casual conversation. Psychiatric: Pleasant and cooperative with normal mood and affect. Objective Data Vital Signs Vital Signs: Vital Signs - 24 hr 07/14/22 14:40 07/14/22 16:50 07/14/22 18:00 Temperature 98.5 F Pulse Rate 81 70 78 Respiratory Rate 18 16 Blood Pressure 108/67 106/60 Pulse Oximetry 97 99 Oxygen Delivery 07/14/22 18:00 07/14/22 20:00 07/14/22 20:00 Temperature 97.9 F Pulse Rate 70 84 78 Respiratory Rate 16 22 H Blood Pressure 97/54 L Pulse Oximetry 99 98 Oxygen Delivery Room Air 07/14/22 20:00 07/14
[2022-07-15] MEDS: ONDANSETRON INJ 4 MG/2 ML VIAL IV PUSH ×2 (15:24→20:55)
--- NOTE | 2022-07-15 16:44 | PM.CNGS ---
Assessment and Plan Assessment and plan (1) Admission for fitting of Port-A-Cath: Code(s): Z45.2 - Encounter for adjustment and management of vascular access device Status: Acute Assessment and Plan: I discussed the procedure involved with placement of Port-A-Cath. We placed the Port-A-Cath in the right subclavian position since the patient has had a left mastectomy. The procedure the risks the benefits including possibility of pneumothorax was discussed. Unfortunately, patient has already eaten today, there is no operating time available tomorrow until very late. Surgery is planned to be done Tuesday afternoon at 3:00 p.m.. If patient is ready to be discharged by this time, she can come in and have this placed as an outpatient and still proceed with chemotherapy the next day. All questions were answered. She understands and agrees to go ahead. I talked with her on the phone as well. 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 Chemotherapy planned for 07/22/2022. (3) Orthostatic hypotension: Code(s): I95.1 - Orthostatic hypotension Status: Acute Assessment and Plan: Admitted for low blood pressure, orthostatic hypotension, hypovolemia. (4) Weight loss, unintentional: Code(s): R63.4 - Abnormal weight loss Status: Chronic Assessment and Plan: Very poor appetite, hx dysgeusia for 2 yrs. Reports she has lost 30lbs in that time. History of Present Illness Consult details Consult date: 07/15/22 Reason for consult: other (Needs vascular access for chemotherapy) Requesting physician: Spencer Hamilton MD Narrative: Patient is a 72-year-old woman admitted with orthostatic hypotension and hypovolemia. She has been diagnosed with amyloidosis and plans are to begin treating with chemotherapy on next week. She has been ill for quite a long time and has lost a lot of weight. She was diagnosed with amyloidosis after kidney biopsy on 06/29/2022. She had a bone marrow biopsy in Radiology today. She is seen now in consultation regarding placement of a Port-A-Cath. Review of Systems Review of Systems: All systems reviewed & are unremarkable except as noted in HPI and below (HPI and those items noted below) Constitutional: Constitutional: Denies chills and Denies fever(s) Cardiovascular: Cardiovascular: Denies chest pain, Denies diaphoresis, Denies dyspnea and Denies paroxysmal nocturnal dyspnea Respiratory: Respiratory: Denies chest congestion, Denies cough and Denies dyspnea Integumentary/Breasts: Skin/Breast: Denies lesions and Denies rash PMFSH Past Medical History Medical History AL amyloidosis Arthritis Cancer of left breast (2006) Status post left mastectomy. Chronic renal failure, stage 3b Dyslipidemia Hernia Hypertension Pure hypercholesterolemia, unspecified Small bowel obstruction (2007) Transient ischemic attack Unilateral primary osteoarthritis, right knee Surgical History Surgical History H/O arthroscopy of right knee H/O left mastectomy (2006) with implant History of abdominal surgery (2007) Lysis of adhesions (laparoscopic) History of bowel resection (2006) For infarction History of cholecystectomy History of hernia repair (2008) Right femoral hernia. History of hysterectomy (06/2020) 06/2020 Family History Family History Sibling A-fib Father Carcinoma of colon Cerebrovascular accident Colon polyp Mother Hypertension Heart disease A-fib Grandparent Diabetes mellitus Other Breast cancer Social History Social History Social History: Surrogate medical decision maker: Axel Turcios,
[2022-07-15] MEDS: MELATONIN 5 MG TABLET PO (20:55)
[2022-07-15] MEDS: ACETAMINOPHEN 325 MG TABLET 650 MG PO (21:42)
[2022-07-16] VITALS (17 sets, daily range): BP systolic 57–130; BP diastolic 32–82; PULSE 68–84; RESP 12–20; TEMP 36.4–37; O2SAT 95–100
[2022-07-16] MEDS: SODIUM CHLORIDE 0.9% IV 1,000 ML 75 ML IV CONT ×2 (00:34→13:49)
[2022-07-16] MEDS: LEVOTHYROXINE SODIUM 75 MCG TABLET PO (05:57)
[2022-07-16] MEDS: OMEGA 3 POLYUNSAT FATTY ACIDS 1 GM CAP PO (08:24)
[2022-07-16] MEDS: ONDANSETRON INJ 4 MG/2 ML VIAL IV PUSH ×2 (08:24→16:38)
[2022-07-16] MEDS: CALCIUM CARBONATE (OSCAL) 500 MG TABLET PO (08:25)
[2022-07-16] MEDS: THIAMINE HCL 100 MG TABLET PO (08:31)
[2022-07-16] MEDS: ASPIRIN 81 MG ENTERIC TABLET PO (08:31)
[2022-07-16] MEDS: ASCORBIC ACID 500 MG TABLET 1000 MG PO (08:32)
[2022-07-16] MEDS: ZINC SULFATE 220 MG CAPSULE 50 MG PO (08:32)
[2022-07-16] MEDS: MIDODRINE HCL 2.5 MG TABLET 5 MG PO ×3 (08:33→18:01)
[2022-07-16 09:52] LABS: Anion Gap 0 mmol/L (8-16); Blood Urea Nitrogen 32 mg/dL (7-17); Calcium 7.1 mg/dL (8.4-10.2); Carbon Dioxide 23 mmol/L (22-30); Chloride 108 mmol/L (98-107); Estimated CRCL calculation 24 ml/min; Estimated Glomerular Filt Rate 28; Glucose 132 mg/dL (65-110); Potassium 3.7 mmol/L (3.4-5.0); Sodium 131 mmol/L (137-145)
--- NOTE | 2022-07-16 12:46 | PM.IMPN ---
Progress Note: A&P Assessment and Plan (1) Orthostatic hypotension: Code(s): I95.1 - Orthostatic hypotension Status: Acute Assessment and Plan: An ongoing problem for the patient despite midodrine. Status post hydration and stopping diuretics. Appreciate cardiology input. Await further plan. Echo noted. Will need cardiac MRI as outpatient. 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 Worsening creatinine may be related to the amyloidosis though I think that she is quite dry due to poor oral intake and over-diuresis. Plan is as detailed above. (3) Elevated troponin: Code(s): R77.8 - Other specified abnormalities of plasma proteins Status: Acute Assessment and Plan: Cardiology consulted for their opinion. Echo noted. (4) Hyponatremia: Code(s): E87.1 - Hypo-osmolality and hyponatremia Status: Acute Assessment and Plan: Likely due to dehydration. She is being cautiously hydrated with close monitoring of volume status and sodium levels. No neurologic complaints or symptoms right now. (5) Elevated LFTs: Code(s): R79.89 - Other specified abnormal findings of blood chemistry Status: Acute Assessment and Plan: Stable when compared to previous labs. No further workup to be pursued at this point. 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 Awaiting results. Dr. Hamilton consult noted. (7) Hypothyroidism, unspecified: Code(s): E03.9 - Hypothyroidism, unspecified Status: Acute Assessment and Plan: Continue levothyroxine and check TSH. Subjective Date/time seen: 07/16/22 12:46 No new complaints. Still having a little bit dizziness with standing up. Still orthostatic Exam Narrative: General: Mildly ill-appearing female in the semi-Alberts position in bed. Weight: 55.5 kilograms. BMI: 19.2. HEENT: Wearing corrective lenses. PERRL, EOMI. Sclera anicteric. Tacky mucous membranes. Neck: Supple. Supple. No JVD. Respiratory: Lungs are clear to auscultation bilaterally. Cardiovascular: Regular rate and rhythm with S1-S2. 2/6 systolic murmur at the left sternal border to the axilla. Gastrointestinal: Abdomen is soft, flat, and non distended with positive bowel sounds. No guarding or rebound tenderness. Skin: Warm and dry. No rash or lesions on limited exam. Extremities: No cyanosis or clubbing. 1+ huy ankle edema bilaterally. No palpable knots or cords. Negative Selene sign bilaterally. Neurological: Alert. Cranial nerves 2-12 are grossly intact. No gross focal deficits to casual conversation. Psychiatric: Pleasant and cooperative with normal mood and affect. Objective Data Vital Signs Vital Signs: Vital Signs - 24 hr 07/15/22 16:00 07/15/22 16:00 07/15/22 14:00 Temperature 97.9 F Pulse Rate 73 82 Respiratory Rate 20 Blood Pressure 125/67 Pulse Oximetry 98 Oxygen Delivery Room Air 07/15/22 16:00 07/15/22 18:00 07/15/22 20:25 Temperature 98.1 F Pulse Rate 74 76 74 Respiratory Rate 20 Blood Pressure 88/52 L Pulse Oximetry 98 Oxygen Delivery 07/15/22 20:27 07/15/22 20:00 07/15/22 20:00 Temperature 98.1 F Pulse Rate 74 74 74 Respiratory Rate 20 20 Blood Pressure 107/53 L Pulse Oximetry 98 98 Oxygen Delivery Room Air 07/15/22 22:00 07/15/22 23:49 07/16/22 00:00 Temperature 97.4 F L Pulse Rate 79 75 77 Respiratory Rate 20 Blood Pressure 102/47 L Pulse Oximetry 95 Oxygen Delivery 07/16/22 00:00 07/16/22 02:00 07/16/22 04:00 Temperature Pulse Rate 77 79 72 Respira
[2022-07-16] MEDS: ACETAMINOPHEN 325 MG TABLET 650 MG PO ×2 (16:40→22:06)
[2022-07-16] MEDS: MELATONIN 5 MG TABLET PO (22:06)
[2022-07-17] VITALS (14 sets, daily range): BP systolic 54–128; BP diastolic 35–73; PULSE 64–84; RESP 16–20; TEMP 36.6–36.7; O2SAT 95–100
[2022-07-17] MEDS: SODIUM CHLORIDE 0.9% IV 1,000 ML 75 ML IV CONT ×3 (04:47→18:41)
[2022-07-17] MEDS: LEVOTHYROXINE SODIUM 75 MCG TABLET PO (06:44)
[2022-07-17 06:47] LABS: Basophils Absolute Auto 0.1 K/mm3 (0.0-0.1); Basophils Percent Auto 0.7 % (0.2-1.2); Eosinophils Absolute Auto 0.3 K/mm3 (0-0.3); Eosinophils Percent Auto 2.4 % (0-4.4); Hematocrit 38.3 % (37.0-47.0); Hemoglobin 12.4 g/dL (12.0-15.0); Immature Granulocyte Absolute 0.04 K/mm3 (0.00-0.031); Immature Granulocyte Percent A 0.4 % (0-0.5); Lymphocytes Percent Auto 18.6 % (18.3-44.2); Mean Corpuscular HGB Conc 32.4 g/dl (32-36); Mean Corpuscular Hemoglobin 31.4 pg (26-34); Mean Platelet Volume 9.5 fl (7.4-10.4); Monocytes Percent Auto 9.3 % (2.6-8.5); Neutrophils Percent Auto 68.6 % (45.5-73.1); Platelet Count Result 402 k/mm3 (150-375); Red Blood Count 3.95 M/mm3 (4.2-5.4); Red Cell Distribution Width 15.4 % (11.5-14.5); White Blood Count 10.2 K/mm3 (4.5-10.0)
[2022-07-17 07:02] LABS: Anion Gap -1 mmol/L (8-16); Blood Urea Nitrogen 36 mg/dL (7-17); Calcium 6.7 mg/dL (8.4-10.2); Carbon Dioxide 22 mmol/L (22-30); Chloride 109 mmol/L (98-107); Estimated CRCL calculation 24 ml/min; Estimated Glomerular Filt Rate 28; Glucose 81 mg/dL (65-110); Potassium 3.7 mmol/L (3.4-5.0); Sodium 130 mmol/L (137-145)
[2022-07-17] MEDS: ACETAMINOPHEN 325 MG TABLET 650 MG PO ×3 (09:28→22:32)
[2022-07-17] MEDS: ASPIRIN 81 MG ENTERIC TABLET PO (09:32)
[2022-07-17] MEDS: CALCIUM CARBONATE (OSCAL) 500 MG TABLET PO (09:32)
[2022-07-17] MEDS: OMEGA 3 POLYUNSAT FATTY ACIDS 1 GM CAP PO (09:32)
[2022-07-17] MEDS: ASCORBIC ACID 500 MG TABLET 1000 MG PO (09:33)
[2022-07-17] MEDS: ZINC SULFATE 220 MG CAPSULE 50 MG PO (09:33)
[2022-07-17] MEDS: MIDODRINE HCL 2.5 MG TABLET 5 MG PO ×3 (09:34→16:29)
[2022-07-17] MEDS: THIAMINE HCL 100 MG TABLET PO (09:34)
--- NOTE | 2022-07-17 14:34 | PM.IMPN ---
Progress Note: A&P Assessment and Plan (1) Orthostatic hypotension: Code(s): I95.1 - Orthostatic hypotension Status: Acute Assessment and Plan: An ongoing problem for the patient despite midodrine. Status post hydration and stopping diuretics. Appreciate cardiology input. Await further plan. Echo noted. Will need cardiac MRI as outpatient. 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 Worsening creatinine may be related to the amyloidosis though I think that she is quite dry due to poor oral intake and over-diuresis. Plan is as detailed above. (3) Elevated troponin: Code(s): R77.8 - Other specified abnormalities of plasma proteins Status: Acute Assessment and Plan: Cardiology consulted for their opinion. Echo noted. (4) Hyponatremia: Code(s): E87.1 - Hypo-osmolality and hyponatremia Status: Acute Assessment and Plan: Likely due to dehydration. She is being cautiously hydrated with close monitoring of volume status and sodium levels. No neurologic complaints or symptoms right now. (5) Elevated LFTs: Code(s): R79.89 - Other specified abnormal findings of blood chemistry Status: Acute Assessment and Plan: Stable when compared to previous labs. No further workup to be pursued at this point. 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 Awaiting results. Dr. Hamilton consult noted. (7) Hypothyroidism, unspecified: Code(s): E03.9 - Hypothyroidism, unspecified Status: Acute Assessment and Plan: Continue levothyroxine and check TSH. (8) Constipation: Code(s): K59.00 - Constipation, unspecified Status: Acute Assessment and Plan: Will check KUB P.r.n. medications Subjective Date/time seen: 07/17/22 14:34 Exam Narrative: General: Mildly ill-appearing female in the semi-Alberts position in bed. Weight: 55.5 kilograms. BMI: 19.2. HEENT: Wearing corrective lenses. PERRL, EOMI. Sclera anicteric. Tacky mucous membranes. Neck: Supple. Supple. No JVD. Respiratory: Lungs are clear to auscultation bilaterally. Cardiovascular: Regular rate and rhythm with S1-S2. 2/6 systolic murmur at the left sternal border to the axilla. Gastrointestinal: Abdomen is soft, flat, and non distended with positive bowel sounds. No guarding or rebound tenderness. Skin: Warm and dry. No rash or lesions on limited exam. Extremities: No cyanosis or clubbing. 1+ huy ankle edema bilaterally. No palpable knots or cords. Negative Selene sign bilaterally. Neurological: Alert. Cranial nerves 2-12 are grossly intact. No gross focal deficits to casual conversation. Psychiatric: Pleasant and cooperative with normal mood and affect. Objective Data Vital Signs Vital Signs: Vital Signs - 24 hr 07/16/22 16:00 07/16/22 16:00 07/16/22 18:00 Temperature 98.1 F Pulse Rate 71 70 84 Respiratory Rate 16 Blood Pressure 130/68 Pulse Oximetry 98 Oxygen Delivery 07/16/22 16:00 07/16/22 20:00 07/16/22 20:00 Temperature 97.7 F Pulse Rate 84 71 Respiratory Rate 16 20 Blood Pressure 114/55 L 126/61 Pulse Oximetry 98 95 Oxygen Delivery Room Air 07/16/22 20:59 07/16/22 20:59 07/16/22 20:00 Temperature Pulse Rate Respiratory Rate Blood Pressure 128/41 L 80/53 L Pulse Oximetry Oxygen Delivery Room Air 07/16/22 20:00 07/16/22 22:00 07/16/22 23:43 Temperature Pulse Rate 73 68 Respiratory Rate Blood Pressure Pulse Oximetry Oxygen Delivery Room Air 07/16/22 23:42 07/17/22 00:00 07/17/22 0
[2022-07-17 16:48] LABS: Appearance Urine Slightly Cloudy (Clear); Bilirubin Urine Negative (Negative); Blood Urine 2+ (Negative); Color Urine Yellow (Yellow); Glucose Urine UA 1+ mg/dL (Negative); Ketones Urine Negative (Negative); Leukocyte Esterase Ur Negative LEU/UL (NEGATIVE); Nitrate Urine Negative (Negative); Protein Urine 3+ mg/dL (Negative); Urobilinogen Urine 0.2 mg/dL (<2.0); pH Urine 5.5 (5.0-9.0)
[2022-07-17 16:57] LABS: Bacteria Urine 3+ /hpf; Mucus Urine Rare /lpf; RBC Urine 0-2 /hpf (0-2); Squamous Epithelial Cell Urine Rare /hpf (Few); WBC Urine 21-30 /hpf (0-3)
[2022-07-17 17:02] LABS: Add Urine Microscopic? YES
[2022-07-17] MEDS: ONDANSETRON INJ 4 MG/2 ML VIAL IV PUSH (17:37)
[2022-07-17] MEDS: MAGNESIUM HYDROXIDE SUSP 30 ML UDC PO (18:42)
[2022-07-17] MEDS: SENNA/DOCUSATE SODIUM TABLET 1 TAB PO (20:55)
[2022-07-17] MEDS: MELATONIN 5 MG TABLET PO (22:32)
[2022-07-18] VITALS (12 sets, daily range): BP systolic 62–135; BP diastolic 35–65; PULSE 64–89; RESP 16–20; TEMP 35.9–36.7; O2SAT 95–97
[2022-07-18] MEDS: ONDANSETRON INJ 4 MG/2 ML VIAL IV PUSH ×2 (01:25→12:29)
[2022-07-18] MEDS: LEVOTHYROXINE SODIUM 75 MCG TABLET PO (05:43)
[2022-07-18] MEDS: OMEGA 3 POLYUNSAT FATTY ACIDS 1 GM CAP PO (08:39)
[2022-07-18] MEDS: ASCORBIC ACID 500 MG TABLET 1000 MG PO (08:40)
[2022-07-18] MEDS: ZINC SULFATE 220 MG CAPSULE 50 MG PO (08:40)
[2022-07-18] MEDS: MIDODRINE HCL 2.5 MG TABLET 5 MG PO (08:40)
[2022-07-18] MEDS: CALCIUM CARBONATE (OSCAL) 500 MG TABLET PO (08:40)
[2022-07-18] MEDS: THIAMINE HCL 100 MG TABLET PO (08:41)
[2022-07-18] MEDS: ASPIRIN 81 MG ENTERIC TABLET PO (08:41)
[2022-07-18] MEDS: MIDODRINE HCL 10 MG TABLET PO (12:30)
--- NOTE | 2022-07-18 14:25 | PM.DS ---
DS: Admitting Diagnosis Discharge Date July 18, 2022 Admitting Diagnosis Orthostatic hypotension DS: Discharge Diagnosis Discharge Diagnosis (1) Orthostatic hypotension: Code(s): I95.1 - Orthostatic hypotension Status: Acute Assessment and Plan: An ongoing problem for the patient despite midodrine. Status post hydration and stopping diuretics. Appreciate cardiology input. Await further plan. Echo noted. Will need cardiac MRI as outpatient. 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 Worsening creatinine may be related to the amyloidosis though I think that she is quite dry due to poor oral intake and over-diuresis. Plan is as detailed above. (3) Elevated troponin: Code(s): R77.8 - Other specified abnormalities of plasma proteins Status: Acute Assessment and Plan: Cardiology consulted for their opinion. Echo noted. (4) Hyponatremia: Code(s): E87.1 - Hypo-osmolality and hyponatremia Status: Acute Assessment and Plan: Likely due to dehydration. She is being cautiously hydrated with close monitoring of volume status and sodium levels. No neurologic complaints or symptoms right now. (5) Elevated LFTs: Code(s): R79.89 - Other specified abnormal findings of blood chemistry Status: Acute Assessment and Plan: Stable when compared to previous labs. No further workup to be pursued at this point. 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 Awaiting results. Dr. Hamilton consult noted. (7) Hypothyroidism, unspecified: Code(s): E03.9 - Hypothyroidism, unspecified Status: Acute Assessment and Plan: Continue levothyroxine and check TSH. (8) Constipation: Code(s): K59.00 - Constipation, unspecified Status: Acute Assessment and Plan: Will check KUB P.r.n. medications DS: Summary Hospital Course Hospital Course: Patient is admitted for orthostatic hypotension. Medications were adjusted. This has improved. Lengthy discussion about how this be safe at home. Patient is going to have her son and daughter around along with her over the next several weeks to help at home. Patient likely has amyloidosis and had a bone marrow biopsy as well. This is an ongoing chronic issue and is likely contributing to some of her symptoms. Oncology was consulted and they are planning on starting chemotherapy after she gets a port placed on Tuesday by Dr. Llamas. She will have this done as an outpatient. Time Spent with Patient Time attestation: Total time spent providing and/or coordinating discharge services: Exam Narrative: General: Mildly ill-appearing female in the semi-Alberts position in bed. Weight: 55.5 kilograms. BMI: 19.2. HEENT: Wearing corrective lenses. PERRL, EOMI. Sclera anicteric. Tacky mucous membranes. Neck: Supple. Supple. No JVD. Respiratory: Lungs are clear to auscultation bilaterally. Cardiovascular: Regular rate and rhythm with S1-S2. 2/6 systolic murmur at the left sternal border to the axilla. Gastrointestinal: Abdomen is soft, flat, and non distended with positive bowel sounds. No guarding or rebound tenderness. Skin: Warm and dry. No rash or lesions on limited exam. Extremities: No cyanosis or clubbing. 1+ huy ankle edema bilaterally. No palpable knots or cords. Negative Selene sign bilaterally. Neurological: Alert. Cranial nerves 2-12 are grossly intact. No gross focal deficits to casual conversation. Psychiatric: Pleasant and cooperative with normal mood and affect. DS: Data Data Completed and
== END 2022-07-18 16:35 | disposition home health service (06) | DRG 312 ==
LOC: ANHED 14:40 → ANHIMU 15:37
PROVIDERS: Physician Assistant; Radiology Diagnostic Radiology; Admitting Provider Internal Medicine; Emergency Provider Emergency Medicine; PCP Family Medicine Adolescent Medicine; Visit Provider Chiropractor
PROC: 079T3ZX Drainage of Bone Marrow, Percutaneous Approach, Diagnostic (ICD-10-PCS; CPT 38221; principal; 2022-07-15 10:00)
DX: I95.1 Orthostatic hypotension (principal); E85.81 Light chain (AL) amyloidosis; E87.1 Hypo-osmolality and hyponatremia; N17.9 Acute kidney failure, unspecified; Z20.822 Contact with and (suspected) exposure to COVID-19; R77.8 Other specified abnormalities of plasma proteins; E86.0 Dehydration; R94.5 Abnormal results of liver function studies; E03.9 Hypothyroidism, unspecified; I12.9 Hypertensive chronic kidney disease with stage 1 through stage 4 chronic kidney disease, or unspecified chronic kidney disease; N18.32 Chronic kidney disease, stage 3b; K59.00 Constipation, unspecified; R43.2 Parageusia; M19.90 Unspecified osteoarthritis, unspecified site; M17.11 Unilateral primary osteoarthritis, right knee; D72.829 Elevated white blood cell count, unspecified; Z79.82 Long term (current) use of aspirin; Z85.3 Personal history of malignant neoplasm of breast; Z86.73 Personal history of transient ischemic attack (TIA), and cerebral infarction without residual deficits; Z90.49 Acquired absence of other specified parts of digestive tract; Z90.710 Acquired absence of both cervix and uterus
CPT/HCPCS: 36415; 38221; 71045; 74018; 78815; 80048; 80053; 81001; 82550; 83735; 84443; 84484; 85025; 85027; 85610; 85730; 87077; 87086; 87088; 87147; 87181; 87186; 87636; 88184; 88185; 88305; 88311; 88313; 88341; 88342; 93005; 93308; 96360; 96361; 99291; A9270; A9552; G0378; J1642; J2405; J7030

== ENCOUNTER 2022-07-21 08:17 | Day surgery (SDC) | payer MEDICARE, SELFPAY ==
[2022-07-21 10:15] VITALS: BMI 22.1
--- NOTE | 2022-07-21 10:42 | PC.NURSE ---
Report to the Outpatient Waiting Room, entrance under the green pavilion located off [facility], at time __1:00PM on date __07/21/22 . Planned Procedure Time: __3:00PM . Time changes happen often and if your time is changed the preop area will call you the afternoon before. - You and your visitor will be asked to self-screen and do not enter if you have any COVID symptoms. - Only one visitor is requested with a max of two and NO children visitors are allowed at this time. - The patient visitor may be requested to leave or wait in car when not with patient due to distancing restrictions. - A mask is optional within the hospital. Patients may have clear liquids (water, carbonated beverages, clear teas, apple juice) until 3 hours prior to surgery with a maximum of 20 ounces. - No food from midnight until time of surgery Take the following medications with a SIP of water the morning of surgery: ___LEVOTHYROXINE, MIDODRINE, ZOFRAN NEEDED Medications to discontinue per physician ___PT HAS ALREADY TAKEN VITAMINS/SUPPLEMENTS TODAY, INSTRUCT TO NOT TAKE ANY MORE-SHE RELAYS UNDERSTANDING Please no make-up, nail kosovan, hairspray, perfume, deodorant, or body powder the day of surgery. No jewelry (including any body piercings) or valuables the day of surgery, leave them at home. Please take a shower or bath the night before, or the morning of, surgery with an antibacterial soap. Wear comfortable, loose fitting clothing. Children are encouraged to wear pajamas. - Jewelry must be removed prior to entering the operating room. Rings and piercings that are not removed may be cut off. - The hospital will not accept responsibility for valuables. - Please leave all valuables, including medications, at home the day of surgery. If you are going home after surgery, a licensed hog driver must drive you home. - NO public transportation without another adult if you receive anesthesia. - We recommend that an adult stay with you for 24 hours following discharge. - We also recommend that you do not drive, make important decision, drink alcoholic beverages, or take any drugs that were not prescribed by your health care provider for at least 24 hours after your discharge time. Follow any additional instructions given to you from your surgeon. If you or anyone in your household have experienced Covid symptoms in the past week, please notify your surgeon or the nurse liaison at the phone number below for possible testing. Telephone instructions given to __PATIENT__and asked if any additional questions and then verbalized understanding. Patient advised to call surgeon office or pre surgery nurse liaison [phone] if any additional questions.
[2022-07-21] MEDS: LACTATED RINGERS 1,000 ML 30 ML IV CONT (13:35)
--- NOTE | 2022-07-21 13:37 | WPDHPUPDATE1 ---
History and Physical Update Update Date/Time: 07/21/22 13:37 History and Physical has been reviewed, including an updated exam of the patient. There are NO changes in the patient's condition. Risks, benefits, and alternatives have been discussed and questions answered. Patient agrees to proceed with procedure.
[2022-07-21] MEDS: KETOROLAC 15 MG/ML VIAL (*BKC) IV PUSH (13:38)
--- NOTE | 2022-07-21 13:41 | WPDANESEPPF ---
Anes - Initial Pre Proc Eval Procedure: Operation Date: 07/21/22 15:00 Proposed Procedures p Insertion Alok Cath Under Fluoroscopy - Fortunato Llamas MD Date/Time: 07/21/22 13:41 Surgeon: Fortunato Llamas MD Pre Op Diagnosis: AMYLOIDOSIS Patient Data Age: 72 Gender: F Height: 1.7 m Weight: 64 kg Allergies Allergy/AdvReac Type Severity Reaction Status Date / Time gabapentin Allergy Swelling Verified 07/21/22 13:17 nitrofurantoin AdvReac Mild Nausea Verified 07/21/22 13:17 codeine AdvReac Unknown Diarrhea Verified 07/21/22 13:17 Home Medications Medication Instructions Recorded Confirmed Type ascorbic acid (vitamin C) 1,000 mg 1,000 mg PO DAILY 06/13/20 07/21/22 History tablet,extended release (Vitamin C ER) calcium 600 mg capsule 600 mg PO DAILY 06/13/20 07/21/22 History glucosamine 250 on-ycxrw-ebo 200 1 tablet PO DAILY 06/13/20 07/21/22 History mg-D3 1,500 yabs-J-pqjoc-herbs tablet sinpw8-zdl-suu-other yjhvx6q-frqb 1 cap PO DAILY 06/13/20 07/21/22 History oil 350 mg- 400 mg capsule zinc 50 mg tablet 50 mg PO DAILY 09/07/21 07/21/22 History aspirin 81 mg tablet,delayed 81 mg PO DAILY 10/01/21 07/21/22 History release (Adult Aspirin Regimen) levothyroxine 75 mcg tablet 75 mcg PO DAILY #90 tabs 05/17/22 07/21/22 Rx rosuvastatin 40 mg tablet 40 mg PO DAILY 06/14/22 07/21/22 History melatonin 5 mg tablet 5 mg PO HS PRN insomnia #30 tabs 07/02/22 07/21/22 Rx bisacodyl 10 mg rectal suppository 10 mg RECTAL QAM PRN Constipation 07/18/22 07/21/22 Rx 30 days #50 ea magnesium hydroxide 400 mg/5 mL 30 ml PO QHS 30 days #900 mL 07/18/22 07/21/22 Rx oral suspension (Milk of Magnesia) midodrine 10 mg tablet 10 mg PO TID 30 days #90 tabs 07/18/22 07/21/22 Rx ondansetron 4 mg disintegrating 4 mg PO Q8H PRN nausea and 07/18/22 07/21/22 Rx tablet vomiting #90 tabs sennosides 8.6 mg-docusate sodium 1 tab-cap PO HS 30 days #30 tabs 07/18/22 07/21/22 Rx 50 mg tablet (Senokot-S) acyclovir 200 mg capsule 200 mg PO DAILY 07/21/22 07/21/22 History dexamethasone 4 mg tablet 4 mg PO WEEKLY 07/21/22 07/21/22 History sulfamethoxazole 800 1 tablet PO BID 07/21/22 07/21/22 History mg-trimethoprim 160 mg tablet thiamine HCl (vitamin B1) 100 mg 100 mg PO DAILY 07/21/22 07/21/22 History tablet Patient hx anesthesia problems: none Family hx anesthesia problems: none Results Review: All pre-operative results and documents have been reviewed as part of the pre-operative evaluation. [facility] Past Medical History Medical History AL amyloidosis Arthritis Cancer of left breast (2006) Status post left mastectomy. Chronic renal failure, stage 3b Dyslipidemia Hernia Hypertension Pure hypercholesterolemia, unspecified Small bowel obstruction (2007) Transient ischemic attack Unilateral primary osteoarthritis, right knee Surgical History Surgical History H/O arthroscopy of right knee H/O left mastectomy (2006) with implant History of abdominal surgery (2007) Lysis of adhesions (laparoscopic) History of bowel resection (2006) For infarction History of cholecystectomy History of hernia repair (2008) Right femoral hernia. History of hysterectomy (06/2020) 06/2020 Family History Family History Sibling A-fib Father Carcinoma of colon Cerebrovascular accident Colon polyp Mother Hypertension Heart disease A-fib Grandparent Diabetes mellitus Other Breast cancer Social History Social History Social History: Surrogate medical decision maker: Axel Turcios, spouse. Code status: Full code. Smoking status: Never smoker Second hand tobacco smoke exposure: No Alcohol intake: never Drinks per week: 2 Alcohol use details: Rarely
[2022-07-21 13:51] VITALS: BP 93/63; PULSE 70; RESP 16; TEMP 36.6; O2SAT 99
[2022-07-21] MEDS: ceFAZolin 2 GM/D5W 50 ML 2 GM/50 ML BAG IVPB (14:05)
[2022-07-21] MEDS: HEPARIN SODIUM 1,000 UNITS/ML VIAL 1000 UNITS IV PUSH (14:28)
[2022-07-21] MEDS: BUPIVACAINE/EPINEPHRINE 0.5% 30 ML VIAL INFILTRATE (14:52)
--- NOTE | 2022-07-21 15:04 | P.OP_ITS ---
Procedure Note - Detailed Date of Procedure 07/21/22 Pre-op Diagnosis AMYLOIDOSIS, inadequate venous access for chemotherapy Post-op Diagnosis Same Procedure Performed Placement right subclavian vortex Port-A-Cath under fluoroscopy Surgeon Fortunato Llamas MD Prn Physical Therapist Radha Wall [facility] Anesthesia MAC and Local (0.5% Marcaine with epinephrine) Indications Patient is a 72-year-old woman with new diagnosis of amyloidosis. She plans to have chemotherapy starting tomorrow. She is taken to surgery now for placement of a Port-A-Cath under fluoroscopy. Findings Port-A-Cath tip is in the SVC right atrial junction. Description of Procedure Patient was taken to surgery and IV sedation was administered. The right subclavian and right neck was prepped and draped. The proposed incision for the Port-A-Cath pocket was drawn on the skin under the right clavicle. Local anesthesia was infiltrated into the skin and the subcutaneous. Incision was made and dissection was carried down through the subcutaneous and through the pectoralis major fascia. A subfascial pocket was created. Cautery was used for hemostasis. Additional local was infiltrated into the pocket and the overlying skin and subcutaneous. Local was infiltrated under right clavicle. A single puncture was used to cannulate the right subclavian vein. A guidewire passed readily into this superior vena cava. Position was documented by C-arm fluoroscopy. I then used the guidewire and C-arm to measure the length of Port-A-Cath tubing that would be needed. The tubing was cut to the appropriate length. I then passed the introducer and sheath over the guidewire under fluoroscopy. The guidewire and introducer were removed. The Port-A-Cath tubing was then passed through the sheath and into the distal SVC. The sheath was removed. We checked the Port-A-Cath under fluoroscopy in the position looked good. The Port-A-Cath aspirated blood easily and flushed well with heparin. We placed the Port-A-Cath in the pocket. It was sutured to the pectoralis major muscle with 3-0 silk suture. I again checked the Port-A-Cath. It aspirated blood and flushed easily with heparin. I then closed the wound with layered Vicryl suture. The skin was closed with subcuticular running 4-0 Monocryl skin suture. A right angle Sue needle was then used to cannulate the Port-A-Cath. It had a good blood return and was flushed with heparin. The tubing was capped. Port-A-Cath site was dressed with Exofin adhesive. The pocket and you per needle were dressed with gauze and transparent dressing. The patient was brad kened and taken to outpatient surgery in good condition. Sponge and needle counts were correct x2. Estimated Blood Loss -5 Drains No Packing No Pathology None sent Complications No immediate complications Condition Stable Disposition Same day [facility] Billing Surgery - Charge Forward: Surgery Billing (Placement Port-A-Cath right subclavian position under fluoroscopy)
[2022-07-21 15:05] VITALS: BP 79/48; PULSE 85; RESP 12; O2SAT 96
[2022-07-21 15:35] VITALS: BP 91/59; PULSE 83; RESP 16
[2022-07-21 16:05] VITALS: BP 99/53; PULSE 84; RESP 12
--- NOTE | 2022-07-21 16:12 | SUR.PHASEII ---
1610 pt takes 10mg midodrine at 1600, daughter wanted to know if it was ok with her to take, i notified dr roman and he was ok with pt taking it
== END 2022-07-21 16:40 | disposition home or self-care (01) ==
PROVIDERS: PCP Family Medicine Adolescent Medicine; Visit Provider Surgery
PROC: (CPT 36561; principal; 2022-07-21 15:00)
DX: E85.81 Light chain (AL) amyloidosis (principal); I95.1 Orthostatic hypotension; R63.4 Abnormal weight loss; I12.9 Hypertensive chronic kidney disease with stage 1 through stage 4 chronic kidney disease, or unspecified chronic kidney disease; N18.32 Chronic kidney disease, stage 3b; E78.00 Pure hypercholesterolemia, unspecified; Z86.73 Personal history of transient ischemic attack (TIA), and cerebral infarction without residual deficits; Z85.3 Personal history of malignant neoplasm of breast; Z90.12 Acquired absence of left breast and nipple; Z79.82 Long term (current) use of aspirin
CPT/HCPCS: 36561; C1788; J0690; J1644; J1885; J2704; J3010; J7030; J7120

== ENCOUNTER 2022-07-27 09:00 | Outpatient (CLI) | payer MEDICARE, SELFPAY ==
--- NOTE | 2022-07-27 11:00 | NEURO_ITS ---
Impression: # Complains of gait dysfunction. 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 # No responses seen in lower extremities. Upper extremities required extra strength of stimulation. # Needle/EMG exam revealed decreased motor unit potentials particularly in EDB of neurogenic type. Motor Nerve Conduction Upper Extremities Median Nerve Conduction Velocity (m/sec) Terminal Latency (msec) Response Voltage(mV) Elbow-Wrist Wrist Elbow Wrist Right 50 3.0 1 2 Left 55 3.1 3 4 Ulnar Nerve Conduction Velocity (m/sec) Terminal Latency (msec) Response Voltage(mV) Above Elbow Below Elbow Wrist Above Elbow Below Elbow Wrist Right 54 3.0 3 3 Left 56 2.8 2 4 F-Wave Latency Median (ms) Ulnar (ms) Right 30.4 30.7 Left 31.1 30.7 Sensory Nerve Conduction Upper Extremities Median Nerve Stimulation Terminal Latency (msec) Wrist/Digit Response Voltage (uV) Wrist Right 3.3/3.3 26/28 Left 2.9/3.1 50/19 Ulnar Nerve Stimulation Terminal Latency (msec) Wrist/Digit Response Voltage (uV) Wrist Right 2.9 37 Left 2.9 37 Radial Nerve Terminal Latency (msec) Response Voltage(mV) Right 2.9 9 Left 2.7 12 Left Right Muscles Examined Fibrillation Fasciculation Scarcity Voltage Duration Left Right Left Right Left Right Left Right Left Right Deltoid Biceps X X Brachioradialis Triceps X X Pronator Teres X X Ext Indicis X X Ext Digitorum X X Abd Poll Brev X X 1st Dorsal Interosseus Abd Dig Min Motor Nerve Conduction Lower Extremities Peroneal Nerve Conduction Velocity (m/sec) Terminal Latency (msec) Response Voltage(mV) Popliteal space-Ankle Ankle Extensor Dig Brevis Popliteal space Ankle Right NR NR NR NR Left NR NR NR NR Tibial Nerve Conduction Velocity (m/sec) Terminal Latency (msec) Response Voltage(mV) Popliteal space-Ankle Ankle-Extensor Dig Brevis Popliteal space Ankle Right NR NR NR NR Left NR NR NR NR F-waves Peroneal Nerve (ms) Tibial Nerve (ms) Right NR Disp Resp Left NR Disp Resp Sensory Nerve Conduction Lower Extremities Sural Nerve Stimulation Terminal Latency (msec) Ankle Response Voltage (uV) Ankle Response Velocity (m/sec) Right NR NR NR Left NR NR NR Superficial Peroneal Nerve Stimulation Terminal Latency (msec) Ankle Response Voltage (uV) Ankle Response Velocity (m/sec) Right NR NR NR Left NR NR NR Left Right Muscles Examined Fibrillation Fasciculation Scarcity Voltage Duration Left Right Left Right Left Right Left Right Left Right X X Ant Tibialis X X Gastroc X X Fibularis Long X X Flex Dig Long X X Ext Dig Brev Abd Hallucis Quadriceps MTDD
== END 2022-07-27 09:01 | disposition home or self-care (01) ==
LOC: ANHNEURO 09:00
PROVIDERS: PCP Family Medicine Adolescent Medicine; Visit Provider Psychiatry & Neurology Neurology
DX: G62.9 Polyneuropathy, unspecified (principal)
CPT/HCPCS: 36415; 80047; 80053; 81479; 85025; 95886; 95913

== ENCOUNTER 2022-07-28 09:52 | Emergency (ER) | payer MEDICARE, SELFPAY ==
[2022-07-28 10:02] VITALS: BP 139/80; PULSE 72; RESP 14; TEMP 36.6; O2SAT 98
--- NOTE | 2022-07-28 10:07 | ED.FEMALEGU ---
HPI - Female Genitourinary General Chief complaint: Urogenital-Female Stated complaint: Mcintosh catheter issues Time Seen by Provider: 07/28/22 09:54 History of Present Illness HPI Narrative: 72-year-old female presented to the emergency department for concern of urinary retention and a Mcintosh catheter issue. Patient had a Mcintosh catheter placed on June 12 for a urinary tract infection and urinary retention due to her amyloidosis. Patient states yesterday she was having the sense of urgency and that she was unable to drain her bladder. Patient states that she did juggle the Mcintosh catheter last night with no significant results but this morning when she woke up there was 900 mL of urine inside the Mcintosh bag. Patient was concerned that the Mcintosh bag was the issue so she cut the bag from the tube. Related Data Home Medications Medication Instructions Recorded Confirmed ascorbic acid (vitamin C) 1,000 mg 1,000 mg PO DAILY 06/13/20 07/26/22 tablet,extended release (Vitamin C ER) calcium 600 mg capsule 600 mg PO DAILY 06/13/20 07/26/22 glucosamine 250 ob-hfqty-ztz 200 1 tablet PO DAILY 06/13/20 07/26/22 mg-D3 1,500 kmgi-Z-nkobs-herbs tablet pdabp7-nxz-ydp-other qagoe1y-hvyg 1 cap PO DAILY 06/13/20 07/26/22 oil 350 mg- 400 mg capsule zinc 50 mg tablet 50 mg PO DAILY 09/07/21 07/26/22 aspirin 81 mg tablet,delayed 81 mg PO DAILY 10/01/21 07/26/22 release (Adult Aspirin Regimen) thiamine HCl (vitamin B1) 100 mg 100 mg PO DAILY 07/21/22 07/26/22 tablet rosuvastatin 40 mg tablet 40 mg PO DAILY 07/22/22 07/26/22 Allergies Allergy/AdvReac Type Severity Reaction Status Date / Time gabapentin Allergy Swelling Verified 07/22/22 09:08 nitrofurantoin AdvReac Mild Nausea Verified 07/22/22 09:08 codeine AdvReac Unknown Diarrhea Verified 07/22/22 09:08 Review of Systems Review of Systems: CONSTITUTIONAL: Denies fever, chills, or sweats. EYES: Denies visual changes, redness, or discharge. ENT: Denies rhinorrhea, congestion, sore throat, or otalgia. CARDIOVASCULAR: Denies chest pain, palpitations, or edema. RESPIRATORY: Denies cough or dyspnea. GASTROINTESTINAL: Denies abdominal pain, nausea, vomiting, or diarrhea. GENITOURINARY: See HPI SKIN: Denies rash or itching. MUSCULOSKELETAL: Denies back pain, joint pain, or myalgia. NEUROLOGIC: Denies headache, numbness, or weakness. [facility] Past Medical History Medical History (Updated 07/28/22 @ 10:56 by Steven Padilla MD) AL amyloidosis Arthritis Cancer of left breast (2006) Status post left mastectomy. Chronic renal failure, stage 3b Dyslipidemia Gas bloat syndrome Hernia Hypertension Nausea Pure hypercholesterolemia, unspecified Small bowel obstruction (2007) Transient ischemic attack Unilateral primary osteoarthritis, right knee Surgical History Surgical History H/O arthroscopy of right knee H/O left mastectomy (2006) with implant History of abdominal surgery (2007) Lysis of adhesions (laparoscopic) History of bowel resection (2006) For infarction History of cholecystectomy History of hernia repair (2008) Right femoral hernia. History of hysterectomy (06/2020) 06/2020 Family History Family History Sibling A-fib Father Carcinoma of colon Cerebrovascular accident Colon polyp Mother Hypertension Heart disease A-fib Grandparent Diabetes mellitus Other Breast cancer Social History Social History Social History: Surrogate medical decision maker: Axel Turcios, spouse. Code status: Full code. Smoking status: Never smoker Second hand tobacco smoke exposure: No Alcohol intake: never Drinks per week: 2 Alcohol use details: Rarely Substance use: never Substance use type: does not use and former substance user Lack of Transportation: No [place]
[2022-07-28 10:18] LABS: Appearance Urine Cloudy (Clear); Bilirubin Urine Negative (Negative); Blood Urine 3+ (Negative); Color Urine Yellow (Yellow); Glucose Urine UA 3+ mg/dL (Negative); Ketones Urine Trace mg/dL (Negative); Leukocyte Esterase Ur 1+ LEU/UL (Negative); Nitrate Urine Positive (Negative); Protein Urine 3+ mg/dL (Negative); Urobilinogen Urine 0.2 mg/dL (<2.0)
[2022-07-28 10:26] LABS: RBC Urine 51-75 /hpf (0-2); WBC Urine >75 /hpf
[2022-07-28 10:27] LABS: Add Urine Microscopic? YES
[2022-07-28 11:28] VITALS: BP 109/63; PULSE 68; RESP 14; O2SAT 98
== END 2022-07-28 11:28 | disposition home or self-care (01) ==
PROVIDERS: Emergency Provider Emergency Medicine; PCP Family Medicine Adolescent Medicine
DX: N39.0 Urinary tract infection, site not specified (principal); M19.90 Unspecified osteoarthritis, unspecified site; I10 Essential (primary) hypertension; E78.5 Hyperlipidemia, unspecified; Z85.3 Personal history of malignant neoplasm of breast; Z86.73 Personal history of transient ischemic attack (TIA), and cerebral infarction without residual deficits
CPT/HCPCS: 81001; 87077; 87086; 87186; 96365; 99284; J0696

== ENCOUNTER 2022-08-06 14:33 | Inpatient (IN) | payer MEDICARE, SELFPAY ==
--- NOTE | ~2022-08-06 | XR_ITS ---
EXAMINATION: XR abdomen/kub 1V INDICATION: Abdominal distention TECHNIQUE: Supine views of the abdomen were obtained on 2 radiographs. COMPARISON: 07/17/2022 FINDINGS: A moderate volume of colonic stool is present. The bowel gas pattern is unremarkable. Surgi eladio clips in the right upper quadrant are likely from prior cholecystectomy. The visualized lung base s are clear. Changes of right inguinal hernia repair are noted. IMPRESSION: 1. Moderate volume of colonic stool. Reviewed, dictated and finalized at location A. ODITY SUPERVISOR
--- NOTE | ~2022-08-06 | XR_ITS ---
EXAMINATION: XR abdomen/kub 1V DATE: 08/16/2022 12:44 INDICATION: Constipation. TECHNIQUE: A supine view of the abdomen was obtained. COMPARISON: PET/CT 07/13/2022 FINDINGS: Surgical clips in the right upper quadrant are likely from cholecystectomy. A gastrostomy t ube overlies the stomach. There are no dilated loops of bowel. There are surgical clips from right in guinal hernia repair. IMPRESSION: 1. Normal bowel gas pattern. Reviewed, dictated and finalized at location A. NG CREW
--- NOTE | ~2022-08-06 | XR_ITS ---
EXAMINATION: XR fl Dobhoff insert/rad w img DATE: 08/11/2022 14:25 INDICATION: Abdominal distention. Inability to eat. TECHNIQUE: I placed a nasoenteric tube under fluoroscopic guidance. The fluoroscopy the time was 0.5 minutes. The number of images was 1. COMPARISON: PET/CT 07/13/2022 FINDINGS: The nasoenteric tube tip is in the stomach. IMPRESSION: 1. Fluoroscopy guided nasoenteric tube placement with tip in the stomach. Reviewed, dictated and finalized at location A. ER FLATWORK
[2022-08-06 14:56] VITALS: BP 113/54; PULSE 76; RESP 16; TEMP 36.5; O2SAT 96
[2022-08-06 15:00] VITALS: BMI 19.5
--- NOTE | 2022-08-06 15:23 | ADMGEN ---
This patient, Rosalba Turcios, was admitted to Medical Room 347-01. Patient/family oriented to hospital policies and general routines including ID bracelet, bed and alarms, visiting hours, pain management, procedures, bathroom and other care routines, personal items, smoking policy, room service/diet, and visiting hours. Information on how to activate the Rapid Response Team has been discussed. Patient/Family are encouraged to report perceived risks to care and to ask questions if they do not understand what they are told or what they should do.
[2022-08-06 19:25] VITALS: BP 91/48; PULSE 91; RESP 20; TEMP 36.4; O2SAT 92
--- NOTE | 2022-08-06 20:00 | PM.IMHP ---
H&P: HPI History of Present Illness Date/Time: 08/06/22 20:00 Chief Complaint: Worsening renal function. Narrative: This is a 72-year-old female with amyloidosis, hypertension, hyperlipidemia, hypothyroidism, and history of breast cancer who is being directly admitted to the medical/surgical floor for further evaluation worsening renal function. She had her 2nd chemotherapy treatment with Dr. Hamilton today but she was only given half dose given her worsening renal function. It is difficult to say what her baseline creatinine is now as it has fluctuated quite a bit over the last 2 months but it seems to range anywhere from 1.40 to 2.0. Unfortunately she has also had issues with her volume status and is quite symptomatic when her legs swell and it feels as though her abdomen is swollen as well. She has a prescription for bumetanide 1 mg b.i.d. which she takes depending on her blood pressures; she is also on midodrine due to continued issues with orthostatic hypotension. She has not had the bumetanide very often due to systolic blood pressures running under 100. In any event she has not noticed a decrease in urine output and that is monitored closely she has had a Mcintosh catheter in place for well over a month due to urinary retention. Her appetite continues to be poor and she does not take in much in the way of food or drink. For instance today she only had two ensures. She feels as though she is getting increasingly weak and is worried that her nutrition is playing a big role in that. The only other recent change was the addition of sulfamethoxazole-trimethoprim which was prescribed on 08/02/2022 for urinary tract infection (urine culture from 07/28/2022 grew out E coli resistant to amoxicillin, ampicillin, cefazolin, ceftazidime, and ceftriaxone). She denies fever, chills, sweats, suprapubic pain, low back pain, and CVA tenderness. She continues to have issues with constipation. Review of Systems Review of Systems: Twelve systems were reviewed and are negative except for as per HPI. [facility] Past Medical History Medical History (Updated 08/07/22 @ 00:18 by Mirta Hurt PA-C) AL amyloidosis Arthritis Cancer of left breast (2006) Status post left mastectomy. Chronic renal failure, stage 3b Dyslipidemia Hypertension Small bowel obstruction (2007) Transient ischemic attack Surgical History Surgical History H/O arthroscopy of right knee H/O left mastectomy (2006) with implant History of abdominal surgery (2007) Lysis of adhesions (laparoscopic) History of bowel resection (2006) For infarction History of cholecystectomy History of hernia repair (2008) Right femoral hernia. History of hysterectomy (06/2020) 06/2020 Family History Family History Sibling A-fib Father Carcinoma of colon Cerebrovascular accident Colon polyp Mother Hypertension Heart disease A-fib Grandparent Diabetes mellitus Other Breast cancer Social History Social History (Updated 08/07/22 @ 00:15 by Mirta Hurt PA-C) Social History: Surrogate medical decision maker: Axel Turcios, spouse. Code status: Full code. Smoking status: Never smoker Second hand tobacco smoke exposure: No Alcohol intake: never Drinks per week: 2 Alcohol use details: Rarely Substance use: never Substance use type: does not use and former substance user Lack of Transportation: No Lack of Food: Never True Current Housing: I Have Housing Concerned About Future Housing: Decline to Answer Difficulty Paying Gas/Electric Bills: Decline to Answer Difficulty Paying for Meds: Decline to Answer Currently Unemployed: Decline to Answer Education: Decline to Answer Difficulty w/ Childcare or Family Care: Decline to Answer Living arrangements: with family Additional living arrangements comments: Lives with spouse i
[2022-08-06] MEDS: ACYCLOVIR 400 MG TABLET PO (20:53)
[2022-08-06] MEDS: SODIUM CHLORIDE 0.9% IV 1,000 ML 100 ML IV CONT (20:54)
[2022-08-06] MEDS: CENTRAL LINE FLUSH 10 ML IV PUSH (20:54)
[2022-08-06] MEDS: SENNA/DOCUSATE SODIUM TABLET 1 TAB PO (22:08)
[2022-08-06] MEDS: ACETAMINOPHEN 325 MG TABLET 650 MG PO (22:33)
[2022-08-07 05:38] VITALS: BP 139/61; PULSE 89; RESP 18; TEMP 36.5; O2SAT 95
[2022-08-07] MEDS: CENTRAL LINE FLUSH 10 ML IV PUSH ×3 (05:53→20:31)
[2022-08-07] MEDS: LEVOTHYROXINE SODIUM 75 MCG TABLET PO (05:53)
[2022-08-07 06:01] LABS: Hematocrit 36.5 % (37.0-47.0); Hemoglobin 12.4 g/dL (12.0-15.0); Mean Corpuscular Hemoglobin 31.5 pg (26-34); Mean Corpuscular Volume 92.6 fl (80-100); Platelet Count Result 427 k/mm3 (150-375); Red Blood Count 3.94 M/mm3 (4.2-5.4); Red Cell Distribution Width 14.7 % (11.5-14.5); White Blood Count 15.6 K/mm3 (4.5-10.0)
[2022-08-07 06:05] LABS: Alanine Aminotransferase 73 U/L (6-35); Albumin Level 2.1 g/dL (3.5-5.1); Alkaline Phosphatase 210 U/L (38-126); Anion Gap 2 mmol/L (8-16); Aspartate Amino Transferase 83 U/L (14-36); Bilirubin,Total 0.3 mg/dL (0.2-1.3); Blood Urea Nitrogen 69 mg/dL (7-17); Calcium 7.1 mg/dL (8.4-10.2); Carbon Dioxide 32 mmol/L (22-30); Chloride 91 mmol/L (98-107); Estimated CRCL calculation 17 ml/min; Estimated Glomerular Filt Rate 18; Glucose 104 mg/dL (65-110); Magnesium 2.7 mg/dL (1.6-2.3); Potassium 3.4 mmol/L (3.4-5.0); Sodium 125 mmol/L (137-145)
[2022-08-07 06:11] LABS: Eosinophil Urine None Seen % (None Seen); Urine Eos QC 2nd Tech Confirmed
[2022-08-07 06:33] LABS: Prealbumin 34.1 mg/dL (17.6-36.0)
[2022-08-07] MEDS: METOCLOPRAMIDE HCL 10 MG TABLET PO ×2 (09:42→13:19)
[2022-08-07] MEDS: MIDODRINE HCL 10 MG TABLET PO ×3 (09:42→17:52)
[2022-08-07] MEDS: ROSUVASTATIN 10 MG TABLET 40 MG PO (09:42)
[2022-08-07] MEDS: PANTOPRAZOLE 40 MG TABLET PO ×2 (09:43→20:31)
[2022-08-07] MEDS: ACYCLOVIR 400 MG TABLET PO ×2 (09:43→20:31)
[2022-08-07 09:45] VITALS: PULSE 77; RESP 16; O2SAT 95
[2022-08-07] MEDS: HEPARIN SODIUM 5,000 UNITS/ML VIAL 5000 UNITS SUB-Q ×2 (09:46→20:31)
[2022-08-07] MEDS: MAGNESIUM HYDROXIDE SUSP 30 ML UDC PO (09:51)
[2022-08-07] MEDS: SODIUM CHLORIDE 0.9% IV 1,000 ML 75 ML IV CONT (09:52)
[2022-08-07 10:04] LABS: Basophils Percent Auto 0.3 % (0.2-1.2); Eosinophils Absolute Auto 0.1 K/mm3 (0-0.3); Eosinophils Percent Auto 0.5 % (0-4.4); Hematocrit 40.8 % (37.0-47.0); Hemoglobin 13.4 g/dL (12.0-15.0); Immature Granulocyte Absolute 0.17 K/mm3 (0.00-0.031); Immature Granulocyte Percent A 1.1 % (0-0.5); Lymphocytes Absolute Auto 1.11 K/mm3 (0.9-3.2); Lymphocytes Percent Auto 7.1 % (18.3-44.2); Mean Corpuscular HGB Conc 32.8 g/dl (32-36); Mean Corpuscular Hemoglobin 31.5 pg (26-34); Mean Platelet Volume 9.9 fl (7.4-10.4); Monocytes Absolute Auto 0.8 K/mm3 (0.1-0.6); Monocytes Percent Auto 4.9 % (2.6-8.5); Neutrophils Absolute Auto 13.4 K/mm3 (1.3-6.7); Neutrophils Percent Auto 86.1 % (45.5-73.1); Platelet Count Result 420 k/mm3 (150-375); Red Blood Count 4.25 M/mm3 (4.2-5.4); Red Cell Distribution Width 15.2 % (11.5-14.5); White Blood Count 15.5 K/mm3 (4.5-10.0)
[2022-08-07 10:19] LABS: Partial Thromboplastin Time 24.4 SECONDS (22.3-36.8)
[2022-08-07 10:23] LABS: Transferrin 189 mg/dL (206-381)
[2022-08-07] MEDS: FAT EMULSIONS IV 20% 250 ML 20.83 ML IVPB (12:17)
[2022-08-07] MEDS: AMINO ACIDS 4.25%/D5W/LYTES/CA 2,000 ML 80 ML IV CONT (12:19)
--- NOTE | 2022-08-07 13:02 | PM.IMPN ---
Progress Note: A&P Assessment and Plan (1) Lsoqj-ya-tnrrajs kidney injury: Code(s): N17.9 - Acute kidney failure, unspecified; N18.9 - Chronic kidney disease, unspecified Status: Acute (2) Protein calorie malnutrition: Code(s): E46 - Unspecified protein-calorie malnutrition Status: Acute (3) Recent urinary tract infection: Code(s): Z87.440 - Personal history of urinary (tract) infections Status: Acute (4) Elevated LFTs: Code(s): R79.89 - Other specified abnormal findings of blood chemistry Status: Acute (5) 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 Hamilton office for further treatment and evaluation of acute on chronic kidney injury. This is unfortunately been an ongoing henderson for this patient for the past couple of months and while she is typically in good spirits she understandably is a bit despondent given her frequent hospitalizations. Her catheter is patent and she seems to be making a normal amount of urine. She is likely intravascularly depleted due to poor oral intake though we need to be cautious with IV fluid rehydration given her concomitant edema which in part is due to her hypoalbuminemia. She was recently started on Bactrim as well which could be playing a role in her worsening renal function. For now we will hold the Bactrim and start renally dosed cefepime to complete treatment for her urinary tract infection. Bumetanide on hold for now. Dr. Preston has been consulted for his opinion. She may very well need a feeding tube as she is just not getting adequate nutrition though she seems to not tolerate oral nutrition thus TPN may be appropriate as well. The dietitian and other disciplines should probably weigh in on this as well. LFTs are elevated but essentially stable and no further workup is planned. Her home medications will be reviewed and resumed as appropriate. 08/07/2022 interval history: patient with AL amylodosis kindeys and RIP on CKD with worsening kidney function, patient had her 2nd chemotherpay and did not feel well patient was sent to ER for further evaluation, patient wiht hypotension and on midodrin, on her last admission patient was seen by youth corrections officer and was diuresed with albumin, will consult youth corrections officer for further recommendation, patient has poor appetite and oral intake with dysphagia will start patient on PPN, will monitor, patient will need PICC line to continue TPN upon discharge. Subjective Date/time seen: 08/07/22 13:02 Worsening renal function. HPI-Narrative: This is a 72-year-old female with amyloidosis, hypertension, hyperlipidemia, hypothyroidism, and history of breast cancer who is being directly admitted to the medical/surgical floor for further evaluation worsening renal function. She had her 2nd chemotherapy treatment with Dr. Hamilton today but she was only given half dose given her worsening renal function. It is difficult to say what her baseline creatinine is now as it has fluctuated quite a bit over the last 2 months but it seems to range anywhere from 1.40 to 2.0. Unfortunately she has also had issues with her volume status and is quite symptomatic when her legs swell and it feels as though her abdomen is swollen as well. She has a prescription for bumetanide 1 mg b.i.d. which she takes depending on her blood pressures; she is also on midodrine due to continued issues with orthostatic hypotension. She has not had the bumetanide very often due to systolic blood pressures running under 100. In any event she has not noticed a decrease in urine output and that is monitored closely she has had a Mcintosh catheter in place for well over a month due to urinary retention. Her appetite continues to be poor and she does not take in much in the way of food or drink. For instance today she only had two ensures. She feels as though she is get
[2022-08-07 14:00] VITALS: BP 162/101; PULSE 77; RESP 16; TEMP 36.6; O2SAT 95
--- NOTE | 2022-08-07 14:43 | PM.CNNEP ---
Assessment and Plan Assessment and plan (1) RIP (acute kidney injury): Code(s): N17.9 - Acute kidney failure, unspecified Status: Acute Assessment and Plan: suspect multifactorial etiology: ongoing diuretic therapy relative hypotension recent UTI use of Bactrim(?) prerenal factors agree with holding diuretic for now (but will eventually need restart) follow trend of repeat labs and UOP (2) Stage 3b chronic kidney disease: Code(s): N18.32 - Chronic kidney disease, stage 3b Status: Chronic Assessment and Plan: kidney function/creatinine has fluctuated to extremes in the last few months seems to average out to 1.4 - 2.0mg/dl secondary to biopsy proven amyloidosis, relative hypotension, and chronic need for diuretic therapy to treat her swelling/edema (3) Hyponatremia: Code(s): E87.1 - Hypo-osmolality and hyponatremia Status: Chronic Assessment and Plan: has been present before likely related to fluctuations in fluid status, use of diuretics, and diminished oral intake follow trend (4) Protein calorie malnutrition: Code(s): E46 - Unspecified protein-calorie malnutrition Status: Acute Assessment and Plan: nutrition has been deteriorating as already noted low albumin noted which is likely contributing to her swelling/edema issues this is further complicated by her inability to tolerated oral intake initiated on TPN (although this may not be a good intermediate solution (5) Recent urinary tract infection: Code(s): Z87.440 - Personal history of urinary (tract) infections Status: Acute Assessment and Plan: switched to IV antibiotics at this time continue supportive therapy Long and extensive discussion (greater than 20 minutes) with the patient as well as her daughter at bedside regarding the multiple confounding factors that we are dealing with with regard to her renal function and the hope that ongoing interventions will eventually balance out her kidneys as these issues are individually optimized. They both appeared to voice understanding. Will continue to follow. History of Present Illness Reason for Consult Consult date: 08/07/22 Reason for consult: acute renal failure (chronic kidney disease) Chief Complaint Chief complaint: RIP, Dehydration History of Present Illness Narrative: The patient is a 72-year-old female with multiple medical problems as noted below who was directly admitted to [facility] for further evaluation of her worsening renal function. The patient received her 2nd chemotherapy treatment in the [facility] on the day of admission but her dosage was adjusted due to the fact that repeat labs done on that day demonstrated a significant decline in her overall kidney function. Because of this change in her renal function, she was admitted to the hospital for further assessment of this issue. Unfortunately, over the last few months, the patient's kidney function has fluctuated to extremes due to her frequent hospitalizations in conjunction with attempted treatments of her chronic medical issues and problems. Furthermore, her appetite continues to be quite poor and she really does not eat or drink much in general. She attempts to take nutritional shakes when she can but even that has been difficult for her as well. She was recently diagnosed with a urinary tract infection and was prescribed Bactrim for treatment of this issue as well. She continues to have on off issues with swelling/edema requiring diuretic therapy but this is also complicated by fact that she has significant orthostatic hypotension requiring midodrine therapy to maintain her systolic BP. She has a chronic Mcintosh catheter due to urinary retention and does not report any decreasing urine output to her knowledge. Renal consultation was requested due to her acute kidney injury on top of her baseline kidney
[2022-08-07 17:57] LABS: Glucose Point of Care 122 mg/dl (65-105)
[2022-08-07 20:25] VITALS: BP 130/77; PULSE 86; RESP 18; TEMP 36.6; O2SAT 95
[2022-08-07] MEDS: SENNA/DOCUSATE SODIUM TABLET 1 TAB PO (20:31)
[2022-08-08 05:10] VITALS: BP 133/67; PULSE 84; RESP 20; TEMP 36.6; O2SAT 94
[2022-08-08] MEDS: CENTRAL LINE FLUSH 10 ML IV PUSH ×5 (05:32→20:57)
[2022-08-08] MEDS: LEVOTHYROXINE SODIUM 75 MCG TABLET PO (05:32)
[2022-08-08 05:44] LABS: Hematocrit 37.2 % (37.0-47.0); Hemoglobin 12.5 g/dL (12.0-15.0); Mean Corpuscular HGB Conc 33.6 g/dl (32-36); Mean Corpuscular Hemoglobin 32.1 pg (26-34); Mean Corpuscular Volume 95.4 fl (80-100); Mean Platelet Volume 9.9 fl (7.4-10.4); Platelet Count Result 372 k/mm3 (150-375); Red Cell Distribution Width 15.1 % (11.5-14.5)
[2022-08-08 05:54] LABS: Alanine Aminotransferase 68 U/L (6-35); Albumin Level 1.9 g/dL (3.5-5.1); Alkaline Phosphatase 144 U/L (38-126); Anion Gap 0 mmol/L (8-16); Aspartate Amino Transferase 86 U/L (14-36); Bilirubin,Total 0.4 mg/dL (0.2-1.3); Blood Urea Nitrogen 67 mg/dL (7-17); Calcium 6.9 mg/dL (8.4-10.2); Carbon Dioxide 29 mmol/L (22-30); Chloride 94 mmol/L (98-107); Estimated CRCL calculation 21 ml/min; Estimated Glomerular Filt Rate 23; Glucose 102 mg/dL (65-110); Magnesium 2.8 mg/dL (1.6-2.3); Phosphorus 4.3 mg/dL (2.5-4.5); Potassium 3.5 mmol/L (3.4-5.0); Sodium 123 mmol/L (137-145); Triglycerides 254 mg/dL (<150)
[2022-08-08 08:00] VITALS: PULSE 84; RESP 12; O2SAT 96
[2022-08-08] MEDS: POTASSIUM CHLORIDE INJ 40 MEQ in SODIUM CHLORIDE 0.9% IV 500 ML 130 MEQ IVPB (09:36)
[2022-08-08] MEDS: POTASSIUM CHLORIDE 20 MEQ PACKET (FOR LIQUID) 40 MEQ PO (09:37)
[2022-08-08] MEDS: PANTOPRAZOLE 40 MG TABLET PO ×2 (09:42→20:56)
[2022-08-08] MEDS: ACYCLOVIR 400 MG TABLET PO ×2 (09:42→20:56)
[2022-08-08] MEDS: HEPARIN SODIUM 5,000 UNITS/ML VIAL 5000 UNITS SUB-Q ×2 (09:43→20:55)
[2022-08-08] MEDS: MIDODRINE HCL 10 MG TABLET PO ×3 (09:43→18:26)
[2022-08-08] MEDS: ROSUVASTATIN 10 MG TABLET 40 MG PO (09:43)
[2022-08-08] MEDS: FAT EMULSIONS IV 20% 250 ML 20.83 ML IVPB (10:43)
[2022-08-08] MEDS: AMINO ACIDS 4.25%/D5W/LYTES/CA 2,000 ML 80 ML IV CONT (10:44)
--- NOTE | 2022-08-08 11:01 | PM.PNNEP ---
Progress Note: A&P Assessment and Plan (1) RIP (acute kidney injury): Code(s): N17.9 - Acute kidney failure, unspecified Status: Acute Assessment and Plan: improvement noted suspect multifactorial etiology: ongoing diuretic therapy relative hypotension recent UTI use of Bactrim(?) prerenal factors agree with holding diuretic for now (but will eventually need to restart) follow trend of repeat labs and UOP (2) Stage 3b chronic kidney disease: Code(s): N18.32 - Chronic kidney disease, stage 3b Status: Chronic Assessment and Plan: kidney function/creatinine has fluctuated to extremes in the last few months seems to average out to 1.4 - 2.0mg/dl secondary to biopsy proven amyloidosis along with relative hypotension and chronic need for diuretic therapy to treat her swelling/edema (3) Hyponatremia: Code(s): E87.1 - Hypo-osmolality and hyponatremia Status: Chronic Assessment and Plan: worse today has been present before likely related to fluctuations in fluid status, IV medications/nutrition, and diminished oral intake suspect some worsening due to TPN/parenteral nutrition if possible, would limit free water in TPN/parenteral nutrition if possible other option is to add more sodium to TPN if possible may need to consider salt tabs along with resuming loop diuretic therapy she is not really taking anything po so no real point to fluid restriction at this time follow trend (4) Protein calorie malnutrition: Code(s): E46 - Unspecified protein-calorie malnutrition Status: Acute Assessment and Plan: nutrition has been deteriorating as already noted low albumin noted which is likely contributing to her swelling/edema issues this is further complicated by her inability to tolerate oral intake initiated on TPN (although this may not be a good termite helper solution (5) Recent urinary tract infection: Code(s): Z87.440 - Personal history of urinary (tract) infections Status: Acute Assessment and Plan: switched to IV antibiotics at this time continue supportive therapy Will continue to follow. Subjective Date/time seen: 08/08/22 11:01 Tolerating TPN/parenteral nutrition at this time; improvement in creatinine/renal function noted by AM labs; still with issues related to LE edema/abdominal swelling but she is off diuretic therapy at this time; no acute distress voiced at the time of my visit; no events overnight or earlier this morning. Exam Narrative: General: chronically ill appearing female in NAD Heart: normal S1 and S2; no rub Lungs: clear to auscultation Abdomen: soft but protuberant with + bowel sounds. Extremities: no cyanosis or clubbing; 1+ edema Skin: warm and intact Objective Data Vital Signs Vital Signs: Vital Signs Temp Pulse Resp BP Pulse Ox O2 Del Method 08/08/22 05:10 98 F 84 20 133/67 94 08/07/22 20:25 98 F 86 18 130/77 95 08/07/22 15:15 Room Air 08/07/22 14:00 97.9 F 77 16 162/101 H 95 Intake/Output Intake/Output: Intake & Output 08/05/22 08/06/22 08/07/22 08/08/22 23:59 23:59 23:59 23:59 Intake Total 2250 250 Output Total 250 925 750 Balance -250 1325 -500 Meds/Results Medications: Active Medications Generic Name Dose Route Start Last Admin Trade Name Freq PRN Reason Stop Dose Admin Acetaminophen 650 mg 08/06/22 18:01 08/06/22 22:33 Acetaminophen 325 Mg Tablet PO 650 mg Q4H PRN Administration Mild Pain (1-3) or Fever Acyclovir 400 mg 08/06/22 21:00 08/08/22 09:42 Acyclovir 400 Mg Tablet PO 400 mg Q12HR DARRICK Administration Alprazolam 0.5 mg 08/07/22 18:49 Alprazolam (*Crx) 0.5 Mg Tablet PO TID PRN Anxiety Citalopram Hydrobromide 10 mg 08/08/22 21:00 Citalopram Hydrobromide 10 Mg Tablet PO HS DARRICK Heparin Sodium (Beef Lung) 50 units
--- NOTE | 2022-08-08 11:01 | P.PNNP_ITS ---
Progress Note: A&P Assessment and Plan (1) RIP (acute kidney injury): Code(s): N17.9 - Acute kidney failure, unspecified Status: Acute Assessment and Plan: * improvement noted * suspect multifactorial etiology: * ongoing diuretic therapy * relative hypotension * recent UTI * use of Bactrim(?) * prerenal factors * agree with holding diuretic for now (but will eventually need to restart) * follow trend of repeat labs and UOP (2) Stage 3b chronic kidney disease: Code(s): N18.32 - Chronic kidney disease, stage 3b Status: Chronic Assessment and Plan: * kidney function/creatinine has fluctuated to extremes in the last few months * seems to average out to 1.4 - 2.0mg/dl * secondary to biopsy proven amyloidosis along with relative hypotension and chronic need for diuretic therapy to treat her swelling/edema (3) Hyponatremia: Code(s): E87.1 - Hypo-osmolality and hyponatremia Status: Chronic Assessment and Plan: * worse today * has been present before * likely related to fluctuations in fluid status, IV medications/nutrition, and diminished oral intake * suspect some worsening due to TPN/parenteral nutrition * if possible, would limit free water in TPN/parenteral nutrition if possible * other option is to add more sodium to TPN if possible * may need to consider salt tabs along with resuming loop diuretic therapy * she is not really taking anything po so no real point to fluid restriction at this time * follow trend (4) Protein calorie malnutrition: Code(s): E46 - Unspecified protein-calorie malnutrition Status: Acute Assessment and Plan: * nutrition has been deteriorating as already noted * low albumin noted which is likely contributing to her swelling/edema issues * this is further complicated by her inability to tolerate oral intake * initiated on TPN (although this may not be a good machine long goods helper solution (5) Recent urinary tract infection: Code(s): Z87.440 - Personal history of urinary (tract) infections Status: Acute Assessment and Plan: * switched to IV antibiotics at this time * continue supportive therapy Will continue to follow. Subjective Date/time seen: 08/08/22 11:01 Tolerating TPN/parenteral nutrition at this time; improvement in creatinine/renal function noted by AM labs; still with issues related to LE edema/abdominal swelling but she is off diuretic therapy at this time; no acute distress voiced at the time of my visit; no events overnight or earlier this morning. Exam Narrative: General: chronically ill appearing female in NAD Heart: normal S1 and S2; no rub Lungs: clear to auscultation Abdomen: soft but protuberant with + bowel sounds. Extremities: no cyanosis or clubbing; 1+ edema Skin: warm and intact Objective Data Vital Signs Vital Signs: Vital Signs Temp Pulse Resp BP Pulse Ox O2 Del Method 08/08/22 05:10 98 F 84 20 133/67 94 08/07/22 20:25 98 F 86 18 130/77 95 08/07/22 15:15 Room Air 08/07/22 14:00 97.9 F 77 16 162/101 H 95 Intake/Output Intake/Output: Intake & Output 08/05/22 08/06/22 08/07/22 08/08/22 23:59 23:59 23:59 23:59 Intake Total 2250 250 Output Total 250 925 750 Balance -2
--- NOTE | 2022-08-08 13:08 | PM.IMPN ---
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 Hamilton office for further treatment and evaluation of acute on chronic kidney injury. This is unfortunately been an ongoing henderson for this patient for the past couple of months and while she is typically in good spirits she understandably is a bit despondent given her frequent hospitalizations. Her catheter is patent and she seems to be making a normal amount of urine. She is likely intravascularly depleted due to poor oral intake though we need to be cautious with IV fluid rehydration given her concomitant edema which in part is due to her hypoalbuminemia. She was recently started on Bactrim as well which could be playing a role in her worsening renal function. For now we will hold the Bactrim and start renally dosed cefepime to complete treatment for her urinary tract infection. Bumetanide on hold for now. Dr. Preston has been consulted for his opinion. She may very well need a feeding tube as she is just not getting adequate nutrition though she seems to not tolerate oral nutrition thus TPN may be appropriate as well. The dietitian and other disciplines should probably weigh in on this as well. LFTs are elevated but essentially stable and no further workup is planned. Her home medications will be reviewed and resumed as appropriate. 08/08/2022 interval history: patient with AL amylodosis kindeys and RIP on CKD with worsening kidney function, on 08/06 patient had her 2nd chemotherpay and did not feel well patient was sent to ER for further evaluation, patient wiht hypotension and on midodrin, on her last admission patient was seen by beauty counselor and was diuresed with albumin, will consult beauty counselor for further recommendation, patient has poor appetite and oral intake with dysphagia started patient on PPN, patient feels overwhelmed with current situation, will start patient on Citalopram, will monitor, patient will need PICC line to continue TPN upon discharge. patient has port will discussed with her oncologist, Subjective Date/time seen: 08/08/22 13:08 The patient is being directly admitted to the medical/surgical floor from Dr. Hamilton office for further treatment and evaluation of acute on chronic kidney injury. This is unfortunately been an ongoing henderson for this patient for the past couple of months and while she is typically in good spirits she understandably is a bit despondent given her frequent hospitalizations. Her catheter is patent and she seems to be making a normal amount of urine. She is likely intravascularly depleted due to poor oral intake though we need to be cautious with IV fluid rehydration given her concomitant edema which in part is due to her hypoalbuminemia. She was recently started on Bactrim as well which could be playing a role in her worsening renal function. For now we will hold the Bactrim and start renally dosed cefepime to complete treatment for her urinary tract infection. Bumetanide on hold for now. Dr. Preston has been consulted for his opinion. She may very well need a feeding tube as she is just not getting adequate nutrition though she seems to not tolerate oral nutrition thus TPN may be appropriate as well. The dietitian and other disciplines should probably weigh in on this as well. LFTs are el
[2022-08-08 14:00] VITALS: BP 150/84; PULSE 84; RESP 12; TEMP 36.4; O2SAT 96
[2022-08-08] MEDS: ONDANSETRON INJ 4 MG/2 ML VIAL IV PUSH (16:38)
[2022-08-08] MEDS: polyethylene glycoL 3350 17 GM POWD.PACK PO (16:41)
[2022-08-08 20:51] VITALS: BP 113/75; PULSE 80; RESP 18; TEMP 36.5; O2SAT 93
[2022-08-08] MEDS: BUMETANIDE INJ 1 MG/4 ML VIAL 1.5 MG IV PUSH (20:55)
[2022-08-08] MEDS: SENNA/DOCUSATE SODIUM TABLET 1 TAB PO (20:56)
[2022-08-08] MEDS: CITALOPRAM HYDROBROMIDE 10 MG TABLET PO (20:56)
[2022-08-09] MEDS: ACETAMINOPHEN 325 MG TABLET 650 MG PO ×2 (01:46→20:19)
[2022-08-09] MEDS: CENTRAL LINE FLUSH 10 ML IV PUSH ×3 (05:26→13:03)
[2022-08-09] MEDS: LEVOTHYROXINE SODIUM 75 MCG TABLET PO (05:26)
[2022-08-09 05:36] VITALS: BP 108/61; PULSE 84; RESP 20; TEMP 36.6; O2SAT 92
[2022-08-09 05:44] LABS: Basophils Percent Auto 0.3 % (0.2-1.2); Eosinophils Percent Auto 0.5 % (0-4.4); Hematocrit 39.4 % (37.0-47.0); Hemoglobin 13.1 g/dL (12.0-15.0); Immature Granulocyte Absolute 0.03 K/mm3 (0.00-0.031); Immature Granulocyte Percent A 0.3 % (0-0.5); Lymphocytes Absolute Auto 1.33 K/mm3 (0.9-3.2); Lymphocytes Percent Auto 15.3 % (18.3-44.2); Mean Corpuscular HGB Conc 33.2 g/dl (32-36); Mean Corpuscular Hemoglobin 31.5 pg (26-34); Mean Corpuscular Volume 94.7 fl (80-100); Mean Platelet Volume 10.2 fl (7.4-10.4); Monocytes Absolute Auto 0.8 K/mm3 (0.1-0.6); Monocytes Percent Auto 9.6 % (2.6-8.5); Neutrophils Absolute Auto 6.4 K/mm3 (1.3-6.7); Platelet Count Result 363 k/mm3 (150-375); Red Blood Count 4.16 M/mm3 (4.2-5.4); Red Cell Distribution Width 14.8 % (11.5-14.5); White Blood Count 8.7 K/mm3 (4.5-10.0)
[2022-08-09 05:53] LABS: Prothrombin Time 12.3 Seconds (11.1-14.7)
[2022-08-09 05:54] LABS: Partial Thromboplastin Time 26.2 SECONDS (22.3-36.8)
[2022-08-09 06:02] LABS: Transferrin 161 mg/dL (206-381)
[2022-08-09 07:22] LABS: Alanine Aminotransferase 65 U/L (6-35); Albumin Level 1.6 g/dL (3.5-5.1); Alkaline Phosphatase 150 U/L (38-126); Anion Gap -1 mmol/L (8-16); Aspartate Amino Transferase 76 U/L (14-36); Bilirubin,Total 0.3 mg/dL (0.2-1.3); Blood Urea Nitrogen 68 mg/dL (7-17); Calcium 7.2 mg/dL (8.4-10.2); Carbon Dioxide 28 mmol/L (22-30); Chloride 94 mmol/L (98-107); Estimated CRCL calculation 24 ml/min; Estimated Glomerular Filt Rate 28; Glucose 109 mg/dL (65-110); Magnesium 2.6 mg/dL (1.6-2.3); Potassium 3.9 mmol/L (3.4-5.0); Sodium 121 mmol/L (137-145)
[2022-08-09] MEDS: MIDODRINE HCL 10 MG TABLET PO ×3 (09:17→17:34)
[2022-08-09] MEDS: METOCLOPRAMIDE HCL INJ 10 MG/2 ML VIAL IV PUSH ×3 (09:18→17:34)
[2022-08-09] MEDS: polyethylene glycoL 3350 17 GM POWD.PACK PO (09:18)
[2022-08-09] MEDS: HEPARIN SODIUM 5,000 UNITS/ML VIAL 5000 UNITS SUB-Q ×2 (09:18→20:16)
[2022-08-09] MEDS: ROSUVASTATIN 10 MG TABLET 40 MG PO (09:18)
[2022-08-09] MEDS: PANTOPRAZOLE 40 MG TABLET PO ×2 (09:18→20:17)
[2022-08-09] MEDS: ACYCLOVIR 400 MG TABLET PO ×2 (09:18→20:17)
[2022-08-09] MEDS: BISACODYL 10 MG SUPPOSITORY RECTAL (09:19)
[2022-08-09] MEDS: FAT EMULSIONS IV 20% 250 ML 20.83 ML IVPB (09:19)
[2022-08-09] MEDS: AMINO ACIDS 4.25%/D5W/LYTES/CA 2,000 ML 80 ML IV CONT (09:19)
--- NOTE | 2022-08-09 10:14 | PCPTNOTE ---
Attempted to see patient for PT, however patient refused and asked PT to come back later.
--- NOTE | 2022-08-09 11:06 | PM.PNNEP ---
Progress Note: A&P Assessment and Plan (1) RIP (acute kidney injury): Code(s): N17.9 - Acute kidney failure, unspecified Status: Acute Assessment and Plan: improvement noted suspect multifactorial etiology: ongoing diuretic therapy relative hypotension recent UTI use of Bactrim(?) prerenal factors if BP tolerates, will try IV diuretics to treat her edema could consider adding IV albumin but she is already getting significant input from TPN/parenteral nutrition follow trend of repeat labs and UOP (2) Stage 3b chronic kidney disease: Code(s): N18.32 - Chronic kidney disease, stage 3b Status: Chronic Assessment and Plan: kidney function/creatinine has fluctuated to extremes in the last few months seems to average out to 1.4 - 2.0mg/dl secondary to biopsy proven amyloidosis along with relative hypotension and chronic need for diuretic therapy to treat her swelling/edema (3) Hyponatremia: Code(s): E87.1 - Hypo-osmolality and hyponatremia Status: Chronic Assessment and Plan: worse today has been present before likely related to fluctuations in fluid status, IV medications/nutrition, and diminished oral intake suspect some worsening due to TPN/parenteral nutrition if possible, would limit free water in TPN/parenteral nutrition if possible other option is to add more sodium to TPN if possible may need to consider salt tabs along with resuming loop diuretic therapy she is not really taking anything po so no real point to fluid restriction at this time follow trend (4) Protein calorie malnutrition: Code(s): E46 - Unspecified protein-calorie malnutrition Status: Acute Assessment and Plan: nutrition has been deteriorating as already noted low albumin noted which is likely contributing to her swelling/edema issues this is further complicated by her inability to tolerate oral intake initiated on TPN (although this may not be a good extermination inspector solution (5) Recent urinary tract infection: Code(s): Z87.440 - Personal history of urinary (tract) infections Status: Acute Assessment and Plan: switched to IV antibiotics at this time continue supportive therapy Will continue to follow. Subjective Date/time seen: 08/09/22 11:06 Renal function appears to be doing better but still with issues related to swelling/edema, abdominal bloating, constipation, and generalized weakness and fatigue; reasonable urine output noted with PRN IV diuretics. Exam Narrative: General: chronically ill appearing female in NAD Heart: normal S1 and S2; no rub Lungs: clear to auscultation Abdomen: soft but protuberant with + bowel sounds. Extremities: no cyanosis or clubbing; 1+ edema Skin: no rash Objective Data Vital Signs Vital Signs: Vital Signs Temp Pulse Resp BP Pulse Ox O2 Del Method 08/09/22 05:36 97.9 F 84 20 108/61 92 08/08/22 20:00 Room Air 08/08/22 20:51 97.7 F 80 18 113/75 93 08/08/22 14:00 97.6 F 84 12 150/84 H 96 Intake/Output Intake/Output: Intake & Output 08/06/22 08/07/22 08/08/22 08/09/22 23:59 23:59 23:59 23:59 Intake Total 2250 2870 2100 Output Total 216 883 9838 1250 Balance -250 1325 1395 850 Meds/Results Medications: Active Medications Generic Name Dose Route Start Last Admin Trade Name Freq PRN Reason Stop Dose Admin Acetaminophen 650 mg 08/06/22 18:01 08/09/22 01:46 Acetaminophen 325 Mg Tablet PO 650 mg Q4H PRN Administration Mild Pain (1-3) or Fever Acyclovir 400 mg 08/06/22 21:00 08/09/22 09:18 Acyclovir 400 Mg Tablet PO 400 mg Q12HR DARRICK Administration Alprazolam 0.5 mg 08/07/22 18:49 Alprazolam (*Crx) 0.5 Mg Tablet PO TID PRN Anxiety Bisacodyl 10 mg 08/08/22 13:12 08/09/22 09:19 Bisacodyl 10 Mg Suppository RECTAL 10 mg QAM PRN Administration Constipation
--- NOTE | 2022-08-09 11:06 | P.PNNP_ITS ---
Progress Note: A&P Assessment and Plan (1) RIP (acute kidney injury): Code(s): N17.9 - Acute kidney failure, unspecified Status: Acute Assessment and Plan: * improvement noted * suspect multifactorial etiology: * ongoing diuretic therapy * relative hypotension * recent UTI * use of Bactrim(?) * prerenal factors * if BP tolerates, will try IV diuretics to treat her edema * could consider adding IV albumin but she is already getting significant input from TPN/parenteral nutrition * follow trend of repeat labs and UOP (2) Stage 3b chronic kidney disease: Code(s): N18.32 - Chronic kidney disease, stage 3b Status: Chronic Assessment and Plan: * kidney function/creatinine has fluctuated to extremes in the last few months * seems to average out to 1.4 - 2.0mg/dl * secondary to biopsy proven amyloidosis along with relative hypotension and chronic need for diuretic therapy to treat her swelling/edema (3) Hyponatremia: Code(s): E87.1 - Hypo-osmolality and hyponatremia Status: Chronic Assessment and Plan: * worse today * has been present before * likely related to fluctuations in fluid status, IV medications/nutrition, and diminished oral intake * suspect some worsening due to TPN/parenteral nutrition * if possible, would limit free water in TPN/parenteral nutrition if possible * other option is to add more sodium to TPN if possible * may need to consider salt tabs along with resuming loop diuretic therapy * she is not really taking anything po so no real point to fluid restriction at this time * follow trend (4) Protein calorie malnutrition: Code(s): E46 - Unspecified protein-calorie malnutrition Status: Acute Assessment and Plan: * nutrition has been deteriorating as already noted * low albumin noted which is likely contributing to her swelling/edema issues * this is further complicated by her inability to tolerate oral intake * initiated on TPN (although this may not be a good long distance operator solution (5) Recent urinary tract infection: Code(s): Z87.440 - Personal history of urinary (tract) infections Status: Acute Assessment and Plan: * switched to IV antibiotics at this time * continue supportive therapy Will continue to follow. Subjective Date/time seen: 08/09/22 11:06 Renal function appears to be doing better but still with issues related to swelling/edema, abdominal bloating, constipation, and generalized weakness and fatigue; reasonable urine output noted with PRN IV diuretics. Exam Narrative: General: chronically ill appearing female in NAD Heart: normal S1 and S2; no rub Lungs: clear to auscultation Abdomen: soft but protuberant with + bowel sounds. Extremities: no cyanosis or clubbing; 1+ edema Skin: no rash Objective Data Vital Signs Vital Signs: Vital Signs Temp Pulse Resp BP Pulse Ox O2 Del Method 08/09/22 05:36 97.9 F 84 20 108/61 92 08/08/22 20:00 Room Air 08/08/22 20:51 97.7 F 80 18 113/75 93 08/08/22 14:00 97.6 F 84 12 150/84 H 96 Intake/Output Intake/Output: Intake & Output 08/06/22 08/07/22 08/08/22 08/09/22 23:59 23:59 23:59 23:59 Intake Total 2250 2870 2100 Output Total 238 408 0364 1250
[2022-08-09 12:13] VITALS: BMI 24.2
[2022-08-09 14:00] VITALS: BP 127/69; PULSE 76; RESP 18; TEMP 36.5; O2SAT 95
--- NOTE | 2022-08-09 14:03 | PM.IMPN ---
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 Hamilton office for further treatment and evaluation of acute on chronic kidney injury. This is unfortunately been an ongoing henderson for this patient for the past couple of months and while she is typically in good spirits she understandably is a bit despondent given her frequent hospitalizations. Her catheter is patent and she seems to be making a normal amount of urine. She is likely intravascularly depleted due to poor oral intake though we need to be cautious with IV fluid rehydration given her concomitant edema which in part is due to her hypoalbuminemia. She was recently started on Bactrim as well which could be playing a role in her worsening renal function. For now we will hold the Bactrim and start renally dosed cefepime to complete treatment for her urinary tract infection. Bumetanide on hold for now. Dr. Preston has been consulted for his opinion. She may very well need a feeding tube as she is just not getting adequate nutrition though she seems to not tolerate oral nutrition thus TPN may be appropriate as well. The dietitian and other disciplines should probably weigh in on this as well. LFTs are elevated but essentially stable and no further workup is planned. Her home medications will be reviewed and resumed as appropriate. 08/09/2022 interval history: patient with AL amylodosis kindeys and RIP on CKD with worsening kidney function, on 08/06 patient had her 2nd chemotherpay and did not feel well patient was sent to ER for further evaluation, patient with hypotension and on midodrin, on her last admission patient was seen by automatic beading lathe operator and was diuresed with albumin, consulted automatic beading lathe operator for further recommendation, patient has poor appetite and oral intake with dysphagia started patient on PPN, patient feels overwhelmed with current situation, started patient on Citalopram, patient has not had a bowel movement in several days feels bloated with abdominal pain, patient is received colace, MiraLax, colic suppository as needed, today will give Reglan as needed, also communicated with her oncologist able to use port for TPN. patient is very weak and tired has pain with movement unable to participate in PT OT. Subjective Date/time seen: 08/09/22 14:03 The patient is being directly admitted to the medical/surgical floor from Dr. Hamilton office for further treatment and evaluation of acute on chronic kidney injury. This is unfortunately been an ongoing henderson for this patient for the past couple of months and while she is typically in good spirits she understandably is a bit despondent given her frequent hospitalizations. Her catheter is patent and she seems to be making a normal amount of urine. She is likely intravascularly depleted due to poor oral intake though we need to be cautious with IV fluid rehydration given her concomitant edema which in part is due to her hypoalbuminemia. She was recently started on Bactrim as well which could be playing a role in her worsening renal function. For now we will hold the Bactrim and start renally dosed cefepime to complete treatment for her urinary tract infection. Bumetanide on hold for now. Dr. Preston has been consulted for his opinion. She may very well need a feeding tube as she is j
[2022-08-09] MEDS: LACTULOSE 20 GM/30 ML UDC PO (17:33)
[2022-08-09] MEDS: AMINO ACIDS 5%/D15W/E-LYTES/CA 2,000 ML with MULTIVITAMINS-12 INJ VIAL 1 2.5 ML, MULTIV... 80 ML IV CONT (17:34)
[2022-08-09] MEDS: BUMETANIDE INJ 1 MG/4 ML VIAL 1.5 MG IV PUSH (17:57)
[2022-08-09] MEDS: SENNA/DOCUSATE SODIUM TABLET 1 TAB PO (20:17)
[2022-08-09 21:41] VITALS: BP 157/81; PULSE 78; RESP 18; TEMP 36.7; O2SAT 99
[2022-08-10] MEDS: CENTRAL LINE FLUSH 10 ML IV PUSH ×7 (00:57→20:17)
[2022-08-10] MEDS: METOCLOPRAMIDE HCL INJ 10 MG/2 ML VIAL IV PUSH ×4 (05:42→23:35)
[2022-08-10] MEDS: LEVOTHYROXINE SODIUM 75 MCG TABLET PO (05:42)
[2022-08-10 06:00] VITALS: BP 92/54; PULSE 83; RESP 18; TEMP 36.7; O2SAT 96
[2022-08-10 06:06] LABS: Hematocrit 38.1 % (37.0-47.0); Hemoglobin 12.9 g/dL (12.0-15.0); Mean Corpuscular HGB Conc 33.9 g/dl (32-36); Mean Corpuscular Hemoglobin 31.3 pg (26-34); Mean Corpuscular Volume 92.5 fl (80-100); Mean Platelet Volume 10.6 fl (7.4-10.4); Platelet Count Result 333 k/mm3 (150-375); Red Blood Count 4.12 M/mm3 (4.2-5.4); Red Cell Distribution Width 14.7 % (11.5-14.5); White Blood Count 7.7 K/mm3 (4.5-10.0)
[2022-08-10 06:17] VITALS: BP 92/54; PULSE 83; RESP 16; O2SAT 96
[2022-08-10 06:26] LABS: Alanine Aminotransferase 77 U/L (6-35); Albumin Level 1.9 g/dL (3.5-5.1); Alkaline Phosphatase 129 U/L (38-126); Anion Gap 1 mmol/L (8-16); Aspartate Amino Transferase 98 U/L (14-36); Bilirubin,Total 0.7 mg/dL (0.2-1.3); Blood Urea Nitrogen 70 mg/dL (7-17); Carbon Dioxide 26 mmol/L (22-30); Chloride 95 mmol/L (98-107); Estimated CRCL calculation 24 ml/min; Estimated Glomerular Filt Rate 28; Glucose 115 mg/dL (65-110); Magnesium 2.5 mg/dL (1.6-2.3); Phosphorus 5.5 mg/dL (2.5-4.5); Potassium 3.4 mmol/L (3.4-5.0); Sodium 122 mmol/L (137-145)
[2022-08-10 06:33] LABS: Triglycerides 296 mg/dL (<150)
[2022-08-10] MEDS: PANTOPRAZOLE 40 MG TABLET PO ×2 (09:03→20:16)
[2022-08-10] MEDS: ROSUVASTATIN 10 MG TABLET 40 MG PO (09:03)
[2022-08-10] MEDS: HEPARIN SODIUM 5,000 UNITS/ML VIAL 5000 UNITS SUB-Q ×2 (09:03→20:16)
[2022-08-10] MEDS: MIDODRINE HCL 10 MG TABLET PO ×3 (09:03→17:17)
[2022-08-10] MEDS: ACYCLOVIR 400 MG TABLET PO ×2 (09:04→20:16)
[2022-08-10] MEDS: FAT EMULSIONS IV 20% 250 ML 20.83 ML IVPB (09:04)
[2022-08-10] MEDS: POTASSIUM CHLORIDE 20 MEQ PACKET (FOR LIQUID) 40 MEQ PO (10:29)
--- NOTE | 2022-08-10 10:39 | P.PNNP_ITS ---
Progress Note: A&P Assessment and Plan (1) RIP (acute kidney injury): Code(s): N17.9 - Acute kidney failure, unspecified Status: Acute Assessment and Plan: * improvement noted * suspect multifactorial etiology: * ongoing diuretic therapy * relative hypotension * recent UTI * use of Bactrim(?) * prerenal factors * if BP tolerates, will try IV diuretics to treat her edema * could consider adding IV albumin but she is already getting significant input from TPN/parenteral nutrition * follow trend of repeat labs and UOP (2) Stage 3b chronic kidney disease: Code(s): N18.32 - Chronic kidney disease, stage 3b Status: Chronic Assessment and Plan: * kidney function/creatinine has fluctuated to extremes in the last few months * seems to average out to 1.4 - 2.0mg/dl * secondary to biopsy proven amyloidosis along with relative hypotension and chronic need for diuretic therapy to treat her swelling/edema (3) Hyponatremia: Code(s): E87.1 - Hypo-osmolality and hyponatremia Status: Chronic Assessment and Plan: * as noted * has been present before * likely related to fluctuations in fluid status, IV medications/nutrition, and diminished oral intake * suspect some worsening due to TPN/parenteral nutrition * if possible, would limit free water in TPN/parenteral nutrition * other option is to add more sodium to TPN if possible * may need to consider salt tabs along with resuming loop diuretic therapy * she is not really taking anything po so no real point to fluid restriction at this time * PRN diuresis may help to some degree * follow trend (4) Protein calorie malnutrition: Code(s): E46 - Unspecified protein-calorie malnutrition Status: Acute Assessment and Plan: * nutrition has been deteriorating as already noted * low albumin noted which is likely contributing to her swelling/edema issues * this is further complicated by her inability to tolerate oral intake * initiated on TPN (although this may not be a good termite exterminator solution) * does she need a feeding tube? (5) Recent urinary tract infection: Code(s): Z87.440 - Personal history of urinary (tract) infections Status: Acute Assessment and Plan: * switched to IV antibiotics at this time * continue supportive therapy Will continue to follow. Subjective Date/time seen: 08/10/22 10:39 Tolerating TPN/parenteral nutrition at this time; still feels quite weak and fatigued -- due to this, it is difficult for her to participate in therapy; having bowel movement now with current therapy; tolerating intermittent IV bumex therapy as well. Exam Narrative: General: chronically ill appearing female in NAD Heart: normal S1 and S2; no rub Lungs: clear to auscultation Abdomen: soft but protuberant with + bowel sounds. Extremities: no cyanosis or clubbing; 1+ edema Skin: warm and dry Objective Data Vital Signs Vital Signs: Vital Signs Temp Pulse Resp BP Pulse Ox O2 Del Method 08/10/22 06:00 98.0 F 83 18 92/54 L 96 08/10/22 06:17 83 16 92/54 L 96 Room Air 08/09/22 21:41 98.0 F 78 18 157/81 H 99 08/09/22 20:00 Room Air 08/09/22 14:00 97.7 F 76 18 127/69 95 Intake/Output Intake/Output: Intake & Output
--- NOTE | 2022-08-10 10:39 | PM.PNNEP ---
Progress Note: A&P Assessment and Plan (1) RIP (acute kidney injury): Code(s): N17.9 - Acute kidney failure, unspecified Status: Acute Assessment and Plan: improvement noted suspect multifactorial etiology: ongoing diuretic therapy relative hypotension recent UTI use of Bactrim(?) prerenal factors if BP tolerates, will try IV diuretics to treat her edema could consider adding IV albumin but she is already getting significant input from TPN/parenteral nutrition follow trend of repeat labs and UOP (2) Stage 3b chronic kidney disease: Code(s): N18.32 - Chronic kidney disease, stage 3b Status: Chronic Assessment and Plan: kidney function/creatinine has fluctuated to extremes in the last few months seems to average out to 1.4 - 2.0mg/dl secondary to biopsy proven amyloidosis along with relative hypotension and chronic need for diuretic therapy to treat her swelling/edema (3) Hyponatremia: Code(s): E87.1 - Hypo-osmolality and hyponatremia Status: Chronic Assessment and Plan: as noted has been present before likely related to fluctuations in fluid status, IV medications/nutrition, and diminished oral intake suspect some worsening due to TPN/parenteral nutrition if possible, would limit free water in TPN/parenteral nutrition other option is to add more sodium to TPN if possible may need to consider salt tabs along with resuming loop diuretic therapy she is not really taking anything po so no real point to fluid restriction at this time PRN diuresis may help to some degree follow trend (4) Protein calorie malnutrition: Code(s): E46 - Unspecified protein-calorie malnutrition Status: Acute Assessment and Plan: nutrition has been deteriorating as already noted low albumin noted which is likely contributing to her swelling/edema issues this is further complicated by her inability to tolerate oral intake initiated on TPN (although this may not be a good foreign policy officer solution) does she need a feeding tube? (5) Recent urinary tract infection: Code(s): Z87.440 - Personal history of urinary (tract) infections Status: Acute Assessment and Plan: switched to IV antibiotics at this time continue supportive therapy Will continue to follow. Subjective Date/time seen: 08/10/22 10:39 Tolerating TPN/parenteral nutrition at this time; still feels quite weak and fatigued -- due to this, it is difficult for her to participate in therapy; having bowel movement now with current therapy; tolerating intermittent IV bumex therapy as well. Exam Narrative: General: chronically ill appearing female in NAD Heart: normal S1 and S2; no rub Lungs: clear to auscultation Abdomen: soft but protuberant with + bowel sounds. Extremities: no cyanosis or clubbing; 1+ edema Skin: warm and dry Objective Data Vital Signs Vital Signs: Vital Signs Temp Pulse Resp BP Pulse Ox O2 Del Method 08/10/22 06:00 98.0 F 83 18 92/54 L 96 08/10/22 06:17 83 16 92/54 L 96 Room Air 08/09/22 21:41 98.0 F 78 18 157/81 H 99 08/09/22 20:00 Room Air 08/09/22 14:00 97.7 F 76 18 127/69 95 Intake/Output Intake/Output: Intake & Output 08/07/22 08/08/22 08/09/22 08/10/22 23:59 23:59 23:59 23:59 Intake Total 2250 2920 2350 Output Total 925 1475 2800 600 Balance 1325 1445 -450 -600 Meds/Results Medications: Active Medications Generic Name Dose Route Start Last Admin Trade Name Freq PRN Reason Stop Dose Admin Acetaminophen 650 mg 08/06/22 18:01 08/09/22 20:19 Acetaminophen 325 Mg Tablet PO 650 mg Q4H PRN Administration Mild Pain (1-3) or Fever Acyclovir 400 mg 08/06/22 21:00 08/10/22 09:04 Acyclovir 400 Mg Tablet PO 400 mg Q12HR DARRICK Administration Alprazolam 0.5 mg 08/07/22 18:49 Alprazolam (*Crx) 0.5 Mg Tablet PO TID PRN Anx
--- NOTE | 2022-08-10 11:03 | PCNFU ---
Nutrition Follow-Up Complete: Severe protein calorie malnutrition related to chronic illness as evidenced by poor intake <75% needs >1 month; muscle wasting and fat loss. Goal: Tolerate TPN at goal rate patient is progressing towards goal. Pt current nutrition is TPN at 40 ml/hr. Recommend goal rate at 60 ml/hr. Last recorded weight is 70.2 kg. Bowel Motility: Last BM reported 08/09 Labs Reviewed:Alb 1.9, BUN 70, Cr 1.8,TG 296 Meds Noted:Clinimix E 5/15 at 40ml/hr, 250 ml of 20% Lipid Emulsion q 48 hrs, Skin: edema noted Additional Notes: Patient is current with a regular diet and Ensure compact BID. Patient is refusing foods. TPN via port is providing an additional 682 kcals, Lipids q 48 hours providing 500 kcals. Recommend increasing TPN to 50ml/hr tomorrow 08/11. Monitor parenteral nutrition tolerance; labs; weights, stool pattern, plan of care Follow up every Tuesday and Tuesday.
--- NOTE | 2022-08-10 12:35 | WPDGICN ---
Assessment and Plan Assessment and plan (1) Cgtaf-bw-omautuc kidney injury: Code(s): N17.9 - Acute kidney failure, unspecified; N18.9 - Chronic kidney disease, unspecified Status: Acute (2) Recent urinary tract infection: Code(s): Z87.440 - Personal history of urinary (tract) infections Status: Acute (3) Gas bloat syndrome: Code(s): K92.89 - Other specified diseases of the digestive system Status: Acute Assessment and Plan: Patient with abdominal bloating. Appears to have poor overall motility given her tendency towards constipation. Now with the diagnosis of amyloidosis. I suspect that this involves the GI tract with poor motility is the consequence. Plan is to give patient a trial of Reglan. I agree with total parental nutrition as she has not been able to eat is showing signs of malnutrition at this point. Recommend following her abdominal exam with serial obstructive series. At some point in EGD may be beneficial to exclude any other organic disease of the upper GI tract. PEG tube likely would not be beneficial given her bloating and poor motility which would not be corrected with PEG tube (4) Dysgeusia: Code(s): R43.2 - Parageusia Status: Acute Assessment and Plan: Patient with poor taste. She states that food tastes bad. This appears to correlate with her amyloidosis. 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 Currently followed by Dr. Hamilton, Oncology. Anticipate continued follow-up with his service. GI Consult Note Consult date/time: 08/10/22 12:35 Reason for consult: Abdominal bloating, amyloidosis HPI: Rosalba Turcios is a 72 year old female I am asked to see because of abdominal bloating. Patient reports that 1 year ago she began to lose her taste. And began to lose weight. She was initially seen in the office with these complaints in November of 2021. Since that time she has continued to lose weight. Ultimately developed renal insufficiency. In a renal biopsy identified amyloidosis. Her symptoms have progressed with progressive weight loss. She now complains of constant abdominal bloating, constipation and a numb like sensation in the upper abdomen. She tries to eat but feels full and cannot eat. Often will regurgitate Ensure or similar material hours after eating. She has become somewhat constipated. No improvement with normal laxative routine. Patient currently followed by Dr. Hamilton, Oncology for treatment of her amyloidosis. She received her 2nd chemotherapy injection and was subsequently admitted to the hospital with acute renal insufficiency. Patient has been having difficulty with maintaining her blood pressure. Her ankles become somewhat edematous. Patient denies any bleeding. Her family history is noncontributory. She has not been given any specific precipitating factors for this condition. patient now admitted the hospital with worsening of her renal insufficiency and urinary tract infection. Review of Systems Review of Systems: All systems reviewed & are unremarkable except as noted in HPI and below PMFSH Past Medical History Medical History (Updated 08/07/22 @ 15:09 by Ariana Preston MD) AL amyloidosis Arthritis Cancer of left breast (2006) Status post left mastectomy. Chronic renal failure, stage 3b Dyslipidemia Hypertension Small bowel obstruction (2007) Transient ischemic attack Surgical History Surgical History H/O arthroscopy of right knee H/O left mastectomy (2006) with implant History of abdominal surgery (2007) Lysis of adhesions (laparoscopic) History of bowel resection (2006) For infarction History of cholecystectomy History of hernia repair (2008) Right femoral
[2022-08-10 14:00] VITALS: BP 137/81; PULSE 75; RESP 16; TEMP 36.4; O2SAT 95
--- NOTE | 2022-08-10 15:36 | PM.IMPN ---
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 Hamilton office for further treatment and evaluation of acute on chronic kidney injury. This is unfortunately been an ongoing henderson for this patient for the past couple of months and while she is typically in good spirits she understandably is a bit despondent given her frequent hospitalizations. Her catheter is patent and she seems to be making a normal amount of urine. She is likely intravascularly depleted due to poor oral intake though we need to be cautious with IV fluid rehydration given her concomitant edema which in part is due to her hypoalbuminemia. She was recently started on Bactrim as well which could be playing a role in her worsening renal function. For now we will hold the Bactrim and start renally dosed cefepime to complete treatment for her urinary tract infection. Bumetanide on hold for now. Dr. Preston has been consulted for his opinion. She may very well need a feeding tube as she is just not getting adequate nutrition though she seems to not tolerate oral nutrition thus TPN may be appropriate as well. The dietitian and other disciplines should probably weigh in on this as well. LFTs are elevated but essentially stable and no further workup is planned. Her home medications will be reviewed and resumed as appropriate. 08/10/2022 interval history: patient with AL amylodosis kindeys and RIP on CKD with worsening kidney function, on 08/06 patient had her 2nd chemotherpay and did not feel well patient was sent to ER for further evaluation, patient with hypotension and on midodrin, on her last admission patient was seen by external relations director and was diuresed with albumin, consulted external relations director for further recommendation, patient has poor appetite and oral intake with dysphagia started patient on PPN, patient feels overwhelmed with current situation, started patient on Citalopram, patient has not had a bowel movement in several days felt bloated with abdominal pain, patient is received colace, MiraLax, dulcolax suppository as needed no relief, on 08/09 gave Reglan and enema and today patient had 6 BM, still feels her stomach is full and painful, will consult GI for further recommendation, also communicated with her oncologist able to use port for TPN. patient is very weak and tired has pain with movement unable to participate in PT OT. Subjective Date/time seen: 08/10/22 15:36 08/10/2022 interval history: patient with AL amylodosis kindeys and RIP on CKD with worsening kidney function, on 08/06 patient had her 2nd chemotherpay and did not feel well patient was sent to ER for further evaluation, patient with hypotension and on midodrin, on her last admission patient was seen by external relations director and was diuresed with albumin, consulted external relations director for further recommendation, patient has poor appetite and oral intake with dysphagia started patient on PPN, patient feels overwhelmed with current situation, started patient on Citalopram, patient has not had a bowel movement in several days felt bloated with abdominal pain, patient is received colace, MiraLax, dulcolax suppository as needed no relief, on 08/09 gave Reglan and enema and today patient had 6 BM, still feels her stomach is full and painful, will consult GI for further recommen
[2022-08-10] MEDS: AMINO ACIDS 5%/D15W/E-LYTES/CA 2,000 ML with MULTIVITAMINS-12 INJ VIAL 1 2.5 ML, MULTIV... 40 ML IV CONT (17:17)
[2022-08-10] MEDS: BUMETANIDE INJ 1 MG/4 ML VIAL 2 MG IV PUSH (18:18)
[2022-08-10] MEDS: ACETAMINOPHEN 325 MG TABLET 650 MG PO (20:16)
[2022-08-10 20:47] LABS: Glucose Point of Care 133 mg/dl (65-105)
[2022-08-10 21:50] VITALS: BP 102/59; PULSE 81; RESP 16; TEMP 36.8; O2SAT 97
[2022-08-11] VITALS (8 sets, daily range): BP systolic 85–111; BP diastolic 48–62; PULSE 71–80; RESP 16–22; TEMP 36.1–36.8; O2SAT 92–97
[2022-08-11] MEDS: CENTRAL LINE FLUSH 10 ML IV PUSH ×4 (05:38→20:37)
[2022-08-11] MEDS: METOCLOPRAMIDE HCL INJ 10 MG/2 ML VIAL IV PUSH ×3 (05:38→17:04)
[2022-08-11] MEDS: LEVOTHYROXINE SODIUM 75 MCG TABLET PO (05:38)
[2022-08-11 05:44] LABS: Hematocrit 37.7 % (37.0-47.0); Mean Corpuscular HGB Conc 34.5 g/dl (32-36); Mean Corpuscular Hemoglobin 32.1 pg (26-34); Mean Corpuscular Volume 93.1 fl (80-100); Mean Platelet Volume 10.7 fl (7.4-10.4); Platelet Count Result 313 k/mm3 (150-375); Red Blood Count 4.05 M/mm3 (4.2-5.4); White Blood Count 7.9 K/mm3 (4.5-10.0)
[2022-08-11 05:54] LABS: Alanine Aminotransferase 68 U/L (6-35); Albumin Level 1.6 g/dL (3.5-5.1); Alkaline Phosphatase 138 U/L (38-126); Anion Gap -1 mmol/L (8-16); Aspartate Amino Transferase 76 U/L (14-36); Bilirubin,Total 0.3 mg/dL (0.2-1.3); Blood Urea Nitrogen 63 mg/dL (7-17); Calcium 7.1 mg/dL (8.4-10.2); Carbon Dioxide 27 mmol/L (22-30); Chloride 97 mmol/L (98-107); Estimated CRCL calculation 23 ml/min; Estimated Glomerular Filt Rate 26; Glucose 109 mg/dL (65-110); Magnesium 2.2 mg/dL (1.6-2.3); Phosphorus 5.2 mg/dL (2.5-4.5); Potassium 2.9 mmol/L (3.4-5.0); Sodium 123 mmol/L (137-145)
--- NOTE | 2022-08-11 07:39 | WPDGIPROGNO ---
Progress Note: A&P Assessment and Plan (1) Gas bloat syndrome: Code(s): K92.89 - Other specified diseases of the digestive system Status: Acute Assessment and Plan: Patient with continued epigastric pain she describes as bloating. Plan for EGD today to assess more thoroughly. I suspect this is from poor intestinal motility on the basis of amyloidosis. (2) Protein calorie malnutrition: Code(s): E46 - Unspecified protein-calorie malnutrition Status: Acute Assessment and Plan: Patient losing weight with apparent malnutrition. Agree with TPN for nutrition at this point. I suspect this will be required long-term. Likely will need home TPN when discharge. 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 Hamilton. She has just begun chemotherapy. Hopefully this can continue but currently complicated by renal insufficiency. (4) Acute on chronic renal failure: Code(s): N17.9 - Acute kidney failure, unspecified; N18.9 - Chronic kidney disease, unspecified Status: Acute Subjective Date/time seen: 08/11/22 07:39 Interval history: Patient continues to complain of epigastric bloating particularly after eating. She had good response to laxatives yesterday with good bowel movements. Continues to feel bloated this morning. Now on TPN for nutrition. Review of Systems Review of Systems: Review of systems noncontributory. Exam Narrative: Physical exam reveals patient be alert. She is afebrile and anicteric. HEENT exam unremarkable. In general she is thin lungs are clear to auscultation. Heart without murmur. Abdomen is modestly bloated. Count of dose he texture. Extremities with 2+ edema to the knees. Objective Data Vital Signs Vital Signs: Vital Signs - 24 hr 08/10/22 09:00 08/10/22 14:00 08/10/22 21:50 Temperature 97.5 F L 98.2 F Pulse Rate 75 81 Respiratory Rate 16 16 Blood Pressure 137/81 102/59 L Pulse Oximetry 95 97 Oxygen Delivery Room Air 08/10/22 20:00 08/11/22 06:00 Temperature 98.2 F Pulse Rate 80 Respiratory Rate 18 Blood Pressure 100/61 Pulse Oximetry 97 Oxygen Delivery Room Air Intake/Output Intake/Output: Intake & Output 08/08/22 08/09/22 08/10/22 08/11/22 23:59 23:59 23:59 23:59 Intake Total 2920 2400 2004 Output Total 1475 2800 1700 1500 Balance 1445 -400 305 -1500 Meds/Results Medications: Active Medications Generic Name Dose Route Start Last Admin Trade Name Freq PRN Reason Stop Dose Admin Acetaminophen 650 mg 08/06/22 18:01 08/10/22 20:16 Acetaminophen 325 Mg Tablet PO 650 mg Q4H PRN Administration Mild Pain (1-3) or Fever Acyclovir 400 mg 08/06/22 21:00 08/10/22 20:16 Acyclovir 400 Mg Tablet PO 400 mg Q12HR DARRICK Administration Alprazolam 0.5 mg 08/07/22 18:49 Alprazolam (*Crx) 0.5 Mg Tablet PO TID PRN Anxiety Bisacodyl 10 mg 08/08/22 13:12 08/09/22 09:19 Bisacodyl 10 Mg Suppository RECTAL 10 mg QAM PRN Administration Constipation Heparin Sodium (Beef Lung) 50 units 08/07/22 09:00 08/10/22 09:04 Heparin Flush 50 Units/5 Ml Syringe IV PUSH Not Given QAM DARRICK Heparin Sodium (Beef Lung) 50 units 08/06/22 20:25 Heparin Flush 50 Units/5 Ml Syringe IV PUSH PRN PRN after blood draws Heparin Sodium (Beef Lung) 50 units 08/07/22 09:00 08/10/22 08:59 Heparin Flush 50 Units/5 Ml Syringe IV PUSH Not Given QAM DARRICK Heparin Sodium (Beef Lung) 50 units 08/07/22 00:23 Heparin Flush 50 Units/5 Ml Syringe IV PUSH PRN PRN after intermittent infusion Heparin Sodium (Beef Lung) 50 units 08/07/22 00:23 Heparin Flush 50 Units/5 Ml Syringe IV PUSH PRN PRN after blood draws Heparin Sodium (Porcine) 500 units 08/06/22 20:25 Heparin Sodium Lock Flush 500 Units/5 Ml Syringe IV PUSH
--- NOTE | 2022-08-11 08:43 | PM.IMPN ---
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 Hamilton office for further treatment and evaluation of acute on chronic kidney injury. This is unfortunately been an ongoing henderson for this patient for the past couple of months and while she is typically in good spirits she understandably is a bit despondent given her frequent hospitalizations. Her catheter is patent and she seems to be making a normal amount of urine. She is likely intravascularly depleted due to poor oral intake though we need to be cautious with IV fluid rehydration given her concomitant edema which in part is due to her hypoalbuminemia. She was recently started on Bactrim as well which could be playing a role in her worsening renal function. For now we will hold the Bactrim and start renally dosed cefepime to complete treatment for her urinary tract infection. Bumetanide on hold for now. Dr. Preston has been consulted for his opinion. She may very well need a feeding tube as she is just not getting adequate nutrition though she seems to not tolerate oral nutrition thus TPN may be appropriate as well. The dietitian and other disciplines should probably weigh in on this as well. LFTs are elevated but essentially stable and no further workup is planned. Her home medications will be reviewed and resumed as appropriate. 08/11/2022 interval history: patient with AL amylodosis kindeys and RIP on CKD with worsening kidney function, on 08/06 patient had her 2nd chemotherpay and did not feel well patient was sent to ER for further evaluation, patient with hypotension and on midodrin, on her last admission patient was seen by silk screen printer and was diuresed with albumin, consulted silk screen printer for further recommendation, patient has poor appetite and oral intake with dysphagia started patient on PPN, patient feels overwhelmed with current situation, started patient on Citalopram, patient has not had a bowel movement in several days felt bloated with abdominal pain, patient is received colace, MiraLax, dulcolax suppository as needed no relief, on 08/09 gave Reglan and enema and today patient had 6 BM, still feels her stomach is full and painful, seen by GI and scheduled to have EGD today, also communicated with her oncologist able to use port for TPN. will consult oncologist, patient is very weak and tired has pain with movement unable to participate in PT OT. Subjective Date/time seen: 08/11/22 08:43 The patient is being directly admitted to the medical/surgical floor from Dr. Hamilton office for further treatment and evaluation of acute on chronic kidney injury. This is unfortunately been an ongoing henderson for this patient for the past couple of months and while she is typically in good spirits she understandably is a bit despondent given her frequent hospitalizations. Her catheter is patent and she seems to be making a normal amount of urine. She is likely intravascularly depleted due to poor oral intake though we need to be cautious with IV fluid rehydration given her concomitant edema which in part is due to her hypoalbuminemia. She was recently started on Bactrim as well which could be playing a role in her worsening renal function. For now we will hold the Bactrim and start renally dosed cefepime to complete treatment for her
[2022-08-11] MEDS: MIDODRINE HCL 10 MG TABLET PO ×2 (09:01→17:03)
[2022-08-11] MEDS: FAT EMULSIONS IV 20% 250 ML 20.83 ML IVPB (09:01)
[2022-08-11] MEDS: HEPARIN SODIUM 5,000 UNITS/ML VIAL 5000 UNITS SUB-Q ×2 (09:02→20:18)
[2022-08-11] MEDS: PANTOPRAZOLE 40 MG TABLET PO ×2 (09:02→20:18)
[2022-08-11] MEDS: ACYCLOVIR 400 MG TABLET PO ×2 (09:02→20:18)
[2022-08-11] MEDS: ROSUVASTATIN 10 MG TABLET 40 MG PO (09:02)
[2022-08-11] MEDS: POTASSIUM CHLORIDE INJ 40 MEQ in SODIUM CHLORIDE 0.9% IV 500 ML 130 MEQ IVPB (10:29)
[2022-08-11] MEDS: LACTATED RINGERS 1,000 ML 150 ML IV CONT (11:59)
--- NOTE | 2022-08-11 12:22 | WPDANESEPPF ---
Anes - Initial Pre Proc Eval Procedure: Operation Date: 08/11/22 13:00 Proposed Procedures p Esophagogastroduodenoscopy - Edwar Barnhart MD Date/Time: 08/11/22 12:22 Surgeon: Erick Bain MD Pre Op Diagnosis: RIP, Dehydration Patient Data Age: 72 Gender: F Height: 1.7 m Weight: 70.2 kg Last Vital Signs Temp 96.9 F L 08/11/22 11:55 Pulse 77 08/11/22 11:55 Resp 18 08/11/22 11:55 BP 111/61 08/11/22 11:55 Pulse Ox 94 08/11/22 11:55 O2 Del Method Room Air 08/11/22 11:55 Allergies Allergy/AdvReac Type Severity Reaction Status Date / Time gabapentin Allergy Swelling Verified 08/02/22 13:12 nitrofurantoin AdvReac Mild Nausea Verified 08/02/22 13:12 codeine AdvReac Unknown Diarrhea Verified 08/02/22 13:12 Home Medications Medication Instructions Recorded Confirmed Type levothyroxine 75 mcg tablet 75 mcg PO DAILY #90 tabs 05/17/22 08/06/22 Rx midodrine 10 mg tablet 10 mg PO TID 30 days #90 tabs 07/18/22 08/06/22 Rx ondansetron 4 mg disintegrating 4 mg PO Q8H PRN nausea and 07/18/22 08/06/22 Rx tablet vomiting #90 tabs sennosides 8.6 mg-docusate sodium 1 tab-cap PO HS 30 days #30 tabs 07/18/22 08/06/22 Rx 50 mg tablet (Senokot-S) rosuvastatin 40 mg tablet 40 mg PO DAILY 07/22/22 08/06/22 History acyclovir 200 mg capsule 400 mg PO BID 08/02/22 08/06/22 History bumetanide 1 mg tablet 1 mg PO BID 08/02/22 08/06/22 History dexamethasone 4 mg tablet 4 mg PO DAILY 08/02/22 08/06/22 History metoclopramide HCl 10 mg tablet 10 mg PO DAILY PRN nausea and 08/02/22 08/06/22 Rx vomiting #14 tabs omeprazole 40 mg capsule,delayed 40 mg PO DAILY 08/02/22 08/06/22 History release sulfamethoxazole 800 1 tablet PO BID #14 tabs 08/02/22 08/06/22 Rx mg-trimethoprim 160 mg tablet (Bactrim DS) Laboratory Tests 08/10/22 08/11/22 08/11/22 20:38 05:36 05:36 WBC 7.9 K/mm3 K/mm3 (4.5-10.0) RBC 4.05 M/mm3 L M/mm3 (4.2-5.4) Hgb 13.0 g/dL g/dL (12.0-15.0) Hct 37.7 % % (37.0-47.0) MCV 93.1 fl fl (80-100) MCH 32.1 pg pg (26-34) MCHC 34.5 g/dl g/dl (32-36) RDW 15.0 % H % (11.5-14.5) Plt Count 313 k/mm3 k/mm3 (150-375) MPV 10.7 fl H fl (7.4-10.4) Sodium 123 mmol/L L mmol/L (137-145) Potassium 2.9 mmol/L L mmol/L (3.4-5.0) Chloride 97 mmol/L L mmol/L (98-107) Carbon Dioxide 27 mmol/L mmol/L (22-30) Anion Gap -1 mmol/L L mmol/L (8-16) BUN 63 mg/dL H mg/dL (7-17) Creatinine 1.90 mg/dL H mg/dL (0.7-1.0) Estim Creat Clear Calc 23 ml/min ml/min Estimated GFR 26 L (59 - ) Glucose 109 mg/dL mg/dL (65-110) POC Capillary Glucose 133 mg/dl H mg/dl (65-105) Calcium 7.1 mg/dL L mg/dL (8.4-10.2) Phosphorus 5.2 mg/dL H mg/dL (2.5-4.5) Magnesium 2.2 mg/dL mg/dL (1.6-2.3) Total Bilirubin 0.3 mg/dL mg/dL (0.2-1.3) AST 76 U/L H U/L (14-36) ALT 68 U/L H U/L (6-35) Alkaline Phosphatase 138 U/L H U/L (38-126) Total Protein 4.0 g/dL L g/dL (6.3-8.2) Albumin 1.6 g/dL L g/dL (3.5-5.1) Patient hx anesthesia problems: none Family hx anesthesia problems: none Results Review: All pre-operative results and documents have been reviewed as part of the pre-operative evaluation. [facility] Past Medical History Medical History (Updated 08/07/22 @ 15:09 by Ariana Preston MD) AL amyloidosis Arthritis Cancer of left breast (2006) Status post left mastectomy. Chronic renal failure, stage 3b Dyslipidemia Hypertension Small bowel obstruction (2007) Transient ischemic attack Surgical History Surgical History H/O arthroscopy of right knee H/O left mastectomy (2006) with implant History of abdomin
--- NOTE | 2022-08-11 12:52 | SUR.PHASEII ---
Jacey Baltazar called report to floor nurse, Elle, on 08/11/22 as 12:50
--- NOTE | 2022-08-11 13:09 | SUR.PHASEII ---
Per andrew Krishnan to transfer patient to inpatient room with soft pressure.
--- NOTE | 2022-08-11 13:14 | PM.PNNEP ---
Progress Note: A&P Assessment and Plan (1) RIP (acute kidney injury): Code(s): N17.9 - Acute kidney failure, unspecified Status: Acute Assessment and Plan: improvement noted suspect multifactorial etiology: ongoing diuretic therapy relative hypotension recent UTI use of Bactrim(?) prerenal factors if BP tolerates, will try IV diuretics to treat her edema could consider adding IV albumin but she is already getting significant input from TPN/parenteral nutrition follow trend of repeat labs and UOP (2) Stage 3b chronic kidney disease: Code(s): N18.32 - Chronic kidney disease, stage 3b Status: Chronic Assessment and Plan: kidney function/creatinine has fluctuated to extremes in the last few months seems to average out to 1.4 - 2.0mg/dl secondary to biopsy proven amyloidosis along with relative hypotension and chronic need for diuretic therapy to treat her swelling/edema (3) Hyponatremia: Code(s): E87.1 - Hypo-osmolality and hyponatremia Status: Chronic Assessment and Plan: as noted has been present before likely related to fluctuations in fluid status, IV medications/nutrition, and diminished oral intake suspect some worsening due to TPN/parenteral nutrition if possible, would limit free water in TPN/parenteral nutrition other option is to add more sodium to TPN if possible may need to consider salt tabs along with resuming loop diuretic therapy she is not really taking anything po so no real point to fluid restriction at this time PRN diuresis may help to some degree follow trend (4) Protein calorie malnutrition: Code(s): E46 - Unspecified protein-calorie malnutrition Status: Acute Assessment and Plan: nutrition has been deteriorating as already noted low albumin noted which is likely contributing to her swelling/edema issues this is further complicated by her inability to tolerate oral intake initiated on TPN (although this may not be a good paint brush maker solution) does she need a feeding tube? (5) Recent urinary tract infection: Code(s): Z87.440 - Personal history of urinary (tract) infections Status: Acute Assessment and Plan: switched to IV antibiotics at this time continue supportive therapy Will continue to follow. Subjective Date/time seen: 08/11/22 13:14 Seen by GI yesterday and s/p EGD earlier today with results noted; low K+ this AM which was repleted; doboff tube placement in an attempt to start enteral feeding; reasonable bowel movement noted with current regimen; renal function relatively stable. Exam Narrative: General: chronically ill appearing female in NAD Heart: normal S1 and S2; no rub Lungs: clear to auscultation Abdomen: soft but protuberant with + bowel sounds. Extremities: no cyanosis or clubbing; 1+ edema Skin: warm and intact Objective Data Vital Signs Vital Signs: Vital Signs Temp Pulse Resp BP Pulse Ox O2 Del Method 08/11/22 13:05 78 22 H 85/48 L 92 Room Air 08/11/22 13:01 75 19 106/62 93 Room Air 08/11/22 12:51 78 19 87/52 L 92 Room Air 08/11/22 11:55 96.9 F L 77 18 111/61 94 Room Air 08/11/22 09:00 Room Air 08/11/22 06:00 98.2 F 80 18 100/61 97 08/10/22 20:00 Room Air 08/10/22 21:50 98.2 F 81 16 102/59 L 97 Intake/Output Intake/Output: Intake & Output 08/08/22 08/09/22 08/10/22 08/11/22 23:59 23:59 23:59 23:59 Intake Total 2920 2400 2005 0 Output Total 1475 2800 1700 1500 Balance 1445 -400 305 -1500 Meds/Results Medications: Active Medications Generic Name Dose Route Start Last Admin Trade Name Freq PRN Reason Stop Dose Admin Acetaminophen 650 mg 08/06/22 18:01 08/10/22 20:16 Acetaminophen 325 Mg Tablet PO 650 mg Q4H PRN Administration Mild Pain (1-3) or Fever Acyclovir 400 mg 08/06/22 21:00 08/11/22 09:02 Acyclovir 400
--- NOTE | 2022-08-11 13:14 | P.PNNP_ITS ---
Progress Note: A&P Assessment and Plan (1) RIP (acute kidney injury): Code(s): N17.9 - Acute kidney failure, unspecified Status: Acute Assessment and Plan: * improvement noted * suspect multifactorial etiology: * ongoing diuretic therapy * relative hypotension * recent UTI * use of Bactrim(?) * prerenal factors * if BP tolerates, will try IV diuretics to treat her edema * could consider adding IV albumin but she is already getting significant input from TPN/parenteral nutrition * follow trend of repeat labs and UOP (2) Stage 3b chronic kidney disease: Code(s): N18.32 - Chronic kidney disease, stage 3b Status: Chronic Assessment and Plan: * kidney function/creatinine has fluctuated to extremes in the last few months * seems to average out to 1.4 - 2.0mg/dl * secondary to biopsy proven amyloidosis along with relative hypotension and chronic need for diuretic therapy to treat her swelling/edema (3) Hyponatremia: Code(s): E87.1 - Hypo-osmolality and hyponatremia Status: Chronic Assessment and Plan: * as noted * has been present before * likely related to fluctuations in fluid status, IV medications/nutrition, and diminished oral intake * suspect some worsening due to TPN/parenteral nutrition * if possible, would limit free water in TPN/parenteral nutrition * other option is to add more sodium to TPN if possible * may need to consider salt tabs along with resuming loop diuretic therapy * she is not really taking anything po so no real point to fluid restriction at this time * PRN diuresis may help to some degree * follow trend (4) Protein calorie malnutrition: Code(s): E46 - Unspecified protein-calorie malnutrition Status: Acute Assessment and Plan: * nutrition has been deteriorating as already noted * low albumin noted which is likely contributing to her swelling/edema issues * this is further complicated by her inability to tolerate oral intake * initiated on TPN (although this may not be a good terminal makeup operator solution) * does she need a feeding tube? (5) Recent urinary tract infection: Code(s): Z87.440 - Personal history of urinary (tract) infections Status: Acute Assessment and Plan: * switched to IV antibiotics at this time * continue supportive therapy Will continue to follow. Subjective Date/time seen: 08/11/22 13:14 Seen by GI yesterday and s/p EGD earlier today with results noted; low K+ this AM which was repleted; doboff tube placement in an attempt to start enteral feeding; reasonable bowel movement noted with current regimen; renal function relatively stable. Exam Narrative: General: chronically ill appearing female in NAD Heart: normal S1 and S2; no rub Lungs: clear to auscultation Abdomen: soft but protuberant with + bowel sounds. Extremities: no cyanosis or clubbing; 1+ edema Skin: warm and intact Objective Data Vital Signs Vital Signs: Vital Signs Temp Pulse Resp BP Pulse Ox O2 Del Method 08/11/22 13:05 78 22 H 85/48 L 92 Room Air 08/11/22 13:01 75 19 106/62 93 Room Air 08/11/22 12:51 78 19 87/52 L 92 Room Air 08/11/22 11:55 96.9 F L 77 18 111/61 94 Room Air 08/11/22 09:00 Room Air 08/11/22 06:00 98.2 F 80 18 100/61 97 08/10/22 20:00 Room Air
--- NOTE | 2022-08-11 14:10 | PCDIET ---
Call from nursing today, patient to get NGT feedings. Plans for Jevity 1.2 at 30 ml/hr advance by 10 ml q 4 hours to goal rate of 65 ml/hr. Goal rate at 65 ml/hr providing 1716 kcals/79 gms protein/1154 ml water. Flush 30 ml q 4 hours. TPN will continue at this time at 40 ml/hr providing an additional 1182 kcals and 48 gms protein. Plans to discontinue TPN as patient tolerates tube feedings to goal rate. Following.
[2022-08-11] MEDS: SIMETHICONE 125 MG CHEW TAB PO ×3 (14:37→20:18)
[2022-08-11] MEDS: AMINO ACIDS 5%/D15W/E-LYTES/CA 2,000 ML with MULTIVITAMINS-12 INJ VIAL 1 2.5 ML, MULTIV... 40 ML IV CONT (17:03)
[2022-08-11] MEDS: SENNA/DOCUSATE SODIUM TABLET 1 TAB PO (20:18)
[2022-08-11 20:51] LABS: Glucose Point of Care 153 mg/dl (65-105)
[2022-08-12] MEDS: ACETAMINOPHEN 325 MG TABLET 650 MG PO ×3 (00:07→20:26)
[2022-08-12] MEDS: METOCLOPRAMIDE HCL INJ 10 MG/2 ML VIAL IV PUSH ×4 (00:07→17:20)
[2022-08-12 04:35] LABS: Hematocrit 39.2 % (37.0-47.0); Hemoglobin 13.2 g/dL (12.0-15.0); Mean Corpuscular HGB Conc 33.7 g/dl (32-36); Mean Corpuscular Hemoglobin 31.7 pg (26-34); Mean Corpuscular Volume 94.2 fl (80-100); Mean Platelet Volume 10.9 fl (7.4-10.4); Platelet Count Result 326 k/mm3 (150-375); Red Blood Count 4.16 M/mm3 (4.2-5.4); Red Cell Distribution Width 15.2 % (11.5-14.5); White Blood Count 7.6 K/mm3 (4.5-10.0)
[2022-08-12 04:49] LABS: Alanine Aminotransferase 72 U/L (6-35); Albumin Level 1.9 g/dL (3.5-5.1); Alkaline Phosphatase 145 U/L (38-126); Anion Gap 1 mmol/L (8-16); Aspartate Amino Transferase 88 U/L (14-36); Bilirubin,Total 0.5 mg/dL (0.2-1.3); Blood Urea Nitrogen 60 mg/dL (7-17); Calcium 6.9 mg/dL (8.4-10.2); Carbon Dioxide 24 mmol/L (22-30); Chloride 97 mmol/L (98-107); Estimated CRCL calculation 24 ml/min; Estimated Glomerular Filt Rate 28; Glucose 120 mg/dL (65-110); Magnesium 2.2 mg/dL (1.6-2.3); Phosphorus 5.1 mg/dL (2.5-4.5); Potassium 3.3 mmol/L (3.4-5.0); Sodium 122 mmol/L (137-145)
[2022-08-12 06:00] VITALS: BP 101/59; PULSE 74; RESP 16; TEMP 36.7; O2SAT 97
[2022-08-12] MEDS: LEVOTHYROXINE SODIUM 75 MCG TABLET PO (06:04)
[2022-08-12] MEDS: CENTRAL LINE FLUSH 10 ML IV PUSH ×3 (06:04→20:28)
[2022-08-12 06:21] LABS: Triglycerides 302 mg/dL (<150)
[2022-08-12 08:13] LABS: Glucose Point of Care 125 mg/dl (65-105)
[2022-08-12] MEDS: ACYCLOVIR 400 MG TABLET PO ×2 (08:30→20:27)
[2022-08-12] MEDS: POTASSIUM CHLORIDE 20 MEQ PACKET (FOR LIQUID) 40 MEQ PO (08:30)
[2022-08-12] MEDS: ROSUVASTATIN 10 MG TABLET 40 MG PO (08:31)
[2022-08-12] MEDS: polyethylene glycoL 3350 17 GM POWD.PACK PO (08:31)
[2022-08-12] MEDS: MIDODRINE HCL 10 MG TABLET PO ×3 (08:31→17:20)
[2022-08-12] MEDS: HEPARIN SODIUM 5,000 UNITS/ML VIAL 5000 UNITS SUB-Q ×2 (08:31→20:27)
[2022-08-12] MEDS: PANTOPRAZOLE 40 MG TABLET PO ×2 (08:31→20:27)
[2022-08-12] MEDS: SIMETHICONE 125 MG CHEW TAB PO ×4 (08:31→20:27)
--- NOTE | 2022-08-12 12:06 | PM.IMPN ---
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 Hamilton office for further treatment and evaluation of acute on chronic kidney injury. This is unfortunately been an ongoing henderson for this patient for the past couple of months and while she is typically in good spirits she understandably is a bit despondent given her frequent hospitalizations. Her catheter is patent and she seems to be making a normal amount of urine. She is likely intravascularly depleted due to poor oral intake though we need to be cautious with IV fluid rehydration given her concomitant edema which in part is due to her hypoalbuminemia. She was recently started on Bactrim as well which could be playing a role in her worsening renal function. For now we will hold the Bactrim and start renally dosed cefepime to complete treatment for her urinary tract infection. Bumetanide on hold for now. Dr. Preston has been consulted for his opinion. She may very well need a feeding tube as she is just not getting adequate nutrition though she seems to not tolerate oral nutrition thus TPN may be appropriate as well. The dietitian and other disciplines should probably weigh in on this as well. LFTs are elevated but essentially stable and no further workup is planned. Her home medications will be reviewed and resumed as appropriate. 08/12/2022 interval history: patient with AL amylodosis kindeys and RIP on CKD with worsening kidney function, on 08/06 patient had her 2nd chemotherapy and did not feel well patient was sent to ER for further evaluation, patient with hypotension and on midodrin, on her last admission patient was seen by motor coach supervisor and was diuresed with albumin, consulted motor coach supervisor for further recommendation, patient has poor appetite and oral intake with dysphagia started patient on PPN, patient feels overwhelmed with current situation, started patient on Citalopram, patient has not had a bowel movement in several days felt bloated with abdominal pain, patient received colace, MiraLax, dulcolax suppository as needed no relief, on 08/09 gave Reglan and enema and on 08/09 patient had 6 BM, still feels her stomach is full and painful, on 08/11 was seen by GI and had EGD which wasv normal and GI ordered Dobhoff, which was inserted, patient was started on tube feeding, she is tolerating her feeding, and had BM, and normal residual, will continue, will have ST evaluate the patient if patient needs PEG, once patient is tolerating her tube feeding, will stop TPN, patient is very weak and tired has pain with movement unable to participate in PT OT. Subjective Date/time seen: 08/12/22 12:06 The patient is being directly admitted to the medical/surgical floor from Dr. Hamilton office for further treatment and evaluation of acute on chronic kidney injury. This is unfortunately been an ongoing henderson for this patient for the past couple of months and while she is typically in good spirits she understandably is a bit despondent given her frequent hospitalizations. Her catheter is patent and she seems to be making a normal amount of urine. She is likely intravascularly depleted due to poor oral intake though we need to be cautious with IV fluid rehydration given her concomitant edema which in part is due to her hypoalbuminemia. She
[2022-08-12 12:24] LABS: Glucose Point of Care 140 mg/dl (65-105)
--- NOTE | 2022-08-12 12:44 | PDONCCN ---
HPI - Date of Consult Date/Time: 08/12/22 12:44 Requesting Physician: Erick Bain MD Primary Care Provider: Mainor Wallace MD - Consult Narrative Reason for consult: AL amyloidosis Narrative: Rosalba Turcios is a 72 year old female with history of AL amyloidosis status post kidney biopsy done on June 29, 2022. 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 Patient started chemotherapy with Darzalex and Velcade on July 30. She is due to receive another round of chemotherapy on August 13. Patient was admitted to the hospital due to worsening renal function along with tiredness and fatigue with poor oral intake and dehydration. EGD was performed on August 12 and multiple biopsies were taken pathology is pending. Patient had nasoenteric tube placement performed as well. She has remains quite tired and fatigued. No other new complaints. Review of Systems - Review of Systems All systems reviewed & are unremarkable except as noted in HPI and [facility] Medical History: Medical History (Last Updated 08/07/22 @ 00:15 by Mirta Hurt PA-C) AL amyloidosis Arthritis Cancer of left breast Onset Date: 2006 Status post left mastectomy. Chronic renal failure, stage 3b Dyslipidemia Hypertension Small bowel obstruction Onset Date: 2007 Transient ischemic attack Surgical History: Surgical History (Last Reviewed 07/15/22 @ 22:22 by Mirta Hurt PA-C) H/O arthroscopy of right knee H/O left mastectomy Onset Date: 2006 with implant History of abdominal surgery Onset Date: 2007 Lysis of adhesions (laparoscopic) History of bowel resection Onset Date: 2006 For infarction History of cholecystectomy History of hernia repair Onset Date: 2008 Right femoral hernia. History of hysterectomy Onset Date: 06/2020 Family History: Family History (Last Reviewed 08/07/22 @ 00:15 by Mirta Hurt PA-C) Sibling A-fib Father Carcinoma of colon Cerebrovascular accident Colon polyp Mother Hypertension Heart disease A-fib Grandparent Diabetes mellitus Other Breast cancer - Social History Social History: Social History (Last Updated 08/07/22 @ 00:15 by Mirta Hurt PA-C) Alcohol Use: Alcohol intake: never Drinks per week: 2 Alcohol use details: Rarely Substance Use: Substance use: never Substance use type: does not use Substance use type: former substance user Others: Spiritual care concerns: No Agree to blood products: Yes Living Arrangements: Living arrangements: with family Smoking Status: Smoking status: Never smoker Second hand tobacco smoke exposure: No Social Determinants of Health: Has the Lack of Transportation Kept You From Medical Appointments or From Getting Medications?: No Within the Past 12 Months, Were You Worried Whether Your Food Would Run Out Before You Got Money to Buy More?: Never True What is Your Housing Situation Today?: I Have Housing Are You Worried That in the Next 2 Months, You May Not Have Your Own Housing to Live In?: Decline to Answer Do You Have Trouble Paying Your Heating Or Electricity Bill?: Decline to Answer Do You Have Trouble Paying For Medicines?: Decline to Answer Are You Currently Unemployed and Looking for Work?: Decline to Answer Highest Level of Education Completed: Decline to Answer Do You Have Trouble With Childcare or the Care of a Family Member?: Decline to Answer Exam - Vital Signs Vital Signs - 24 hr 08/11/22 12:51 08/11/22 13:01 08/11/22 13:05 Temperature Pulse Rate 78 75 78 Respiratory Rate 19 19 22 H Blood Pressure 87/52 L 106/62 85/48 L Pulse Oximetry 92 93 92 Oxygen Delivery Room Air Room Air Room Air 08/11/22 14:00 08/11/22 21:43 08/11/22 20:30 Temperature 36.7 C 36.8 C Pulse Rate 71 78 78 Respiratory Rate
--- NOTE | 2022-08-12 13:07 | P.PNNP_ITS ---
Progress Note: A&P Assessment and Plan (1) RIP (acute kidney injury): Code(s): N17.9 - Acute kidney failure, unspecified Status: Acute Assessment and Plan: * improvement/relative stability noted * suspect multifactorial etiology: * ongoing diuretic therapy * relative hypotension * recent UTI * use of Bactrim(?) * prerenal factors * if BP tolerates, will contine PRN IV diuretics to treat her edema * could consider adding IV albumin but she is already getting significant input from TPN/parenteral nutrition * follow trend of repeat labs and UOP (2) Stage 3b chronic kidney disease: Code(s): N18.32 - Chronic kidney disease, stage 3b Status: Chronic Assessment and Plan: * kidney function/creatinine has fluctuated to extremes in the last few months * seems to average out to 1.4 - 2.0mg/dl * secondary to biopsy proven amyloidosis along with relative hypotension and chronic need for diuretic therapy to treat her swelling/edema (3) Hyponatremia: Code(s): E87.1 - Hypo-osmolality and hyponatremia Status: Chronic Assessment and Plan: * as noted * has been present before * likely related to fluctuations in fluid status, IV medications/nutrition, and diminished oral intake * suspect some worsening due to TPN/parenteral nutrition * if possible, would limit free water in TPN/parenteral nutrition * other option is to add more sodium to TPN if possible * may need to consider salt tabs along with resuming loop diuretic therapy * she is not really taking anything po so no real point to fluid restriction at this time * PRN diuresis may help to some degree * follow trend (4) Protein calorie malnutrition: Code(s): E46 - Unspecified protein-calorie malnutrition Status: Acute Assessment and Plan: * nutrition has been deteriorating as already noted * low albumin noted which is likely contributing to her swelling/edema issues * this is further complicated by her inability to tolerate oral intake * initiated on TPN (although this may not be a good penitentiary solution) * G-tube placement a consideration?? (5) Recent urinary tract infection: Code(s): Z87.440 - Personal history of urinary (tract) infections Status: Acute Assessment and Plan: * switched to IV antibiotics at this time * continue supportive therapy Will continue to follow. Subjective Date/time seen: 08/12/22 13:07 S/P EGD yesterday and subsequent doboff placement; started on tube feeds and appears to be tolerating reasonably well; given the need for ongoing nutritional support particularly in the setting of ongoing chemotherapy, there have been discussion about possible G-tube placement; remains on TPN as well. Exam Narrative: General: chronically ill appearing female in NAD Heart: normal S1 and S2; no rub Lungs: clear to auscultation Abdomen: soft but protuberant with + bowel sounds. Extremities: no cyanosis or clubbing; 1+ edema Skin: warm and intact Objective Data Vital Signs Vital Signs: Vital Signs Temp Pulse Resp BP Pulse Ox O2 Del Method 08/12/22 12:00 97.6 F 87 16 117/73 94 08/12/22 08:31 Room Air 08/12/22 06:00 98.1 F 74 16 101/59 L 97 08/11/22 20:30 78 18 97 Room Air 08/11/22 21:43 98.2 F 78 18 100/58 L 97 Intake/Output Intake/O
--- NOTE | 2022-08-12 13:07 | PM.PNNEP ---
Progress Note: A&P Assessment and Plan (1) RIP (acute kidney injury): Code(s): N17.9 - Acute kidney failure, unspecified Status: Acute Assessment and Plan: improvement/relative stability noted suspect multifactorial etiology: ongoing diuretic therapy relative hypotension recent UTI use of Bactrim(?) prerenal factors if BP tolerates, will contine PRN IV diuretics to treat her edema could consider adding IV albumin but she is already getting significant input from TPN/parenteral nutrition follow trend of repeat labs and UOP (2) Stage 3b chronic kidney disease: Code(s): N18.32 - Chronic kidney disease, stage 3b Status: Chronic Assessment and Plan: kidney function/creatinine has fluctuated to extremes in the last few months seems to average out to 1.4 - 2.0mg/dl secondary to biopsy proven amyloidosis along with relative hypotension and chronic need for diuretic therapy to treat her swelling/edema (3) Hyponatremia: Code(s): E87.1 - Hypo-osmolality and hyponatremia Status: Chronic Assessment and Plan: as noted has been present before likely related to fluctuations in fluid status, IV medications/nutrition, and diminished oral intake suspect some worsening due to TPN/parenteral nutrition if possible, would limit free water in TPN/parenteral nutrition other option is to add more sodium to TPN if possible may need to consider salt tabs along with resuming loop diuretic therapy she is not really taking anything po so no real point to fluid restriction at this time PRN diuresis may help to some degree follow trend (4) Protein calorie malnutrition: Code(s): E46 - Unspecified protein-calorie malnutrition Status: Acute Assessment and Plan: nutrition has been deteriorating as already noted low albumin noted which is likely contributing to her swelling/edema issues this is further complicated by her inability to tolerate oral intake initiated on TPN (although this may not be a good buttermaker continuous churn solution) G-tube placement a consideration?? (5) Recent urinary tract infection: Code(s): Z87.440 - Personal history of urinary (tract) infections Status: Acute Assessment and Plan: switched to IV antibiotics at this time continue supportive therapy Will continue to follow. Subjective Date/time seen: 08/12/22 13:07 S/P EGD yesterday and subsequent doboff placement; started on tube feeds and appears to be tolerating reasonably well; given the need for ongoing nutritional support particularly in the setting of ongoing chemotherapy, there have been discussion about possible G-tube placement; remains on TPN as well. Exam Narrative: General: chronically ill appearing female in NAD Heart: normal S1 and S2; no rub Lungs: clear to auscultation Abdomen: soft but protuberant with + bowel sounds. Extremities: no cyanosis or clubbing; 1+ edema Skin: warm and intact Objective Data Vital Signs Vital Signs: Vital Signs Temp Pulse Resp BP Pulse Ox O2 Del Method 08/12/22 12:00 97.6 F 87 16 117/73 94 08/12/22 08:31 Room Air 08/12/22 06:00 98.1 F 74 16 101/59 L 97 08/11/22 20:30 78 18 97 Room Air 08/11/22 21:43 98.2 F 78 18 100/58 L 97 Intake/Output Intake/Output: Intake & Output 08/09/22 08/10/22 08/11/22 08/12/22 23:59 23:59 23:59 23:59 Intake Total 2400 2055 2305 348 Output Total 2800 1700 1500 450 Balance -400 355 805 -102 Meds/Results Medications: Active Medications Generic Name Dose Route Start Last Admin Trade Name Freq PRN Reason Stop Dose Admin Acetaminophen 650 mg 08/06/22 18:01 08/12/22 06:25 Acetaminophen 325 Mg Tablet PO 650 mg Q4H PRN Administration Mild Pain (1-3) or Fever Acyclovir 400 mg 08/06/22 21:00 08/12/22 08:30 Acyclovir 400 Mg Tablet PO 400 mg Q12HR DARRICK Administration Alprazolam 0.
[2022-08-12 14:00] VITALS: BP 117/73; PULSE 87; RESP 16; TEMP 36.4; O2SAT 94
--- NOTE | 2022-08-12 14:10 | WPDGIPROGNO ---
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 Hamilton, Oncology regarding treatment plans and need for nutrition. It appears as though TPN would be the most certain way for her to receive nutrition. Given the intact GI tract and inability for her to maintain adequate oral intake plan is to proceed with a PEG tube. She currently appears to be tolerating Dobbhoff tube feedings. Continue promotility agent such as Reglan for the immediate future. If at all possible we would like to continue TPN for as long as possible otherwise. Plan to proceed with PEG tube tomorrow morning. Subjective Date/time seen: 08/12/22 14:10 Interval history: Patient remains very frail. Dobbhoff tube in place. She feels somewhat bloated. But tolerating tube feedings this morning. Also on TPN. Review of Systems Review of Systems: Review of systems is significant patient complains of bloating. Exam Narrative: Physical exam reveals patient be alert. She is afebrile and anicteric. HEENT exam reveals no icterus. Lungs are clear. Heart without murmur. Abdomen bowel sounds are present mild bloating epigastric bloating and tympany noted. No masses appreciated. Objective Data Vital Signs Vital Signs: Vital Signs - 24 hr 08/11/22 21:43 08/11/22 20:30 08/12/22 06:00 Temperature 98.2 F 98.1 F Pulse Rate 78 78 74 Respiratory Rate 18 18 16 Blood Pressure 100/58 L 101/59 L Pulse Oximetry 97 97 97 Oxygen Delivery Room Air 08/12/22 08:31 Temperature Pulse Rate Respiratory Rate Blood Pressure Pulse Oximetry Oxygen Delivery Room Air Intake/Output Intake/Output: Intake & Output 08/09/22 08/10/22 08/11/22 08/12/22 23:59 23:59 23:59 23:59 Intake Total 2400 2055 2305 348 Output Total 2800 1700 1500 450 Balance -400 355 805 -102 Meds/Results Medications: Active Medications Generic Name Dose Route Start Last Admin Trade Name Harryq PRN Reason Stop Dose Admin Acetaminophen 650 mg 08/06/22 18:01 08/12/22 06:25 Acetaminophen 325 Mg Tablet PO 650 mg Q4H PRN Administration Mild Pain (1-3) or Fever Acyclovir 400 mg 08/06/22 21:00 08/12/22 08:30 Acyclovir 400 Mg Tablet PO 400 mg Q12HR DARRICK Administration Alprazolam 0.5 mg 08/07/22 18:49 Alprazolam (*Crx) 0.5 Mg Tablet PO TID PRN Anxiety Bisacodyl 10 mg 08/08/22 13:12 08/09/22 09:19 Bisacodyl 10 Mg Suppository RECTAL 10 mg QAM PRN Administration Constipation Heparin Sodium (Beef Lung) 50 units 08/07/22 09:00 08/12/22 08:31 Heparin Flush 50 Units/5 Ml Syringe IV PUSH 50 units QAM DARRICK Administration Heparin Sodium (Beef Lung) 50 units 08/07/22 00:23 Heparin Flush 50 Units/5 Ml Syringe IV PUSH PRN PRN after intermittent infusion Heparin Sodium (Beef Lung) 50 units 08/07/22 00:23 Heparin Flush 50 Units/5 Ml Syringe IV PUSH PRN PRN after blood draws Heparin Sodium (Porcine) 5,000 units 08/07/22 09:00 08/12/22 08:31 Heparin Sodium 5,000 Units/Ml Vial SUB-Q 5,000 units Q12HR DARRICK Administration Heparin Sodium (Porcine) 500 units 08/07/22 00:23 Heparin Sodium Lock Flush 500 Units/5 Ml Syringe IV PUSH PRN PRN see comments below Cefepime HCl 1 gm in 50 mls @ 100 mls/hr 08/07/22 21:00 08/11/22 22:49 Maxipime 1 Gm/D5w 50 Ml IVPB Infused Q24H DARRICK Infusion Dextrose 1,000 mls @ 50 mls/hr 08/07/22 08:27 Dextrose 10% IV CONT .Q20H PRN if PN is interrupted Multivitamins 2.5 ml/ 2,005 mls @ 40 mls/hr
[2022-08-12 17:09] LABS: Glucose Point of Care 148 mg/dl (65-105)
[2022-08-12] MEDS: AMINO ACIDS 5%/D15W/E-LYTES/CA 2,000 ML with MULTIVITAMINS-12 INJ VIAL 1 2.5 ML, MULTIV... 40 ML IV CONT (17:21)
[2022-08-12 18:14] LABS: Anion Gap 4 mmol/L (8-16); Blood Urea Nitrogen 61 mg/dL (7-17); Calcium 7.2 mg/dL (8.4-10.2); Carbon Dioxide 23 mmol/L (22-30); Chloride 101 mmol/L (98-107); Estimated CRCL calculation 23 ml/min; Estimated Glomerular Filt Rate 26; Glucose 118 mg/dL (65-110); Potassium 3.6 mmol/L (3.4-5.0); Sodium 128 mmol/L (137-145)
[2022-08-12 18:28] LABS: Basophils Percent Auto 0.4 % (0.2-1.2); Eosinophils Absolute Auto 0.1 K/mm3 (0-0.3); Eosinophils Percent Auto 0.8 % (0-4.4); Hematocrit 44.3 % (37.0-47.0); Hemoglobin 15.1 g/dL (12.0-15.0); Immature Granulocyte Absolute 0.04 K/mm3 (0.00-0.031); Immature Granulocyte Percent A 0.4 % (0-0.5); Lymphocytes Absolute Auto 0.68 K/mm3 (0.9-3.2); Lymphocytes Percent Auto 6.2 % (18.3-44.2); Mean Corpuscular HGB Conc 34.1 g/dl (32-36); Mean Corpuscular Volume 93.9 fl (80-100); Mean Platelet Volume 11.4 fl (7.4-10.4); Monocytes Absolute Auto 0.9 K/mm3 (0.1-0.6); Monocytes Percent Auto 7.9 % (2.6-8.5); Neutrophils Absolute Auto 9.2 K/mm3 (1.3-6.7); Neutrophils Percent Auto 84.3 % (45.5-73.1); Platelet Count Result 354 k/mm3 (150-375); Red Blood Count 4.72 M/mm3 (4.2-5.4); Red Cell Distribution Width 15.3 % (11.5-14.5); White Blood Count 10.9 K/mm3 (4.5-10.0)
[2022-08-12 18:37] LABS: Prothrombin Time 12.4 Seconds (11.1-14.7)
[2022-08-12] MEDS: SENNA/DOCUSATE SODIUM TABLET 1 TAB PO (20:27)
[2022-08-12 20:30] VITALS: BP 97/62; PULSE 94; RESP 18; TEMP 36.6; O2SAT 95
[2022-08-13] VITALS (14 sets, daily range): BP systolic 77–133; BP diastolic 48–66; PULSE 83–117; RESP 16–29; TEMP 36.4–36.6; O2SAT 93–95
[2022-08-13] MEDS: METOCLOPRAMIDE HCL INJ 10 MG/2 ML VIAL IV PUSH ×4 (00:07→23:41)
[2022-08-13] MEDS: LEVOTHYROXINE SODIUM 75 MCG TABLET PO (05:44)
[2022-08-13] MEDS: LIDOCAINE/PRILOCAINE CREAM 2.5-2.5% TUBE 1 EACH TOPICAL (05:44)
[2022-08-13] MEDS: CENTRAL LINE FLUSH 10 ML IV PUSH ×2 (05:57→20:25)
[2022-08-13 06:00] LABS: Hemoglobin 13.1 g/dL (12.0-15.0); Mean Corpuscular HGB Conc 33.6 g/dl (32-36); Mean Corpuscular Hemoglobin 31.6 pg (26-34); Mean Platelet Volume 10.8 fl (7.4-10.4); Platelet Count Result 296 k/mm3 (150-375); Red Blood Count 4.15 M/mm3 (4.2-5.4); Red Cell Distribution Width 15.3 % (11.5-14.5); White Blood Count 8.8 K/mm3 (4.5-10.0)
[2022-08-13 06:11] LABS: Alanine Aminotransferase 112 U/L (6-35); Albumin Level 1.9 g/dL (3.5-5.1); Alkaline Phosphatase 168 U/L (38-126); Anion Gap 0 mmol/L (8-16); Aspartate Amino Transferase 119 U/L (14-36); Bilirubin,Total 0.3 mg/dL (0.2-1.3); Blood Urea Nitrogen 60 mg/dL (7-17); Calcium 6.9 mg/dL (8.4-10.2); Carbon Dioxide 26 mmol/L (22-30); Chloride 98 mmol/L (98-107); Estimated CRCL calculation 23 ml/min; Estimated Glomerular Filt Rate 26; Glucose 126 mg/dL (65-110); Magnesium 2.1 mg/dL (1.6-2.3); Phosphorus 5.4 mg/dL (2.5-4.5); Potassium 3.5 mmol/L (3.4-5.0); Sodium 124 mmol/L (137-145)
[2022-08-13] MEDS: PANTOPRAZOLE 40 MG TABLET PO ×2 (08:32→20:25)
[2022-08-13] MEDS: ACYCLOVIR 400 MG TABLET PO ×2 (08:32→20:25)
[2022-08-13] MEDS: SIMETHICONE 125 MG CHEW TAB PO ×3 (08:32→20:25)
[2022-08-13] MEDS: MIDODRINE HCL 10 MG TABLET PO ×2 (08:33→17:59)
[2022-08-13] MEDS: ROSUVASTATIN 10 MG TABLET 40 MG PO (08:33)
[2022-08-13] MEDS: polyethylene glycoL 3350 17 GM POWD.PACK PO (08:34)
[2022-08-13] MEDS: FAT EMULSIONS IV 20% 250 ML 20.83 ML IVPB (08:37)
--- NOTE | 2022-08-13 09:31 | PCSTNOTE ---
Therapist attempted Bedside Swallow Evaluation this morning however patient is NPO for G-tube procedure at approximately 12:00 pm. Patient denied difficulty swallowing but stated that she has a small stomach and unable to consume much at one time but at the same time has an uncomfortable, distended abdomen. Patient requested Bedside Swallow Evaluation wait until tomorrow.
--- NOTE | 2022-08-13 11:44 | P.PNNP_ITS ---
Progress Note: A&P Assessment and Plan (1) RIP (acute kidney injury): Code(s): N17.9 - Acute kidney failure, unspecified Status: Acute Assessment and Plan: * improvement/relative stability noted * suspect multifactorial etiology: * ongoing/previous diuretic therapy * relative hypotension * recent UTI * use of Bactrim(?) * prerenal factors * if BP tolerates, will continue PRN IV diuretics to treat her edema * could consider adding IV albumin but she is already getting significant input from TPN/parenteral nutrition * follow trend of repeat labs and UOP (2) Stage 3b chronic kidney disease: Code(s): N18.32 - Chronic kidney disease, stage 3b Status: Chronic Assessment and Plan: * kidney function/creatinine has fluctuated to extremes in the last few months * seems to average out to 1.4 - 2.0mg/dl * secondary to biopsy proven amyloidosis along with relative hypotension and chronic need for diuretic therapy to treat her swelling/edema (3) Hyponatremia: Code(s): E87.1 - Hypo-osmolality and hyponatremia Status: Chronic Assessment and Plan: * as noted * has been present before * likely related to fluctuations in fluid status, IV medications/nutrition, and diminished oral intake * suspect some worsening due to TPN/parenteral nutrition * if possible, would limit free water in TPN/parenteral nutrition * other option is to add more sodium to TPN if possible * may need to consider salt tabs along with resuming loop diuretic therapy * she is not really taking anything po so no real point to fluid restriction at this time * PRN diuresis may help to some degree * follow trend (4) Protein calorie malnutrition: Code(s): E46 - Unspecified protein-calorie malnutrition Status: Acute Assessment and Plan: * nutrition has been deteriorating as already noted * low albumin noted which is likely contributing to her swelling/edema issues * this is further complicated by her inability to tolerate oral intake * s/p EGD * biopsy of stomach and small intestine c/w amyloidosis * initiated on TPN (although this may not be a good assisted solution) * G-tube placement today (5) Recent urinary tract infection: Code(s): Z87.440 - Personal history of urinary (tract) infections Status: Acute Assessment and Plan: * switched to IV antibiotics at this time * continue supportive therapy Will continue to follow. Subjective Date/time seen: 08/13/22 11:44 Noted plans today for G-tube placement for ongoing nutritional support; remains on TPN currently; pathology of stomach and intestine noted from EGD; still feels quite weak and fatigued but no worse than on admission; no issues/events overnight. Exam Narrative: General: chronically ill appearing female in NAD Heart: normal S1 and S2; no rub Lungs: clear to auscultation Abdomen: soft but protuberant with + bowel sounds. Extremities: no cyanosis or clubbing; 1+ edema Skin: warm and intact Objective Data Vital Signs Vital Signs: Vital Signs Temp Pulse Resp BP Pulse Ox O2 Del Method 08/13/22 09:00 103 H 18 95 Room Air 08/13/22 04:53 97.6 F 103 H 18 133/66 95 08/12/22 20:30 94 18 95 Room Air 08/12/22 20:30 98 F 94 18 97/62 L 95 Intake/Output Intake/Output:
--- NOTE | 2022-08-13 11:44 | PM.PNNEP ---
Progress Note: A&P Assessment and Plan (1) RIP (acute kidney injury): Code(s): N17.9 - Acute kidney failure, unspecified Status: Acute Assessment and Plan: improvement/relative stability noted suspect multifactorial etiology: ongoing/previous diuretic therapy relative hypotension recent UTI use of Bactrim(?) prerenal factors if BP tolerates, will continue PRN IV diuretics to treat her edema could consider adding IV albumin but she is already getting significant input from TPN/parenteral nutrition follow trend of repeat labs and UOP (2) Stage 3b chronic kidney disease: Code(s): N18.32 - Chronic kidney disease, stage 3b Status: Chronic Assessment and Plan: kidney function/creatinine has fluctuated to extremes in the last few months seems to average out to 1.4 - 2.0mg/dl secondary to biopsy proven amyloidosis along with relative hypotension and chronic need for diuretic therapy to treat her swelling/edema (3) Hyponatremia: Code(s): E87.1 - Hypo-osmolality and hyponatremia Status: Chronic Assessment and Plan: as noted has been present before likely related to fluctuations in fluid status, IV medications/nutrition, and diminished oral intake suspect some worsening due to TPN/parenteral nutrition if possible, would limit free water in TPN/parenteral nutrition other option is to add more sodium to TPN if possible may need to consider salt tabs along with resuming loop diuretic therapy she is not really taking anything po so no real point to fluid restriction at this time PRN diuresis may help to some degree follow trend (4) Protein calorie malnutrition: Code(s): E46 - Unspecified protein-calorie malnutrition Status: Acute Assessment and Plan: nutrition has been deteriorating as already noted low albumin noted which is likely contributing to her swelling/edema issues this is further complicated by her inability to tolerate oral intake s/p EGD biopsy of stomach and small intestine c/w amyloidosis initiated on TPN (although this may not be a good adjunct faculty for medical terminology solution) G-tube placement today (5) Recent urinary tract infection: Code(s): Z87.440 - Personal history of urinary (tract) infections Status: Acute Assessment and Plan: switched to IV antibiotics at this time continue supportive therapy Will continue to follow. Subjective Date/time seen: 08/13/22 11:44 Noted plans today for G-tube placement for ongoing nutritional support; remains on TPN currently; pathology of stomach and intestine noted from EGD; still feels quite weak and fatigued but no worse than on admission; no issues/events overnight. Exam Narrative: General: chronically ill appearing female in NAD Heart: normal S1 and S2; no rub Lungs: clear to auscultation Abdomen: soft but protuberant with + bowel sounds. Extremities: no cyanosis or clubbing; 1+ edema Skin: warm and intact Objective Data Vital Signs Vital Signs: Vital Signs Temp Pulse Resp BP Pulse Ox O2 Del Method 08/13/22 09:00 103 H 18 95 Room Air 08/13/22 04:53 97.6 F 103 H 18 133/66 95 08/12/22 20:30 94 18 95 Room Air 08/12/22 20:30 98 F 94 18 97/62 L 95 Intake/Output Intake/Output: Intake & Output 08/10/22 08/11/22 08/12/22 08/13/22 23:59 23:59 23:59 23:59 Intake Total 2055 2305 2240 1500 Output Total 1700 1500 900 650 Balance 724 190 6538 850 Meds/Results Medications: Active Medications Generic Name Dose Route Start Last Admin Trade Name Freq PRN Reason Stop Dose Admin Acetaminophen 650 mg 08/06/22 18:01 08/12/22 20:26 Acetaminophen 325 Mg Tablet PO 650 mg Q4H PRN Administration Mild Pain (1-3) or Fever Acyclovir 400 mg 08/06/22 21:00 08/13/22 08:32 Acyclovir 400 Mg Tablet PO 400 mg Q12HR DARRICK Administration Alprazolam 0.5 mg 08/07/22 18:49 Alpra
--- NOTE | 2022-08-13 12:24 | PM.IMPN ---
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 Hamilton office for further treatment and evaluation of acute on chronic kidney injury. This is unfortunately been an ongoing henderson for this patient for the past couple of months and while she is typically in good spirits she understandably is a bit despondent given her frequent hospitalizations. Her catheter is patent and she seems to be making a normal amount of urine. She is likely intravascularly depleted due to poor oral intake though we need to be cautious with IV fluid rehydration given her concomitant edema which in part is due to her hypoalbuminemia. She was recently started on Bactrim as well which could be playing a role in her worsening renal function. For now we will hold the Bactrim and start renally dosed cefepime to complete treatment for her urinary tract infection. Bumetanide on hold for now. Dr. Preston has been consulted for his opinion. She may very well need a feeding tube as she is just not getting adequate nutrition though she seems to not tolerate oral nutrition thus TPN may be appropriate as well. The dietitian and other disciplines should probably weigh in on this as well. LFTs are elevated but essentially stable and no further workup is planned. Her home medications will be reviewed and resumed as appropriate. 08/13/2022 interval history: patient with AL amylodosis kindeys and RIP on CKD with worsening kidney function, on 08/06 patient had her 2nd chemotherapy and did not feel well patient was sent to ER for further evaluation, patient with hypotension and on midodrin, on her last admission patient was seen by emergency medicine medical director and was diuresed with albumin, consulted emergency medicine medical director for further recommendation, patient has poor appetite and oral intake with dysphagia started patient on PPN, patient feels overwhelmed with current situation, started patient on Citalopram, patient has not had a bowel movement in several days felt bloated with abdominal pain, patient received colace, MiraLax, dulcolax suppository as needed no relief, on 08/09 gave Reglan and enema and on 08/09 patient had 6 BM, still feels her stomach is full and painful, on 08/11 was seen by GI and had EGD which was normal and GI ordered Dobhoff, which was inserted, patient was started on tube feeding, she is tolerating her feeding, and had BM, and normal residual, will continue, will have ST evaluate the patient if patient needs PEG, Today patient is sitting in the chair, stats feeling much better, patient to is schduled to have PEG placed today, once patient is tolerating her tube feeding, will stop TPN, patient is very weak and tired has pain with movement unable to participate in PT OT. Subjective Date/time seen: 08/13/22 12:24 08/13/2022 interval history: patient with AL amylodosis kindeys and RIP on CKD with worsening kidney function, on 08/06 patient had her 2nd chemotherapy and did not feel well patient was sent to ER for further evaluation, patient with hypotension and on midodrin, on her last admission patient was seen by emergency medicine medical director and was diuresed with albumin, consulted emergency medicine medical director for further recommendation, patient has poor appetite and oral intake with dysphagia started patient on PPN, patient feels overwhelmed with current situation,
--- NOTE | 2022-08-13 12:45 | WPDANESEPPF ---
Anes - Initial Pre Proc Eval Procedure: Operation Date: 08/11/22 13:00 Proposed Procedures p Esophagogastroduodenoscopy - Edwar Barnhart MD Operation Date: 08/13/22 14:00 Proposed Procedures p Percutaneous Endoscopic Gastrostomy - Edwar Barnhart MD Date/Time: 08/13/22 12:45 Surgeon: Erick Bain MD Pre Op Diagnosis: RIP, Dehydration Patient Data Age: 72 Gender: F Height: 1.7 m Weight: 70.8 kg Last Vital Signs Temp 36.4 C 08/13/22 04:53 Pulse 103 H 08/13/22 09:00 Resp 18 08/13/22 09:00 BP 133/66 08/13/22 04:53 Pulse Ox 95 08/13/22 09:00 O2 Del Method Room Air 08/13/22 09:00 Allergies Allergy/AdvReac Type Severity Reaction Status Date / Time gabapentin Allergy Swelling Verified 08/02/22 13:12 nitrofurantoin AdvReac Mild Nausea Verified 08/02/22 13:12 codeine AdvReac Unknown Diarrhea Verified 08/02/22 13:12 Home Medications Medication Instructions Recorded Confirmed Type levothyroxine 75 mcg tablet 75 mcg PO DAILY #90 tabs 05/17/22 08/06/22 Rx midodrine 10 mg tablet 10 mg PO TID 30 days #90 tabs 07/18/22 08/06/22 Rx ondansetron 4 mg disintegrating 4 mg PO Q8H PRN nausea and 07/18/22 08/06/22 Rx tablet vomiting #90 tabs sennosides 8.6 mg-docusate sodium 1 tab-cap PO HS 30 days #30 tabs 07/18/22 08/06/22 Rx 50 mg tablet (Senokot-S) rosuvastatin 40 mg tablet 40 mg PO DAILY 07/22/22 08/06/22 History acyclovir 200 mg capsule 400 mg PO BID 08/02/22 08/06/22 History bumetanide 1 mg tablet 1 mg PO BID 08/02/22 08/06/22 History dexamethasone 4 mg tablet 4 mg PO DAILY 08/02/22 08/06/22 History metoclopramide HCl 10 mg tablet 10 mg PO DAILY PRN nausea and 08/02/22 08/06/22 Rx vomiting #14 tabs omeprazole 40 mg capsule,delayed 40 mg PO DAILY 08/02/22 08/06/22 History release sulfamethoxazole 800 1 tablet PO BID #14 tabs 08/02/22 08/06/22 Rx mg-trimethoprim 160 mg tablet (Bactrim DS) Laboratory Tests 08/12/22 08/12/22 08/12/22 17:03 17:26 17:26 WBC 10.9 K/mm3 H K/mm3 (4.5-10.0) RBC 4.72 M/mm3 M/mm3 (4.2-5.4) Hgb 15.1 g/dL H g/dL (12.0-15.0) Hct 44.3 % % (37.0-47.0) MCV 93.9 fl fl (80-100) MCH 32.0 pg pg (26-34) MCHC 34.1 g/dl g/dl (32-36) RDW 15.3 % H % (11.5-14.5) Plt Count 354 k/mm3 k/mm3 (150-375) MPV 11.4 fl H fl (7.4-10.4) Immature Gran % (Auto) 0.4 % % (0-0.5) Neut % (Auto) 84.3 % H % (45.5-73.1) Lymph % (Auto) 6.2 % L % (18.3-44.2) [place] % (Auto) 7.9 % % (2.6-8.5) Eos % (Auto) 0.8 % % (0-4.4) Baso % (Auto) 0.4 % % (0.2-1.2) Lymph # (Auto) 0.68 K/mm3 L K/mm3 (0.9-3.2) [place] # (Auto) 0.9 K/mm3 H K/mm3 (0.1-0.6) Eos # (Auto) 0.1 K/mm3 K/mm3 (0-0.3) Baso # (Auto) 0.0 K/mm3 K/mm3 (0.0-0.1) Abs Immat Gran (auto) 0.04 K/mm3 H K/mm3 (0.00-0.031) Absolute Neuts (auto) 9.2 K/mm3 H K/mm3 (1.3-6.7) Absolute Nucleated RBC 0.0 K/mm3 K/mm3 (0.0-0.012) Nucleated RBC % 0.0 % % (0.0-0.2) PT 12.4 Seconds Seconds (11.1-14.7) INR 1.0 APTT 27.0 SECONDS SECONDS (22.3-36.8) Sodium Potassium Chloride Carbon Dioxide Anion Gap BUN Creatinine Estim Creat Clear Calc Estimated GFR Glucose POC Capillary Glucose 148 mg/dl H mg/dl (65-105) Calcium Phosphorus Magnesium Total Bilirubin AST ALT Alkaline Phosphatase Total Protein Albumin 08/12/22 08/13/22 08/13/22 17:26 05:42 05:42 WBC 8.8 K/mm3 K/mm3 (4.5-10.0) RBC 4.15 M/mm3 L M/mm3 (4.2-5.4) Hgb 13.1 g/dL g/dL (12.0-15.0) Hct
[2022-08-13] MEDS: LACTATED RINGERS 1,000 ML 150 ML IV CONT (12:50)
--- NOTE | 2022-08-13 13:50 | PCNFU ---
Nutrition Follow-Up Complete: Severe protein calorie malnutrition related to chronic illness as evidenced by poor intake <75% needs >1 month; muscle wasting and fat loss. goal: Tolerate TPN at goal rate patient has met goal. No new goal. Pt current nutrition is NPO. Last recorded weight is 70.8 kg. Bowel Motility: +BM reported 08/13 Labs Reviewed:Cr 1.9,GFR 26, BUN 60,Na 124 Meds Noted:Reglan,Crestor, Midodrine,Protonix Skin: WNL Additional Notes:Patient currently NPO for PEG placement today. Plans to continue TPN until able to tolerate tube feedings to goal rate. TPN providing an additional 1182 kcals and 48 gms protein. Recommend tube feeding goal rate at 65 ml/hr of Jevity 1.2. This will provide 1716 kcals/79 gms protein/1154 ml water. Flush 30 ml q 4 hours. Plans for Bedside Swallow tomorrow for hx of dysphagia. Monitor parenteral nutrition tolerance; labs; weights, stool pattern, plan of care Follow up every Tuesday and Tuesday.
--- NOTE | 2022-08-13 15:35 | SUR.PHASEII ---
1526- Notified Dr. Houser. Pt is in recovery. Started out with BP 93/55. Has been in recovery for 30 min. BP now 77/48. Has received 900cc of LR. Orders received to bolus pt with LR. 1535- BP 101/60.
[2022-08-13] MEDS: LACTATED RINGERS 500 ML 999 ML IV CONT (15:42)
[2022-08-13] MEDS: AMINO ACIDS 5%/D15W/E-LYTES/CA 2,000 ML with MULTIVITAMINS-12 INJ VIAL 1 2.5 ML, MULTIV... 40 ML IV CONT (18:12)
[2022-08-13] MEDS: ACETAMINOPHEN 325 MG TABLET 650 MG PO (20:24)
[2022-08-13] MEDS: HEPARIN SODIUM 5,000 UNITS/ML VIAL 5000 UNITS SUB-Q (20:25)
[2022-08-13] MEDS: SENNA/DOCUSATE SODIUM TABLET 1 TAB PO (20:25)
[2022-08-14 05:01] VITALS: BP 108/48; PULSE 89; RESP 18; TEMP 36.5; O2SAT 93
[2022-08-14] MEDS: ACETAMINOPHEN 325 MG TABLET 650 MG PO (05:49)
[2022-08-14] MEDS: LEVOTHYROXINE SODIUM 75 MCG TABLET PO (05:49)
[2022-08-14] MEDS: CENTRAL LINE FLUSH 10 ML IV PUSH ×3 (05:50→21:36)
[2022-08-14] MEDS: METOCLOPRAMIDE HCL INJ 10 MG/2 ML VIAL IV PUSH ×4 (05:50→23:24)
[2022-08-14 05:54] LABS: Hematocrit 38.7 % (37.0-47.0); Hemoglobin 13.4 g/dL (12.0-15.0); Mean Corpuscular HGB Conc 34.6 g/dl (32-36); Mean Corpuscular Hemoglobin 32.2 pg (26-34); Mean Platelet Volume 11.1 fl (7.4-10.4); Platelet Count Result 306 k/mm3 (150-375); Red Blood Count 4.16 M/mm3 (4.2-5.4); Red Cell Distribution Width 15.5 % (11.5-14.5); White Blood Count 8.8 K/mm3 (4.5-10.0)
[2022-08-14 06:08] LABS: Potassium 3.5 mmol/L (3.4-5.0)
[2022-08-14 06:16] LABS: Alanine Aminotransferase 83 U/L (6-35); Albumin Level 1.9 g/dL (3.5-5.1); Alkaline Phosphatase 137 U/L (38-126); Anion Gap 3 mmol/L (8-16); Aspartate Amino Transferase 83 U/L (14-36); Bilirubin,Total 0.4 mg/dL (0.2-1.3); Blood Urea Nitrogen 60 mg/dL (7-17); Calcium 6.9 mg/dL (8.4-10.2); Carbon Dioxide 24 mmol/L (22-30); Chloride 98 mmol/L (98-107); Estimated CRCL calculation 23 ml/min; Estimated Glomerular Filt Rate 26; Glucose 111 mg/dL (65-110); Magnesium 2.1 mg/dL (1.6-2.3); Phosphorus 5.7 mg/dL (2.5-4.5); Sodium 125 mmol/L (137-145); Triglycerides 142 mg/dL (<150)
[2022-08-14 08:00] VITALS: BP 85/56; PULSE 88; RESP 20; TEMP 36.4; O2SAT 96
--- NOTE | 2022-08-14 08:08 | WPDGIPROGNO ---
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 Oncology following. Continue workup per their service. (2) Protein calorie malnutrition: Code(s): E46 - Unspecified protein-calorie malnutrition Status: Acute Assessment and Plan: Patient with malnutrition. She has not been eating well. Complains of bloating. Now on TPN. Peg tube placed yesterday. Starting tube feedings at a slow rate will advance as tolerated. (3) Gas bloat syndrome: Code(s): K92.89 - Other specified diseases of the digestive system Status: Acute Assessment and Plan: Patient has felt bloated after eating. We will need to watch for this after restarting tube feedings. Additionally has been constipated. Will try suppositories daily to see if this helps get bowel action. Also on Reglan intravenously to improve bowel function. (4) Chronic renal failure, stage 3b: Code(s): N18.32 - Chronic kidney disease, stage 3b Status: Acute Subjective Date/time seen: 08/14/22 08:08 Interval history: Patient alert more comfortable this morning. Drink more water than typical yesterday. Started on tube feedings at a low rate this morning. Denies any significant abdominal pain after PEG tube placed yesterday. Review of Systems Review of Systems: Review of systems noncontributory. Exam Narrative: Physical exam reveals patient to be alert. Vital signs stable. HEENT exam no icterus. Lungs are clear heart without murmur. Abdomen soft flat peg tube in good position appears to be healing well. Tolerating tube feedings at a low rate at present. Objective Data Vital Signs Vital Signs: Vital Signs - 24 hr 08/13/22 09:00 08/13/22 12:48 08/13/22 14:56 Temperature 97.5 F L Pulse Rate 103 H 83 109 H Respiratory Rate 18 16 29 H Blood Pressure 106/61 92/60 L Pulse Oximetry 95 94 94 Oxygen Delivery Room Air Room Air Room Air 08/13/22 15:06 08/13/22 15:16 08/13/22 15:26 Temperature Pulse Rate 117 H 108 H 113 H Respiratory Rate 25 H 27 H 23 H Blood Pressure 95/61 L 93/55 L 77/48 L Pulse Oximetry 94 93 94 Oxygen Delivery Room Air Room Air Room Air 08/13/22 15:35 08/13/22 15:45 08/13/22 15:30 Temperature Pulse Rate 98 95 108 H Respiratory Rate 22 H 23 H 23 H Blood Pressure 101/60 86/55 L 86/52 L Pulse Oximetry 94 93 93 Oxygen Delivery Room Air Room Air Room Air 08/13/22 15:50 08/13/22 15:59 08/13/22 20:49 Temperature 97.9 F Pulse Rate 93 93 90 Respiratory Rate 21 H 24 H 18 Blood Pressure 102/61 108/64 100/52 L Pulse Oximetry 94 95 94 Oxygen Delivery Room Air Room Air 08/13/22 20:30 08/14/22 05:01 Temperature 97.7 F Pulse Rate 90 89 Respiratory Rate 18 18 Blood Pressure 108/48 L Pulse Oximetry 94 93 Oxygen Delivery Room Air Intake/Output Intake/Output: Intake & Output 08/11/22 08/12/22 08/13/22 08/14/22 23:59 23:59 23:59 23:59 Intake Total 2305 2240 3505 920 Output Total 4204 958 2654 400 Balance 805 1340 2004 520 Meds/Results Medications: Active Medications Generic Name Dose Route Start Last Admin Trade Name Freq PRN Reason Stop Dose Admin Acetaminophen 650 mg 08/06/22 18:01 08/14/22 05:49 Acetaminophen 325 Mg Tablet PO 650 mg Q4H PRN Administration Mild Pain (1-3) or Fever Acyclovir 400 mg 08/06/22 21:00 08/13/22 20:25 Acyclovir 400 Mg Tablet PO 400 mg Q12HR DARRICK Administration Alprazolam 0.5 mg 08/07/22 18:49 Alprazolam (*Crx) 0.5 Mg Tablet PO TID PRN Anxiety Bisacodyl 10 mg 08/08/22 13:12 08/09/22 09:19 Bisacodyl 10 Mg Suppository RECTAL 10 mg QAM PRN Administration Constipation Heparin Sodium (Beef Lung) 50 units 08/07/22 09:00 08/13/22 08:49 Heparin Flush 50 Units/5 Ml Syringe IV PUSH Not Given QAM DARRICK Heparin Sodium (Beef Lung) 50 u
[2022-08-14 10:15] VITALS: PULSE 88; RESP 20; O2SAT 96
[2022-08-14] MEDS: polyethylene glycoL 3350 17 GM POWD.PACK PO (10:20)
[2022-08-14] MEDS: SIMETHICONE 125 MG CHEW TAB PO ×4 (10:20→21:35)
[2022-08-14] MEDS: PANTOPRAZOLE 40 MG TABLET PO ×2 (10:21→21:35)
[2022-08-14] MEDS: HEPARIN SODIUM 5,000 UNITS/ML VIAL 5000 UNITS SUB-Q ×2 (10:21→21:35)
[2022-08-14] MEDS: ROSUVASTATIN 10 MG TABLET 40 MG PO (10:21)
[2022-08-14] MEDS: ACYCLOVIR 400 MG TABLET PO ×2 (10:21→21:35)
[2022-08-14] MEDS: MIDODRINE HCL 10 MG TABLET PO ×3 (10:21→17:27)
[2022-08-14] MEDS: BISACODYL 10 MG SUPPOSITORY RECTAL (11:10)
--- NOTE | 2022-08-14 11:41 | WPDANESPN ---
Anes - Prog Note Post-Op Date/Time: 08/14/22 11:41 Cardiovascular status: normal Respiratory status: normal Airway patency: baseline Mental status: baseline Post-Op hydration status: normal Vital Signs: Last Vital Signs Temp 36.4 C 08/14/22 08:00 Pulse 88 08/14/22 08:00 Resp 20 08/14/22 08:00 BP 85/56 L 08/14/22 08:00 Pulse Ox 96 08/14/22 08:00 O2 Del Method Room Air 08/13/22 20:30 Pain Score (VAS): 08/13 I/O: Intake & Output 08/13/22 08/14/22 08/14/22 23:59 07:59 15:59 Intake Total 2005 920 Output Total 850 400 Balance 1155 520 Laboratory Tests 08/14/22 05:43 08/14/22 05:43 08/14/22 08/14/22 05:43 05:43 WBC 8.8 RBC 4.16 L Hgb 13.4 Hct 38.7 MCV 93.0 MCH 32.2 MCHC 34.6 RDW 15.5 H Plt Count 306 MPV 11.1 H Sodium 125 L Potassium 3.5 Chloride 98 Carbon Dioxide 24 Anion Gap 3 L BUN 60 H Creatinine 1.90 H Estim Creat Clear Calc 23 Estimated GFR 26 L Glucose 111 H Calcium 6.9 L Phosphorus 5.7 H Magnesium 2.1 Total Bilirubin 0.4 AST 83 H ALT 83 H Alkaline Phosphatase 137 H Total Protein 4.0 L Albumin 1.9 L Triglycerides 142 Post-procedural complaints: none Patient Feedback: Patient satisfied with anesthetic care.
--- NOTE | 2022-08-14 11:50 | P.PNNP_ITS ---
Progress Note: A&P Assessment and Plan (1) RIP (acute kidney injury): Code(s): N17.9 - Acute kidney failure, unspecified Status: Acute Assessment and Plan: * creatinine was high on admission but now is back to baseline. * suspect multifactorial etiology: * ongoing/previous diuretic therapy * relative hypotension * recent UTI * use of Bactrim(?) * prerenal factors due to low albumin * if BP tolerates, will continue PRN IV diuretics to treat her edema * could consider adding IV albumin but she is already getting significant input from TPN/parenteral nutrition * follow trend of repeat labs and UOP (2) Stage 3b chronic kidney disease: Code(s): N18.32 - Chronic kidney disease, stage 3b Status: Chronic Assessment and Plan: * kidney function/creatinine has fluctuated to extremes in the last few months * seems to average out to 1.4 - 2.0mg/dl * secondary to biopsy proven amyloidosis along with relative hypotension and chronic need for diuretic therapy to treat her swelling/edema (3) Hyponatremia: Code(s): E87.1 - Hypo-osmolality and hyponatremia Status: Chronic Assessment and Plan: * as noted * has been present before * likely related to fluctuations in fluid status, IV medications/nutrition, and diminished oral intake * suspect some worsening due to TPN/parenteral nutrition * if possible, would limit free water in TPN/parenteral nutrition * other option is to add more sodium to TPN if possible * may need to consider salt tabs along with resuming loop diuretic therapy * she is not really taking anything po so no real point to fluid restriction at this time * Her intake/ output is very positive. * her bp is low. already on midodrine. will give albumin to help get bp up and diurese. (4) Protein calorie malnutrition: Code(s): E46 - Unspecified protein-calorie malnutrition Status: Acute Assessment and Plan: * nutrition has been deteriorating as already noted * low albumin noted which is likely contributing to her swelling/edema issues * this is further complicated by her inability to tolerate oral intake * s/p EGD * biopsy of stomach and small intestine c/w amyloidosis * initiated on TPN (although this may not be a good watermelon inspector solution) * G-tube placement done (5) Recent urinary tract infection: Code(s): Z87.440 - Personal history of urinary (tract) infections Status: Acute Assessment and Plan: * on cefipime Will continue to follow. Subjective Date/time seen: 08/14/22 11:50 Interval history: Oh haines is feeling about the same. She has a PEG tube now. She is getting some tube feedings and also had some medicines per tube. She is still getting TPN Exam Narrative: General: chronically ill appearing female in NAD Heart: normal S1 and S2; no rub Lungs: clear to auscultation Abdomen: soft but protuberant with + bowel sounds. Extremities: symmetric 1+ edema Skin: no rash Objective Data Vital Signs Vital Signs: Vital Signs - 24 hr 08/13/22 12:48 08/13/22 14:56 08/13/22 15:06 Temperature 97.5 F L Pulse Rate 83 109 H 117 H Respiratory Rate 16 29 H 25 H Blood Pressure 106/61 92/60 L 95/61 L Pulse Oximetry 94 94 94 Oxygen Delivery Room Air Room Air Room Air 08/13/22 15:16 08/13/22
--- NOTE | 2022-08-14 11:50 | PM.PNNEP ---
Progress Note: A&P Assessment and Plan (1) RIP (acute kidney injury): Code(s): N17.9 - Acute kidney failure, unspecified Status: Acute Assessment and Plan: creatinine was high on admission but now is back to baseline. suspect multifactorial etiology: ongoing/previous diuretic therapy relative hypotension recent UTI use of Bactrim(?) prerenal factors due to low albumin if BP tolerates, will continue PRN IV diuretics to treat her edema could consider adding IV albumin but she is already getting significant input from TPN/parenteral nutrition follow trend of repeat labs and UOP (2) Stage 3b chronic kidney disease: Code(s): N18.32 - Chronic kidney disease, stage 3b Status: Chronic Assessment and Plan: kidney function/creatinine has fluctuated to extremes in the last few months seems to average out to 1.4 - 2.0mg/dl secondary to biopsy proven amyloidosis along with relative hypotension and chronic need for diuretic therapy to treat her swelling/edema (3) Hyponatremia: Code(s): E87.1 - Hypo-osmolality and hyponatremia Status: Chronic Assessment and Plan: as noted has been present before likely related to fluctuations in fluid status, IV medications/nutrition, and diminished oral intake suspect some worsening due to TPN/parenteral nutrition if possible, would limit free water in TPN/parenteral nutrition other option is to add more sodium to TPN if possible may need to consider salt tabs along with resuming loop diuretic therapy she is not really taking anything po so no real point to fluid restriction at this time Her intake/ output is very positive. her bp is low. already on midodrine. will give albumin to help get bp up and diurese. (4) Protein calorie malnutrition: Code(s): E46 - Unspecified protein-calorie malnutrition Status: Acute Assessment and Plan: nutrition has been deteriorating as already noted low albumin noted which is likely contributing to her swelling/edema issues this is further complicated by her inability to tolerate oral intake s/p EGD biopsy of stomach and small intestine c/w amyloidosis initiated on TPN (although this may not be a good filter screen cleaner solution) G-tube placement done (5) Recent urinary tract infection: Code(s): Z87.440 - Personal history of urinary (tract) infections Status: Acute Assessment and Plan: on cefipime Will continue to follow. Subjective Date/time seen: 08/14/22 11:50 Interval history: Oh haines is feeling about the same. She has a PEG tube now. She is getting some tube feedings and also had some medicines per tube. She is still getting TPN Exam Narrative: General: chronically ill appearing female in NAD Heart: normal S1 and S2; no rub Lungs: clear to auscultation Abdomen: soft but protuberant with + bowel sounds. Extremities: symmetric 1+ edema Skin: no rash Objective Data Vital Signs Vital Signs: Vital Signs - 24 hr 08/13/22 12:48 08/13/22 14:56 08/13/22 15:06 Temperature 97.5 F L Pulse Rate 83 109 H 117 H Respiratory Rate 16 29 H 25 H Blood Pressure 106/61 92/60 L 95/61 L Pulse Oximetry 94 94 94 Oxygen Delivery Room Air Room Air Room Air 08/13/22 15:16 08/13/22 15:26 08/13/22 15:35 Temperature Pulse Rate 108 H 113 H 98 Respiratory Rate 27 H 23 H 22 H Blood Pressure 93/55 L 77/48 L 101/60 Pulse Oximetry 93 94 94 Oxygen Delivery Room Air Room Air Room Air 08/13/22 15:45 08/13/22 15:30 08/13/22 15:50 Temperature Pulse Rate 95 108 H 93 Respiratory Rate 23 H 23 H 21 H Blood Pressure 86/55 L 86/52 L 102/61 Pulse Oximetry 93 93 94 Oxygen Delivery Room Air Room Air Room Air 08/13/22 15:59 08/13/22 20:49 08/13/22 20:30 Temperature 97.9 F Pulse Rate 93 90 90 Respiratory Rate 24 H 18 18 Blood Pressure 108/64 100/52 L Pulse Oximetry 95 94 94 Oxygen Delivery
--- NOTE | 2022-08-14 12:38 | PCSTNOTE ---
Bedside swallowing evaluation. Patient's daughter present. By self report (confirmed by daughter) patient has experienced a loss of appetite and weight loss related to ageusia and nausea during past weeks. G-tube was placed within last 48 hours. She states she has very unpleasant taste sensation with many foods and with water, which make it difficult to swallow and triggers nausea. No signs of aspiration noted with thin liquids or pureed consistency food by spoon. Patient states that swallowing pills is unpleasant but when they are placed in applesauce it is easier for her. Recommendations for this patient: pureed diet with thin liquids for pleasure. Pills may be crushed or whole and given with applesauce, but patient states she would rather receive them through her g-tube if possible. No further evaluation or speech therapy treatment is recommended at this time. Thank you for the referral of this patient..
[2022-08-14] MEDS: ALBUMIN HUMAN 25% 25 GM/100 ML 100 ML IVPB ×2 (14:51→21:35)
[2022-08-14] MEDS: BUMETANIDE INJ 1 MG/4 ML VIAL IV PUSH ×2 (14:52→21:36)
--- NOTE | 2022-08-14 15:34 | PM.IMPN ---
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 Hamilton office for further treatment and evaluation of acute on chronic kidney injury. # Acute on chronic kidney disease stage 3: Recently treated for UTI with Bactrim. Poor p.o. intake. Creatinine 2.6 on admission. Baseline high 1s to 2s. Started on IV hydration. Bactrim was discontinued. Nephrology consulted. Currently back to baseline mostly. # Anasarca: Ongoing problem. Hypoalbuminemic. Poor nutrition 1 of the reason. Also has amyloidosis. Prealbumin 34.1. Limited on diuretic use because of hypotension. Also has Heavy proteinuria # UTI: Started on cefepime to complete the treatment. 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 On 08/11/2022 EGD was normal status post PEG tube placement in tube feeds running. # general debility # elevated liver enzymes: Mild. Likely related to amyloidosis as well continue to monitor. Small-bowel biopsy also positive for amyloidosis Subjective Date/time seen: 08/14/22 15:34 Interval history: No overnight events. Feels weak. Feels cold. Peg tube placed yesterday. Tube feeds running however it is leaking from around the tube. Legs are swollen. Getting treatment for amyloidosis. No fever chills. Vitals reviewed. Discussed with the nursing staff. Discussed with family at bedside. Review of Systems Review of Systems: All systems reviewed & are unremarkable except as noted in HPI and below Exam Narrative: Patient is comfortable, NAD HEENT: eyes are clear and none icteric LUNGS:Normal respiratory effort ABD: Mildly distended, soft nontender peg tube in situ Lower extremities: Bilateral lower extremity edema pitting all the way to thighs SKIN: nonjaundiced Neuro: grossly intact. Alert and oriented x3 Objective Data Vital Signs Vital Signs: Vital Signs - 24 hr 08/13/22 15:35 08/13/22 15:45 08/13/22 15:50 Temperature Pulse Rate 98 95 93 Respiratory Rate 22 H 23 H 21 H Blood Pressure 101/60 86/55 L 102/61 Pulse Oximetry 94 93 94 Oxygen Delivery Room Air Room Air Room Air 08/13/22 15:59 08/13/22 20:49 08/13/22 20:30 Temperature 97.9 F Pulse Rate 93 90 90 Respiratory Rate 24 H 18 18 Blood Pressure 108/64 100/52 L Pulse Oximetry 95 94 94 Oxygen Delivery Room Air Room Air 08/14/22 05:01 08/14/22 08:00 Temperature 97.7 F 97.6 F Pulse Rate 89 88 Respiratory Rate 18 20 Blood Pressure 108/48 L 85/56 L Pulse Oximetry 93 96 Oxygen Delivery Intake/Output Intake/Output: Intake & Output 08/11/22 08/12/22 08/13/22 08/14/22 23:59 23:59 23:59 23:59 Intake Total 2305 2240 3505 920 Output Total 3259 909 4439 400 Balance 805 1340 2005 520 Meds/Results Medications: Active Medications Generic Name Dose Route Start Last Admin Trade Name Freq PRN Reason Stop Dose Admin Acetaminophen 650 mg 08/06/22 18:01 08/14/22 05:49 Acetaminophen 325 Mg Tablet PO 650 mg Q4H PRN Administration Mild Pain (1-3) or Fever Acyclovir 400 mg
[2022-08-14 16:00] VITALS: BP 114/64; PULSE 74; RESP 20; TEMP 36.4; O2SAT 96
[2022-08-14] MEDS: AMINO ACIDS 5%/D15W/E-LYTES/CA 2,000 ML with MULTIVITAMINS-12 INJ VIAL 1 2.5 ML, MULTIV... 40 ML IV CONT (17:28)
[2022-08-14 20:09] VITALS: BP 135/68; PULSE 55; RESP 18; TEMP 36.6; O2SAT 95
[2022-08-14] MEDS: SENNA/DOCUSATE SODIUM TABLET 1 TAB PO (21:35)
[2022-08-14 23:25] LABS: Glucose Point of Care 121 mg/dl (65-105)
[2022-08-15] MEDS: METOCLOPRAMIDE HCL INJ 10 MG/2 ML VIAL IV PUSH ×4 (05:12→23:09)
[2022-08-15] MEDS: ALBUMIN HUMAN 25% 25 GM/100 ML 100 ML IVPB ×3 (05:12→22:01)
[2022-08-15 05:13] VITALS: BP 113/66; PULSE 98; RESP 20; TEMP 36.5; O2SAT 92
[2022-08-15] MEDS: BUMETANIDE INJ 1 MG/4 ML VIAL IV PUSH ×3 (05:14→22:01)
[2022-08-15] MEDS: CENTRAL LINE FLUSH 10 ML IV PUSH ×3 (05:15→22:09)
[2022-08-15] MEDS: LEVOTHYROXINE SODIUM 75 MCG TABLET PO (05:16)
[2022-08-15 05:54] LABS: Glucose Point of Care 107 mg/dl (65-105)
[2022-08-15 05:57] LABS: Hematocrit 32.1 % (37.0-47.0); Mean Corpuscular HGB Conc 34.3 g/dl (32-36); Mean Corpuscular Hemoglobin 31.9 pg (26-34); Mean Platelet Volume 11.2 fl (7.4-10.4); Platelet Count Result 260 k/mm3 (150-375); Red Blood Count 3.45 M/mm3 (4.2-5.4); Red Cell Distribution Width 15.5 % (11.5-14.5); White Blood Count 7.5 K/mm3 (4.5-10.0)
[2022-08-15 06:08] LABS: Alanine Aminotransferase 47 U/L (6-35); Albumin Level 2.3 g/dL (3.5-5.1); Alkaline Phosphatase 123 U/L (38-126); Anion Gap 3 mmol/L (8-16); Aspartate Amino Transferase 48 U/L (14-36); Bilirubin,Total 0.4 mg/dL (0.2-1.3); Blood Urea Nitrogen 57 mg/dL (7-17); Calcium 7.2 mg/dL (8.4-10.2); Carbon Dioxide 27 mmol/L (22-30); Chloride 99 mmol/L (98-107); Estimated CRCL calculation 21 ml/min; Estimated Glomerular Filt Rate 23; Glucose 101 mg/dL (65-110); Magnesium 2.1 mg/dL (1.6-2.3); Phosphorus 5.7 mg/dL (2.5-4.5); Potassium 2.9 mmol/L (3.4-5.0); Sodium 129 mmol/L (137-145)
--- NOTE | 2022-08-15 09:52 | WPDGIPROGNO ---
Progress Note: A&P Assessment and Plan (1) PEG (percutaneous endoscopic gastrostomy) status: Code(s): Z93.1 - Gastrostomy status Status: Acute Assessment and Plan: PEG site healing well. Plan to continue PEG tube feedings. Rate may be determined by her feelings of bloating. Small amount of clear liquid drainage may be ascites. Perhaps this causes her to feel bloated. Hopefully this will lessen with treatment. 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 (3) Gas bloat syndrome: Code(s): K92.89 - Other specified diseases of the digestive system Status: Acute Assessment and Plan: Patient less bloated. Suspect bowel dysmotility. Continue Reglan for now. Dulcolax suppositories may be helpful. She reports no recent be in. (4) Protein calorie malnutrition: Code(s): E46 - Unspecified protein-calorie malnutrition Status: Acute Assessment and Plan: Patient allowed to eat, also now on tube feedings, also with TPN. This may be too much. If tube feedings tolerated then we may back way from TPN. Subjective Date/time seen: 08/15/22 09:52 Interval history: Patient alert tolerating tube feedings this morning. Small amount of clear fluid noted at PEG site. Abdomen soft flat nontender PEG site appears healing well. No drainage present. Patient reports she ate some solid food today. Tolerated it well. Review of Systems Review of Systems: Review of systems noncontributory. Exam Narrative: Physical exam reveals patient be alert. She is afebrile and anicteric. Lungs are clear. Abdomen bowel sounds present soft nontender PEG site heeling well. Objective Data Vital Signs Vital Signs: Vital Signs - 24 hr 08/14/22 10:15 08/14/22 16:00 08/14/22 20:09 Temperature 97.6 F 98 F Pulse Rate 88 74 55 L Respiratory Rate 20 20 18 Blood Pressure 114/64 135/68 Pulse Oximetry 96 96 95 Oxygen Delivery Room Air 08/15/22 05:13 Temperature 97.7 F Pulse Rate 98 Respiratory Rate 20 Blood Pressure 113/66 Pulse Oximetry 92 Oxygen Delivery Intake/Output Intake/Output: Intake & Output 08/12/22 08/13/22 08/14/22 08/15/22 23:59 23:59 23:59 23:59 Intake Total 2240 3505 3125 Output Total 900 1500 1050 2049 Balance 1340 2004 Meds/Results Medications: Active Medications Generic Name Dose Route Start Last Admin Trade Name Freq PRN Reason Stop Dose Admin Acetaminophen 650 mg 08/06/22 18:01 08/14/22 05:49 Acetaminophen 325 Mg Tablet PO 650 mg Q4H PRN Administration Mild Pain (1-3) or Fever Acyclovir 400 mg 08/06/22 21:00 08/14/22 21:35 Acyclovir 400 Mg Tablet PO 400 mg Q12HR DARRICK Administration Alprazolam 0.5 mg 08/07/22 18:49 Alprazolam (*Crx) 0.5 Mg Tablet PO TID PRN Anxiety Bisacodyl 10 mg 08/08/22 13:12 08/09/22 09:19 Bisacodyl 10 Mg Suppository RECTAL 10 mg QAM PRN Administration Constipation Bisacodyl 10 mg 08/14/22 09:00 08/14/22 11:10 Bisacodyl 10 Mg Suppository RECTAL 10 mg QAM DARRICK Administration Bumetanide 1 mg 08/14/22 14:00 08/15/22 05:14 Bumetanide Inj 1 Mg/4 Ml Vial IV PUSH 1 mg Q8HR DARRICK Administration Heparin Sodium (Beef Lung) 50 units 08/07/22 09:00 08/14/22 10:23 Heparin Flush 50 Units/5 Ml Syringe IV PUSH Not Given QAM DARRICK Heparin Sodium (Beef Lung) 50 units 08/07/22 00:23 Heparin Flush 50 Units/5 Ml Syringe IV PUSH PRN PRN after intermittent infusion Heparin Sodium (Beef Lung) 50 units 08/07/22 00:23 08/15/22 05:16 Heparin Flush 50 Units/5 Ml Syringe IV PUSH 50 units PRN PRN Administration after blood draws Heparin Sodium (Porcine) 5,000 units 08/07/22 09:00 08/14/22 21:35 Heparin Sodium 5,000 Units/Ml Vial SUB-Q ,00
[2022-08-15] MEDS: SIMETHICONE 125 MG CHEW TAB PO ×4 (09:59→20:25)
[2022-08-15 10:00] VITALS: PULSE 98; RESP 20; O2SAT 92
[2022-08-15] MEDS: MIDODRINE HCL 10 MG TABLET PO ×3 (10:00→18:22)
[2022-08-15] MEDS: ROSUVASTATIN 10 MG TABLET 40 MG PO (10:00)
[2022-08-15] MEDS: PANTOPRAZOLE 40 MG TABLET PO ×2 (10:00→20:25)
[2022-08-15] MEDS: ACYCLOVIR 400 MG TABLET PO ×2 (10:00→20:25)
[2022-08-15] MEDS: HEPARIN SODIUM 5,000 UNITS/ML VIAL 5000 UNITS SUB-Q ×2 (10:01→20:25)
[2022-08-15] MEDS: polyethylene glycoL 3350 17 GM POWD.PACK PO (10:01)
[2022-08-15] MEDS: POTASSIUM CHLORIDE 20 MEQ TABLET 40 MEQ PO (10:02)
[2022-08-15] MEDS: FAT EMULSIONS IV 20% 250 ML 20.83 ML IVPB (10:10)
--- NOTE | 2022-08-15 10:26 | P.PNNP_ITS ---
Progress Note: A&P Assessment and Plan (1) RIP (acute kidney injury): Code(s): N17.9 - Acute kidney failure, unspecified Status: Acute Assessment and Plan: * creatinine was high on admission but now is back to baseline. * suspect multifactorial etiology: * ongoing/previous diuretic therapy * relative hypotension * recent UTI * use of Bactrim(?) * prerenal factors due to low albumin * She received albumin yesterday * Urine output improved along with blood pressure. * Patient and daughter in the room and we discussed the case. She understands that albumin and Lasix is just a ?Band-Aid ?. Really, nutrition is important here to increase the albumin says she does not swell so much. She is getting tube feedings. Possibly trickling in the tube feedings as is the nature of same will allow her stomach to tolerate the calories and she will absorb some. If not she will need long-term TPN. Having amyloidosis however sometimes albumin does not come up regardless, both because of poor protein production because of the amyloid and also because of protein loss in the urine. (2) Stage 3b chronic kidney disease: Code(s): N18.32 - Chronic kidney disease, stage 3b Status: Chronic Assessment and Plan: * kidney function/creatinine has fluctuated to extremes in the last few months * seems to average out to 1.4 - 2.0mg/dl * Creatinine is up a little bit with diuretics. * Ultimately amyloid kidney is responsible for this. (3) Hyponatremia: Code(s): E87.1 - Hypo-osmolality and hyponatremia Status: Chronic Assessment and Plan: * as noted * has been present before * likely related to fluctuations in fluid status, IV medications/nutrition, and diminished oral intake * suspect some worsening due to TPN/parenteral nutrition * if possible, would limit free water in TPN/parenteral nutrition * other option is to add more sodium to TPN if possible * may need to consider salt tabs along with resuming loop diuretic therapy * she is not really taking anything po so no real point to fluid restriction at this time Sodium is better with the diuretics. (4) Protein calorie malnutrition: Code(s): E46 - Unspecified protein-calorie malnutrition Status: Acute Assessment and Plan: * nutrition has been deteriorating as already noted * low albumin noted which is likely contributing to her swelling/edema issues * this is further complicated by her inability to tolerate oral intake * s/p EGD * biopsy of stomach and small intestine c/w amyloidosis * initiated on TPN (although this may not be a good rodent exterminator solution) * G-tube placement done and now on tube feeding (5) Recent urinary tract infection: Code(s): Z87.440 - Personal history of urinary (tract) infections Status: Acute Assessment and Plan: * off cefipime Subjective Date/time seen: 08/15/22 10:26 Interval history: Oh haines is feeling about the same. She ate some breakfast. Not very much but it did not come back up. She has a PEG tube now. Getting tube feedings. Getting TPN. Exam Narrative: General: chronically ill appearing female in NAD Heart: normal S1 and S2; no rub Lungs: clear bilaterally Abdomen: soft but protuberant with + bowel sounds. Extremities: symmetric 1+ edema Skin: no rash or subQ nodules Objective Data Vital Signs Vital Signs: Vital Signs - 24 hr
--- NOTE | 2022-08-15 10:26 | PM.PNNEP ---
Progress Note: A&P Assessment and Plan (1) RIP (acute kidney injury): Code(s): N17.9 - Acute kidney failure, unspecified Status: Acute Assessment and Plan: creatinine was high on admission but now is back to baseline. suspect multifactorial etiology: ongoing/previous diuretic therapy relative hypotension recent UTI use of Bactrim(?) prerenal factors due to low albumin She received albumin yesterday Urine output improved along with blood pressure. Patient and daughter in the room and we discussed the case. She understands that albumin and Lasix is just a ?Band-Aid ?. Really, nutrition is important here to increase the albumin says she does not swell so much. She is getting tube feedings. Possibly trickling in the tube feedings as is the nature of same will allow her stomach to tolerate the calories and she will absorb some. If not she will need long-term TPN. Having amyloidosis however sometimes albumin does not come up regardless, both because of poor protein production because of the amyloid and also because of protein loss in the urine. (2) Stage 3b chronic kidney disease: Code(s): N18.32 - Chronic kidney disease, stage 3b Status: Chronic Assessment and Plan: kidney function/creatinine has fluctuated to extremes in the last few months seems to average out to 1.4 - 2.0mg/dl Creatinine is up a little bit with diuretics. Ultimately amyloid kidney is responsible for this. (3) Hyponatremia: Code(s): E87.1 - Hypo-osmolality and hyponatremia Status: Chronic Assessment and Plan: as noted has been present before likely related to fluctuations in fluid status, IV medications/nutrition, and diminished oral intake suspect some worsening due to TPN/parenteral nutrition if possible, would limit free water in TPN/parenteral nutrition other option is to add more sodium to TPN if possible may need to consider salt tabs along with resuming loop diuretic therapy she is not really taking anything po so no real point to fluid restriction at this time Sodium is better with the diuretics. (4) Protein calorie malnutrition: Code(s): E46 - Unspecified protein-calorie malnutrition Status: Acute Assessment and Plan: nutrition has been deteriorating as already noted low albumin noted which is likely contributing to her swelling/edema issues this is further complicated by her inability to tolerate oral intake s/p EGD biopsy of stomach and small intestine c/w amyloidosis initiated on TPN (although this may not be a good fdc solution) G-tube placement done and now on tube feeding (5) Recent urinary tract infection: Code(s): Z87.440 - Personal history of urinary (tract) infections Status: Acute Assessment and Plan: off cefipime Subjective Date/time seen: 08/15/22 10:26 Interval history: Oh haines is feeling about the same. She ate some breakfast. Not very much but it did not come back up. She has a PEG tube now. Getting tube feedings. Getting TPN. Exam Narrative: General: chronically ill appearing female in NAD Heart: normal S1 and S2; no rub Lungs: clear bilaterally Abdomen: soft but protuberant with + bowel sounds. Extremities: symmetric 1+ edema Skin: no rash or subQ nodules Objective Data Vital Signs Vital Signs: Vital Signs - 24 hr 08/14/22 16:00 08/14/22 20:09 08/15/22 05:13 Temperature 97.6 F 98 F 97.7 F Pulse Rate 74 55 L 98 Respiratory Rate 20 18 20 Blood Pressure 114/64 135/68 113/66 Pulse Oximetry 96 95 92 Intake/Output Intake/Output: Intake & Output 08/12/22 08/13/22 08/14/22 08/15/22 23:59 23:59 23:59 23:59 Intake Total 2240 3505 3125 240 Output Total 900 1500 1050 2050 Balance 1340 2004 2074 -181 Meds/Results Medications: Active Medications Generic Name Dose Route Start Last Admin Trade Name Freq PRN Reason S
[2022-08-15] MEDS: BISACODYL 10 MG SUPPOSITORY RECTAL (10:33)
[2022-08-15] MEDS: MAGNESIUM HYDROXIDE SUSP 30 ML UDC PO (12:51)
[2022-08-15 14:15] VITALS: BP 138/56; PULSE 98; RESP 17; TEMP 36.7; O2SAT 95
--- NOTE | 2022-08-15 15:26 | PM.IMPN ---
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 Hamilton office for further treatment and evaluation of acute on chronic kidney injury. # Acute on chronic kidney disease stage 3: Recently treated for UTI with Bactrim. Poor p.o. intake. Creatinine 2.6 on admission. Baseline high 1s to 2s. Started on IV hydration. Bactrim was discontinued. Nephrology consulted. Currently back to baseline mostly. # Anasarca: Ongoing problem. Hypoalbuminemic. Poor nutrition 1 of the reason. Also has amyloidosis. Prealbumin 34.1. Limited on diuretic use because of hypotension. Also has Heavy proteinuria # UTI: Started on cefepime to complete the treatment. 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 On 08/11/2022 EGD was normal status post PEG tube placement in tube feeds running. continue in concurrent TPN and tube feeds until tube feeds are well tolerated # general debility # elevated liver enzymes: Mild. Likely related to amyloidosis as well continue to monitor. Small-bowel biopsy also positive for amyloidosis Subjective Date/time seen: 08/15/22 15:26 Interval history: no overnight events. She actually ate something today. She is feeling better today. She feeds running. No more leaking around the G-tube. Review of Systems Review of Systems: All systems reviewed & are unremarkable except as noted in HPI and below Exam Narrative: Patient is comfortable, NAD HEENT: eyes are clear and none icteric LUNGS:Normal respiratory effort ABD: Mildly distended, soft nontender peg tube in situ Lower extremities: Bilateral lower extremity edema pitting With some improvement today SKIN: nonjaundiced Neuro: grossly intact. Alert and oriented x3 Objective Data Vital Signs Vital Signs: Vital Signs - 24 hr 08/14/22 16:00 08/14/22 20:09 08/15/22 05:13 Temperature 97.6 F 98 F 97.7 F Pulse Rate 74 55 L 98 Respiratory Rate 20 18 20 Blood Pressure 114/64 135/68 113/66 Pulse Oximetry 96 95 92 Intake/Output Intake/Output: Intake & Output 08/12/22 08/13/22 08/14/22 08/15/22 23:59 23:59 23:59 23:59 Intake Total 2240 3505 3125 340 Output Total 900 1500 1050 2050 Balance 1340 20044 -3040 Meds/Results Medications: Active Medications Generic Name Dose Route Start Last Admin Trade Name Freq PRN Reason Stop Dose Admin Acetaminophen 650 mg 08/06/22 18:01 08/14/22 05:49 Acetaminophen 325 Mg Tablet PO 650 mg Q4H PRN Administration Mild Pain (1-3) or Fever Acyclovir 400 mg 08/06/22 21:00 08/15/22 10:00 Acyclovir 400 Mg Tablet PO 400 mg Q12HR DARRICK Administration Alprazolam 0.5 mg 08/07/22 18:49 Alprazolam (*Crx) 0.5 Mg Tablet PO TID PRN Anxiety Bisacodyl 10 mg 08/08/22 13:12 08/09/22 09:19 Bisacodyl 10 Mg Suppository RECTAL 10 mg QAM PRN Administration Constipation Bisacodyl 10 mg 08/14/22 09:00 08/15/22 10:33 Bisacodyl 10 Mg Suppository RECTAL 10 mg QAM DARRICK Administration Bumetanide 1
[2022-08-15] MEDS: ACETAMINOPHEN 325 MG TABLET 650 MG PO ×2 (18:19→22:01)
[2022-08-15] MEDS: AMINO ACIDS 5%/D15W/E-LYTES/CA 2,000 ML with MULTIVITAMINS-12 INJ VIAL 1 2.5 ML, MULTIV... 40 ML IV CONT (18:23)
[2022-08-15 20:00] VITALS: PULSE 98; RESP 17; O2SAT 95
[2022-08-15] MEDS: SENNA/DOCUSATE SODIUM TABLET 1 TAB PO (20:25)
[2022-08-15 21:52] VITALS: BP 150/71; PULSE 84; RESP 16; TEMP 36.6; O2SAT 97
[2022-08-16 05:59] VITALS: BP 150/71; PULSE 80; RESP 20; TEMP 36.6; O2SAT 94
[2022-08-16] MEDS: LEVOTHYROXINE SODIUM 75 MCG TABLET PO (06:10)
[2022-08-16] MEDS: BUMETANIDE INJ 1 MG/4 ML VIAL IV PUSH ×3 (06:10→21:06)
[2022-08-16] MEDS: METOCLOPRAMIDE HCL INJ 10 MG/2 ML VIAL IV PUSH ×4 (06:10→23:00)
[2022-08-16] MEDS: ACETAMINOPHEN 325 MG TABLET 650 MG PO ×2 (06:10→21:07)
[2022-08-16] MEDS: ALBUMIN HUMAN 25% 25 GM/100 ML 100 ML IVPB ×3 (06:10→21:07)
[2022-08-16] MEDS: CENTRAL LINE FLUSH 10 ML IV PUSH ×3 (06:11→21:07)
[2022-08-16 06:18] LABS: Basophils Percent Auto 0.1 % (0.2-1.2); Eosinophils Percent Auto 0.4 % (0-4.4); Hematocrit 29.6 % (37.0-47.0); Hemoglobin 9.9 g/dL (12.0-15.0); Immature Granulocyte Absolute 0.02 K/mm3 (0.00-0.031); Immature Granulocyte Percent A 0.3 % (0-0.5); Lymphocytes Absolute Auto 0.62 K/mm3 (0.9-3.2); Lymphocytes Percent Auto 8.5 % (18.3-44.2); Mean Corpuscular HGB Conc 33.4 g/dl (32-36); Mean Corpuscular Hemoglobin 31.6 pg (26-34); Mean Corpuscular Volume 94.6 fl (80-100); Mean Platelet Volume 11.3 fl (7.4-10.4); Monocytes Absolute Auto 1.1 K/mm3 (0.1-0.6); Monocytes Percent Auto 15.2 % (2.6-8.5); Neutrophils Absolute Auto 5.5 K/mm3 (1.3-6.7); Neutrophils Percent Auto 75.5 % (45.5-73.1); Platelet Count Result 246 k/mm3 (150-375); Red Blood Count 3.13 M/mm3 (4.2-5.4); Red Cell Distribution Width 15.9 % (11.5-14.5); White Blood Count 7.3 K/mm3 (4.5-10.0)
[2022-08-16 06:41] LABS: Alanine Aminotransferase 55 U/L (6-35); Albumin Level 2.5 g/dL (3.5-5.1); Alkaline Phosphatase 152 U/L (38-126); Anion Gap 5 mmol/L (8-16); Aspartate Amino Transferase 86 U/L (14-36); Bilirubin,Total 0.5 mg/dL (0.2-1.3); Blood Urea Nitrogen 60 mg/dL (7-17); Calcium 7.1 mg/dL (8.4-10.2); Carbon Dioxide 27 mmol/L (22-30); Chloride 99 mmol/L (98-107); Estimated CRCL calculation 21 ml/min; Estimated Glomerular Filt Rate 23; Glucose 123 mg/dL (65-110); Magnesium 2.1 mg/dL (1.6-2.3); Phosphorus 4.6 mg/dL (2.5-4.5); Sodium 131 mmol/L (137-145); Triglycerides 64 mg/dL (<150)
[2022-08-16 06:48] LABS: Transferrin 87 mg/dL (206-381)
[2022-08-16 07:09] LABS: INR 1.1; Prothrombin Time 13.5 Seconds (11.1-14.7)
[2022-08-16 07:10] LABS: Partial Thromboplastin Time 33.7 SECONDS (22.3-36.8)
--- NOTE | 2022-08-16 08:26 | P.PNONC_ITS ---
Progress Note: A/P - Additional Plan Systemic amyloidosis status post kidney biopsy. Patient EGD also came back positive for amyloidosis involving the stomach and small bowel. Patient so far had received treatment with Darzalex and Velcade cycle 1 day 1 and 8 and was due for day 15 last week. 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 If inpatient chemotherapy at [facility] is not possible then we will recommend transferring her to [facility] for inpatient chemotherapy as it looks like she will not be able to discharge home any time soon due to a poor nutritional status and generalized weakness. So far she is tolerating PEG tube feeding well. - Time Spent With Patient Total time spent is greater than 50% in coordination of care (as documented) at patient's floor/unit and/or counseling patient: 15 - 25 minutes Subjective Interval history: Systemic amyloidosis Review of Systems - Review of Systems Patient now but the PEG tube placement done and tolerating tube feeding well. She had very small bowel movement. She remains quite tired and fatigued. Denies any chest pain and abdominal pain. Denies any nausea vomiting. Denies any fevers and chills. No other new complaints. Exam Vital signs: Temp Pulse Resp BP Pulse Ox O2 Del Method 36.6 C 80 20 150/71 H 94 Room Air 08/16/22 05:59 08/16/22 05:59 08/16/22 05:59 08/16/22 05:59 08/16/22 05:59 08/15/22 20:00 Narrative: Lungs are clear to auscultation bilaterally Cardiovascular regular rate rhythm no murmurs Abdomen soft slightly distended without any tenderness decreased bowel sounds Extremities mild peripheral edema PN: Objective Data - Labs CBC & Chem 7: 08/16/22 06:07 08/16/22 06:07 Labs: Laboratory Results - last 24 hr 08/16/22 08/16/22 08/16/22 06:07 06:07 06:07 WBC 7.3 RBC 3.13 L Hgb 9.9 L Hct 29.6 L MCV 94.6 MCH 31.6 MCHC 33.4 RDW 15.9 H Plt Count 246 MPV 11.3 H Immature Gran % (Auto) 0.3 Neut % (Auto) 75.5 H Lymph % (Auto) 8.5 L Buchanan % (Auto) 15.2 H Eos % (Auto) 0.4 Baso % (Auto) 0.1 L Lymph # (Auto) 0.62 L Buchanan # (Auto) 1.1 H Eos # (Auto) 0.0 Baso # (Auto) 0.0 Abs Immat Gran (auto) 0.02 Absolute Neuts (auto) 5.5 Absolute Nucleated RBC 0.0 Nucleated RBC % 0.0 PT 13.5 INR 1.1 APTT 33.7 Sodium 131 L Potassium 3.0 L Chloride 99 Carbon Dioxide 27 Anion Gap 5 L BUN 60 H Creatinine 2.10 H Estim Creat Clear Calc 21 Estimated GFR 23 L Glucose 123 H Calcium 7.1 L Phosphorus 4.6 H Magnesium 2.1 Transferrin 87 L Total Bilirubin 0.5 AST 86 H ALT 55 H Alkaline Phosphatase 152 H Total Protein 5.0 L Albumin 2.5 L Triglycerides 64
--- NOTE | 2022-08-16 09:28 | PM.PNNEP ---
Progress Note: A&P Assessment and Plan (1) RIP (acute kidney injury): Code(s): N17.9 - Acute kidney failure, unspecified Status: Acute Assessment and Plan: fluctuating due to nuturitonal intake and diuretic therapy suspect multifactorial etiology: ongoing/previous diuretic therapy relative hypotension recent UTI use of Bactrim(?) prerenal factors due to low albumin IV albumin chased by IV bumex for swelling/edema follow repeat labs, serum albumin, and UOP (2) Stage 3b chronic kidney disease: Code(s): N18.32 - Chronic kidney disease, stage 3b Status: Chronic Assessment and Plan: kidney function/creatinine has fluctuated to extremes in the last few months seems to average out to 1.4 - 2.0mg/dl creatinine up a little bit with diuretic therapy 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) (3) Hyponatremia: Code(s): E87.1 - Hypo-osmolality and hyponatremia Status: Chronic Assessment and Plan: as noted has been present before likely related to fluctuations in fluid status, IV medications/nutrition, and diminished oral intake suspect some worsening due to TPN/parenteral nutrition if possible, would limit free water in TPN/parenteral nutrition other option is to add more sodium to TPN if possible may need to consider salt tabs along with resuming loop diuretic therapy she is not really taking anything po so no real point to fluid restriction at this time improvement noted with ongoing diuresis follow trend of sodium (4) Protein calorie malnutrition: Code(s): E46 - Unspecified protein-calorie malnutrition Status: Acute Assessment and Plan: nutrition has been deteriorating as already noted low albumin noted which is likely contributing to her swelling/edema issues this is further complicated by her inability to tolerate oral intake s/p EGD biopsy of stomach and small intestine c/w amyloidosis initiated on TPN (although this may not be a good meat carver solution) G-tube placement done and now on tube feeding (5) Recent urinary tract infection: Code(s): Z87.440 - Personal history of urinary (tract) infections Status: Acute Assessment and Plan: completed course of IV antibiotics Dr. Hamilton attempting to continue chemotherapy -- here versus another facility/hospital remains to be seen.... Will continue to follow. Subjective Date/time seen: 08/16/22 09:28 Chart reviewed since last seen -- tolerating tube feed and TPN; getting IV albumin + IV diuretics to help with swelling/edema; no now issues or problems to report; does report an increase in appetite and trying to eat orally as tolerated. Exam Narrative: General: chronically ill appearing female in NAD Heart: normal S1 and S2; no rub Lungs: clear bilaterally Abdomen: soft but protuberant with + bowel sounds. Extremities: bilaterally 1+ edema in LEs Skin: warm and dry Objective Data Vital Signs Vital Signs: Vital Signs Temp Pulse Resp BP Pulse Ox O2 Del Method 08/16/22 05:59 97.9 F 80 20 150/71 H 94 08/15/22 21:52 97.8 F 84 16 150/71 H 97 08/15/22 20:00 98 17 95 Room Air 08/15/22 14:15 98.1 F 98 17 138/56 L 95 Intake/Output Intake/Output: Intake & Output 08/13/22 08/14/22 08/15/22 08/16/22 23:59 23:59 23:59 23:59 Intake Total 3505 3125 3725 1180 Output Total 1500 1050 3950 600 Balance 2004 2075 -262 580 Meds/Results Medications: Active Medications Generic Name Dose Route Start Last Admin Trade Name Freq PRN Reason Stop Dose Admin Acetaminophen 650 mg 08/06/22 18:01 08/16/22 06:10 Acetaminophen 325 Mg Tablet PO 650 mg Q4H PRN Administration Mild Pain (1-3) or Fever Acyclovir 400 mg 08/06/22 21:00 08/16/22 09:47 Acyclovir 400 Mg Tablet PO 400 mg Q12HR DARRICK Administration Alprazolam 0.5 mg 08/07/22 18:49
--- NOTE | 2022-08-16 09:28 | P.PNNP_ITS ---
Progress Note: A&P Assessment and Plan (1) RIP (acute kidney injury): Code(s): N17.9 - Acute kidney failure, unspecified Status: Acute Assessment and Plan: * fluctuating due to nuturitonal intake and diuretic therapy * suspect multifactorial etiology: * ongoing/previous diuretic therapy * relative hypotension * recent UTI * use of Bactrim(?) * prerenal factors due to low albumin * IV albumin chased by IV bumex for swelling/edema * follow repeat labs, serum albumin, and UOP (2) Stage 3b chronic kidney disease: Code(s): N18.32 - Chronic kidney disease, stage 3b Status: Chronic Assessment and Plan: * kidney function/creatinine has fluctuated to extremes in the last few months * seems to average out to 1.4 - 2.0mg/dl * creatinine up a little bit with diuretic therapy * 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) (3) Hyponatremia: Code(s): E87.1 - Hypo-osmolality and hyponatremia Status: Chronic Assessment and Plan: * as noted * has been present before * likely related to fluctuations in fluid status, IV medications/nutrition, and diminished oral intake * suspect some worsening due to TPN/parenteral nutrition * if possible, would limit free water in TPN/parenteral nutrition * other option is to add more sodium to TPN if possible * may need to consider salt tabs along with resuming loop diuretic therapy * she is not really taking anything po so no real point to fluid restriction at this time * improvement noted with ongoing diuresis * follow trend of sodium (4) Protein calorie malnutrition: Code(s): E46 - Unspecified protein-calorie malnutrition Status: Acute Assessment and Plan: * nutrition has been deteriorating as already noted * low albumin noted which is likely contributing to her swelling/edema issues * this is further complicated by her inability to tolerate oral intake * s/p EGD * biopsy of stomach and small intestine c/w amyloidosis * initiated on TPN (although this may not be a good buttermaker continuous churn solution) * G-tube placement done and now on tube feeding (5) Recent urinary tract infection: Code(s): Z87.440 - Personal history of urinary (tract) infections Status: Acute Assessment and Plan: * completed course of IV antibiotics Dr. Hamilton attempting to continue chemotherapy -- here versus another facility/hospital remains to be seen.... Will continue to follow. Subjective Date/time seen: 08/16/22 09:28 Chart reviewed since last seen -- tolerating tube feed and TPN; getting IV albumin + IV diuretics to help with swelling/edema; no now issues or problems to report; does report an increase in appetite and trying to eat orally as tolerated. Exam Narrative: General: chronically ill appearing female in NAD Heart: normal S1 and S2; no rub Lungs: clear bilaterally Abdomen: soft but protuberant with + bowel sounds. Extremities: bilaterally 1+ edema in LEs Skin: warm and dry Objective Data Vital Signs Vital Signs: Vital Signs Temp Pulse Resp BP Pulse Ox O2 Del Method 08/16/22 05:59 97.9 F 80 20 150/71 H 94 08/15/22 21:52 97.8 F 84 16 150/71 H 97 08/15/22 20:00 98 17 95 Room Air 08/15/22 14:15 98.1 F 98 17 138/56 L 95 Intake/Output Intake/Output:
[2022-08-16 09:40] VITALS: PULSE 80; RESP 20; O2SAT 94
[2022-08-16] MEDS: POTASSIUM CHLORIDE 20 MEQ PACKET (FOR LIQUID) 40 MEQ PO (09:42)
[2022-08-16] MEDS: MIDODRINE HCL 10 MG TABLET PO ×3 (09:45→17:06)
[2022-08-16] MEDS: polyethylene glycoL 3350 17 GM POWD.PACK PO (09:45)
[2022-08-16] MEDS: ROSUVASTATIN 10 MG TABLET 40 MG PO (09:46)
[2022-08-16] MEDS: HEPARIN SODIUM 5,000 UNITS/ML VIAL 5000 UNITS SUB-Q ×2 (09:46→21:06)
[2022-08-16] MEDS: ACYCLOVIR 400 MG TABLET PO ×2 (09:47→21:07)
[2022-08-16] MEDS: PANTOPRAZOLE 40 MG TABLET PO ×2 (09:47→21:07)
[2022-08-16] MEDS: SIMETHICONE 125 MG CHEW TAB PO ×4 (09:47→21:07)
[2022-08-16] MEDS: BISACODYL 10 MG SUPPOSITORY RECTAL (10:09)
--- NOTE | 2022-08-16 11:33 | WPDGIPROGNO ---
Progress Note: A&P Assessment and Plan (1) PEG (percutaneous endoscopic gastrostomy) status: Code(s): Z93.1 - Gastrostomy status Status: Acute Assessment and Plan: Patient tolerating PEG tube feedings. Plan to administer as dietitian suggest. Maximize PEG tube feedings if she tolerates if this management will be easier as an outpatient. (2) Protein calorie malnutrition: Code(s): E46 - Unspecified protein-calorie malnutrition Status: Acute Assessment and Plan: Because of patient's malnutrition she is on both PEG tube feedings and now on TPN. If she tolerates the PEG tube feedings TPN can be discontinued. Continue to allow oral intake as she desires to supplement this. 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 This appears to be disseminated amyloidosis at present. Currently followed and managed by oncology service. Subjective Date/time seen: 08/16/22 11:33 Interval history: Patient alert more comfortable at present. Tolerating PEG tube gastrostomy feedings at present. Also on TPN and oral intake if she desires. Review of Systems Review of Systems: Review of systems noncontributory. Exam Narrative: Physical exam reveals patient be alert comfortable at rest. She is quite thin. HEENT exam reveals no icterus. Lungs are clear. Heart without murmur. Abdomen bowel sounds present soft nontender peg tube site appears be healing appropriately. Objective Data Vital Signs Vital Signs: Vital Signs - 24 hr 08/15/22 14:15 08/15/22 20:00 08/15/22 21:52 Temperature 98.1 F 97.8 F Pulse Rate 98 98 84 Respiratory Rate 17 17 16 Blood Pressure 138/56 L 150/71 H Pulse Oximetry 95 95 97 Oxygen Delivery Room Air 08/16/22 05:59 Temperature 97.9 F Pulse Rate 80 Respiratory Rate 20 Blood Pressure 150/71 H Pulse Oximetry 94 Oxygen Delivery Intake/Output Intake/Output: Intake & Output 08/13/22 08/14/22 08/15/22 08/16/22 23:59 23:59 23:59 23:59 Intake Total 3505 3125 3725 1180 Output Total 1500 1050 3950 600 Balance 2005 9501 -889 860 Meds/Results Medications: Active Medications Generic Name Dose Route Start Last Admin Trade Name Harryq PRN Reason Stop Dose Admin Acetaminophen 650 mg 08/06/22 18:01 08/16/22 06:10 Acetaminophen 325 Mg Tablet PO 650 mg Q4H PRN Administration Mild Pain (1-3) or Fever Acyclovir 400 mg 08/06/22 21:00 08/16/22 09:47 Acyclovir 400 Mg Tablet PO 400 mg Q12HR DARRICK Administration Alprazolam 0.5 mg 08/07/22 18:49 Alprazolam (*Crx) 0.5 Mg Tablet PO TID PRN Anxiety Bisacodyl 10 mg 08/08/22 13:12 08/09/22 09:19 Bisacodyl 10 Mg Suppository RECTAL 10 mg QAM PRN Administration Constipation Bisacodyl 10 mg 08/14/22 09:00 08/16/22 10:09 Bisacodyl 10 Mg Suppository RECTAL 10 mg QAM DARRICK Administration Bumetanide 1 mg 08/14/22 14:00 08/16/22 06:10 Bumetanide Inj 1 Mg/4 Ml Vial IV PUSH 1 mg Q8HR DARRICK Administration Heparin Sodium (Beef Lung) 50 units 08/07/22 09:00 08/16/22 09:46 Heparin Flush 50 Units/5 Ml Syringe IV PUSH Not Given QAM DARRICK Heparin Sodium (Beef Lung) 50 units 08/07/22 00:23 Heparin Flush 50 Units/5 Ml Syringe IV PUSH PRN PRN after intermittent infusion Heparin Sodium (Beef Lung) 50 units 08/07/22 00:23 08/15/22 05:16 Heparin Flush 50 Units/5 Ml Syringe IV PUSH 50 units PRN PRN Administration after blood draws Heparin Sodium (Porcine) 5,000 units 08/07/22 09:00 08/16/22 09:46 Heparin Sodium 5,000 Units/Ml Vial SUB-Q 5,000 units Q12HR DARRICK Administration Heparin Sodium (Porcine) 500 units 08/07/22 00:23 Heparin Sodium Lock Flush 500 Units/5 Ml Sy
--- NOTE | 2022-08-16 11:38 | PCOTNOTE ---
Attempted to see patient this am, however patient reported, I already took a full bath and brushed my teeth. I sat up in the chair for an hour and a half, and I've been doing the arm exercises you showed me. Pt not seen for this reason. Encouraged to continue with exercises on own and discussed progressing with ADLs tomorrow. Pt hesitant, but agreed.
[2022-08-16 14:00] VITALS: BP 114/62; PULSE 90; RESP 18; TEMP 36.3; O2SAT 95
--- NOTE | 2022-08-16 15:41 | PM.IMPN ---
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 Hamilton office for further treatment and evaluation of acute on chronic kidney injury. # Acute on chronic kidney disease stage 3: Recently treated for UTI with Bactrim. Poor p.o. intake. Creatinine 2.6 on admission. Baseline high 1s to 2s. Started on IV hydration. Bactrim was discontinued. Nephrology consulted. Currently back to baseline mostly. # Anasarca: Ongoing problem. Hypoalbuminemic. Poor nutrition 1 of the reason. Also has amyloidosis. Prealbumin 34.1. Limited on diuretic use because of hypotension. Also has Heavy proteinuria # UTI: Started on cefepime to complete the treatment. 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 On 08/11/2022 EGD was normal status post PEG tube placement in tube feeds running. continue in concurrent TPN and tube feeds until tube feeds are well tolerated # general debility # elevated liver enzymes: Mild. Likely related to amyloidosis as well continue to monitor. Small-bowel biopsy also positive for amyloidosis 08/16/2022 interval history: amylodosis is suspected to infiltrate liver and small bowl and possibly large intestine this will effect nutrient absorption and intestine motility and patient is have persistent constipation, D/W Dr Hamilton her oncologist considering giving chemotherapy while in the hospital, this may improve her condition, today patient states feeling patient is able to take p.o. diet, patient is seen by GI and further recommendation to follow, Subjective Date/time seen: 08/16/22 15:41 # Acute on chronic kidney disease stage 3: Recently treated for UTI with Bactrim. Poor p.o. intake. Creatinine 2.6 on admission. Baseline high 1s to 2s. Started on IV hydration. Bactrim was discontinued. Nephrology consulted. Currently back to baseline mostly. # Anasarca: Ongoing problem. Hypoalbuminemic. Poor nutrition 1 of the reason. Also has amyloidosis. Prealbumin 34.1. Limited on diuretic use because of hypotension. Also has Heavy proteinuria # UTI: Started on cefepime to complete the treatment. 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 On 08/11/2022 EGD was normal status post PEG tube placement in tube feeds running. continue in concurrent TPN and tube feeds until tube feeds are well tolerated # general debility # elevated liver enzymes: Mild. Likely related to amyloidosis as well continue to monitor. Small-bowel biopsy also positive for amyloidosis 08/16/2022 interval history: amylodosis is suspected to infiltrate liver and small bowl and possibly large intestine this will effect nutrient absorption and intestine motility and patient is have persistent constipation, D/W Dr Hamilton her oncol
[2022-08-16] MEDS: AMINO ACIDS 5%/D15W/E-LYTES/CA 2,000 ML with MULTIVITAMINS-12 INJ VIAL 1 2.5 ML, MULTIV... 40 ML IV CONT (18:20)
[2022-08-16 20:00] VITALS: PULSE 90; RESP 18; O2SAT 95
[2022-08-16] MEDS: SENNA/DOCUSATE SODIUM TABLET 1 TAB PO (21:07)
[2022-08-16 22:00] VITALS: BP 130/70; PULSE 78; RESP 16; TEMP 36.6; O2SAT 95
[2022-08-17] MEDS: ACETAMINOPHEN 325 MG TABLET 650 MG PO ×3 (05:55→21:12)
[2022-08-17] MEDS: METOCLOPRAMIDE HCL INJ 10 MG/2 ML VIAL IV PUSH ×4 (05:55→23:00)
[2022-08-17] MEDS: LEVOTHYROXINE SODIUM 75 MCG TABLET PO (05:55)
[2022-08-17] MEDS: ALBUMIN HUMAN 25% 25 GM/100 ML 100 ML IVPB ×3 (05:55→21:13)
[2022-08-17] MEDS: BUMETANIDE INJ 1 MG/4 ML VIAL IV PUSH ×3 (05:55→21:12)
[2022-08-17 06:00] VITALS: BP 128/58; PULSE 84; RESP 16; TEMP 36.6; O2SAT 90
[2022-08-17 06:05] LABS: Hemoglobin 9.5 g/dL (12.0-15.0); Mean Corpuscular HGB Conc 33.9 g/dl (32-36); Mean Corpuscular Hemoglobin 32.1 pg (26-34); Mean Corpuscular Volume 94.6 fl (80-100); Mean Platelet Volume 11.1 fl (7.4-10.4); Platelet Count Result 261 k/mm3 (150-375); Red Blood Count 2.96 M/mm3 (4.2-5.4); Red Cell Distribution Width 15.9 % (11.5-14.5); White Blood Count 7.1 K/mm3 (4.5-10.0)
[2022-08-17 06:11] LABS: Alanine Aminotransferase 44 U/L (6-35); Albumin Level 2.8 g/dL (3.5-5.1); Alkaline Phosphatase 150 U/L (38-126); Anion Gap 3 mmol/L (8-16); Aspartate Amino Transferase 64 U/L (14-36); Bilirubin,Total 0.5 mg/dL (0.2-1.3); Blood Urea Nitrogen 60 mg/dL (7-17); Calcium 7.3 mg/dL (8.4-10.2); Carbon Dioxide 28 mmol/L (22-30); Chloride 98 mmol/L (98-107); Estimated CRCL calculation 19 ml/min; Estimated Glomerular Filt Rate 21; Glucose 102 mg/dL (65-110); Magnesium 2.2 mg/dL (1.6-2.3); Phosphorus 4.2 mg/dL (2.5-4.5); Potassium 2.8 mmol/L (3.4-5.0); Sodium 129 mmol/L (137-145)
[2022-08-17] MEDS: POTASSIUM CHLORIDE INJ 40 MEQ in SODIUM CHLORIDE 0.9% IV 500 ML 130 MEQ IVPB (06:45)
[2022-08-17] MEDS: CENTRAL LINE FLUSH 10 ML IV PUSH ×3 (06:46→21:13)
--- NOTE | 2022-08-17 09:31 | PCOTNOTE ---
Attempted to see pt for Occupational therapy treatment. Pt is currently eating breakfast and then will be getting washed up with daughter. Pt was encouraged to take a shower with therapist if she was up to it to increase independence with her self care goals. Pt reports I will think about it and will talk to you later or we can do it another day .
--- NOTE | 2022-08-17 09:46 | P.PNNP_ITS ---
Progress Note: A&P Assessment and Plan (1) RIP (acute kidney injury): Code(s): N17.9 - Acute kidney failure, unspecified Status: Acute Assessment and Plan: * fluctuating due to poor nuturitonal intake and diuretic therapy * suspect multifactorial etiology: * ongoing/previous diuretic therapy * relative hypotension * recent UTI * use of Bactrim(?) * prerenal factors due to low albumin * IV albumin chased by IV bumex for swelling/edema * follow repeat labs, serum albumin, and UOP (2) Stage 3b chronic kidney disease: Code(s): N18.32 - Chronic kidney disease, stage 3b Status: Chronic Assessment and Plan: * kidney function/creatinine has fluctuated to extremes in the last few months * seems to average out to 1.4 - 2.0mg/dl * creatinine up a little bit with ongoing diuretic therapy/diuresis * 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) * to resume chemotherapy today (3) Hyponatremia: Code(s): E87.1 - Hypo-osmolality and hyponatremia Status: Chronic Assessment and Plan: * doing better * as noted * has been present before * likely related to fluctuations in fluid status, IV medications/nutrition, and diminished oral intake * suspect some worsening due to TPN/parenteral nutrition * if possible, would limit free water in TPN/parenteral nutrition * other option is to add more sodium to TPN if possible * may need to consider salt tabs along with resuming loop diuretic therapy * she is not really taking anything significant po so no real point to fluid restriction at this time * improvement noted with ongoing diuresis * follow trend of sodium (4) Protein calorie malnutrition: Code(s): E46 - Unspecified protein-calorie malnutrition Status: Acute Assessment and Plan: * nutrition has been deteriorating as already noted * low albumin noted which is likely contributing to her swelling/edema issues * this is further complicated by her inability to tolerate oral intake * s/p EGD * biopsy of stomach and small intestine c/w amyloidosis * initiated on TPN (although this may not be a good watermelon harvesting supervisor solution) * G-tube placement done and now on tube feeding (5) Recent urinary tract infection: Code(s): Z87.440 - Personal history of urinary (tract) infections Status: Acute Assessment and Plan: * completed course of IV antibiotics Will continue to follow. Subjective Date/time seen: 08/17/22 09:46 Sitting up in chair at the time of my visit; states she is doing better overall; tolerating TPN + tube feeds + oral intake as tolerated; states she will be getting chemotherapy today; daughter at bedside and we discussed the situation. Exam Narrative: General: chronically ill appearing female in NAD Heart: normal S1 and S2; no rub Lungs: clear bilaterally Abdomen: soft but protuberant with + bowel sounds. Extremities: bilaterally 1+ edema in LEs Skin: warm and dry Objective Data Vital Signs Vital Signs: Vital Signs Temp Pulse Resp BP Pulse Ox O2 Del Method 08/17/22 09:45 Room Air 08/17/22 06:00 97.9 F 84 16 128/58 L 90 08/16/22 22:00 97.9 F 78 16 130/70 95 08/16/22 20:00 90 18 95 Room Air 08/16/22 14:00 97.4 F L 90 18 114/62 95 Intake/Output Intake/Output:
--- NOTE | 2022-08-17 09:46 | PM.PNNEP ---
Progress Note: A&P Assessment and Plan (1) RIP (acute kidney injury): Code(s): N17.9 - Acute kidney failure, unspecified Status: Acute Assessment and Plan: fluctuating due to poor nuturitonal intake and diuretic therapy suspect multifactorial etiology: ongoing/previous diuretic therapy relative hypotension recent UTI use of Bactrim(?) prerenal factors due to low albumin IV albumin chased by IV bumex for swelling/edema follow repeat labs, serum albumin, and UOP (2) Stage 3b chronic kidney disease: Code(s): N18.32 - Chronic kidney disease, stage 3b Status: Chronic Assessment and Plan: kidney function/creatinine has fluctuated to extremes in the last few months seems to average out to 1.4 - 2.0mg/dl creatinine up a little bit with ongoing diuretic therapy/diuresis 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) to resume chemotherapy today (3) Hyponatremia: Code(s): E87.1 - Hypo-osmolality and hyponatremia Status: Chronic Assessment and Plan: doing better as noted has been present before likely related to fluctuations in fluid status, IV medications/nutrition, and diminished oral intake suspect some worsening due to TPN/parenteral nutrition if possible, would limit free water in TPN/parenteral nutrition other option is to add more sodium to TPN if possible may need to consider salt tabs along with resuming loop diuretic therapy she is not really taking anything significant po so no real point to fluid restriction at this time improvement noted with ongoing diuresis follow trend of sodium (4) Protein calorie malnutrition: Code(s): E46 - Unspecified protein-calorie malnutrition Status: Acute Assessment and Plan: nutrition has been deteriorating as already noted low albumin noted which is likely contributing to her swelling/edema issues this is further complicated by her inability to tolerate oral intake s/p EGD biopsy of stomach and small intestine c/w amyloidosis initiated on TPN (although this may not be a good fci solution) G-tube placement done and now on tube feeding (5) Recent urinary tract infection: Code(s): Z87.440 - Personal history of urinary (tract) infections Status: Acute Assessment and Plan: completed course of IV antibiotics Will continue to follow. Subjective Date/time seen: 08/17/22 09:46 Sitting up in chair at the time of my visit; states she is doing better overall; tolerating TPN + tube feeds + oral intake as tolerated; states she will be getting chemotherapy today; daughter at bedside and we discussed the situation. Exam Narrative: General: chronically ill appearing female in NAD Heart: normal S1 and S2; no rub Lungs: clear bilaterally Abdomen: soft but protuberant with + bowel sounds. Extremities: bilaterally 1+ edema in LEs Skin: warm and dry Objective Data Vital Signs Vital Signs: Vital Signs Temp Pulse Resp BP Pulse Ox O2 Del Method 08/17/22 09:45 Room Air 08/17/22 06:00 97.9 F 84 16 128/58 L 90 08/16/22 22:00 97.9 F 78 16 130/70 95 08/16/22 20:00 90 18 95 Room Air 08/16/22 14:00 97.4 F L 90 18 114/62 95 Intake/Output Intake/Output: Intake & Output 08/14/22 08/15/22 08/16/22 08/17/22 23:59 23:59 23:59 23:59 Intake Total 3125 3725 4755 0 Output Total 1050 3950 2450 600 Balance 2075 -225 2305 -600 Meds/Results Medications: Active Medications Generic Name Dose Route Start Last Admin Trade Name Freq PRN Reason Stop Dose Admin Acetaminophen 650 mg 08/06/22 18:01 08/17/22 10:09 Acetaminophen 325 Mg Tablet PO 650 mg Q4H PRN Administration Mild Pain (1-3) or Fever Acyclovir 400 mg 08/06/22 21:00 08/17/22 10:03 Acyclovir 400 Mg Tablet PO 400 mg Q12HR DARRICK Administration Alprazolam 0.5 mg 08/07/22 18:49 Alpra
[2022-08-17] MEDS: BISACODYL 10 MG SUPPOSITORY RECTAL (10:01)
[2022-08-17] MEDS: POTASSIUM CHLORIDE 20 MEQ PACKET (FOR LIQUID) 40 MEQ PO (10:01)
[2022-08-17] MEDS: HEPARIN SODIUM 5,000 UNITS/ML VIAL 5000 UNITS SUB-Q ×2 (10:01→21:12)
[2022-08-17] MEDS: ROSUVASTATIN 10 MG TABLET 40 MG PO (10:02)
[2022-08-17] MEDS: PANTOPRAZOLE 40 MG TABLET PO ×2 (10:02→21:12)
[2022-08-17] MEDS: MIDODRINE HCL 10 MG TABLET PO ×3 (10:02→17:45)
[2022-08-17] MEDS: SIMETHICONE 125 MG CHEW TAB PO ×4 (10:02→21:12)
[2022-08-17] MEDS: polyethylene glycoL 3350 17 GM POWD.PACK PO (10:02)
[2022-08-17] MEDS: ACYCLOVIR 400 MG TABLET PO ×2 (10:03→21:12)
[2022-08-17] MEDS: FAT EMULSIONS IV 20% 250 ML 20.8 ML IVPB (10:10)
--- NOTE | 2022-08-17 12:08 | PCNFU ---
Nutrition Follow-Up Complete: Severe protein calorie malnutrition related to chronic illness as evidenced by poor intake <75% needs >1 month; muscle wasting and fat loss. goal: Tolerate TPN at goal rate Patient is meeting goal. We will continue goal. Pt current nutrition is TPN/Tube feedings/Low fiber diet. Last recorded weight is 77 kg up from 70.2 kg on admit. Bowel Motility: +Bm reported 08/16 Labs Reviewed:Cr 2.3,BUN 60, K 2.8,Na 129, Alb 2.8,Hct 28.0, Hgb 9.5 Meds Noted:Reglan, Protonix, Crestor, Clinimix 5/15 at 40 ml/hr with 250 ml of 20% Lipid Emulsion. Skin:WNL Additional Notes: Spoke with patient and family today. Patient was able to tolerate oral diet for breakfast. Banana nut bread, orange, pancake. She continue to receive TPN providing an additional 1182 kcals and 48 gms protein. Tube feedings turned off over night per patient request. Restarted today at 20 ml/hr, plans to increase to goal rate of 65 ml/hr providing an additional 1716 kcals/79 gms protein/1154 ml water. Flush 30 ml q 4 hours. Once patient is able to tolerate tube feedings recommend to discontinue TPN. Plans for chemo treatment today. Monitor parenteral nutrition tolerance; labs; weights, stool pattern, plan of care Follow up every Tuesday and Tuesday.
--- NOTE | 2022-08-17 13:19 | WPDGIPROGNO ---
Progress Note: A&P Assessment and Plan (1) PEG (percutaneous endoscopic gastrostomy) status: Code(s): Z93.1 - Gastrostomy status Status: Acute Assessment and Plan: Peg appears to be healing well. Plan for tube feedings as necessary for nutritional support. Plan on PEG tube feedings at the time of discharge likely will discontinue TPN at that time. 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 Be side the kidney biopsies. Gastric biopsies also confirm amyloidosis. (3) Protein calorie malnutrition: Code(s): E46 - Unspecified protein-calorie malnutrition Status: Acute Assessment and Plan: Patient now on PEG tube feedings for nutrition. We will allow her to eat as much as she can. Currently on TPN also which likely will discontinue at discharge. (4) Gas bloat syndrome: Code(s): K92.89 - Other specified diseases of the digestive system Status: Acute Assessment and Plan: Patient with gas and bloating. Had acid reflux lightest night. Poor motility throughout the GI tract is suspected. Currently on IV metoclopramide. Subjective Date/time seen: 08/17/22 13:19 Interval history: Patient alert. Feels comfortable and full of energy today. States she felt weak yesterday had acid reflux last night and held the gastric tube feedings during the evening. But feels better this morning. Review of Systems Review of Systems: Review of systems noncontributory. Exam Narrative: Physical exam reveals patient be alert comfortable at rest. HEENT exam reveals no icterus. Lungs are clear. Heart without murmur. Abdomen bowel sounds present soft nontender with PEG tube site healing well. Objective Data Vital Signs Vital Signs: Vital Signs - 24 hr 08/16/22 14:00 08/16/22 20:00 08/16/22 22:00 Temperature 97.4 F L 97.9 F Pulse Rate 90 90 78 Respiratory Rate 18 18 16 Blood Pressure 114/62 130/70 Pulse Oximetry 95 95 95 Oxygen Delivery Room Air 08/17/22 06:00 08/17/22 09:45 Temperature 97.9 F Pulse Rate 84 Respiratory Rate 16 Blood Pressure 128/58 L Pulse Oximetry 90 Oxygen Delivery Room Air Intake/Output Intake/Output: Intake & Output 0208/15/22 08/16/22 08/17/22 23:59 23:59 23:59 23:59 Intake Total 3125 3725 4755 100 Output Total 1050 3950 2450 600 Balance 7288 -683 2305 -020 Meds/Results Medications: Active Medications Generic Name Dose Route Start Last Admin Trade Name Freq PRN Reason Stop Dose Admin Acetaminophen 650 mg 08/06/22 18:01 08/17/22 10:09 Acetaminophen 325 Mg Tablet PO 650 mg Q4H PRN Administration Mild Pain (1-3) or Fever Acyclovir 400 mg 08/06/22 21:00 08/17/22 10:03 Acyclovir 400 Mg Tablet PO 400 mg Q12HR DARRICK Administration Alprazolam 0.5 mg 08/07/22 18:49 Alprazolam (*Crx) 0.5 Mg Tablet PO TID PRN Anxiety Bisacodyl 10 mg 08/08/22 13:12 08/09/22 09:19 Bisacodyl 10 Mg Suppository RECTAL 10 mg QAM PRN Administration Constipation Bisacodyl 10 mg 08/14/22 09:00 08/17/22 10:01 Bisacodyl 10 Mg Suppository RECTAL 10 mg QAM DARRICK Administration Bortezomib 2.1 mg 08/17/22 14:00 Bortezomib 3.5 Mg/1.4 Ml Vial SUB-Q 08/17/22 14:01 ONCE ONE Bumetanide 1 mg 08/14/22 14:00 08/17/22 13:10 Bumetanide Inj 1 Mg/4 Ml Vial IV PUSH 1 mg Q8HR DARRICK Administration Heparin Sodium (Beef Lung) 50 units 08/07/22 09:00 08/17/22 10:03 Heparin Flush 50 Units/5 Ml Syringe IV PUSH Not Given QAM DARRICK Heparin Sodium (Beef Lung) 50 units 08/07/22 00:23 Heparin Flush 50 Units/5 Ml Syringe IV PUSH PRN PRN after intermittent infusion Heparin Sodium (Beef Lung) 50 units 08/07/22 00:23 08/15/22 05:16 Heparin Flush 50 Units/5 Ml Syringe IV PUSH 50 units PRN PRN Administration after blood draws
[2022-08-17 14:00] VITALS: BP 122/72; PULSE 80; RESP 14; TEMP 36.4; O2SAT 95
--- NOTE | 2022-08-17 14:01 | PM.IMPN ---
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 Hamilton office for further treatment and evaluation of acute on chronic kidney injury. # Acute on chronic kidney disease stage 3: Recently treated for UTI with Bactrim. Poor p.o. intake. Creatinine 2.6 on admission. Baseline high 1s to 2s. Started on IV hydration. Bactrim was discontinued. Nephrology consulted. Currently back to baseline mostly. # Anasarca: Ongoing problem. Hypoalbuminemic. Poor nutrition 1 of the reason. Also has amyloidosis. Prealbumin 34.1. Limited on diuretic use because of hypotension. Also has Heavy proteinuria # UTI: Started on cefepime to complete the treatment. 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 On 08/11/2022 EGD was normal status post PEG tube placement in tube feeds running. continue in concurrent TPN and tube feeds until tube feeds are well tolerated # general debility # elevated liver enzymes: Mild. Likely related to amyloidosis as well continue to monitor. Small-bowel biopsy also positive for amyloidosis 08/17/2022 interval history: amylodosis is suspected to infiltrate liver and small bowl and possibly large intestine this will effect nutrient absorption and intestine motility and patient is have persistent constipation, on 08/16 D/W Dr aHmilton her oncologist considering giving chemotherapy while in the hospital, this may improve her condition, yesterday evening patient felt bolated and did not want G tube feeding, this morning patient had a small BM and today patient states feeling better, patient is able to take p.o. diet, patient is seen by GI and further recommendation to follow, Subjective Date/time seen: 08/17/22 14:01 The patient is being directly admitted to the medical/surgical floor from Dr. Hamilton office for further treatment and evaluation of acute on chronic kidney injury. # Acute on chronic kidney disease stage 3: Recently treated for UTI with Bactrim. Poor p.o. intake. Creatinine 2.6 on admission. Baseline high 1s to 2s. Started on IV hydration. Bactrim was discontinued. Nephrology consulted. Currently back to baseline mostly. # Anasarca: Ongoing problem. Hypoalbuminemic. Poor nutrition 1 of the reason. Also has amyloidosis. Prealbumin 34.1. Limited on diuretic use because of hypotension. Also has Heavy proteinuria # UTI: Started on cefepime to complete the treatment. 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 On 08/11/2022 EGD was normal status post PEG tube placement in tube feeds running. continue in concurrent TPN and tube feeds until tube feeds are well tolerated # general debility # elevated liver enzymes: Mild. Likely related to amyloidosis as well continue to monitor. Sm
[2022-08-17] MEDS: BORTEZOMIB 3.5 MG/1.4 ML VIAL 2.1 MG SUB-Q (14:07)
[2022-08-17 15:01] LABS: Anion Gap 5 mmol/L (8-16); Blood Urea Nitrogen 57 mg/dL (7-17); Calcium 7.7 mg/dL (8.4-10.2); Carbon Dioxide 26 mmol/L (22-30); Chloride 100 mmol/L (98-107); Estimated CRCL calculation 21 ml/min; Estimated Glomerular Filt Rate 23; Glucose 106 mg/dL (65-110); Magnesium 2.2 mg/dL (1.6-2.3); Sodium 131 mmol/L (137-145)
[2022-08-17] MEDS: AMINO ACIDS 5%/D15W/E-LYTES/CA 2,000 ML with MULTIVITAMINS-12 INJ VIAL 1 2.5 ML, MULTIV... 40 ML IV CONT (17:44)
--- NOTE | 2022-08-17 19:08 | WPDONCPN ---
Progress Note: A/P - Additional Plan Systemic amyloidosis. Patient started treatment with Velcade injection in the hospital today. She will continue Velcade on a weekly basis and will resume treatment with Darzalex and Cytoxan as an outpatient. She tolerated Velcade treatment well. She is describing return of for some taste buds. She had small bowel movement today. She is tolerating tube feeding well. GI Plan noted to continue tube feeding along with TPN for now. Hopefully she will be ready to discharge home in next couple of days when her nutritional status improves with tube feeding. - Time Spent With Patient Total time spent is greater than 50% in coordination of care (as documented) at patient's floor/unit and/or counseling patient: 15 - 25 minutes Subjective Interval history: Systemic amyloidosis Review of Systems - Review of Systems Patient is sitting up in the side of the bed. She seems to be more energetic and more alert and awake. He has been tolerating tube feeding well. She is describing that her taste is coming back and would like to eat as well. She seems to be in good spirits today. Patient had small bowel movement today. Exam Narrative: Lungs are clear to auscultation bilaterally Cardiovascular regular rate rhythm no murmurs Abdomen slightly distended bowel sounds are diminished Extremities bilateral lower extremity edema PN: Objective Data - Labs CBC & Chem 7: 08/17/22 05:53 08/17/22 13:21 Labs: Laboratory Results - last 24 hr 08/17/22 08/17/22 08/17/22 05:53 05:53 13:21 WBC 7.1 RBC 2.96 L Hgb 9.5 L Hct 28.0 L MCV 94.6 MCH 32.1 MCHC 33.9 RDW 15.9 H Plt Count 261 MPV 11.1 H Sodium 129 L Potassium 2.8 L* 3.0 L Chloride 98 Carbon Dioxide 28 Anion Gap 3 L BUN 60 H Creatinine 2.30 H Estim Creat Clear Calc 19 Estimated GFR 21 L Glucose 102 Calcium 7.3 L Phosphorus 4.2 Magnesium 2.2 Total Bilirubin 0.5 AST 64 H ALT 44 H Alkaline Phosphatase 150 H Total Protein 5.0 L Albumin 2.8 L 08/17/22 13:21 WBC RBC Hgb Hct MCV MCH MCHC RDW Plt Count MPV Sodium 131 L Potassium 3.0 L Chloride 100 Carbon Dioxide 26 Anion Gap 5 L BUN 57 H Creatinine 2.10 H Estim Creat Clear Calc 21 Estimated GFR 23 L Glucose 106 Calcium 7.7 L Phosphorus Magnesium 2.2 Total Bilirubin AST ALT Alkaline Phosphatase Total Protein Albumin
[2022-08-17 20:00] VITALS: PULSE 80; RESP 14; O2SAT 95
[2022-08-17] MEDS: ALPRAZolam (*CRX) 0.5 MG TABLET PO (21:12)
[2022-08-17] MEDS: SENNA/DOCUSATE SODIUM TABLET 1 TAB PO (21:12)
[2022-08-17 22:00] VITALS: BP 120/71; PULSE 80; RESP 16; TEMP 36.4; O2SAT 99
[2022-08-18] MEDS: ALBUMIN HUMAN 25% 25 GM/100 ML 100 ML IVPB ×3 (05:34→21:09)
[2022-08-18] MEDS: LEVOTHYROXINE SODIUM 75 MCG TABLET PO (05:35)
[2022-08-18] MEDS: BUMETANIDE INJ 1 MG/4 ML VIAL IV PUSH ×3 (05:35→21:09)
[2022-08-18] MEDS: METOCLOPRAMIDE HCL INJ 10 MG/2 ML VIAL IV PUSH ×4 (05:35→23:29)
[2022-08-18] MEDS: ACETAMINOPHEN 325 MG TABLET 650 MG PO ×2 (05:35→21:09)
[2022-08-18] MEDS: CENTRAL LINE FLUSH 10 ML IV PUSH ×3 (05:35→21:10)
[2022-08-18 06:00] VITALS: BP 118/71; PULSE 78; RESP 18; TEMP 36.4; O2SAT 99
[2022-08-18 06:22] LABS: Hemoglobin 9.8 g/dL (12.0-15.0); Mean Corpuscular HGB Conc 32.7 g/dl (32-36); Mean Corpuscular Hemoglobin 30.8 pg (26-34); Mean Corpuscular Volume 94.3 fl (80-100); Mean Platelet Volume 10.8 fl (7.4-10.4); Platelet Count Result 316 k/mm3 (150-375); Red Blood Count 3.18 M/mm3 (4.2-5.4)
[2022-08-18 06:44] LABS: Alanine Aminotransferase 50 U/L (6-35); Albumin Level 2.9 g/dL (3.5-5.1); Alkaline Phosphatase 150 U/L (38-126); Anion Gap 6 mmol/L (8-16); Aspartate Amino Transferase 69 U/L (14-36); Bilirubin,Total 0.3 mg/dL (0.2-1.3); Blood Urea Nitrogen 53 mg/dL (7-17); Calcium 7.3 mg/dL (8.4-10.2); Carbon Dioxide 27 mmol/L (22-30); Chloride 102 mmol/L (98-107); Estimated CRCL calculation 20 ml/min; Estimated Glomerular Filt Rate 22; Glucose 105 mg/dL (65-110); Magnesium 2.1 mg/dL (1.6-2.3); Phosphorus 4.3 mg/dL (2.5-4.5); Potassium 2.9 mmol/L (3.4-5.0); Sodium 135 mmol/L (137-145); Triglycerides 56 mg/dL (<150)
[2022-08-18] MEDS: MIDODRINE HCL 10 MG TABLET PO ×3 (09:20→17:30)
[2022-08-18] MEDS: ROSUVASTATIN 10 MG TABLET 40 MG PO (09:20)
[2022-08-18] MEDS: HEPARIN SODIUM 5,000 UNITS/ML VIAL 5000 UNITS SUB-Q ×2 (09:20→21:09)
[2022-08-18] MEDS: ACYCLOVIR 400 MG TABLET PO ×2 (09:21→21:10)
[2022-08-18] MEDS: PANTOPRAZOLE 40 MG TABLET PO ×2 (09:21→21:10)
[2022-08-18] MEDS: polyethylene glycoL 3350 17 GM POWD.PACK PO (09:21)
[2022-08-18] MEDS: SIMETHICONE 125 MG CHEW TAB PO ×4 (09:21→21:09)
[2022-08-18] MEDS: POTASSIUM CHLORIDE INJ 40 MEQ in SODIUM CHLORIDE 0.9% IV 500 ML 130 MEQ IVPB (10:27)
[2022-08-18] MEDS: POTASSIUM CHLORIDE 20 MEQ PACKET (FOR LIQUID) 40 MEQ PO ×2 (10:28→21:08)
--- NOTE | 2022-08-18 13:51 | PM.PNNEP ---
Progress Note: A&P Assessment and Plan (1) RIP (acute kidney injury): Code(s): N17.9 - Acute kidney failure, unspecified Status: Acute Assessment and Plan: fluctuating due to nuturitonal intake and diuretic therapy suspect multifactorial etiology: ongoing/previous diuretic therapy relative hypotension recent UTI use of Bactrim(?) prerenal factors due to low albumin IV albumin chased by IV bumex for swelling/edema follow repeat labs, serum albumin, and UOP (2) Stage 3b chronic kidney disease: Code(s): N18.32 - Chronic kidney disease, stage 3b Status: Chronic Assessment and Plan: kidney function/creatinine has fluctuated to extremes in the last few months seems to average out to 1.4 - 2.0mg/dl creatinine up a little bit with ongoing diuretic therapy/diuresis 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) to resume chemotherapy today (3) Hyponatremia: Code(s): E87.1 - Hypo-osmolality and hyponatremia Status: Chronic Assessment and Plan: doing better as noted has been present before likely related to fluctuations in fluid status, IV medications/nutrition, and diminished oral intake suspect some worsening due to TPN/parenteral nutrition if possible, would limit free water in TPN/parenteral nutrition other option is to add more sodium to TPN if possible may need to consider salt tabs along with resuming loop diuretic therapy she is not really taking anything significant po so no real point to fluid restriction at this time improvement noted with ongoing diuresis follow trend of sodium (4) Protein calorie malnutrition: Code(s): E46 - Unspecified protein-calorie malnutrition Status: Acute Assessment and Plan: nutrition has been deteriorating as already noted low albumin noted which is likely contributing to her swelling/edema issues this is further complicated by her inability to tolerate oral intake s/p EGD biopsy of stomach and small intestine c/w amyloidosis initiated on TPN G-tube placement done and now on tube feeding (5) Recent urinary tract infection: Code(s): Z87.440 - Personal history of urinary (tract) infections Status: Acute Assessment and Plan: completed course of IV antibiotics Will continue to follow. Subjective Date/time seen: 08/18/22 13:51 Slow and steady improvement in the last few days -- she has been taking oral intake since she has more taste in her mouth and tolerating reasonably well; continues with tube feeds as well as TPN; dose with Velcade yesterday; renal function tolerating diuresis but this has led to issues with hypokalemia. Exam Narrative: General: chronically ill appearing female in NAD Heart: normal S1 and S2; no rub Lungs: clear bilaterally Abdomen: soft but protuberant with + bowel sounds. Extremities: bilaterally 1+ edema in LEs Skin: warm and intact Objective Data Vital Signs Vital Signs: Vital Signs Temp Pulse Resp BP Pulse Ox O2 Del Method 08/18/22 13:53 97.2 F L 91 16 126/67 97 08/18/22 09:15 Room Air 08/18/22 06:00 97.6 F 78 18 118/71 99 08/17/22 22:00 97.6 F 80 16 120/71 99 08/17/22 20:00 80 14 95 Room Air Intake/Output Intake/Output: Intake & Output 08/15/22 08/16/22 08/17/22 08/18/22 23:59 23:59 23:59 23:59 Intake Total 3725 4755 2555 1620 Output Total 3950 2450 3500 1999 Balance -225 2305 -945 -380 Meds/Results Medications: Active Medications Generic Name Dose Route Start Last Admin Trade Name Freq PRN Reason Stop Dose Admin Acetaminophen 650 mg 08/06/22 18:01 08/18/22 05:35 Acetaminophen 325 Mg Tablet PO 650 mg Q4H PRN Administration Mild Pain (1-3) or Fever Acyclovir 400 mg 08/06/22 21:00 08/18/22 09:21 Acyclovir 400 Mg Tablet PO 400 mg Q12HR DARRICK Administration Alprazolam 0.5 mg
--- NOTE | 2022-08-18 13:51 | P.PNNP_ITS ---
Progress Note: A&P Assessment and Plan (1) RIP (acute kidney injury): Code(s): N17.9 - Acute kidney failure, unspecified Status: Acute Assessment and Plan: * fluctuating due to nuturitonal intake and diuretic therapy * suspect multifactorial etiology: * ongoing/previous diuretic therapy * relative hypotension * recent UTI * use of Bactrim(?) * prerenal factors due to low albumin * IV albumin chased by IV bumex for swelling/edema * follow repeat labs, serum albumin, and UOP (2) Stage 3b chronic kidney disease: Code(s): N18.32 - Chronic kidney disease, stage 3b Status: Chronic Assessment and Plan: * kidney function/creatinine has fluctuated to extremes in the last few months * seems to average out to 1.4 - 2.0mg/dl * creatinine up a little bit with ongoing diuretic therapy/diuresis * 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) * to resume chemotherapy today (3) Hyponatremia: Code(s): E87.1 - Hypo-osmolality and hyponatremia Status: Chronic Assessment and Plan: * doing better * as noted * has been present before * likely related to fluctuations in fluid status, IV medications/nutrition, and diminished oral intake * suspect some worsening due to TPN/parenteral nutrition * if possible, would limit free water in TPN/parenteral nutrition * other option is to add more sodium to TPN if possible * may need to consider salt tabs along with resuming loop diuretic therapy * she is not really taking anything significant po so no real point to fluid restriction at this time * improvement noted with ongoing diuresis * follow trend of sodium (4) Protein calorie malnutrition: Code(s): E46 - Unspecified protein-calorie malnutrition Status: Acute Assessment and Plan: * nutrition has been deteriorating as already noted * low albumin noted which is likely contributing to her swelling/edema issues * this is further complicated by her inability to tolerate oral intake * s/p EGD * biopsy of stomach and small intestine c/w amyloidosis * initiated on TPN * G-tube placement done and now on tube feeding (5) Recent urinary tract infection: Code(s): Z87.440 - Personal history of urinary (tract) infections Status: Acute Assessment and Plan: * completed course of IV antibiotics Will continue to follow. Subjective Date/time seen: 08/18/22 13:51 Slow and steady improvement in the last few days -- she has been taking oral intake since she has more taste in her mouth and tolerating reasonably well; continues with tube feeds as well as TPN; dose with Velcade yesterday; renal function tolerating diuresis but this has led to issues with hypokalemia. Exam Narrative: General: chronically ill appearing female in NAD Heart: normal S1 and S2; no rub Lungs: clear bilaterally Abdomen: soft but protuberant with + bowel sounds. Extremities: bilaterally 1+ edema in LEs Skin: warm and intact Objective Data Vital Signs Vital Signs: Vital Signs Temp Pulse Resp BP Pulse Ox O2 Del Method 08/18/22 13:53 97.2 F L 91 16 126/67 97 08/18/22 09:15 Room Air 08/18/22 06:00 97.6 F 78 18 118/71 99 08/17/22 22:00 97.6 F 80 16 120/71 99 08/17/22 20:00 80 14 95 Room Air Intake/Output Intake/Out
[2022-08-18 14:53] VITALS: BP 126/67; PULSE 91; RESP 16; TEMP 36.2; O2SAT 97
--- NOTE | 2022-08-18 15:27 | PM.IMPN ---
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 Hamilton office for further treatment and evaluation of acute on chronic kidney injury. # Acute on chronic kidney disease stage 3: Recently treated for UTI with Bactrim. Poor p.o. intake. Creatinine 2.6 on admission. Baseline high 1s to 2s. Started on IV hydration. Bactrim was discontinued. Nephrology consulted. Currently back to baseline mostly. # Anasarca: Ongoing problem. Hypoalbuminemic. Poor nutrition 1 of the reason. Also has amyloidosis. Prealbumin 34.1. Limited on diuretic use because of hypotension. Also has Heavy proteinuria # UTI: Started on cefepime to complete the treatment. 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 On 08/11/2022 EGD was normal status post PEG tube placement in tube feeds running. continue in concurrent TPN and tube feeds until tube feeds are well tolerated # general debility # elevated liver enzymes: Mild. Likely related to amyloidosis as well continue to monitor. Small-bowel biopsy also positive for amyloidosis 08/18/2022 interval history: amylodosis is suspected to infiltrate liver and small bowl and possibly large intestine this will effect nutrient absorption and intestine motility and patient is having persistent constipation, on 08/16 D/W Dr Hamilton her oncologist considering giving chemotherapy while in the hospital, this may improve her condition, on 08/16 evening patient felt bolated and did not want G tube feeding, on 08/17 morning patient had a small BM and patient stated feeling better, on 08/17 patient was given injection of Velcade in the hospital, patient is able to take p.o. diet, and currently patient eating her breakfast, her daughter is present in the room,patient is seen by GI and further recommendation to follow, Subjective Date/time seen: 08/18/22 15:27 The patient is being directly admitted to the medical/surgical floor from Dr. Hamilton office for further treatment and evaluation of acute on chronic kidney injury. # Acute on chronic kidney disease stage 3: Recently treated for UTI with Bactrim. Poor p.o. intake. Creatinine 2.6 on admission. Baseline high 1s to 2s. Started on IV hydration. Bactrim was discontinued. Nephrology consulted. Currently back to baseline mostly. # Anasarca: Ongoing problem. Hypoalbuminemic. Poor nutrition 1 of the reason. Also has amyloidosis. Prealbumin 34.1. Limited on diuretic use because of hypotension. Also has Heavy proteinuria # UTI: Started on cefepime to complete the treatment. 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 On 08/11/2022 EGD was normal status post PEG tube placement in tube feeds running. continue in concurrent TPN and tube feeds until tube fe
[2022-08-18 20:00] VITALS: PULSE 91; RESP 16; O2SAT 97
[2022-08-18 20:39] VITALS: BP 130/64; PULSE 93; RESP 18; TEMP 36.6; O2SAT 98
[2022-08-18] MEDS: SENNA/DOCUSATE SODIUM TABLET 1 TAB PO (21:10)
[2022-08-18] MEDS: ALPRAZolam (*CRX) 0.5 MG TABLET PO (21:10)
[2022-08-19 04:59] VITALS: BP 131/65; PULSE 91; RESP 18; TEMP 36.6; O2SAT 96
[2022-08-19] MEDS: LEVOTHYROXINE SODIUM 75 MCG TABLET PO (05:59)
[2022-08-19] MEDS: ALBUMIN HUMAN 25% 25 GM/100 ML 100 ML IVPB ×3 (05:59→21:47)
[2022-08-19] MEDS: BUMETANIDE INJ 1 MG/4 ML VIAL IV PUSH ×3 (05:59→21:47)
[2022-08-19] MEDS: METOCLOPRAMIDE HCL INJ 10 MG/2 ML VIAL IV PUSH ×3 (05:59→17:51)
[2022-08-19] MEDS: ACETAMINOPHEN 325 MG TABLET 650 MG PO ×2 (05:59→21:44)
[2022-08-19] MEDS: CENTRAL LINE FLUSH 10 ML IV PUSH ×3 (06:00→21:48)
[2022-08-19 06:22] LABS: Basophils Percent Auto 0.4 % (0.2-1.2); Eosinophils Percent Auto 0.3 % (0-4.4); Hematocrit 32.9 % (37.0-47.0); Hemoglobin 10.9 g/dL (12.0-15.0); Immature Granulocyte Absolute 0.03 K/mm3 (0.00-0.031); Immature Granulocyte Percent A 0.4 % (0-0.5); Lymphocytes Absolute Auto 0.99 K/mm3 (0.9-3.2); Lymphocytes Percent Auto 13.4 % (18.3-44.2); Mean Corpuscular HGB Conc 33.1 g/dl (32-36); Mean Corpuscular Hemoglobin 32.1 pg (26-34); Mean Corpuscular Volume 96.8 fl (80-100); Mean Platelet Volume 10.5 fl (7.4-10.4); Monocytes Percent Auto 13.4 % (2.6-8.5); Neutrophils Absolute Auto 5.3 K/mm3 (1.3-6.7); Neutrophils Percent Auto 72.1 % (45.5-73.1); Platelet Count Result 320 k/mm3 (150-375); Red Cell Distribution Width 16.3 % (11.5-14.5); White Blood Count 7.4 K/mm3 (4.5-10.0)
[2022-08-19 06:38] LABS: Alanine Aminotransferase 54 U/L (6-35); Albumin Level 2.9 g/dL (3.5-5.1); Alkaline Phosphatase 181 U/L (38-126); Anion Gap 6 mmol/L (8-16); Aspartate Amino Transferase 73 U/L (14-36); Bilirubin,Total 0.3 mg/dL (0.2-1.3); Blood Urea Nitrogen 49 mg/dL (7-17); Calcium 7.5 mg/dL (8.4-10.2); Carbon Dioxide 26 mmol/L (22-30); Chloride 106 mmol/L (98-107); Estimated CRCL calculation 18 ml/min; Estimated Glomerular Filt Rate 20; Glucose 104 mg/dL (65-110); Potassium 3.8 mmol/L (3.4-5.0); Sodium 138 mmol/L (137-145)
[2022-08-19] MEDS: SIMETHICONE 125 MG CHEW TAB PO ×4 (09:03→21:46)
[2022-08-19] MEDS: MIDODRINE HCL 10 MG TABLET PO ×3 (09:04→17:51)
[2022-08-19] MEDS: ACYCLOVIR 400 MG TABLET PO ×2 (09:04→21:46)
[2022-08-19] MEDS: ROSUVASTATIN 10 MG TABLET 40 MG PO (09:04)
[2022-08-19] MEDS: HEPARIN SODIUM 5,000 UNITS/ML VIAL 5000 UNITS SUB-Q ×2 (09:04→21:46)
[2022-08-19] MEDS: polyethylene glycoL 3350 17 GM POWD.PACK PO (09:05)
[2022-08-19] MEDS: PANTOPRAZOLE 40 MG TABLET PO ×2 (09:05→21:47)
--- NOTE | 2022-08-19 10:58 | PCNFU ---
Nutrition Follow-Up Complete: Severe protein calorie malnutrition related to chronic illness as evidenced by poor intake <75% needs >1 month; muscle wasting and fat loss. goal: Meet estimated nutritional needs Patient is progressing towards goal. Pt current nutrition is Low Fiber with Tube feedings. Last recorded weight is 74.8 kg. Bowel Motility:+BM reported 08/17 Labs Reviewed:Cr 2.4,BUN 49, Alb 2.9 Meds Noted:Reglan, Florastor, Protonix, Crestor, Miralax, Bumex Skin: WNL Additional Notes: Spoke at length today to patient and daughter regarding home feeding regimen. MD orders for nocturnal feedings of Jevity 1.5 at 1900hrs-0700 hrs, providing 1170 kcals/50 gms protein/593 ml water. Flush 100 ml q 4 hours. Bolus 240 ml after meals of Jevity 1.5 with flush of 100 ml after feedings. Bolus feedings providing an additional 1080 kcals/46 gms protein/1140 ml water. At 30 kcal/kg caloric needs are 2106 kcals. Tube feedings will meet 100% caloric and protein needs. Patient will also be able to eat as desired. MD orders for Nutritional Ice Cream for an additional 290 kcals and 9 gms protein. Monitor enteral nutrition tolerance; labs; weights, stool pattern, plan of care every Tuesday and Tuesday.
--- NOTE | 2022-08-19 11:05 | WPDGIPROGNO ---
Progress Note: A&P Assessment and Plan (1) PEG (percutaneous endoscopic gastrostomy) status: Code(s): Z93.1 - Gastrostomy status Status: Acute Assessment and Plan: Peg appears to be healing well. Plan to continue PEG tube feedings and supplement this with oral intake as tolerated. (2) Protein calorie malnutrition: Code(s): E46 - Unspecified protein-calorie malnutrition Status: Acute Assessment and Plan: Will anticipate continuing PEG tube feedings for now. Discontinue TPN allow oral intake as tolerated. 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 Hamilton, Oncology (4) Rawjg-im-ohomghe kidney injury: Code(s): N17.9 - Acute kidney failure, unspecified; N18.9 - Chronic kidney disease, unspecified Status: Acute Subjective Date/time seen: 08/19/22 11:05 Interval history: Patient alert fairly comfortable today. She has restarted tube feedings. Tolerating diet. TPN has discontinued. She recently has restarted chemotherapy for her amyloid. Review of Systems Review of Systems: Review of systems noncontributory. Exam Narrative: Physical exam reveals patient be alert and afebrile. HEENT exam reveals no icterus. Lungs are clear. Heart without murmur. Abdomen with G-tube healing well in the left upper quadrant. Abdominal abdomen modestly distended bowel sounds are present but soft and no tenderness. Objective Data Vital Signs Vital Signs: Vital Signs - 24 hr 08/18/22 14:53 08/18/22 20:00 08/18/22 20:39 Temperature 97.2 F L 97.8 F Pulse Rate 91 91 93 Respiratory Rate 16 16 18 Blood Pressure 126/67 130/64 Pulse Oximetry 97 97 98 Oxygen Delivery Room Air 08/19/22 04:59 08/19/22 09:00 Temperature 97.8 F Pulse Rate 91 Respiratory Rate 18 Blood Pressure 131/65 Pulse Oximetry 96 Oxygen Delivery Room Air Intake/Output Intake/Output: Intake & Output 08/16/22 08/17/22 08/18/22 08/19/22 23:59 23:59 23:59 23:59 Intake Total 4755 2555 2260 1460 Output Total 2450 3500 2500 1000 Balance 2305 -945 -240 460 Meds/Results Medications: Active Medications Generic Name Dose Route Start Last Admin Trade Name Freq PRN Reason Stop Dose Admin Acetaminophen 650 mg 08/06/22 18:01 08/19/22 05:59 Acetaminophen 325 Mg Tablet PO 650 mg Q4H PRN Administration Mild Pain (1-3) or Fever Acyclovir 400 mg 08/06/22 21:00 08/19/22 09:04 Acyclovir 400 Mg Tablet PO 400 mg Q12HR DARRICK Administration Alprazolam 0.5 mg 08/07/22 18:49 08/18/22 21:10 Alprazolam (*Crx) 0.5 Mg Tablet PO 0.5 mg TID PRN Administration Anxiety Bisacodyl 10 mg 08/08/22 13:12 08/09/22 09:19 Bisacodyl 10 Mg Suppository RECTAL 10 mg QAM PRN Administration Constipation Bisacodyl 10 mg 08/14/22 09:00 08/19/22 09:08 Bisacodyl 10 Mg Suppository RECTAL Not Given QAM DARRICK Bumetanide 1 mg 08/14/22 14:00 08/19/22 05:59 Bumetanide Inj 1 Mg/4 Ml Vial IV PUSH 1 mg Q8HR DARRICK Administration Heparin Sodium (Beef Lung) 50 units 08/07/22 09:00 08/19/22 09:05 Heparin Flush 50 Units/5 Ml Syringe IV PUSH 50 units QAM DARRICK Administration Heparin Sodium (Beef Lung) 50 units 08/07/22 00:23 Heparin Flush 50 Units/5 Ml Syringe IV PUSH PRN PRN after intermittent infusion Heparin Sodium (Beef Lung) 50 units 08/07/22 00:23 08/19/22 06:00 Heparin Flush 50 Units/5 Ml Syringe IV PUSH 50 units PRN PRN Administration after blood draws Heparin Sodium (Porcine) 5,000 units 08/07/22 09:00 08/19/22 09:04 Heparin Sodium 5,000 Units/Ml Vial SUB-Q 5,000 units Q12HR DARRICK Administration Heparin Sodium (Porcine) 500 units 08/07/22 00:23 Heparin Sodium Lock Flush 500 Units/5 Ml Syringe IV PUSH PRN PRN see comments below Dextrose 1,000 mls @ 50 mls/hr 08/07
[2022-08-19] MEDS: SACCHAROMYCES BOULARDII 250 MG CAPSULE PO ×2 (12:23→17:51)
--- NOTE | 2022-08-19 12:23 | P.PNNP_ITS ---
Progress Note: A&P Assessment and Plan (1) RIP (acute kidney injury): Code(s): N17.9 - Acute kidney failure, unspecified Status: Acute Assessment and Plan: * fluctuating due to nuturitonal intake and diuretic therapy * suspect multifactorial etiology: * ongoing/previous diuretic therapy * relative hypotension * recent UTI * use of Bactrim(?) * prerenal factors due to low albumin * on IV albumin chased by IV bumex for swelling/edema * still with significant edema -- will cut back tomorrow * follow repeat labs, serum albumin, and UOP (2) Stage 3b chronic kidney disease: Code(s): N18.32 - Chronic kidney disease, stage 3b Status: Chronic Assessment and Plan: * kidney function/creatinine has fluctuated to extremes in the last few months * seems to average out to 1.4 - 2.0mg/dl * creatinine up a little bit with ongoing diuretic therapy/diuresis * 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 Hamilton (3) Hyponatremia: Code(s): E87.1 - Hypo-osmolality and hyponatremia Status: Chronic Assessment and Plan: * doing better * has been present before * likely related to fluctuations in fluid status, IV medications/nutrition, and diminished oral intake * suspect some worsening due to previous TPN/parenteral nutrition use * improvement noted with ongoing diuresis * follow trend of sodium (4) Protein calorie malnutrition: Code(s): E46 - Unspecified protein-calorie malnutrition Status: Acute Assessment and Plan: * nutrition has been deteriorating as already noted * low albumin on admission noted which is likely contributing to her swelling/edema issues * this is further complicated by her inability to tolerate oral intake * s/p EGD * biopsy of stomach and small intestine c/w amyloidosis * weaned off TPN * G-tube placement done and now on tube feeding * oral intake as tolerated (5) Recent urinary tract infection: Code(s): Z87.440 - Personal history of urinary (tract) infections Status: Acute Assessment and Plan: * completed course of IV antibiotics Will continue to follow. Subjective Date/time seen: 08/19/22 12:23 Seems to be doing a bit better in general; still has significant swelling/edema and tolerating IV albumin + IV bumex although creatinine is up a bit in response to this intervention; eating orally to some degree and tolerating tube feeds with subsequent discontinuation of TPN; sitting up in chair in no distress at the time of my visit. Exam Narrative: General: chronically ill appearing female in NAD Heart: normal S1 and S2; no rub Lungs: clear bilaterally Abdomen: soft but protuberant with + bowel sounds. Extremities: bilaterally 1+ edema in LEs Skin: warm and intact Objective Data Vital Signs Vital Signs: Vital Signs Temp Pulse Resp BP Pulse Ox O2 Del Method 08/19/22 09:00 Room Air 08/19/22 04:59 97.8 F 91 18 131/65 96 08/18/22 20:39 97.8 F 93 18 130/64 98 08/18/22 20:00 91 16 97 Room Air Intake/Output Intake/Output: Intake & Output 08/16/22 08/17/22 08/18/22 08/19/22 23:59 23:59 23:59 23:59 Intake Total 4755 2555 2260 1900 Output Total 2450 3500 2500 1000 Ba
--- NOTE | 2022-08-19 12:23 | PM.PNNEP ---
Progress Note: A&P Assessment and Plan (1) RIP (acute kidney injury): Code(s): N17.9 - Acute kidney failure, unspecified Status: Acute Assessment and Plan: fluctuating due to nuturitonal intake and diuretic therapy suspect multifactorial etiology: ongoing/previous diuretic therapy relative hypotension recent UTI use of Bactrim(?) prerenal factors due to low albumin on IV albumin chased by IV bumex for swelling/edema still with significant edema -- will cut back tomorrow follow repeat labs, serum albumin, and UOP (2) Stage 3b chronic kidney disease: Code(s): N18.32 - Chronic kidney disease, stage 3b Status: Chronic Assessment and Plan: kidney function/creatinine has fluctuated to extremes in the last few months seems to average out to 1.4 - 2.0mg/dl creatinine up a little bit with ongoing diuretic therapy/diuresis 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 Hamilton (3) Hyponatremia: Code(s): E87.1 - Hypo-osmolality and hyponatremia Status: Chronic Assessment and Plan: doing better has been present before likely related to fluctuations in fluid status, IV medications/nutrition, and diminished oral intake suspect some worsening due to previous TPN/parenteral nutrition use improvement noted with ongoing diuresis follow trend of sodium (4) Protein calorie malnutrition: Code(s): E46 - Unspecified protein-calorie malnutrition Status: Acute Assessment and Plan: nutrition has been deteriorating as already noted low albumin on admission noted which is likely contributing to her swelling/edema issues this is further complicated by her inability to tolerate oral intake s/p EGD biopsy of stomach and small intestine c/w amyloidosis weaned off TPN G-tube placement done and now on tube feeding oral intake as tolerated (5) Recent urinary tract infection: Code(s): Z87.440 - Personal history of urinary (tract) infections Status: Acute Assessment and Plan: completed course of IV antibiotics Will continue to follow. Subjective Date/time seen: 08/19/22 12:23 Seems to be doing a bit better in general; still has significant swelling/edema and tolerating IV albumin + IV bumex although creatinine is up a bit in response to this intervention; eating orally to some degree and tolerating tube feeds with subsequent discontinuation of TPN; sitting up in chair in no distress at the time of my visit. Exam Narrative: General: chronically ill appearing female in NAD Heart: normal S1 and S2; no rub Lungs: clear bilaterally Abdomen: soft but protuberant with + bowel sounds. Extremities: bilaterally 1+ edema in LEs Skin: warm and intact Objective Data Vital Signs Vital Signs: Vital Signs Temp Pulse Resp BP Pulse Ox O2 Del Method 08/19/22 09:00 Room Air 08/19/22 04:59 97.8 F 91 18 131/65 96 08/18/22 20:39 97.8 F 93 18 130/64 98 08/18/22 20:00 91 16 97 Room Air Intake/Output Intake/Output: Intake & Output 08/16/22 08/17/22 08/18/22 08/19/22 23:59 23:59 23:59 23:59 Intake Total 4755 2555 2260 1900 Output Total 2450 3500 2500 1000 Balance 3937 -246 -653 900 Meds/Results Medications: Active Medications Generic Name Dose Route Start Last Admin Trade Name Freq PRN Reason Stop Dose Admin Acetaminophen 650 mg 08/06/22 18:01 08/19/22 05:59 Acetaminophen 325 Mg Tablet PO 650 mg Q4H PRN Administration Mild Pain (1-3) or Fever Acyclovir 400 mg 08/06/22 21:00 08/19/22 09:04 Acyclovir 400 Mg Tablet PO 400 mg Q12HR DARRICK Administration Alprazolam 0.5 mg 08/07/22 18:49 08/18/22 21:10 Alprazolam (*Crx) 0.5 Mg Tablet PO 0.5 mg TID PRN Administration Anxiety Bisacodyl 10 mg 08/08/22 13:12 08/09/22 09:19 Bisacodyl 10 Mg Suppository RECTAL 10 mg QAM MT
[2022-08-19 14:41] VITALS: BP 129/68; PULSE 92; RESP 17; TEMP 36.6; O2SAT 96
--- NOTE | 2022-08-19 16:09 | PM.IMPN ---
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 Hamilton office for further treatment and evaluation of acute on chronic kidney injury. # Acute on chronic kidney disease stage 3: Recently treated for UTI with Bactrim. Poor p.o. intake. Creatinine 2.6 on admission. Baseline high 1s to 2s. Started on IV hydration. Bactrim was discontinued. Nephrology consulted. Currently back to baseline mostly. # Anasarca: Ongoing problem. Hypoalbuminemic. Poor nutrition 1 of the reason. Also has amyloidosis. Prealbumin 34.1. Limited on diuretic use because of hypotension. Also has Heavy proteinuria # UTI: Started on cefepime to complete the treatment. 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 On 08/11/2022 EGD was normal status post PEG tube placement in tube feeds running. continue in concurrent TPN and tube feeds until tube feeds are well tolerated # general debility # elevated liver enzymes: Mild. Likely related to amyloidosis as well continue to monitor. Small-bowel biopsy also positive for amyloidosis 08/18/2022 interval history: amylodosis is suspected to infiltrate liver and small bowl and possibly large intestine this will effect nutrient absorption and intestine motility and patient is having persistent constipation, on 08/16 D/W Dr Hamilton her oncologist considering giving chemotherapy while in the hospital, this may improve her condition, on 08/16 evening patient felt bolated and did not want G tube feeding, on 08/17 morning patient had a small BM and patient stated feeling better, on 08/17 patient was given injection of Velcade in the hospital, patient is able to take p.o. 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 Hamilton office for further treatment and evaluation of acute on chronic kidney injury. # Acute on chronic kidney disease stage 3: Recently treated for UTI with Bactrim. Poor p.o. intake. Creatinine 2.6 on admission. Baseline high 1s to 2s. Started on IV hydration. Bactrim was discontinued. Nephrology consulted. Currently back to baseline mostly. # Anasarca: Ongoing problem. Hypoalbuminemic. Poor nutrition 1 of the reason. Also has amyloidosis. Prealbumin 34.1. Limited on diuretic use because of hypotension. Also has Heavy proteinuria # UTI: Started on cefepime to complete the treatment. 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
[2022-08-19 20:22] VITALS: BP 138/62; PULSE 92; RESP 18; TEMP 36.6; O2SAT 96
[2022-08-19] MEDS: ALPRAZolam (*CRX) 0.5 MG TABLET PO (21:45)
[2022-08-19] MEDS: SENNA/DOCUSATE SODIUM TABLET 1 TAB PO (21:45)
[2022-08-20] MEDS: METOCLOPRAMIDE HCL INJ 10 MG/2 ML VIAL IV PUSH ×4 (00:48→18:00)
[2022-08-20 05:28] VITALS: BP 122/66; PULSE 84; RESP 18; TEMP 36.7; O2SAT 95
[2022-08-20] MEDS: ALBUMIN HUMAN 25% 25 GM/100 ML 100 ML IVPB ×3 (06:06→22:18)
[2022-08-20] MEDS: BUMETANIDE INJ 1 MG/4 ML VIAL IV PUSH ×3 (06:06→22:19)
[2022-08-20] MEDS: CENTRAL LINE FLUSH 10 ML IV PUSH ×3 (06:07→21:35)
[2022-08-20] MEDS: LEVOTHYROXINE SODIUM 75 MCG TABLET PO (06:11)
[2022-08-20 06:45] LABS: Hemoglobin 10.1 g/dL (12.0-15.0); Mean Corpuscular HGB Conc 32.6 g/dl (32-36); Mean Corpuscular Hemoglobin 31.5 pg (26-34); Mean Corpuscular Volume 96.6 fl (80-100); Mean Platelet Volume 10.5 fl (7.4-10.4); Platelet Count Result 288 k/mm3 (150-375); Red Blood Count 3.21 M/mm3 (4.2-5.4); Red Cell Distribution Width 16.4 % (11.5-14.5); White Blood Count 8.6 K/mm3 (4.5-10.0)
[2022-08-20 07:10] LABS: Alanine Aminotransferase 70 U/L (6-35); Alkaline Phosphatase 176 U/L (38-126); Anion Gap 6 mmol/L (8-16); Aspartate Amino Transferase 87 U/L (14-36); Bilirubin,Total 0.3 mg/dL (0.2-1.3); Blood Urea Nitrogen 47 mg/dL (7-17); Calcium 7.4 mg/dL (8.4-10.2); Carbon Dioxide 25 mmol/L (22-30); Chloride 105 mmol/L (98-107); Estimated CRCL calculation 18 ml/min; Estimated Glomerular Filt Rate 20; Glucose 104 mg/dL (65-110); Magnesium 1.9 mg/dL (1.6-2.3); Phosphorus 3.9 mg/dL (2.5-4.5); Potassium 3.4 mmol/L (3.4-5.0); Sodium 136 mmol/L (137-145); Triglycerides 88 mg/dL (<150)
--- NOTE | 2022-08-20 08:32 | P.PNNP_ITS ---
Progress Note: A&P Assessment and Plan (1) RIP (acute kidney injury): Code(s): N17.9 - Acute kidney failure, unspecified Status: Acute Assessment and Plan: * fluctuating due to nuturitonal intake and diuretic therapy * it is unclear what her true baseline is. We may actually never know. She requires constant diuretics to keep from swelling up to a severe degree and so she always has some pre renal azotemia between the diuretics and the low albumin. Her echo looks pretty good. * suspect multifactorial etiology: * ongoing/previous diuretic therapy * relative hypotension * recent UTI * use of Bactrim(?) * prerenal factors due to low albumin * on IV albumin chased by IV bumex for swelling/edema * s Her creatinine is the same today as it was yesterday. * She still has substantial edema. * We may be looking at the situation for where we need to have a higher baseline creatinine to keep her from swelling so badly. * Hopefully as Nutrition kicks in her albumin will rse decreasing the need for the diuretics and allowing a lower creatinine there from. * Continue diuretics plus albumin. 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 Hamilton (3) Hyponatremia: Code(s): E87.1 - Hypo-osmolality and hyponatremia Status: Chronic Assessment and Plan: * doing better. It was normal yesterday and only a little low today at 136 * has been present before * likely related to fluctuations in fluid status, IV medications/nutrition, and diminished oral intake * there may be some component from her paraproteinemia. * suspect some worsening due to previous TPN/parenteral nutrition use * improvement noted with ongoing diuresis * follow trend of sodium (4) Protein calorie malnutrition: Code(s): E46 - Unspecified protein-calorie malnutrition Status: Acute Assessment and Plan: * nutrition has been deteriorating as already noted * low albumin on admission noted which is likely contributing to her swelling/edema issues * this is further complicated by her inability to tolerate oral intake * s/p EGD * biopsy of stomach and small intestine c/w amyloidosis * weaned off TPN * On tube feeding (5) Recent urinary tract infection: Code(s): Z87.440 - Personal history of urinary (tract) infections Status: Acute Assessment and Plan: * completed course of IV antibiotics Will continue to follow. Subjective Date/time seen: 08/20/22 08:32 Interval history: Oh haines is feeling a little stronger. She is walking around the room to some extent. Sitting up in a chair for much of the day. She ate some breakfast. Not very much but it did not come back up. She has a PEG tube now. She is off the TPN and on tube feedings.. Exam Narrative: General: chronically ill appearing female in NAD Heart: normal S1 and S2; no rub or gallop Lungs: clear bilaterally Abdomen: soft but protuberant with + bowel sounds. Extremities: bilaterally 1+ edema in LEs Skin: No rash
--- NOTE | 2022-08-20 08:32 | PM.PNNEP ---
Progress Note: A&P Assessment and Plan (1) RIP (acute kidney injury): Code(s): N17.9 - Acute kidney failure, unspecified Status: Acute Assessment and Plan: fluctuating due to nuturitonal intake and diuretic therapy it is unclear what her true baseline is. We may actually never know. She requires constant diuretics to keep from swelling up to a severe degree and so she always has some pre renal azotemia between the diuretics and the low albumin. Her echo looks pretty good. suspect multifactorial etiology: ongoing/previous diuretic therapy relative hypotension recent UTI use of Bactrim(?) prerenal factors due to low albumin on IV albumin chased by IV bumex for swelling/edema s Her creatinine is the same today as it was yesterday. She still has substantial edema. We may be looking at the situation for where we need to have a higher baseline creatinine to keep her from swelling so badly. Hopefully as Nutrition kicks in her albumin will rse decreasing the need for the diuretics and allowing a lower creatinine there from. Continue diuretics plus albumin. 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 Hamilton (3) Hyponatremia: Code(s): E87.1 - Hypo-osmolality and hyponatremia Status: Chronic Assessment and Plan: doing better. It was normal yesterday and only a little low today at 136 has been present before likely related to fluctuations in fluid status, IV medications/nutrition, and diminished oral intake there may be some component from her paraproteinemia. suspect some worsening due to previous TPN/parenteral nutrition use improvement noted with ongoing diuresis follow trend of sodium (4) Protein calorie malnutrition: Code(s): E46 - Unspecified protein-calorie malnutrition Status: Acute Assessment and Plan: nutrition has been deteriorating as already noted low albumin on admission noted which is likely contributing to her swelling/edema issues this is further complicated by her inability to tolerate oral intake s/p EGD biopsy of stomach and small intestine c/w amyloidosis weaned off TPN On tube feeding (5) Recent urinary tract infection: Code(s): Z87.440 - Personal history of urinary (tract) infections Status: Acute Assessment and Plan: completed course of IV antibiotics Will continue to follow. Subjective Date/time seen: 08/20/22 08:32 Interval history: Oh haines is feeling a little stronger. She is walking around the room to some extent. Sitting up in a chair for much of the day. She ate some breakfast. Not very much but it did not come back up. She has a PEG tube now. She is off the TPN and on tube feedings.. Exam Narrative: General: chronically ill appearing female in NAD Heart: normal S1 and S2; no rub or gallop Lungs: clear bilaterally Abdomen: soft but protuberant with + bowel sounds. Extremities: bilaterally 1+ edema in LEs Skin: No rash Objective Data Vital Signs Vital Signs: Vital Signs - 24 hr 08/19/22 09:00 08/19/22 14:41 08/19/22 20:22 Temperature 97.9 F 97.8 F Pulse Rate 92 92 Respiratory Rate 17 18 Blood Pressure 129/68 138/62 Pulse Oximetry 96 96 Oxygen Delivery Room Air 08/20/22 05:28 Temperature 98.1 F Pulse Rate 84 Respiratory Rate 18 Blood Pressure 122/66 Pulse Oximetry 95 Oxygen Delivery Intake/Output Intake/Output: Intake & Output 08/17/22 08/18/22 08/19/22 08/20/22 23:59
[2022-08-20] MEDS: ROSUVASTATIN 10 MG TABLET 40 MG PO (09:31)
[2022-08-20] MEDS: SACCHAROMYCES BOULARDII 250 MG CAPSULE PO ×3 (09:31→17:59)
[2022-08-20] MEDS: ACYCLOVIR 400 MG TABLET PO ×2 (09:31→22:18)
[2022-08-20] MEDS: MIDODRINE HCL 10 MG TABLET PO ×3 (09:31→17:59)
[2022-08-20] MEDS: SIMETHICONE 125 MG CHEW TAB PO ×4 (09:31→22:19)
[2022-08-20] MEDS: PANTOPRAZOLE 40 MG TABLET PO ×2 (09:31→22:19)
[2022-08-20] MEDS: HEPARIN SODIUM 5,000 UNITS/ML VIAL 5000 UNITS SUB-Q ×2 (09:32→22:19)
[2022-08-20] MEDS: polyethylene glycoL 3350 17 GM POWD.PACK PO (09:32)
[2022-08-20] MEDS: BISACODYL 10 MG SUPPOSITORY RECTAL (09:34)
[2022-08-20] MEDS: POTASSIUM CHLORIDE 20 MEQ PACKET (FOR LIQUID) 40 MEQ PO (09:34)
--- NOTE | 2022-08-20 10:24 | PCDIET ---
Spoke with patient today regarding tube feeding tolerance and oral intake. Patient was eating eggs at time of assessment. Oral Intake has improved 25-100% of most meals. Patient was able to tolerate bolus feedings and nocturnal feedings yesterday. Recommend to continue nocturnal feedings of Jevity 1.5 at 65 ml/hr from 1246-5811 hrs as amyloidosis is suspected. This will effect nutrient absorption and intestine motility resulting diagnosis of dysmotility. Recommend bolus feedings of Jevity 1.5-240 ml after meals(3 x daily). Meet 100% kcals and protein needs at 30 kcal/kg. Flush 100 ml after feedings. Weight up 9 ibs since admit. All orders discussed with Hospitalist today. Following.
--- NOTE | 2022-08-20 11:21 | PCPTNOTE ---
Attempted to see patient for PT, however patient and patient's daughter declined PT. Patient's daughter reported she just laid back down and that patient has walked in room already.
--- NOTE | 2022-08-20 13:07 | WPDGIPROGNO ---
Progress Note: A&P Assessment and Plan (1) PEG (percutaneous endoscopic gastrostomy) status: Code(s): Z93.1 - Gastrostomy status Status: Acute Assessment and Plan: Peg in place. Is appeared to be healing well. Plan to continue PEG tube feedings for primary nutrition. She may supplement this with oral intake as tolerated. She reports a poor appetite and subsequent poor intake (2) Gas bloat syndrome: Code(s): K92.89 - Other specified diseases of the digestive system Status: Acute Assessment and Plan: patient with bloating and gas. Appears to be poor motility of the intestinal tract related to amyloidosis. She also has a tendency towards constipation. Routine use of laxatives and suppositories as needed to maintain good bowel function encouraged after discharge. 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 They have restarted chemotherapy for her amyloidosis. (4) Protein calorie malnutrition: Code(s): E46 - Unspecified protein-calorie malnutrition Status: Acute Assessment and Plan: Patient has seen dietitian. Continue tube feedings as necessary hopefully we can reverse this malnutrition. Subjective Date/time seen: 08/20/22 13:07 Interval history: Patient alert trying to eat orally this morning. Continue tube feedings now in bolus intermittent tube feedings planned. Patient feels somewhat bloated today. No recent bowel movement noted. TPN has been discontinued. Review of Systems Review of Systems: Review of systems noncontributory. Exam Narrative: Physical exam reveals patient be alert and afebrile. HEENT exam reveals no icterus. Lungs are clear. Heart without murmur. Abdomen mildly distended bowel sounds are present. Peg tube appears well healed. Objective Data Vital Signs Vital Signs: Vital Signs - 24 hr 08/19/22 14:41 08/19/22 20:22 08/20/22 05:28 Temperature 97.9 F 97.8 F 98.1 F Pulse Rate 92 92 84 Respiratory Rate 17 18 18 Blood Pressure 129/68 138/62 122/66 Pulse Oximetry 96 96 95 Intake/Output Intake/Output: Intake & Output 08/17/22 08/18/22 08/19/22 08/20/22 23:59 23:59 23:59 23:59 Intake Total 2555 2260 2240 1110 Output Total 3500 2500 1500 950 Balance -945 -240 740 160 Meds/Results Medications: Active Medications Generic Name Dose Route Start Last Admin Trade Name Lela PRN Reason Stop Dose Admin Acetaminophen 650 mg 08/06/22 18:01 08/19/22 21:44 Acetaminophen 325 Mg Tablet PO 650 mg Q4H PRN Administration Mild Pain (1-3) or Fever Acyclovir 400 mg 08/06/22 21:00 08/20/22 09:31 Acyclovir 400 Mg Tablet PO 400 mg Q12HR DARRICK Administration Alprazolam 0.5 mg 08/07/22 18:49 08/19/22 21:45 Alprazolam (*Crx) 0.5 Mg Tablet PO 0.5 mg TID PRN Administration Anxiety Bisacodyl 10 mg 08/08/22 13:12 08/09/22 09:19 Bisacodyl 10 Mg Suppository RECTAL 10 mg QAM PRN Administration Constipation Bisacodyl 10 mg 08/14/22 09:00 08/20/22 09:34 Bisacodyl 10 Mg Suppository RECTAL 10 mg QAM DARRICK Administration Bumetanide 1 mg 08/14/22 14:00 08/20/22 06:06 Bumetanide Inj 1 Mg/4 Ml Vial IV PUSH 1 mg Q8HR DARRICK Administration Heparin Sodium (Beef Lung) 50 units 08/07/22 09:00 08/20/22 09:34 Heparin Flush 50 Units/5 Ml Syringe IV PUSH 50 units QAM DARRICK Administration Heparin Sodium (Beef Lung) 50 units 08/07/22 00:23 Heparin Flush 50 Units/5 Ml Syringe IV PUSH PRN PRN after intermittent infusion Heparin Sodium (Beef Lung) 50 units 08/07/22 00:23 08/19/22 06:00 Heparin Flush 50 Units/5 Ml Syringe IV PUSH 50 units PRN PRN Administration after blood draws Heparin Sodium (Porcine) 5,000 units 08/07/22 09:00 08/20/22 09:32 Heparin Sodium 5,000 Units/Ml Vial SUB-Q 5,000 units Q12HR DARRICK Administration H
[2022-08-20 14:00] VITALS: BP 144/65; PULSE 90; RESP 20; TEMP 36.4; O2SAT 95
--- NOTE | 2022-08-20 14:35 | PC.NURSE ---
Pt back to room from GI at 1437
[2022-08-20] MEDS: ALPRAZolam (*CRX) 0.5 MG TABLET PO ×2 (14:37→22:33)
--- NOTE | 2022-08-20 16:37 | PM.IMPN ---
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 Hamilton office for further treatment and evaluation of acute on chronic kidney injury. # Acute on chronic kidney disease stage 3: Recently treated for UTI with Bactrim. Poor p.o. intake. Creatinine 2.6 on admission. Baseline high 1s to 2s. Started on IV hydration. Bactrim was discontinued. Nephrology consulted. Currently back to baseline mostly. # Anasarca: Ongoing problem. Hypoalbuminemic. Poor nutrition 1 of the reason. Also has amyloidosis. Prealbumin 34.1. Limited on diuretic use because of hypotension. Also has Heavy proteinuria # UTI: Started on cefepime to complete the treatment. 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 On 08/11/2022 EGD was normal status post PEG tube placement in tube feeds running. continue in concurrent TPN and tube feeds until tube feeds are well tolerated # general debility # elevated liver enzymes: Mild. Likely related to amyloidosis as well continue to monitor. Small-bowel biopsy also positive for amyloidosis 08/20/2022 interval history: amylodosis is suspected to infiltrate liver and small bowl and possibly large intestine this will effect nutrient absorption and intestine motility and patient is having persistent constipation, on 08/16 D/W Dr Hamilton her oncologist considering giving chemotherapy while in the hospital, this may improve her condition, on 08/16 evening patient felt bolated and did not want G tube feeding, on 08/17 morning patient had a small BM and patient stated feeling better, on 08/17 patient was given injection of Velcade in the hospital, patient is able to take p.o. diet, today patient c/o bloating and constipation, has not had BM since 08/17, receiving colace, and miralx without relief, patient is passing gas, selvin give suppository, patient states looking forward to going home soon, patient is seen by GI and further recommendation to follow, patient with amylodosis infiltrated and a small and large intestine resulting diagnosis of dysmotility will require tube feeding for 90 days Subjective Date/time seen: 08/20/22 16:37 The patient is being directly admitted to the medical/surgical floor from Dr. Hamilton office for further treatment and evaluation of acute on chronic kidney injury. # Acute on chronic kidney disease stage 3: Recently treated for UTI with Bactrim. Poor p.o. intake. Creatinine 2.6 on admission. Baseline high 1s to 2s. Started on IV hydration. Bactrim was discontinued. Nephrology consulted. Currently back to baseline mostly. # Anasarca: Ongoing problem. Hypoalbuminemic. Poor nutrition 1 of the reason. Also has amyloidosis. Prealbumin 34.1. Limited on diuretic use because of hypotension. Also has Heavy proteinuria # UTI: Started on cefepime to complete the treatment. 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
[2022-08-20 20:30] VITALS: BP 117/58; PULSE 96; RESP 20; TEMP 36.6; O2SAT 96
[2022-08-20] MEDS: SENNA/DOCUSATE SODIUM TABLET 1 TAB PO (22:19)
[2022-08-20] MEDS: ACETAMINOPHEN 325 MG TABLET 650 MG PO (22:33)
[2022-08-21] MEDS: METOCLOPRAMIDE HCL INJ 10 MG/2 ML VIAL IV PUSH ×5 (00:12→23:30)
[2022-08-21] MEDS: BUMETANIDE INJ 1 MG/4 ML VIAL IV PUSH ×3 (05:24→21:43)
[2022-08-21] MEDS: LEVOTHYROXINE SODIUM 75 MCG TABLET PO (05:25)
[2022-08-21] MEDS: ALBUMIN HUMAN 25% 25 GM/100 ML 100 ML IVPB ×3 (05:25→21:43)
[2022-08-21 05:53] LABS: Hemoglobin 9.1 g/dL (12.0-15.0); Mean Corpuscular HGB Conc 32.5 g/dl (32-36); Mean Corpuscular Hemoglobin 30.8 pg (26-34); Mean Corpuscular Volume 94.9 fl (80-100); Mean Platelet Volume 10.9 fl (7.4-10.4); Platelet Count Result 247 k/mm3 (150-375); Red Blood Count 2.95 M/mm3 (4.2-5.4); Red Cell Distribution Width 16.5 % (11.5-14.5)
[2022-08-21 05:55] VITALS: BP 137/61; PULSE 88; RESP 20; TEMP 36.6; O2SAT 96
[2022-08-21 06:11] LABS: Alanine Aminotransferase 71 U/L (6-35); Alkaline Phosphatase 187 U/L (38-126); Anion Gap 5 mmol/L (8-16); Aspartate Amino Transferase 85 U/L (14-36); Bilirubin,Total 0.3 mg/dL (0.2-1.3); Blood Urea Nitrogen 52 mg/dL (7-17); Calcium 7.4 mg/dL (8.4-10.2); Carbon Dioxide 26 mmol/L (22-30); Chloride 102 mmol/L (98-107); Estimated CRCL calculation 19 ml/min; Estimated Glomerular Filt Rate 21; Glucose 90 mg/dL (65-110); Magnesium 1.8 mg/dL (1.6-2.3); Phosphorus 3.8 mg/dL (2.5-4.5); Potassium 3.3 mmol/L (3.4-5.0); Sodium 133 mmol/L (137-145)
[2022-08-21] MEDS: CENTRAL LINE FLUSH 10 ML IV PUSH ×3 (06:55→21:43)
[2022-08-21] MEDS: SACCHAROMYCES BOULARDII 250 MG CAPSULE PO ×3 (09:53→17:13)
[2022-08-21] MEDS: SIMETHICONE 125 MG CHEW TAB PO ×4 (09:53→21:43)
[2022-08-21] MEDS: polyethylene glycoL 3350 17 GM POWD.PACK PO (09:53)
[2022-08-21] MEDS: MIDODRINE HCL 10 MG TABLET PO ×3 (09:53→17:13)
[2022-08-21] MEDS: ACYCLOVIR 400 MG TABLET PO ×2 (09:53→21:42)
[2022-08-21] MEDS: POTASSIUM CHLORIDE 20 MEQ PACKET (FOR LIQUID) 40 MEQ PO (09:53)
[2022-08-21] MEDS: PANTOPRAZOLE 40 MG TABLET PO ×2 (09:53→21:42)
[2022-08-21] MEDS: ZINC SULFATE 220 MG CAPSULE PO (09:53)
[2022-08-21] MEDS: HEPARIN SODIUM 5,000 UNITS/ML VIAL 5000 UNITS SUB-Q ×2 (09:53→21:43)
[2022-08-21] MEDS: ROSUVASTATIN 10 MG TABLET 40 MG PO (09:54)
--- NOTE | 2022-08-21 10:05 | P.PNNP_ITS ---
Progress Note: A&P Assessment and Plan (1) RIP (acute kidney injury): Code(s): N17.9 - Acute kidney failure, unspecified Status: Acute Assessment and Plan: * fluctuating due to nuturitonal intake and diuretic therapy * suspect multifactorial etiology: * ongoing/previous diuretic therapy * relative hypotension * recent UTI * use of Bactrim(?) * prerenal factors due to low albumin * on IV albumin chased by IV bumex for swelling/edema * Her creatinine is the same today as it was yesterday. * She still has substantial edema. * We may be looking at the situation for where we need to have a higher baseline creatinine to keep her from swelling so badly. * Hopefully as Nutrition kicks in her albumin will rse decreasing the need for the diuretics and allowing a lower creatinine there from. * Continue diuretics plus albumin. * Her intake/output was positive. This is because of a lower urine output but also intake was higher. I asked her to drink if thirsty but not if she is not. She should not push fluid it is. I will change her tube feedings to Nepro. We can decrease the tube feeding flushes. I will increase her diuretics. * Long discussion with the patient and her daughter and also with Dr. Calloway. * Because of the amyloidosis in her intestines, nutrition is going to be suspect. Hopefully the tube feedings alone will help with nutrition and help improve albumin. Until this happens, she will continue to have the fight between low albumin and swelling versus diuretics and high creatinine. * The patient needs to go home to get her chemotherapy but also at home she can not get albumin or IV diuretics. So it is possible that she will need extra diuretics at home but without the albumin her creatinine may rise again. She will need monitoring of her electrolytes when she is at home. * I will continue to treat as if she is staying here. I talked with Dr. Calloway. When he decides she is ready for discharge he will call and we can decide on a diuretic regimen. 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 Hamilton (3) Hyponatremia: Code(s): E87.1 - Hypo-osmolality and hyponatremia Status: Chronic Assessment and Plan: * doing better. * The sodium is stable in the low to mid 130s. * I asked her to cut back on the amount of fluid she drinks. Drink if thirsty and not if not. * Will reduce free water flushes. * Will change the tube feedings to Nepro (4) Protein calorie malnutrition: Code(s): E46 - Unspecified protein-calorie malnutrition Status: Acute Assessment and Plan: * nutrition has been deteriorating as already noted * low albumin on admission noted which is likely contributing to her swelling/edema issues * this is further complicated by her inability to tolerate oral intake * s/p EGD * biopsy of stomach and small intestine c/w amyloidosis * weaned off TPN * On tube feeding. Will change to Nepro. (5) Recent urinary tract infection: Code(s): Z87.440 - Personal history of urinary (tract) infections Status: Acute Assessment and Plan: * completed course of I
--- NOTE | 2022-08-21 10:05 | PM.PNNEP ---
Progress Note: A&P Assessment and Plan (1) RIP (acute kidney injury): Code(s): N17.9 - Acute kidney failure, unspecified Status: Acute Assessment and Plan: fluctuating due to nuturitonal intake and diuretic therapy suspect multifactorial etiology: ongoing/previous diuretic therapy relative hypotension recent UTI use of Bactrim(?) prerenal factors due to low albumin on IV albumin chased by IV bumex for swelling/edema Her creatinine is the same today as it was yesterday. She still has substantial edema. We may be looking at the situation for where we need to have a higher baseline creatinine to keep her from swelling so badly. Hopefully as Nutrition kicks in her albumin will rse decreasing the need for the diuretics and allowing a lower creatinine there from. Continue diuretics plus albumin. Her intake/output was positive. This is because of a lower urine output but also intake was higher. I asked her to drink if thirsty but not if she is not. She should not push fluid it is. I will change her tube feedings to Nepro. We can decrease the tube feeding flushes. I will increase her diuretics. Long discussion with the patient and her daughter and also with Dr. Calloway. Because of the amyloidosis in her intestines, nutrition is going to be suspect. Hopefully the tube feedings alone will help with nutrition and help improve albumin. Until this happens, she will continue to have the fight between low albumin and swelling versus diuretics and high creatinine. The patient needs to go home to get her chemotherapy but also at home she can not get albumin or IV diuretics. So it is possible that she will need extra diuretics at home but without the albumin her creatinine may rise again. She will need monitoring of her electrolytes when she is at home. I will continue to treat as if she is staying here. I talked with Dr. Calloway. When he decides she is ready for discharge he will call and we can decide on a diuretic regimen. 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 Hamilton (3) Hyponatremia: Code(s): E87.1 - Hypo-osmolality and hyponatremia Status: Chronic Assessment and Plan: doing better. The sodium is stable in the low to mid 130s. I asked her to cut back on the amount of fluid she drinks. Drink if thirsty and not if not. Will reduce free water flushes. Will change the tube feedings to Nepro (4) Protein calorie malnutrition: Code(s): E46 - Unspecified protein-calorie malnutrition Status: Acute Assessment and Plan: nutrition has been deteriorating as already noted low albumin on admission noted which is likely contributing to her swelling/edema issues this is further complicated by her inability to tolerate oral intake s/p EGD biopsy of stomach and small intestine c/w amyloidosis weaned off TPN On tube feeding. Will change to Nepro. (5) Recent urinary tract infection: Code(s): Z87.440 - Personal history of urinary (tract) infections Status: Acute Assessment and Plan: completed course of IV antibiotics Will continue to follow. Subjective Date/time seen: 08/21/22 10:05 Interval history: Rosalba it about the same. She is up in a chair. Swelling may be a little better. Exam Narrative: General: chronically ill appearing female in NAD Heart: normal S1 and S2; no rub or gallop Lungs: clear to auscultation Abdomen: soft but protuberant with + bowel sounds. Extremitie
--- NOTE | 2022-08-21 12:29 | WPDGIPROGNO ---
Progress Note: A&P Assessment and Plan (1) PEG (percutaneous endoscopic gastrostomy) status: Code(s): Z93.1 - Gastrostomy status Status: Acute Assessment and Plan: No problems with her G-tube. Plan to continue PEG tube feedings for primary nutrition. She may supplement this with oral intake as tolerated. She reports a poor appetite and subsequent poor intake (2) Gas bloat syndrome: Code(s): K92.89 - Other specified diseases of the digestive system Status: Acute Assessment and Plan: Because of her amyloidosis, the patient has poor motility and has to be on guard for possible constipation. At this time she is having frequent bowel movements that are rather loose. 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 They have restarted chemotherapy for her amyloidosis. (4) Protein calorie malnutrition: Code(s): E46 - Unspecified protein-calorie malnutrition Status: Acute Assessment and Plan: with a G-tube in place, it should effectively help reverse her nutritional situation. She is also eating more by mouth now. Subjective Date/time seen: 08/21/22 12:29 the patient is visiting with her family. She is in good spirits. She says that she is tolerating more and more orally. She she is primarily 8 taking in softer consistency foods. I told her that that would be the ideal at this time. She denies any problems with her G-tube such as pain or drainage. Exam Narrative: Physical exam reveals patient be alert and afebrile. HEENT exam reveals no icterus. Lungs are clear. Heart without murmur. Abdomen with G-tube healing well in the left upper quadrant. Abdominal abdomen modestly distended bowel sounds are present but soft and no tenderness. Objective Data Vital Signs Vital Signs: Vital Signs - 24 hr 08/20/22 14:00 08/20/22 20:30 08/21/22 05:55 Temperature 36.4 C 36.6 C 36.6 C Pulse Rate 90 96 88 Respiratory Rate 20 20 20 Blood Pressure 144/65 H 117/58 L 137/61 Pulse Oximetry 95 96 96 Oxygen Delivery 08/21/22 10:00 Temperature Pulse Rate Respiratory Rate Blood Pressure Pulse Oximetry Oxygen Delivery Room Air Intake/Output Intake/Output: Intake & Output 08/18/22 08/19/22 08/20/22 08/21/22 23:59 23:59 23:59 23:59 Intake Total 2260 2240 3226 100 Output Total 2500 1500 1750 850 Balance -301 493 9788 -750 Meds/Results Medications: Active Medications Generic Name Dose Route Start Last Admin Trade Name Freq PRN Reason Stop Dose Admin Acetaminophen 650 mg 08/06/22 18:01 08/20/22 22:33 Acetaminophen 325 Mg Tablet PO 650 mg Q4H PRN Administration Mild Pain (1-3) or Fever Acyclovir 400 mg 08/06/22 21:00 08/21/22 09:53 Acyclovir 400 Mg Tablet PO 400 mg Q12HR DARRICK Administration Alprazolam 0.5 mg 08/07/22 18:49 08/20/22 22:33 Alprazolam (*Crx) 0.5 Mg Tablet PO 0.5 mg TID PRN Administration Anxiety Alteplase, Recombinant 2 mg 08/21/22 04:34 Alteplase 2 Mg Vial (Cathflo) IV PUSH ONCE PRN Line Occlusion Bisacodyl 10 mg 08/08/22 13:12 08/09/22 09:19 Bisacodyl 10 Mg Suppository RECTAL 10 mg QAM PRN Administration Constipation Bisacodyl 10 mg 08/14/22 09:00 08/21/22 09:54 Bisacodyl 10 Mg Suppository RECTAL Not Given QAM DARRICK Bumetanide 1 mg 08/14/22 14:00 08/21/22 05:24 Bumetanide Inj 1 Mg/4 Ml Vial IV PUSH 1 mg Q8HR DARRICK Administration Heparin Sodium (Beef Lung) 50 units 08/07/22 09:00 08/21/22 09:52 Heparin Flush 50 Units/5 Ml Syringe IV PUSH 50 units QAM DARRICK Administration Heparin Sodium (Beef Lung) 50 units 08/07/22 00:23 Heparin Flush 50 Units/5 Ml Syringe IV PUSH PRN PRN after intermittent infusion Heparin Sodium (Beef Lung) 50 units 08/07/22 00:23 08/19/22 06:00 Hepar
[2022-08-21] MEDS: metOLazone 2.5 MG TABLET PO (12:58)
[2022-08-21 14:00] VITALS: BP 144/80; PULSE 87; RESP 20; TEMP 36.4; O2SAT 94
--- NOTE | 2022-08-21 14:24 | PM.IMPN ---
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 Hamilton office for further treatment and evaluation of acute on chronic kidney injury. # Acute on chronic kidney disease stage 3: Recently treated for UTI with Bactrim. Poor p.o. intake. Creatinine 2.6 on admission. Baseline high 1s to 2s. Started on IV hydration. Bactrim was discontinued. Nephrology consulted. Currently back to baseline mostly. # Anasarca: Ongoing problem. Hypoalbuminemic. Poor nutrition 1 of the reason. Also has amyloidosis. Prealbumin 34.1. Limited on diuretic use because of hypotension. Also has Heavy proteinuria # UTI: Started on cefepime to complete the treatment. 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 On 08/11/2022 EGD was normal status post PEG tube placement in tube feeds running. continue in concurrent TPN and tube feeds until tube feeds are well tolerated # general debility # elevated liver enzymes: Mild. Likely related to amyloidosis as well continue to monitor. Small-bowel biopsy also positive for amyloidosis 08/21/2022 interval history: amylodosis is suspected to infiltrate liver and small bowl and possibly large intestine this will effect nutrient absorption and intestine motility and patient is having persistent constipation, on 08/16 D/W Dr Hamilton her oncologist considering giving chemotherapy while in the hospital, this may improve her condition, on 08/16 evening patient felt bolated and did not want G tube feeding, on 08/17 morning patient had a small BM and patient stated feeling better, on 08/17 patient was given injection of Velcade in the hospital, patient is able to take p.o. diet, today patient c/o bloating and constipation, has not had BM since 08/17, receiving colace, and miralx without relief, patient is passing gas, on 08/20 gave suppository, since then patient has had several BMs and few today, today patient seen by Dr. 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 Hamilton office for further treatment and evaluation of acute on chronic kidney injury. # Acute on chronic kidney disease stage 3: Recently treated for UTI with Bactrim. Poor p.o. intake. Creatinine 2.6 on admission. Baseline high 1s to 2s. Started on IV hydration. Bactrim was discontinued. Nephrology consulted. Currently back to baseline mostly. # Anasarca: Ongoing problem. Hypoalbuminemic. Poor nutrition 1 of the reason. Also has amyloido
[2022-08-21] MEDS: ALPRAZolam (*CRX) 0.5 MG TABLET PO ×2 (14:29→21:43)
--- NOTE | 2022-08-21 15:57 | PC.NURSE ---
Spoke with Dr Calloway regarding Jevity changing to Nepro today. Flush amounts will be adjusted per Dr Mccracken, but not rates on Nepro.
[2022-08-21 20:29] VITALS: BP 139/64; PULSE 91; RESP 20; TEMP 36.6; O2SAT 97
[2022-08-21] MEDS: ACETAMINOPHEN 325 MG TABLET 650 MG PO (21:42)
[2022-08-21] MEDS: SENNA/DOCUSATE SODIUM TABLET 1 TAB PO (21:43)
[2022-08-22 05:12] VITALS: BP 148/75; PULSE 84; RESP 18; TEMP 36.5; O2SAT 94
[2022-08-22] MEDS: LEVOTHYROXINE SODIUM 75 MCG TABLET PO (05:19)
[2022-08-22] MEDS: ALBUMIN HUMAN 25% 25 GM/100 ML 100 ML IVPB ×3 (05:19→20:20)
[2022-08-22] MEDS: CENTRAL LINE FLUSH 10 ML IV PUSH ×3 (05:21→20:11)
[2022-08-22] MEDS: BUMETANIDE INJ 1 MG/4 ML VIAL IV PUSH ×3 (05:21→20:10)
[2022-08-22] MEDS: METOCLOPRAMIDE HCL INJ 10 MG/2 ML VIAL IV PUSH ×4 (05:21→23:32)
[2022-08-22 05:38] LABS: Hemoglobin 9.4 g/dL (12.0-15.0); Mean Corpuscular HGB Conc 32.4 g/dl (32-36); Mean Corpuscular Hemoglobin 31.6 pg (26-34); Mean Corpuscular Volume 97.6 fl (80-100); Platelet Count Result 238 k/mm3 (150-375); Red Blood Count 2.97 M/mm3 (4.2-5.4); Red Cell Distribution Width 16.6 % (11.5-14.5); White Blood Count 8.6 K/mm3 (4.5-10.0)
[2022-08-22 05:51] LABS: Alanine Aminotransferase 71 U/L (6-35); Albumin Level 3.2 g/dL (3.5-5.1); Alkaline Phosphatase 219 U/L (38-126); Anion Gap 6 mmol/L (8-16); Aspartate Amino Transferase 88 U/L (14-36); Bilirubin,Total 0.4 mg/dL (0.2-1.3); Blood Urea Nitrogen 56 mg/dL (7-17); Calcium 7.6 mg/dL (8.4-10.2); Carbon Dioxide 26 mmol/L (22-30); Chloride 104 mmol/L (98-107); Estimated CRCL calculation 19 ml/min; Estimated Glomerular Filt Rate 21; Glucose 70 mg/dL (65-110); Magnesium 1.9 mg/dL (1.6-2.3); Phosphorus 3.4 mg/dL (2.5-4.5); Potassium 3.3 mmol/L (3.4-5.0); Sodium 136 mmol/L (137-145)
--- NOTE | 2022-08-22 09:19 | P.PNNP_ITS ---
Progress Note: A&P Assessment and Plan (1) RIP (acute kidney injury): Code(s): N17.9 - Acute kidney failure, unspecified Status: Acute Assessment and Plan: * fluctuating due to nuturitonal intake and diuretic therapy * suspect multifactorial etiology: * ongoing/previous diuretic therapy * relative hypotension * recent UTI * use of Bactrim(?) * prerenal factors due to low albumin * on IV albumin chased by IV bumex for swelling/edema * Her creatinine is the same today as it was yesterday. * She still has substantial edema. * We may be looking at the situation for where we need to have a higher baseline creatinine to keep her from swelling so badly. * Hopefully as Nutrition kicks in her albumin will rse decreasing the need for the diuretics and allowing a lower creatinine there from. * Continue diuretics plus albumin while in inpatient. * She is currently getting metolazone 2.5mg per day and bumetanide 1mg IV every 8. * Upon discharge she can go on bumetanide 2mg twice a day and metolazone 2.5mg per day per * Her intake/output is better with decreased intake and more output. * Long discussion with the patient and also with Dr. Calloway. * She is eager to be discharged so she can get her chemotherapy on Tuesday. (2) Stage 3b chronic kidney disease: Code(s): N18.32 - Chronic kidney disease, stage 3b Status: Chronic Assessment and Plan: * kidney function/creatinine has fluctuated to extremes in the last few months * seems to average out to 1.4 - 2.0mg/dl * creatinine up a little bit with ongoing diuretic therapy/diuresis. stable at 2.3 * 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 Hamilton (3) Hyponatremia: Code(s): E87.1 - Hypo-osmolality and hyponatremia Status: Chronic Assessment and Plan: * doing better. * The sodium is stable in the low to mid 130s. * on less free water and now no nepro instead of Jevity 1.5 (4) Protein calorie malnutrition: Code(s): E46 - Unspecified protein-calorie malnutrition Status: Acute Assessment and Plan: * nutrition has been deteriorating as already noted * low albumin on admission noted which is likely contributing to her s welling/edema issues * this is further complicated by her inability to tolerate oral intake * s/p EGD * biopsy of stomach and small intestine c/w amyloidosis * weaned off TPN * On tube feeding (Nepro) (5) Recent urinary tract infection: Code(s): Z87.440 - Personal history of urinary (tract) infections Status: Acute Assessment and Plan: * completed course of IV antibiotics Will continue to follow. Subjective Date/time seen: 08/22/22 09:19 Interval history: Rosalba it about the same. She is up in a chair. Drinking less fluid. Shows up on her intake/output recordings. She is drinking just if she is thirsty and is comfortable in this regard. Exam Narrative: General: chronically ill appearing female in NAD Heart: normal S1 and S2; no rub or gallop Lungs: clear to auscultation Abdomen: soft but protuberant with + bowel sounds. Extremities: bilaterally 1+ edema in LEs Skin: No rash or subQ nodules Objective Data Vital Signs Vital Signs: Vital Signs - 24 hr 08/21/22 10:00 08/21/22 11:28 08/21/22 14:00 Temperature 97.6 F Pulse Rate 87 Respiratory Rat
--- NOTE | 2022-08-22 09:19 | PM.PNNEP ---
Progress Note: A&P Assessment and Plan (1) RIP (acute kidney injury): Code(s): N17.9 - Acute kidney failure, unspecified Status: Acute Assessment and Plan: fluctuating due to nuturitonal intake and diuretic therapy suspect multifactorial etiology: ongoing/previous diuretic therapy relative hypotension recent UTI use of Bactrim(?) prerenal factors due to low albumin on IV albumin chased by IV bumex for swelling/edema Her creatinine is the same today as it was yesterday. She still has substantial edema. We may be looking at the situation for where we need to have a higher baseline creatinine to keep her from swelling so badly. Hopefully as Nutrition kicks in her albumin will rse decreasing the need for the diuretics and allowing a lower creatinine there from. Continue diuretics plus albumin while in inpatient. She is currently getting metolazone 2.5mg per day and bumetanide 1mg IV every 8. Upon discharge she can go on bumetanide 2mg twice a day and metolazone 2.5mg per day per Her intake/output is better with decreased intake and more output. Long discussion with the patient and also with Dr. Calloway. She is eager to be discharged so she can get her chemotherapy on Tuesday. (2) Stage 3b chronic kidney disease: Code(s): N18.32 - Chronic kidney disease, stage 3b Status: Chronic Assessment and Plan: kidney function/creatinine has fluctuated to extremes in the last few months seems to average out to 1.4 - 2.0mg/dl creatinine up a little bit with ongoing diuretic therapy/diuresis. 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 Hamilton (3) Hyponatremia: Code(s): E87.1 - Hypo-osmolality and hyponatremia Status: Chronic Assessment and Plan: doing better. The sodium is stable in the low to mid 130s. on less free water and now no nepro instead of Jevity 1.5 (4) Protein calorie malnutrition: Code(s): E46 - Unspecified protein-calorie malnutrition Status: Acute Assessment and Plan: nutrition has been deteriorating as already noted low albumin on admission noted which is likely contributing to her swelling/edema issues this is further complicated by her inability to tolerate oral intake s/p EGD biopsy of stomach and small intestine c/w amyloidosis weaned off TPN On tube feeding (Nepro) (5) Recent urinary tract infection: Code(s): Z87.440 - Personal history of urinary (tract) infections Status: Acute Assessment and Plan: completed course of IV antibiotics Will continue to follow. Subjective Date/time seen: 08/22/22 09:19 Interval history: Rosalba it about the same. She is up in a chair. Drinking less fluid. Shows up on her intake/output recordings. She is drinking just if she is thirsty and is comfortable in this regard. Exam Narrative: General: chronically ill appearing female in NAD Heart: normal S1 and S2; no rub or gallop Lungs: clear to auscultation Abdomen: soft but protuberant with + bowel sounds. Extremities: bilaterally 1+ edema in LEs Skin: No rash or subQ nodules Objective Data Vital Signs Vital Signs: Vital Signs - 24 hr 08/21/22 10:00 08/21/22 11:28 08/21/22 14:00 Temperature 97.6 F Pulse Rate 87 Respiratory Rate 20 Blood Pressure 144/80 H Pulse Oximetry 94 Oxygen Delivery Room Air Room Air 08/21/22 20:29 08/22/22 05:12 Temperature 97.8 F 97.7 F Pulse Rate 91 84 Respiratory Rate 20 18 Blood Pressure 139/64 148/75 H Pulse Oximetry 97 94 Oxygen Delivery Intake/Output Intake/Output: Intake & Output 08/19/22 08/20/22 08/21/22 08/22/22 23:59 23:59 23:59 23:59 Intake Total 2240 3226 1360 1980 Output Total 1500 1750 2050 750 Balance 740 1476 -690 1230 Meds/Results Medications: Active Medications Generic Name Dose Route Start Last Admin
[2022-08-22] MEDS: POTASSIUM CHLORIDE 20 MEQ PACKET (FOR LIQUID) 40 MEQ PO (10:02)
[2022-08-22] MEDS: MIDODRINE HCL 10 MG TABLET PO ×3 (10:03→17:30)
[2022-08-22] MEDS: metOLazone 2.5 MG TABLET PO (10:03)
[2022-08-22] MEDS: HEPARIN SODIUM 5,000 UNITS/ML VIAL 5000 UNITS SUB-Q ×2 (10:03→20:10)
[2022-08-22] MEDS: SACCHAROMYCES BOULARDII 250 MG CAPSULE PO ×3 (10:03→17:30)
[2022-08-22] MEDS: ZINC SULFATE 220 MG CAPSULE PO (10:03)
[2022-08-22] MEDS: ACYCLOVIR 400 MG TABLET PO ×2 (10:04→20:10)
[2022-08-22] MEDS: ROSUVASTATIN 10 MG TABLET 40 MG PO (10:04)
[2022-08-22] MEDS: PANTOPRAZOLE 40 MG TABLET PO ×2 (10:04→20:10)
[2022-08-22] MEDS: SIMETHICONE 125 MG CHEW TAB PO ×4 (10:06→20:10)
--- NOTE | 2022-08-22 11:55 | WPDGIPROGNO ---
Progress Note: A&P Assessment and Plan (1) PEG (percutaneous endoscopic gastrostomy) status: Code(s): Z93.1 - Gastrostomy status Status: Acute Assessment and Plan: there was a little erythema around her G-tube site yesterday. Today it is more prominent, very slightly indurated. Scant drainage around the tube which is most likely tube feeding seepage. Plan to continue PEG tube feedings for primary nutrition. She may supplement this with oral intake as tolerated. She reports a poor appetite and subsequent poor intake. I will start her on the triple antibiotic ointment twice a day. A culture has been obtained (2) Gas bloat syndrome: Code(s): K92.89 - Other specified diseases of the digestive system Status: Acute Assessment and Plan: Because of her amyloidosis, the patient has poor motility and has to be on guard for possible constipation. At this time she is having frequent bowel movements that are rather loose. 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 They have restarted chemotherapy for her amyloidosis. (4) Protein calorie malnutrition: Code(s): E46 - Unspecified protein-calorie malnutrition Status: Acute Assessment and Plan: with a G-tube in place, it should effectively help reverse her nutritional situation. She is also eating more by mouth now. Subjective Date/time seen: 08/21/22? 12:29 ?the patient is visiting with her family.? She is in good spirits.? She says that she is tolerating more and more orally.? She she is primarily 8 taking in softer consistency foods.? I told her that that would be the ideal at this time.? She denies any problems with her G-tube such as pain or drainage. 08/22/22 11:55 today there was noted to be more a little more erythema around her G-tube site. She does not describe tenderness. G-tube feedings have been going well and she continues to take soft food by mouth Exam Const: General: alert Orientation/consciousness: patient oriented x3 Resp: Auscultation: clear to auscultation bilaterally Cardio: Rhythm: regular rhythm GI: Inspection: incision ( G-tube site with erythema, a little more prominent today than yesterday) GI Palp: Yes Soft to palpation, No Tenderness to palpation present (GI) and No Guarding due to palpation present (GI) Auscultation: normal bowel sounds Skin: Other: erythema around the G-tube site with a 3 cm radius Neuro: General: patient oriented x3 Objective Data Vital Signs Vital Signs: Vital Signs - 24 hr 08/21/22 14:00 08/21/22 20:29 08/22/22 05:12 Temperature 36.4 C 36.6 C 36.5 C Pulse Rate 87 91 84 Respiratory Rate 20 20 18 Blood Pressure 144/80 H 139/64 148/75 H Pulse Oximetry 94 97 94 Oxygen Delivery 08/22/22 10:50 Temperature Pulse Rate Respiratory Rate Blood Pressure Pulse Oximetry Oxygen Delivery Room Air Intake/Output Intake/Output: Intake & Output 08/19/22 08/20/22 08/21/22 08/22/22 23:59 23:59 23:59 23:59 Intake Total 2240 3226 1360 1980 Output Total 1500 1750 2050 750 Balance 740 1476 -690 1230 Meds/Results Medications: Active Medications Generic Name Dose Route Start Last Admin Trade Name Freq PRN Reason Stop Dose Admin Acetaminophen 650 mg 08/06/22 18:01 08/21/22 21:42 Acetaminophen 325 Mg Tablet PO 650 mg Q4H PRN Administration Mild Pain (1-3) or Fever Acyclovir 400 mg 08/06/22 21:00 08/22/22 10:04 Acyclovir 400 Mg Tablet PO 400 mg Q12HR DARRICK Administration Alprazolam 0.5 mg 08/07/22 18:49 08/21/22 21:43 Alprazolam (*Crx) 0.5 Mg Tablet PO 0.5 mg TID PRN Administration Anxiety Alteplase, Recombinant 2 mg 08/21/22 04:34 Alteplase 2 Mg Vial (Cathflo) IV PUSH ONCE PRN Line Occlusion Bisacodyl 10 mg 08/08/22 13:12 08/09/22 09:19
[2022-08-22] MEDS: HYDROCORTISONE 1% 30 GM OINTMENT 1 APPLIC TOPICAL ×2 (13:06→20:10)
[2022-08-22] MEDS: NEOMYCIN/POLYMYXIN/BACITRACIN OINTMENT 15 GM TUBE 1 APPLIC TOPICAL ×2 (13:06→20:11)
--- NOTE | 2022-08-22 13:06 | PM.IMPN ---
Progress Note: A&P Assessment and Plan (1) Ovfmx-za-qsblibm kidney injury: Code(s): N17.9 - Acute kidney failure, unspecified; N18.9 - Chronic kidney disease, unspecified Status: Acute Assessment and Plan: 08/22/22 13:06 The patient is being directly admitted to the medical/surgical floor from Dr. Hamilton office for further treatment and evaluation of acute on chronic kidney injury. # Acute on chronic kidney disease stage 3:? Recently treated for UTI with Bactrim.? Poor p.o. intake.? Creatinine 2.6 on admission.? Baseline high 1s to 2s.? Started on IV hydration.? Bactrim was discontinued.? Nephrology consulted.? Currently back to baseline mostly. # Anasarca: Ongoing problem.? Hypoalbuminemic.? Poor nutrition 1 of the reason.? Also has amyloidosis.? Prealbumin 34.1.? Limited on diuretic use because of hypotension.? Also has Heavy proteinuria # UTI:? Started on cefepime to complete the treatment.? 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 On 08/11/2022 EGD was normal status post PEG tube placement in tube feeds running. continue in concurrent TPN and tube feeds until? tube feeds are well tolerated # general debility # elevated liver enzymes:? Mild.? Likely related to amyloidosis as well continue to monitor.? Small-bowel biopsy also positive for amyloidosis 08/22/2022 interval history:?amylodosis is suspected to infiltrate liver and small bowl and possibly large intestine this will effect nutrient absorption and intestine motility and patient is having persistent constipation, on 08/16? D/W Dr Hamilton her oncologist considering giving chemotherapy while in the hospital,? this may improve her condition, on 08/16? evening patient felt bolated and did not want G tube feeding, on 08/17 morning patient had a small BM and patient stated feeling better, on 08/17 patient was given injection of Velcade in the hospital, patient is able to take p.o. diet,? today? patient c/o bloating and constipation, has not had BM since 08/17, receiving colace, and? miralx without relief, patient is passing gas, on 08/20 gave suppository,? since then patient has had several BMs and few today,?on 08/21 patient was seen by Dr[address] Mccracken switched her tube feeding to Nephro and adjusted her flushes,? today discussed with the patient and her daughter plan is to discharge the patient on Tuesday, patient is requesting hospital bed and bedside commode will discuss with social service, patienti is also considering going to SNF for rehab, priror to going homw, today patient was seen by GI and noted slight erythema along PEG and some pus, culture is collected, and topical triple abx is ordered, ? 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 Hamilton office for further treatment and evaluation of acute on chronic kidney injury. # Acute on chronic kidney disease stage 3: Recently treated for UTI with Bactrim. Poor p.o. intake. Creatinine 2.6 on admission. Baseline high 1s to 2s. Started on IV hydration. Bactrim was discontinued. Nephrology consulted. Currently back to baseline mostly. # Anasarca
[2022-08-22 14:00] VITALS: BP 140/83; PULSE 82; RESP 20; TEMP 36.6; O2SAT 97
[2022-08-22] MEDS: ALPRAZolam (*CRX) 0.5 MG TABLET PO (14:21)
[2022-08-22 22:00] VITALS: BP 140/74; PULSE 81; RESP 18; TEMP 36.8; O2SAT 57
[2022-08-23] MEDS: METOCLOPRAMIDE HCL INJ 10 MG/2 ML VIAL IV PUSH ×3 (05:57→17:09)
[2022-08-23] MEDS: ALBUMIN HUMAN 25% 25 GM/100 ML 100 ML IVPB ×3 (05:57→20:21)
[2022-08-23] MEDS: BUMETANIDE INJ 1 MG/4 ML VIAL IV PUSH ×3 (05:57→20:22)
[2022-08-23] MEDS: LEVOTHYROXINE SODIUM 75 MCG TABLET PO (05:57)
[2022-08-23] MEDS: CENTRAL LINE FLUSH 10 ML IV PUSH ×2 (05:57→13:30)
[2022-08-23 06:00] VITALS: PULSE 80; RESP 16; TEMP 36.7; O2SAT 97
[2022-08-23 06:09] LABS: Basophils Percent Auto 0.3 % (0.2-1.2); Eosinophils Absolute Auto 0.1 K/mm3 (0-0.3); Eosinophils Percent Auto 0.8 % (0-4.4); Hemoglobin 9.2 g/dL (12.0-15.0); Immature Granulocyte Absolute 0.05 K/mm3 (0.00-0.031); Immature Granulocyte Percent A 0.5 % (0-0.5); Lymphocytes Absolute Auto 1.23 K/mm3 (0.9-3.2); Mean Corpuscular HGB Conc 32.9 g/dl (32-36); Mean Corpuscular Hemoglobin 31.8 pg (26-34); Mean Corpuscular Volume 96.9 fl (80-100); Mean Platelet Volume 11.4 fl (7.4-10.4); Monocytes Percent Auto 10.2 % (2.6-8.5); Neutrophils Absolute Auto 7.1 K/mm3 (1.3-6.7); Neutrophils Percent Auto 75.2 % (45.5-73.1); Platelet Count Result 231 k/mm3 (150-375); Red Blood Count 2.89 M/mm3 (4.2-5.4); Red Cell Distribution Width 16.6 % (11.5-14.5); White Blood Count 9.5 K/mm3 (4.5-10.0)
[2022-08-23 06:20] LABS: INR 1.1; Prothrombin Time 14.1 Seconds (11.1-14.7)
[2022-08-23 06:21] LABS: Partial Thromboplastin Time 29.9 SECONDS (22.3-36.8)
[2022-08-23 06:26] LABS: Alanine Aminotransferase 60 U/L (6-35); Albumin Level 2.6 g/dL (3.5-5.1); Alkaline Phosphatase 192 U/L (38-126); Anion Gap 5 mmol/L (8-16); Aspartate Amino Transferase 68 U/L (14-36); Bilirubin,Total 0.3 mg/dL (0.2-1.3); Blood Urea Nitrogen 51 mg/dL (7-17); Calcium 6.8 mg/dL (8.4-10.2); Carbon Dioxide 23 mmol/L (22-30); Chloride 109 mmol/L (98-107); Estimated CRCL calculation 23 ml/min; Estimated Glomerular Filt Rate 26; Glucose 82 mg/dL (65-110); Magnesium 1.7 mg/dL (1.6-2.3); Phosphorus 3.5 mg/dL (2.5-4.5); Potassium 2.6 mmol/L (3.4-5.0); Sodium 137 mmol/L (137-145)
[2022-08-23 06:49] LABS: Transferrin 100 mg/dL (206-381)
[2022-08-23] MEDS: POTASSIUM CHLORIDE 20 MEQ PACKET (FOR LIQUID) 80 MEQ FEED TUBE (08:49)
[2022-08-23] MEDS: MAGNESIUM SULF 2 GM/WATER 50ML 2 GM/50 ML BAG IVPB (08:49)
[2022-08-23] MEDS: ACYCLOVIR 400 MG TABLET PO ×2 (08:52→20:23)
[2022-08-23] MEDS: HEPARIN SODIUM 5,000 UNITS/ML VIAL 5000 UNITS SUB-Q ×2 (08:53→20:22)
[2022-08-23] MEDS: MIDODRINE HCL 10 MG TABLET PO ×3 (08:54→17:09)
[2022-08-23] MEDS: polyethylene glycoL 3350 17 GM POWD.PACK PO (08:54)
[2022-08-23] MEDS: ROSUVASTATIN 10 MG TABLET 40 MG PO (08:54)
[2022-08-23] MEDS: ZINC SULFATE 220 MG CAPSULE PO (08:54)
[2022-08-23] MEDS: SIMETHICONE 125 MG CHEW TAB PO ×4 (08:54→20:22)
[2022-08-23] MEDS: metOLazone 2.5 MG TABLET PO (08:54)
[2022-08-23] MEDS: PANTOPRAZOLE 40 MG TABLET PO ×2 (08:54→20:22)
[2022-08-23] MEDS: SACCHAROMYCES BOULARDII 250 MG CAPSULE PO ×3 (08:54→17:09)
[2022-08-23] MEDS: NEOMYCIN/POLYMYXIN/BACITRACIN OINTMENT 15 GM TUBE 1 APPLIC TOPICAL ×2 (08:56→20:22)
[2022-08-23] MEDS: HYDROCORTISONE 1% 30 GM OINTMENT 1 APPLIC TOPICAL ×2 (08:56→20:22)
[2022-08-23] MEDS: ACETAMINOPHEN 325 MG TABLET 650 MG PO (09:02)
--- NOTE | 2022-08-23 12:12 | P.PNNP_ITS ---
Progress Note: A&P Assessment and Plan (1) RIP (acute kidney injury): Code(s): N17.9 - Acute kidney failure, unspecified Status: Acute Assessment and Plan: * fluctuating due to nuturitonal intake and diuretic therapy * suspect multifactorial etiology: * ongoing/previous diuretic therapy * relative hypotension * recent UTI * use of Bactrim(?) * prerenal factors due to low albumin * on IV albumin chased by IV bumex for swelling/edema * Her creatinine is the same today as it was yesterday. * She still has substantial edema. * We may be looking at the situation for where we need to have a higher baseline creatinine to keep her from swelling so badly. * Hopefully as Nutrition kicks in her albumin will rse decreasing the need for the diuretics and allowing a lower creatinine there from. * Continue diuretics plus albumin while in inpatient. * She is currently getting metolazone 2.5mg per day and bumetanide 1mg IV every 8. * Upon discharge she can go on bumetanide 2mg twice a day and metolazone 2.5mg per day * Her intake/output is better with decreased intake and more output. * Long discussion with the patient and also with Dr. Calloway. * She is eager to be discharged so she can get her chemotherapy on Tuesday. (2) Stage 3b chronic kidney disease: Code(s): N18.32 - Chronic kidney disease, stage 3b Status: Chronic Assessment and Plan: * kidney function/creatinine has fluctuated to extremes in the last few months * seems to average out to 1.4 - 2.0mg/dl * creatinine up a little bit with ongoing diuretic therapy/diuresis. stable at 2.3 * 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 Hamilton (3) Hypokalemia: Code(s): E87.6 - Hypokalemia Status: Acute Assessment and Plan: * likely secondary to diuresis and low K+ tube feeds (nephro) * start daily supplementation -- 40meq qday * may need to titrate depending on response (4) Hyponatremia: Code(s): E87.1 - Hypo-osmolality and hyponatremia Status: Chronic Assessment and Plan: * doing better * on less free water * less fluid with use of nephro tube feeds (5) Protein calorie malnutrition: Code(s): E46 - Unspecified protein-calorie malnutrition Status: Acute Assessment and Plan: * nutrition has been deteriorating as already noted * low albumin on admission noted which is likely contributing to her swelling/edema issues * this is further complicated by her inability to tolerate oral intake * s/p EGD * biopsy of stomach and small intestine c/w amyloidosis * weaned off TPN * on tube feeding (Nepro) (6) Recent urinary tract infection: Code(s): Z87.440 - Personal history of urinary (tract) infections Status: Acute Assessment and Plan: * completed course of IV antibiotics Will continue to follow. Subjective Date/time seen: 08/23/22 12:12 Chart reviewed since last seen -- seems to be doing relatively well; multiple adjustments made in an effort to limit fluid intake and promote diuresis over the last few days; issues with hypokalemia noted. Exam Narrative: General: chronically ill appearing female in NAD Heart: normal S1 and S2; no rub or gallop Lungs: clear to auscultation Abdomen: soft but protuberant with + bowel sounds. Extremities: bilaterally 1+ edema in LEs Skin: warm and dry Objective Data Vital Signs Vital Signs:
--- NOTE | 2022-08-23 12:12 | PM.PNNEP ---
Progress Note: A&P Assessment and Plan (1) RIP (acute kidney injury): Code(s): N17.9 - Acute kidney failure, unspecified Status: Acute Assessment and Plan: fluctuating due to nuturitonal intake and diuretic therapy suspect multifactorial etiology: ongoing/previous diuretic therapy relative hypotension recent UTI use of Bactrim(?) prerenal factors due to low albumin on IV albumin chased by IV bumex for swelling/edema Her creatinine is the same today as it was yesterday. She still has substantial edema. We may be looking at the situation for where we need to have a higher baseline creatinine to keep her from swelling so badly. Hopefully as Nutrition kicks in her albumin will rse decreasing the need for the diuretics and allowing a lower creatinine there from. Continue diuretics plus albumin while in inpatient. She is currently getting metolazone 2.5mg per day and bumetanide 1mg IV every 8. Upon discharge she can go on bumetanide 2mg twice a day and metolazone 2.5mg per day Her intake/output is better with decreased intake and more output. Long discussion with the patient and also with Dr. Calloway. She is eager to be discharged so she can get her chemotherapy on Tuesday. (2) Stage 3b chronic kidney disease: Code(s): N18.32 - Chronic kidney disease, stage 3b Status: Chronic Assessment and Plan: kidney function/creatinine has fluctuated to extremes in the last few months seems to average out to 1.4 - 2.0mg/dl creatinine up a little bit with ongoing diuretic therapy/diuresis. 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 Hamilton (3) Hypokalemia: Code(s): E87.6 - Hypokalemia Status: Acute Assessment and Plan: likely secondary to diuresis and low K+ tube feeds (nephro) start daily supplementation -- 40meq qday may need to titrate depending on response (4) Hyponatremia: Code(s): E87.1 - Hypo-osmolality and hyponatremia Status: Chronic Assessment and Plan: doing better on less free water less fluid with use of nephro tube feeds (5) Protein calorie malnutrition: Code(s): E46 - Unspecified protein-calorie malnutrition Status: Acute Assessment and Plan: nutrition has been deteriorating as already noted low albumin on admission noted which is likely contributing to her swelling/edema issues this is further complicated by her inability to tolerate oral intake s/p EGD biopsy of stomach and small intestine c/w amyloidosis weaned off TPN on tube feeding (Nepro) (6) Recent urinary tract infection: Code(s): Z87.440 - Personal history of urinary (tract) infections Status: Acute Assessment and Plan: completed course of IV antibiotics Will continue to follow. Subjective Date/time seen: 08/23/22 12:12 Chart reviewed since last seen -- seems to be doing relatively well; multiple adjustments made in an effort to limit fluid intake and promote diuresis over the last few days; issues with hypokalemia noted. Exam Narrative: General: chronically ill appearing female in NAD Heart: normal S1 and S2; no rub or gallop Lungs: clear to auscultation Abdomen: soft but protuberant with + bowel sounds. Extremities: bilaterally 1+ edema in LEs Skin: warm and dry Objective Data Vital Signs Vital Signs: Vital Signs Temp Pulse Resp BP Pulse Ox O2 Del Method 08/23/22 08:54 Room Air 08/23/22 06:00 98.1 F 80 16 97 08/22/22 22:00 98.2 F 81 18 140/74 57 L 08/22/22 14:00 97.9 F 82 20 140/83 97 Intake/Output Intake/Output: Intake & Output 08/20/22 08/21/22 08/22/22 08/23/22 23:59 23:59 23:59 23:59 Intake Total 3706 2230 3710 738 Output Total 1750 2050 1250 1950 Balance 5363 572 1080 -1212 Meds/Results Medications: Active Medications Generic Name Do
[2022-08-23 14:00] VITALS: BP 143/85; PULSE 83; RESP 100; TEMP 36.9; O2SAT 96
[2022-08-23 15:29] LABS: Potassium 3.5 mmol/L (3.4-5.0)
--- NOTE | 2022-08-23 16:18 | PM.IMPN ---
Progress Note: A&P Assessment and Plan (1) Kluzq-ca-cutxtse kidney injury: Code(s): N17.9 - Acute kidney failure, unspecified; N18.9 - Chronic kidney disease, unspecified Status: Acute Assessment and Plan: 08/22/22 13:06 The patient is being directly admitted to the medical/surgical floor from Dr. Hamilton office for further treatment and evaluation of acute on chronic kidney injury. # Acute on chronic kidney disease stage 3:? Recently treated for UTI with Bactrim.? Poor p.o. intake.? Creatinine 2.6 on admission.? Baseline high 1s to 2s.? Started on IV hydration.? Bactrim was discontinued.? Nephrology consulted.? Currently back to baseline mostly. # Anasarca: Ongoing problem.? Hypoalbuminemic.? Poor nutrition 1 of the reason.? Also has amyloidosis.? Prealbumin 34.1.? Limited on diuretic use because of hypotension.? Also has Heavy proteinuria # UTI:? Started on cefepime to complete the treatment.? 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 On 08/11/2022 EGD was normal status post PEG tube placement in tube feeds running. continue in concurrent TPN and tube feeds until? tube feeds are well tolerated # general debility # elevated liver enzymes:? Mild.? Likely related to amyloidosis as well continue to monitor.? Small-bowel biopsy also positive for amyloidosis 08/23/2022 interval history:?amylodosis is suspected to infiltrate liver and small bowl and possibly large intestine this will effect nutrient absorption and intestine motility and patient is having persistent constipation, on 08/16? D/W Dr Hamilton her oncologist considering giving chemotherapy while in the hospital,? this may improve her condition, on 08/16? evening patient felt bolated and did not want G tube feeding, on 08/17 morning patient had a small BM and patient stated feeling better, on 08/17 patient was given injection of Velcade in the hospital, patient is able to take p.o. diet,? today? patient c/o bloating and constipation, has not had BM since 08/17, receiving colace, and? miralx without relief, patient is passing gas, on 08/20 gave suppository,? since then patient has had several BMs and few today,?on 08/21 patient was seen by Dr. Mccracken switched her tube feeding to Nephro and adjusted her flushes,? today again discussed with the patient daughter and her , patient is requesting hospital bed and bedside commode will discuss with social service, patienti is also considering going to SNF for rehab, priror to going home, patient was seen by GI and noted slight erythema along PEG and some pus, culture is collected, and topical triple abx is ordered, culture is growing gram negative bacilli, will follow, ? 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 Hamilton office for further treatment and evaluation of acute on chronic kidney injury. # Acute on chronic kidney disease stage 3: Recently treated for UTI with Bactrim. Poor p.o. intake. Creatinine 2.6 on admission. Baseline high 1s to 2s. Started on IV hydratio
[2022-08-23 16:56] LABS: Anion Gap 6 mmol/L (8-16); Blood Urea Nitrogen 62 mg/dL (7-17); Calcium 8.5 mg/dL (8.4-10.2); Carbon Dioxide 24 mmol/L (22-30); Chloride 102 mmol/L (98-107); Estimated CRCL calculation 20 ml/min; Estimated Glomerular Filt Rate 22; Glucose 101 mg/dL (65-110); Magnesium 2.4 mg/dL (1.6-2.3); Sodium 132 mmol/L (137-145)
[2022-08-23] MEDS: LIDOCAINE/PRILOCAINE CREAM 2.5-2.5% TUBE 1 EACH TOPICAL (17:09)
[2022-08-23 21:53] VITALS: BP 145/86; PULSE 81; RESP 18; TEMP 36.7; O2SAT 98
[2022-08-24] MEDS: METOCLOPRAMIDE HCL INJ 10 MG/2 ML VIAL IV PUSH ×4 (01:20→17:44)
[2022-08-24] MEDS: CENTRAL LINE FLUSH 10 ML IV PUSH ×4 (01:20→20:05)
[2022-08-24] MEDS: ACETAMINOPHEN 325 MG TABLET 650 MG PO ×2 (03:45→20:08)
[2022-08-24 04:10] LABS: Hematocrit 27.5 % (37.0-47.0); Mean Corpuscular HGB Conc 32.7 g/dl (32-36); Mean Corpuscular Volume 94.8 fl (80-100); Mean Platelet Volume 11.8 fl (7.4-10.4); Platelet Count Result 262 k/mm3 (150-375); Red Cell Distribution Width 16.6 % (11.5-14.5); White Blood Count 10.2 K/mm3 (4.5-10.0)
[2022-08-24 04:21] LABS: Alanine Aminotransferase 64 U/L (6-35); Albumin Level 3.5 g/dL (3.5-5.1); Alkaline Phosphatase 211 U/L (38-126); Anion Gap 6 mmol/L (8-16); Aspartate Amino Transferase 76 U/L (14-36); Bilirubin,Total 0.4 mg/dL (0.2-1.3); Blood Urea Nitrogen 63 mg/dL (7-17); Calcium 8.5 mg/dL (8.4-10.2); Carbon Dioxide 26 mmol/L (22-30); Chloride 104 mmol/L (98-107); Estimated CRCL calculation 18 ml/min; Estimated Glomerular Filt Rate 20; Glucose 100 mg/dL (65-110); Magnesium 2.4 mg/dL (1.6-2.3); Potassium 3.1 mmol/L (3.4-5.0); Sodium 136 mmol/L (137-145)
[2022-08-24] MEDS: BUMETANIDE INJ 1 MG/4 ML VIAL IV PUSH ×3 (05:37→20:03)
[2022-08-24] MEDS: LEVOTHYROXINE SODIUM 75 MCG TABLET PO (05:37)
[2022-08-24] MEDS: ALBUMIN HUMAN 25% 25 GM/100 ML 100 ML IVPB ×3 (05:37→20:02)
[2022-08-24 06:00] VITALS: BP 138/71; PULSE 80; RESP 18; TEMP 36.7; O2SAT 98
[2022-08-24] MEDS: SIMETHICONE 125 MG CHEW TAB PO ×4 (08:59→20:04)
[2022-08-24] MEDS: MIDODRINE HCL 10 MG TABLET PO ×3 (08:59→17:45)
[2022-08-24] MEDS: metOLazone 2.5 MG TABLET PO (08:59)
[2022-08-24] MEDS: ACYCLOVIR 400 MG TABLET PO ×2 (08:59→20:03)
[2022-08-24] MEDS: ZINC SULFATE 220 MG CAPSULE PO (08:59)
[2022-08-24] MEDS: POTASSIUM CHLORIDE 20 MEQ PACKET (FOR LIQUID) 40 MEQ PO (08:59)
[2022-08-24] MEDS: ROSUVASTATIN 10 MG TABLET 40 MG PO (08:59)
[2022-08-24] MEDS: SACCHAROMYCES BOULARDII 250 MG CAPSULE PO ×3 (08:59→17:44)
[2022-08-24] MEDS: polyethylene glycoL 3350 17 GM POWD.PACK PO (09:00)
[2022-08-24] MEDS: HEPARIN SODIUM 5,000 UNITS/ML VIAL 5000 UNITS SUB-Q ×2 (09:00→20:03)
[2022-08-24] MEDS: PANTOPRAZOLE 40 MG TABLET PO ×2 (09:00→20:03)
[2022-08-24] MEDS: NEOMYCIN/POLYMYXIN/BACITRACIN OINTMENT 15 GM TUBE 1 APPLIC TOPICAL ×2 (09:01→20:04)
[2022-08-24] MEDS: HYDROCORTISONE 1% 30 GM OINTMENT 1 APPLIC TOPICAL ×2 (09:01→20:04)
--- NOTE | 2022-08-24 10:05 | P.PNNP_ITS ---
Progress Note: A&P Assessment and Plan (1) RIP (acute kidney injury): Code(s): N17.9 - Acute kidney failure, unspecified Status: Acute Assessment and Plan: * fluctuating due to nuturitonal intake and diuretic therapy * suspect multifactorial etiology: * ongoing/previous diuretic therapy * relative hypotension * recent UTI * use of Bactrim(?) * prerenal factors due to low albumin * on IV albumin chased by IV bumex for swelling/edema * her creatinine is the same today as it was yesterday. * she still has substantial edema. * we may be looking at the situation for where we need to have a higher baseline creatinine to keep her from swelling so badly * hopefully as Nutrition kicks in her albumin will rse decreasing the need for the diuretics and allowing a lower creatinine there from. * continue diuretics plus albumin (while iinpatient) * currently getting metolazone 2.5mg per day and bumetanide 1mg IV every 8 (in the hospital) * upon discharge, she can go on bumetanide 2mg twice a day and metolazone 2.5mg per day (2) Stage 3b chronic kidney disease: Code(s): N18.32 - Chronic kidney disease, stage 3b Status: Chronic Assessment and Plan: * kidney function/creatinine has fluctuated to extremes in the last few months * seems to average out to 1.4 - 2.0mg/dl * creatinine up a little bit with ongoing diuretic therapy/diuresis (2.3 - 2.4mg/dl) * may have to accept a higher creatinine to maintain volume status * 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 Hamilton (3) Hypokalemia: Code(s): E87.6 - Hypokalemia Status: Acute Assessment and Plan: * secondary to diuresis and low K+ tube feeds (nephro) * will likely need daily supplementation * may need to titrate depending on response (4) Hyponatremia: Code(s): E87.1 - Hypo-osmolality and hyponatremia Status: Chronic Assessment and Plan: * doing better * on less free water * less fluid with use of nephro tube feeds (5) Protein calorie malnutrition: Code(s): E46 - Unspecified protein-calorie malnutrition Status: Acute Assessment and Plan: * nutrition has been deteriorating as already noted * low albumin on admission noted which is likely contributing to her swelling/ edema issues * this is further complicated by her inability to tolerate oral intake * s/p EGD * biopsy of stomach and small intestine c/w amyloidosis * weaned off TPN * on tube feeding (Nepro) and oral intake as tolerated (6) Recent urinary tract infection: Code(s): Z87.440 - Personal history of urinary (tract) infections Status: Acute Assessment and Plan: * completed course of IV antibiotics Will continue to follow. Subjective Date/time seen: 08/24/22 10:05 Overall, seems to be doing pretty good; appetite has returned and she is eating reasonably well along with bolus tube feeds; potassium improving with ongoing supplementaton; still has swelling/edema but is no worse at this time; hoping to go home either later today or tomorrow depending on if everything (supplies, equipment...etc) can be arranged. Exam Narrative: General: chronically ill appearing female in NAD Heart: normal S1 and S2; no rub or gallop Lungs: clear to auscultation Abdomen: soft but protuberant with + bowel sounds. Extremities: bilaterally 1+ edema in LEs Skin: warm and intact Objective Data
--- NOTE | 2022-08-24 10:05 | PM.PNNEP ---
Progress Note: A&P Assessment and Plan (1) RIP (acute kidney injury): Code(s): N17.9 - Acute kidney failure, unspecified Status: Acute Assessment and Plan: fluctuating due to nuturitonal intake and diuretic therapy suspect multifactorial etiology: ongoing/previous diuretic therapy relative hypotension recent UTI use of Bactrim(?) prerenal factors due to low albumin on IV albumin chased by IV bumex for swelling/edema her creatinine is the same today as it was yesterday. she still has substantial edema. we may be looking at the situation for where we need to have a higher baseline creatinine to keep her from swelling so badly hopefully as Nutrition kicks in her albumin will rse decreasing the need for the diuretics and allowing a lower creatinine there from. continue diuretics plus albumin (while iinpatient) currently getting metolazone 2.5mg per day and bumetanide 1mg IV every 8 (in the hospital) upon discharge, she can go on bumetanide 2mg twice a day and metolazone 2.5mg per day (2) Stage 3b chronic kidney disease: Code(s): N18.32 - Chronic kidney disease, stage 3b Status: Chronic Assessment and Plan: kidney function/creatinine has fluctuated to extremes in the last few months seems to average out to 1.4 - 2.0mg/dl creatinine up a little bit with ongoing diuretic therapy/diuresis (2.3 - 2.4mg/dl) may have to accept a higher creatinine to maintain volume status 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 Hamilton (3) Hypokalemia: Code(s): E87.6 - Hypokalemia Status: Acute Assessment and Plan: secondary to diuresis and low K+ tube feeds (nephro) will likely need daily supplementation may need to titrate depending on response (4) Hyponatremia: Code(s): E87.1 - Hypo-osmolality and hyponatremia Status: Chronic Assessment and Plan: doing better on less free water less fluid with use of nephro tube feeds (5) Protein calorie malnutrition: Code(s): E46 - Unspecified protein-calorie malnutrition Status: Acute Assessment and Plan: nutrition has been deteriorating as already noted low albumin on admission noted which is likely contributing to her swelling/edema issues this is further complicated by her inability to tolerate oral intake s/p EGD biopsy of stomach and small intestine c/w amyloidosis weaned off TPN on tube feeding (Nepro) and oral intake as tolerated (6) Recent urinary tract infection: Code(s): Z87.440 - Personal history of urinary (tract) infections Status: Acute Assessment and Plan: completed course of IV antibiotics Will continue to follow. Subjective Date/time seen: 08/24/22 10:05 Overall, seems to be doing pretty good; appetite has returned and she is eating reasonably well along with bolus tube feeds; potassium improving with ongoing supplementaton; still has swelling/edema but is no worse at this time; hoping to go home either later today or tomorrow depending on if everything (supplies, equipment...etc) can be arranged. Exam Narrative: General: chronically ill appearing female in NAD Heart: normal S1 and S2; no rub or gallop Lungs: clear to auscultation Abdomen: soft but protuberant with + bowel sounds. Extremities: bilaterally 1+ edema in LEs Skin: warm and intact Objective Data Vital Signs Vital Signs: Vital Signs Temp Pulse Resp BP Pulse Ox O2 Del Method 08/24/22 08:45 Room Air 08/24/22 06:00 98.1 F 80 18 138/71 98 08/23/22 20:00 Room Air 08/23/22 21:53 98.1 F 81 18 145/86 H 98 08/23/22 14:00 98.5 F 83 100 H 143/85 H 96 Intake/Output Intake/Output: Intake & Output 08/21/22 08/22/22 08/23/22 08/24/22 23:59 23:59 23:59 23:59 Intake Total 2230 3710 2108 747 Output Total 2050 1250 4250 1500 Balance 180 1570 -214
--- NOTE | 2022-08-24 12:53 | WPDONCPN ---
Progress Note: A/P - Additional Plan Systemic AL amyloidosis. Patient is due to have another round of chemotherapy tomorrow. She will be discharged home today and will continue chemotherapy as an outpatient. Deconditioning. Continue PEG tube feeding. She is eating better now likely showing some clinical improvement with improvement in dysphagia and nausea vomiting. She will follow-up with us later this week to continue outpatient chemotherapy. - Time Spent With Patient Total time spent is greater than 50% in coordination of care (as documented) at patient's floor/unit and/or counseling patient: 15 - 25 minutes Subjective Interval history: Systemic amyloidosis Review of Systems - Review of Systems Patient is feeling much better and looking better as well. He has been eating better. She does not feel much tired and fatigued. She had some small bowel movements. No fevers and chills. Denies any further dysphagia and nausea vomiting. No other new complaints. Exam Narrative: Lungs are clear to auscultation bilaterally Cardiovascular regular rate rhythm no murmurs Abdomen soft nontender nondistended bowel sounds are positive Extremities no edema PN: Objective Data - Labs CBC & Chem 7: 08/24/22 03:53 08/24/22 03:53 Labs: Laboratory Results - last 24 hr 08/23/22 08/23/22 08/23/22 15:15 15:15 15:15 WBC RBC Hgb Hct MCV MCH MCHC RDW Plt Count MPV Sodium 132 L Cancelled Potassium 3.5 Cancelled Chloride 102 Cancelled Carbon Dioxide 24 Cancelled Anion Gap 6 L Cancelled BUN 62 H D Cancelled Creatinine 2.20 H Cancelled Estim Creat Clear Calc 20 Cancelled Estimated GFR 22 L Cancelled Glucose 101 Cancelled Calcium 8.5 Cancelled Phosphorus Magnesium 2.4 H Cancelled Total Bilirubin AST ALT Alkaline Phosphatase Total Protein Albumin 08/24/22 08/24/22 03:53 03:53 WBC 10.2 H RBC 2.90 L Hgb 9.0 L Hct 27.5 L MCV 94.8 MCH 31.0 MCHC 32.7 RDW 16.6 H Plt Count 262 MPV 11.8 H Sodium 136 L Potassium 3.1 L Chloride 104 Carbon Dioxide 26 Anion Gap 6 L BUN 63 H Creatinine 2.40 H Estim Creat Clear Calc 18 Estimated GFR 20 L Glucose 100 Calcium 8.5 Phosphorus 4.0 Magnesium 2.4 H Total Bilirubin 0.4 AST 76 H ALT 64 H Alkaline Phosphatase 211 H Total Protein 5.0 L Albumin 3.5
--- NOTE | 2022-08-24 12:55 | PCNFU ---
Nutrition Follow-Up Complete: Severe protein calorie malnutrition related to chronic illness as evidenced by poor intake <75% needs >1 month; muscle wasting and fat loss. Goal: Meet estimated nutritional needs. Pt current nutrition is Nepro 180 ml bolus after meals. Last recorded weight is 79.2 kg, up from 70.2 kg on admit. Bowel Motility:+BM report 08/24 Labs Reviewed:Cr 2.4,BUN 63, GFR 20, K 3.1 Meds Noted:Florastor,Reglan, Miralax, Protonix. Skin: WNL Additional Notes: Spoke with patient daughter and patient today. Tube feeding changed over the weekend to Nepro. Orders at this time for 180 ml bolus after meals with a 50 ml flush. Tube feedings did not run overnight. Patient is consuming 100% of meals plus Nutritional Ice Cream which is providing an additional 290 kcals and 9 gms protein. Nutrition recommendation for home: Bolus feedings of Nepro 240 ml bolus after meals. Bolus feedings will provide patient with 1296 kcals/58 gms protein/523 ml water. Flush 50 ml after feedings. Tube feedings will be meeting 62% caloric needs and 82% protein needs. Recommend to continue to encourage po intake at home. Plan is to discharge home. Monitor enteral nutrition tolerance; labs; weights, stool pattern, plan of care every Tuesday and Tuesday.
[2022-08-24 14:00] VITALS: BP 130/69; PULSE 82; RESP 18; TEMP 36.5; O2SAT 95
--- NOTE | 2022-08-24 14:16 | WPDGIPROGNO ---
Progress Note: A&P Assessment and Plan (1) PEG (percutaneous endoscopic gastrostomy) status: Code(s): Z93.1 - Gastrostomy status Status: Acute Assessment and Plan: PEG site healing well. Continue local care to PEG site with hydrogen peroxide as needed. Antibiotic ointment to the PEG tube site has been recommended will continue this after discharge. (2) Gas bloat syndrome: Code(s): K92.89 - Other specified diseases of the digestive system Status: Acute Assessment and Plan: Patient bloating appears to have lessened. Promotility agents such as Reglan may continue to help this. Stool softeners and laxatives to maintain bowel function encouraged. 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 Subjective Date/time seen: 08/24/22 14:16 Interval history: Patient tolerating tube feedings without difficulty. Supplements this with oral intake. Actually is doing better than on presentation. No significant drainage from PEG tube site reported. Has bowel movements. Use of laxatives appears to be beneficial. No bleeding noted. Review of Systems Review of Systems: Review of systems noncontributory. Exam Narrative: Physical exam reveals patient be alert. Lying in bed. HEENT exam reveals no icterus. Lungs are clear. Heart without murmur. Abdomen bowel sounds are present soft nontender peg site appears clean. No significant drainage identified. Extremities with 2 to3+ edema. Objective Data Vital Signs Vital Signs: Vital Signs - 24 hr 08/23/22 21:53 08/23/22 20:00 08/24/22 06:00 Temperature 98.1 F 98.1 F Pulse Rate 81 80 Respiratory Rate 18 18 Blood Pressure 145/86 H 138/71 Pulse Oximetry 98 98 Oxygen Delivery Room Air 08/24/22 08:45 Temperature Pulse Rate Respiratory Rate Blood Pressure Pulse Oximetry Oxygen Delivery Room Air Intake/Output Intake/Output: Intake & Output 08/21/22 08/22/22 08/23/22 08/24/22 23:59 23:59 23:59 23:59 Intake Total 2230 3710 2108 1087 Output Total 2050 1250 4250 1950 Balance 180 2460 -2142 -863 Meds/Results Medications: Active Medications Generic Name Dose Route Start Last Admin Trade Name Freq PRN Reason Stop Dose Admin Acetaminophen 650 mg 08/06/22 18:01 08/24/22 03:45 Acetaminophen 325 Mg Tablet PO 650 mg Q4H PRN Administration Mild Pain (1-3) or Fever Acyclovir 400 mg 08/06/22 21:00 08/24/22 08:59 Acyclovir 400 Mg Tablet PO 400 mg Q12HR DARRICK Administration Alprazolam 0.5 mg 08/07/22 18:49 08/22/22 14:21 Alprazolam (*Crx) 0.5 Mg Tablet PO 0.5 mg TID PRN Administration Anxiety Alteplase, Recombinant 2 mg 08/21/22 04:34 Alteplase 2 Mg Vial (Cathflo) IV PUSH ONCE PRN Line Occlusion Bisacodyl 10 mg 08/08/22 13:12 08/09/22 09:19 Bisacodyl 10 Mg Suppository RECTAL 10 mg QAM PRN Administration Constipation Bisacodyl 10 mg 08/14/22 09:00 08/24/22 09:00 Bisacodyl 10 Mg Suppository RECTAL Not Given QAM DARRICK Bumetanide 1 mg 08/14/22 14:00 08/24/22 13:02 Bumetanide Inj 1 Mg/4 Ml Vial IV PUSH 1 mg Q8HR DARRICK Administration Heparin Sodium (Beef Lung) 50 units 08/07/22 09:00 08/24/22 09:02 Heparin Flush 50 Units/5 Ml Syringe IV PUSH 50 units QAM DARRICK Administration Heparin Sodium (Beef Lung) 50 units 08/07/22 00:23 Heparin Flush 50 Units/5 Ml Syringe IV PUSH PRN PRN after intermittent infusion Heparin Sodium (Beef Lung) 50 units 08/07/22 00:23 08/19/22 06:00 Heparin Flush 50 Units/5 Ml Syringe IV PUSH 50 units PRN PRN Administration after blood draws Heparin Sodium (Porcine) 5,000 units 08/07/22 09:00 08/24/22 09:0
--- NOTE | 2022-08-24 15:00 | PM.IMPN ---
Progress Note: A&P Assessment and Plan (1) Eillo-ey-mcanidv kidney injury: Code(s): N17.9 - Acute kidney failure, unspecified; N18.9 - Chronic kidney disease, unspecified Status: Acute Assessment and Plan: 08/22/22 13:06 The patient is being directly admitted to the medical/surgical floor from Dr. Hamilton office for further treatment and evaluation of acute on chronic kidney injury. # Acute on chronic kidney disease stage 3:? Recently treated for UTI with Bactrim.? Poor p.o. intake.? Creatinine 2.6 on admission.? Baseline high 1s to 2s.? Started on IV hydration.? Bactrim was discontinued.? Nephrology consulted.? Currently back to baseline mostly. # Anasarca: Ongoing problem.? Hypoalbuminemic.? Poor nutrition 1 of the reason.? Also has amyloidosis.? Prealbumin 34.1.? Limited on diuretic use because of hypotension.? Also has Heavy proteinuria # UTI:? Started on cefepime to complete the treatment.? 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 On 08/11/2022 EGD was normal status post PEG tube placement in tube feeds running. continue in concurrent TPN and tube feeds until? tube feeds are well tolerated # general debility # elevated liver enzymes:? Mild.? Likely related to amyloidosis as well continue to monitor.? Small-bowel biopsy also positive for amyloidosis 08/24/2022 interval history:?amylodosis is suspected to infiltrate liver and small bowl and possibly large intestine this will effect nutrient absorption and intestine motility and patient is having persistent constipation, on 08/16? D/W Dr Hamilton her oncologist considering giving chemotherapy while in the hospital,? this may improve her condition, on 08/16? evening patient felt bolated and did not want G tube feeding, on 08/17 morning patient had a small BM and patient stated feeling better, on 08/17 patient was given injection of Velcade in the hospital, patient is able to take p.o. diet,? today? patient c/o bloating and constipation, has not had BM since 08/17, receiving colace, and? miralx without relief, patient is passing gas, on 08/20 gave suppository,? since then patient has had several BMs and few today,?on 08/21 patient was seen by Dr. Mccracken switched her tube feeding to Nephro and adjusted her flushes,? today again discussed with the patient daughter and her , patient is requesting hospital bed and bedside commode will discuss with social service, patienti is also considering going to SNF for rehab, priror to going home, patient was seen by GI and noted slight erythema along PEG and some pus, culture was collected,and topical triple abx is ordered, culture is growing Pseudomonas aeruginosa discussed with ID pharmacist recommended Levaquin p.o. 7 days, will follow, ? patient states looking forward to going home soon possibly tomorrow, patient is seen by GI and and Nephrology, also communicated with oncologist for chemo therapy while in the hospital, plan is to receive chemotherapy on Tuesday his outpatient, further recommendation to follow, (2) Protein calorie malnutrition: Code(s): E46 - Unspecified protein-calorie malnutrition Status: Acute (3) Recent urinary tract infection: Code(s): Z87.440 - Personal history of urinary (tract) infections Status: Acute (4) Elevated LFTs: Code(s): R79.89 - Other specified abnormal findings of blood chemistry Status: Acute (5) 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 Hamilton office for further treatment and evaluation of acute on chronic kidney injury. # Acute on chronic kidney disease stage 3: Rece
[2022-08-24] MEDS: levoFLOXacin 750 MG TABLET PO (17:43)
[2022-08-24] MEDS: POTASSIUM CHLORIDE 20 MEQ PACKET (FOR LIQUID) 40 MEQ FEED TUBE (17:44)
[2022-08-24] MEDS: ALPRAZolam (*CRX) 0.5 MG TABLET PO (20:09)
[2022-08-24 21:07] VITALS: BP 124/59; PULSE 85; RESP 18; TEMP 36.4; O2SAT 94
[2022-08-25] MEDS: METOCLOPRAMIDE HCL INJ 10 MG/2 ML VIAL IV PUSH ×3 (00:22→13:23)
[2022-08-25 04:59] VITALS: BP 125/63; PULSE 78; RESP 18; TEMP 36.4; O2SAT 95
[2022-08-25] MEDS: BUMETANIDE INJ 1 MG/4 ML VIAL IV PUSH ×2 (06:06→13:24)
[2022-08-25] MEDS: LEVOTHYROXINE SODIUM 75 MCG TABLET PO (06:06)
[2022-08-25] MEDS: ALBUMIN HUMAN 25% 25 GM/100 ML 100 ML IVPB ×2 (06:06→13:23)
[2022-08-25 06:19] LABS: Hematocrit 26.4 % (37.0-47.0); Hemoglobin 8.5 g/dL (12.0-15.0); Mean Corpuscular HGB Conc 32.2 g/dl (32-36); Mean Corpuscular Hemoglobin 31.3 pg (26-34); Mean Corpuscular Volume 97.1 fl (80-100); Platelet Count Result 262 k/mm3 (150-375); Red Blood Count 2.72 M/mm3 (4.2-5.4); White Blood Count 10.7 K/mm3 (4.5-10.0)
[2022-08-25 06:35] LABS: Alanine Aminotransferase 57 U/L (6-35); Albumin Level 2.7 g/dL (3.5-5.1); Alkaline Phosphatase 162 U/L (38-126); Anion Gap 5 mmol/L (8-16); Aspartate Amino Transferase 66 U/L (14-36); Bilirubin,Total 0.4 mg/dL (0.2-1.3); Blood Urea Nitrogen 55 mg/dL (7-17); Calcium 7.2 mg/dL (8.4-10.2); Carbon Dioxide 22 mmol/L (22-30); Chloride 107 mmol/L (98-107); Estimated CRCL calculation 22 ml/min; Estimated Glomerular Filt Rate 24; Glucose 76 mg/dL (65-110); Magnesium 1.9 mg/dL (1.6-2.3); Phosphorus 3.8 mg/dL (2.5-4.5); Potassium 2.6 mmol/L (3.4-5.0); Sodium 134 mmol/L (137-145)
[2022-08-25] MEDS: ROSUVASTATIN 10 MG TABLET 40 MG PO (08:46)
[2022-08-25] MEDS: POTASSIUM CHLORIDE INJ 40 MEQ in SODIUM CHLORIDE 0.9% IV 500 ML 130 MEQ IVPB (08:46)
[2022-08-25] MEDS: POTASSIUM CHLORIDE 20 MEQ PACKET (FOR LIQUID) 40 MEQ PO (08:46)
[2022-08-25] MEDS: SIMETHICONE 125 MG CHEW TAB PO ×2 (08:47→13:23)
[2022-08-25] MEDS: HEPARIN SODIUM 5,000 UNITS/ML VIAL 5000 UNITS SUB-Q (08:47)
[2022-08-25] MEDS: ACYCLOVIR 400 MG TABLET PO (08:47)
[2022-08-25] MEDS: polyethylene glycoL 3350 17 GM POWD.PACK PO (08:47)
[2022-08-25] MEDS: PANTOPRAZOLE 40 MG TABLET PO (08:47)
[2022-08-25] MEDS: MIDODRINE HCL 10 MG TABLET PO ×2 (08:47→13:23)
[2022-08-25] MEDS: ZINC SULFATE 220 MG CAPSULE PO (08:47)
[2022-08-25] MEDS: SACCHAROMYCES BOULARDII 250 MG CAPSULE PO ×2 (08:47→13:23)
[2022-08-25] MEDS: metOLazone 2.5 MG TABLET PO (08:48)
[2022-08-25] MEDS: HYDROCORTISONE 1% 30 GM OINTMENT 1 APPLIC TOPICAL (08:48)
[2022-08-25] MEDS: NEOMYCIN/POLYMYXIN/BACITRACIN OINTMENT 15 GM TUBE 1 APPLIC TOPICAL (08:48)
[2022-08-25] MEDS: CENTRAL LINE FLUSH 10 ML IV PUSH (13:24)
[2022-08-25 14:00] VITALS: BP 103/58; PULSE 77; RESP 18; TEMP 36.3; O2SAT 95
[2022-08-25 14:35] LABS: Potassium 3.6 mmol/L (3.4-5.0)
--- NOTE | 2022-08-25 14:53 | PCPTNOTE ---
Attempted to see patient for PT, however hospitalist was discussing with patient at this time.
--- NOTE | 2022-08-25 15:09 | PM.DS ---
DS: Admitting Diagnosis Discharge Date 08/25/2022 Admitting Diagnosis generalized weakness DS: Discharge Diagnosis Discharge Diagnosis (1) Aelkq-fb-ezwsbby kidney injury: Code(s): N17.9 - Acute kidney failure, unspecified; N18.9 - Chronic kidney disease, unspecified Status: Acute (2) Protein calorie malnutrition: Code(s): E46 - Unspecified protein-calorie malnutrition Status: Acute (3) Recent urinary tract infection: Code(s): Z87.440 - Personal history of urinary (tract) infections Status: Acute (4) Elevated LFTs: Code(s): R79.89 - Other specified abnormal findings of blood chemistry Status: Acute (5) AL amyloidosis: Code(s): 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 Hamilton office for further treatment and evaluation of acute on chronic kidney injury. # Acute on chronic kidney disease stage 3:? Recently treated for UTI with Bactrim.? Poor p.o. intake.? Creatinine 2.6 on admission.? Baseline high 1s to 2s.? Started on IV hydration.? Bactrim was discontinued.? Nephrology consulted.? Currently back to baseline mostly. continue to follow as an outpatient basis. On Bumex and metolazone as suggested by career and transition teacher # Anasarca: Ongoing problem.? Hypoalbuminemic.? Poor nutrition 1 of the reason.? Also has amyloidosis.? Prealbumin 34.1.? Limited on diuretic use because of hypotension.? Also has Heavy proteinuria. On Bumex and metolazone as suggested still has significant lower extremity edema. Leg elevation # UTI:? Started on cefepime to complete the treatment.? Urine culture with E coli sensitive to cefepime . 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 Need to start chemotherapy which is scheduled this coming Tuesday. Small-bowel biopsy also positive for amyloidosis # hypotension limiting adequate diuresis on albumin and midodrine. # depression citalopram # hyponatremia: mild stable # protein calorie malnutrition: Started on TPN During the hospital stay.? On 08/11/2022 EGD was normal status post PEG tube placement in tube feeds running. continue in concurrent TPN and tube feeds until? tube feeds are well tolerated continue tube feed bolus at home # general debility # elevated liver enzymes:? Mild.? Likely related to amyloidosis as well continue to monitor.? Constipation and bloating on bowel regimen also on Reglan which will be continued Erythema around G-tube site culture grew Pseudomonas aeruginosa. Levaquin for 7 days. Disposition: In for SNF placement however no beds available and hence home health arranged Time Spent with Patient Time attestation: Total time spent providing and/or coordinating discharge services: 50 minutes Exam Narrative: Patient is comfortable, NAD HEENT: eyes are clear and none icteric LUNGS:Normal respiratory effort ABD: Mildly distended, soft nontender peg tube in situ Lower extremities: Bilateral lower extremity edema pitting SKIN: nonjaundiced Neuro: grossly intact. Alert and oriented x3 DS: Data Data Completed and Pending Completed studies during hospitalization: Pending at discharge 08/11/22 12:38 Surgical [PTH] Routine Labs on day of discharge: Labs from last 24 hours 08/25/22 08/25/22 08/25/22 14:13 06:06 06:06 WBC 10.7 H RBC 2.72 L Hgb 8.5 L Hct 26.4 L MCV 97.1 MCH 31.3 MCHC 32.2 RDW 17.0 H Plt Count 262 MPV 12.0 H Sodium 134 L Potassium 3.6 2.6 L* Chloride 107 Carbon Dioxide 22 Anion Gap 5 L BUN 55 H Creatinine 2.00 H Estim Creat Clear Calc 22 Estimated GFR 24 L Glucose 76 Calcium 7.2 L Phosphorus 3.8 Magnesium 1.9 Total Bilirubin 0.4 AST 66 H ALT 5
[2022-08-25] MEDS: HEPARIN SODIUM LOCK FLUSH 500 UNITS/5 ML SYRINGE IV PUSH (15:55)
== END 2022-08-25 17:05 | disposition home health service (06) | DRG 683 ==
PROVIDERS: Family Medicine; Internal Medicine; Internal Medicine Gastroenterology; Physician Assistant; Admitting Provider Internal Medicine; PCP Family Medicine Adolescent Medicine; Visit Provider Internal Medicine
PROC: 0DJ08ZZ Inspection of Upper Intestinal Tract, Via Natural or Artificial Opening Endoscopic (ICD-10-PCS; CPT 43235; principal; 2022-08-11 13:00)
PROC: 0DH63UZ Insertion of Feeding Device into Stomach, Percutaneous Approach (ICD-10-PCS; CPT 43246; principal; 2022-08-13 14:00)
DX: N17.9 Acute kidney failure, unspecified (principal); E46 Unspecified protein-calorie malnutrition; E85.81 Light chain (AL) amyloidosis; N39.0 Urinary tract infection, site not specified; E87.1 Hypo-osmolality and hyponatremia; I12.9 Hypertensive chronic kidney disease with stage 1 through stage 4 chronic kidney disease, or unspecified chronic kidney disease; N18.32 Chronic kidney disease, stage 3b; R79.89 Other specified abnormal findings of blood chemistry; B96.20 Unspecified Escherichia coli [E. coli] as the cause of diseases classified elsewhere; I95.9 Hypotension, unspecified; F32.A Depression, unspecified; K59.00 Constipation, unspecified; R53.81 Other malaise; Z92.21 Personal history of antineoplastic chemotherapy; Z88.5 Allergy status to narcotic agent; Z87.440 Personal history of urinary (tract) infections; Z82.3 Family history of stroke; Z83.3 Family history of diabetes mellitus; Z80.0 Family history of malignant neoplasm of digestive organs; Z82.49 Family history of ischemic heart disease and other diseases of the circulatory system; Z80.3 Family history of malignant neoplasm of breast; Z79.899 Other long term (current) drug therapy; Z85.3 Personal history of malignant neoplasm of breast; Z68.27 Body mass index [BMI] 27.0-27.9, adult
CPT/HCPCS: 36415; 43246; 43752; 74018; 80047; 80048; 80053; 82948; 83735; 84100; 84132; 84134; 84466; 84478; 85025; 85027; 85610; 85730; 85999; 87070; 87077; 87186; 87205; 88305; 88313; 92610; 96365; 96375; 96401; 97110; 97116; 97161; 97165; 97530; 97535; A9270; G0378; G0379; J0690; J0692; J1100; J1200; J1642; J1644; J2370; J2405; J2469; J2704; J2765; J3475; J3480; J7030; J7040; J7120; J9041; J9144; P9047

== ENCOUNTER 2022-09-16 05:46 | Emergency (ER) | payer MEDICARE, SELFPAY ==
[2022-09-16 05:51] VITALS: BP 104/71; PULSE 80; RESP 18; TEMP 36.4; O2SAT 99
--- NOTE | 2022-09-16 06:20 | PC.NURSE ---
Pt's old edouard catheter removed. New 16G edouard cath placed. pt tolerated well. UA sent.
[2022-09-16 06:33] LABS: Appearance Urine Clear (Clear); Bacteria Urine None Seen /hpf; Bilirubin Urine Negative (Negative); Blood Urine 2+ (Negative); Color Urine Yellow (Yellow); Glucose Urine UA 1+ mg/dL (Negative); Ketones Urine Negative (Negative); Leukocyte Esterase Ur Trace LEU/UL (Negative); Nitrate Urine Negative (Negative); Non Pathogenic Casts 0-2; Protein Urine 4+ mg/dL (Negative); RBC Urine 51-100 /hpf (0-2); Specific Grav Ur 1.017 (1.001-1.035); Squamous Epithelial Cell Urine None seen /hpf (Few); Urobilinogen Urine 0.2 mg/dL (<2.0); WBC Urine 21-50 /hpf
[2022-09-16 06:41] LABS: Add Urine Microscopic? YES
--- NOTE | 2022-09-16 07:15 | ED.FEMALEGU ---
HPI - Female Genitourinary General Chief complaint: Urogenital-Female Stated complaint: URINARY CATHETER PROBLEMS Time Seen by Provider: 09/16/22 07:13 Source: patient Mode of arrival: EMS Limitations: no limitations History of Present Illness HPI Narrative: Patient is a 72 yo female with a history of AL amyloidosis, hypothyroidism, hyperlipidemia, presenting to the emergency department for evaluation of clogged Mcintosh catheter. Family at bedside helps to provide the history. I spoke directly with the patient, daughter, patient's . They state that she has a chronic indwelling Mcintosh catheter that they cannot get to drain overnight. Patient was reporting lower abdominal pain. Yesterday she had a small amount of blood present in the Mcintosh catheter. They had not noticed any purulence or cloudiness to the urine. She denies fever, chills, nausea, vomiting or flank pain. who takes her vital signs daily, states that she has also had no fever. Patient denies any rash, sores. No chest pain, cough. No upper abdominal pain. Patient's timber surveyor is Dr. Preston. Related Data Allergies Allergy/AdvReac Type Severity Reaction Status Date / Time gabapentin Allergy Swelling Verified 09/07/22 15:04 nitrofurantoin AdvReac Mild Nausea Verified 09/07/22 15:04 codeine AdvReac Unknown Diarrhea Verified 09/07/22 15:04 Review of Systems Review of Systems: CONSTITUTIONAL: Denies fever, chills, or sweats. EYES: Denies visual changes, redness, or discharge. ENT: Denies rhinorrhea, congestion, sore throat, or otalgia. CARDIOVASCULAR: Denies chest pain, palpitations, or edema. RESPIRATORY: Denies cough or dyspnea. GASTROINTESTINAL: Suprapubic abdominal pain without nausea, vomiting, or diarrhea. GENITOURINARY: Patient reports Mcintosh catheter irritation but denies dysuria. Small amount of hematuria yesterday. SKIN: Denies rash or itching. MUSCULOSKELETAL: Denies back pain, joint pain, or myalgia. NEUROLOGIC: Denies headache, numbness, or weakness. [facility] Past Medical History Medical History AL amyloidosis Arthritis Cancer of left breast (2006) Status post left mastectomy. Small bowel obstruction (2007) Transient ischemic attack Surgical History Surgical History H/O arthroscopy of right knee H/O left mastectomy (2006) with implant History of abdominal surgery (2007) Lysis of adhesions (laparoscopic) History of bowel resection (2006) For infarction History of cholecystectomy History of hernia repair (2008) Right femoral hernia. History of hysterectomy (06/2020) 06/2020 Family History Family History Sibling A-fib Father Carcinoma of colon Cerebrovascular accident Colon polyp Mother Hypertension Heart disease A-fib Grandparent Diabetes mellitus Other Breast cancer Social History Social History Social History: Surrogate medical decision maker: Axel Turcios, spouse. Code status: Full code. Smoking status: Never smoker Second hand tobacco smoke exposure: No Alcohol intake: never Drinks per week: 2 Alcohol use details: Rarely Substance use: never Substance use type: does not use and former substance user Lack of Transportation: No Lack of Food: Never True Current Housing: I Have Housing Concerned About Future Housing: Decline to Answer Difficulty Paying Gas/Electric Bills: Decline to Answer Difficulty Paying for Meds: Decline to Answer Currently Unemployed: Decline to Answer Education: Decline to Answer Difficulty w/ Childcare or Family Care: Decline to Answer Living arrangements: with family Additional living arrangements comments: Lives with spouse in [place]. Gender identity (if verbalized by the patient): Female Spiritual care concerns:
[2022-09-16 07:33] VITALS: BP 108/72; RESP 16; O2SAT 97
== END 2022-09-16 08:05 | disposition home or self-care (01) ==
PROVIDERS: Emergency Medicine; Emergency Provider Emergency Medicine; PCP Family Medicine Adolescent Medicine
DX: T83.098A Other mechanical complication of other urinary catheter, initial encounter (principal); R31.9 Hematuria, unspecified; E85.81 Light chain (AL) amyloidosis; M19.90 Unspecified osteoarthritis, unspecified site; Z85.3 Personal history of malignant neoplasm of breast; Z90.12 Acquired absence of left breast and nipple; Z86.73 Personal history of transient ischemic attack (TIA), and cerebral infarction without residual deficits; Z90.49 Acquired absence of other specified parts of digestive tract; Z90.710 Acquired absence of both cervix and uterus; Y84.6 Urinary catheterization as the cause of abnormal reaction of the patient, or of later complication, without mention of misadventure at the time of the procedure
CPT/HCPCS: 51702; 81001; 87077; 87086; 87088; 99282; 99283